=== PATIENT | male | born 1940 | race Caucasian/White ===

== ENCOUNTER → 2017-07-11 | Outpatient (REF) | payer MEDICARE ==
[2017-07-14 11:41] LABS: HEPATITIS B SURFACE ANTIBODY NEGATIVE (POSITIVE)
[2017-07-14 11:50] LABS: HEPATITIS B SURFACE ANTIGEN NEGATIVE (NEGATIVE)
[2017-07-14 12:15] LABS: HEPATITIS C VIRUS ABY INDEX < 0.0 INDEX (<0.8)
[2017-07-14 12:16] LABS: HEPATITIS B CORE ANTIBODY IGM NEGATIVE (NEGATIVE)
== END ==
LOC: M LAB REF 17:23
DX: N18.6 End stage renal disease (principal)
CPT/HCPCS: 86706

== ENCOUNTER → 2020-02-03 | Outpatient (CLI) | payer MEDICARE ==
--- NOTE | 2020-02-03 16:36 | REP ---
INDICATION: CHRONIC COMB SYSTOLIC . CHF. COMPARISON: No comparison chest x-ray. TECHNIQUE: Two views.. FINDINGS: There is a multilead pacemaker in the right heart view of the right side. Median sternotomy wires are noted. Mediastinal clips are noted along the left mediastinal contour. Moderate cardiac enlargement is observed. Cardiothoracic ratio 52.6%. Right hemidiaphragm is somewhat elevated. There is platelike atelectasis in the left base versus linear scarring. Pleural angles are sharp. No definite infiltrate. The aorta is calcific and somewhat tortuous. IMPRESSION: Moderate cardiomegaly. Prior sternotomy with of right-sided transvenous pacemaker. Platelike atelectasis left base and elevated right hemidiaphragm. No definite infiltrate.. <Electronically signed by Earl Card > 02/03/20 [id number]
== END ==
LOC: M LAB 09:09
PROVIDERS: ATTEND Internal Medicine Cardiovascular Disease
DX: I25.5 Ischemic cardiomyopathy (principal); I50.42 Chronic combined systolic (congestive) and diastolic (congestive) heart failure; Z95.0 Presence of cardiac pacemaker

== ENCOUNTER 2020-11-18 13:51 | Emergency (ER) | payer MEDICARE ==
[~2020-11-18] VITALS: Ht 180.3 cm; Wt 118.0 kg
[2020-11-18 15:15] VITALS: BP 111/56
== END 2020-11-18 15:44 | disposition home or self-care (01) ==
LOC: M ED 13:51 → EDBD 13:51 → M ED 15:44
DX: I49.1 Atrial premature depolarization (principal); N18.6 End stage renal disease; Z99.2 Dependence on renal dialysis; Z95.0 Presence of cardiac pacemaker; I50.9 Heart failure, unspecified; I12.0 Hypertensive chronic kidney disease with stage 5 chronic kidney disease or end stage renal disease; E78.5 Hyperlipidemia, unspecified; Z95.5 Presence of coronary angioplasty implant and graft

== ENCOUNTER 2020-12-19 14:27 | Inpatient (IN) | payer MEDICARE ==
[~2020-12-19] VITALS: Ht 180.3 cm; Wt 117.2 kg
[2020-12-19 15:18] LABS: BASO % 0.3 % (0.0-1.0); EOS # 0.1 10^3/uL (0.0-0.5); EOS % 0.7 % (0.0-3.0); HEMATOCRIT 38.3 % (42.0-52.0); HEMOGLOBIN 11.9 g/dl (13.5-17.5); LYMPH # 1.2 10^3/uL (1.5-5.0); LYMPH % 13.1 % (24.0-44.0); MEAN CORPUSCULAR HEMOGLOBIN 33.4 pg (27.0-33.0); MEAN CORPUSCULAR HGB CONC 31.1 g/dl (32.0-36.5); MEAN CORPUSCULAR VOLUME 107.6 fl (80.0-96.0); MONO # 0.8 10^3/uL (0.0-0.8); MONO % 8.6 % (2.0-8.0); NEUTROPHILS # 7.2 10^3/uL (1.5-8.5); NEUTROPHILS % 76.3 % (36.0-66.0); PLATELET COUNT, AUTOMATED 199 10^3/uL (150-450); RED BLOOD COUNT 3.56 10^6/uL (4.30-6.10); WHITE BLOOD COUNT 9.4 10^3/uL (4.0-10.0)
--- NOTE | 2020-12-19 15:26 | REP ---
INDICATION: SOB. COMPARISON: None. TECHNIQUE: Sitting AP portable chest x-ray. FINDINGS: Right hemidiaphragm remains elevated. Cardiomegaly is observed moderate in degree. A multilead pacemaker is seen via the right side. Median sternotomy wires are noted. The patient is rotated somewhat to the right. There is fissural thick fluid in the minor fissure on the right. Pulmonary vascular cephalization and congestion is present. IMPRESSION: CHF pattern with vascular cephalization, small amount of right pleural fluid, and elevated right hemidiaphragm. Pacemaker. <Electronically signed by Earl Card > 12/19/20 [id number]
[2020-12-19] MEDS ORDERED: RENATAB5 PO (15:59)
[2020-12-19] MEDS ORDERED: MAG-400T7 PO (15:59)
[2020-12-19] MEDS ORDERED: CALC1CAP PO (15:59)
[2020-12-19] MEDS ORDERED: PANT40TA29 PO (15:59)
[2020-12-19] MEDS ORDERED: GLIP10TA18 PO (15:59)
[2020-12-19] MEDS ORDERED: CLOP75TA2 PO (15:59)
[2020-12-19] MEDS ORDERED: GABA-1171 PO (15:59)
[2020-12-19] MEDS ORDERED: FEBU40TA2 PO (15:59)
[2020-12-19] MEDS ORDERED: ATOR1TAB21 PO (15:59)
[2020-12-19] MEDS ORDERED: MIDO5TA PO (15:59)
[2020-12-19] MEDS ORDERED: CARV3.12 PO (15:59)
[2020-12-19] MEDS ORDERED: METO1TAB32 PO (15:59)
[2020-12-19] MEDS ORDERED: LIDO1CRE42 TOP (15:59)
[2020-12-19] MEDS ORDERED: SOD POLYSTYRENE SULFONATE SUSP 15 GM/60 ML UD PO ONE (16:00)
[2020-12-19 16:02] LABS: CALCIUM LEVEL 7.7 MG/DL (8.8-10.2); CK-MB VALUE MASS 5.8 NG/ML (<3.6); CREATININE FOR GFR 15.1 MG/DL (0.70-1.30); GLOMERULAR FILTRATION RATE 3.3 (>42); MB/CK RELATIVE INDEX 6.37 (< OR =4); POTASSIUM SERUM 6.5 MEQ/L (3.5-5.1); RSV AMPLIFICATION NEGATIVE (NEGATIVE); TROPONIN I 0.02 NG/ML (< 0.10)
[2020-12-19] MEDS ORDERED: MED REC COMMENT (16:03)
[2020-12-19] MEDS ORDERED: HOME MED LIST COMPLETE! XX SCH (16:05)
[2020-12-19] MEDS ORDERED: LIDOCAINE 1% SDV 5ML VIAL SC PRN (16:20)
[2020-12-19] MEDS ORDERED: DEXTROSE 50% 50 ML SYRINGE IV PRN (16:55)
[2020-12-19] MEDS ORDERED: GLUCOSE 4GM CHEW TABLET PO PRN (16:55)
[2020-12-19] MEDS ORDERED: GLUCAGON INJ 1MG VIAL SC PRN (16:55)
[2020-12-19] MEDS: HumaLOG INSULIN (NovoLOG) PER UNIT SC SCH ×2 (17:30→21:00)
[2020-12-19] MEDS ORDERED: MIDODRINE 5 MG TAB PO SCH (18:30)
[2020-12-19] MEDS: GABAPENTIN 100 MG CAP PO SCH (21:57)
[2020-12-19] MEDS: HEPARIN SOD (PORCINE) 5000UNITS/ML 1ML VIAL/SYRINGE SC SCH (21:57)
[2020-12-19 22:00] VITALS: BP 122/72
--- NOTE | 2020-12-19 22:36 | CR ---
NEPHROLOGY CONSULTATION DATE: 12/19/2020 REQUESTING PHYSICIAN: Dr. Josse Shaw CONSULTING PHYSICIAN: Dr. Angie Cadet REASON FOR CONSULTATION: Management of end-stage renal disease, hyperkalemia and fluid overload. CHIEF COMPLAINT: The patient was brought into the Emergency Room after missing multiple sessions of dialysis. HISTORY OF PRESENT ILLNESS: Dell Richard is a 80-year-old male with a past medical history of end-stage renal disease, on hemodialysis, history of coronary artery disease, severe cardiomyopathy, and chronic bradycardia, multiple other comorbidities as mentioned below. He missed his three sessions of dialysis last week, and he attributed this to having abnormal blood sugar levels and having loose stools at home. After missing three sessions of dialysis the patient was called by the dialysis center. He did not fruit picker the phone so police were sent for a welfare check. The police woke him up at home and brought him to the Emergency Room. The patient was felt to be fluid overloaded. He had electrolyte abnormalities with a potassium of 6.5. His BUN was more than 111. He was admitted under the Hospitalist Service. Nephrology Service was called for help with dialysis. I saw and evaluated the patient in the evening at the bedside. I had already arranged his urgent hemodialysis to be done. He was getting his dialysis and tolerating the hemodialysis procedure well. PAST MEDICAL HISTORY: The patient's past medical history is significant for: 1. End-stage renal disease, on hemodialysis q. Friday, , Friday. 2. Coronary artery disease, chest pain CABG. 3. Chronic cardiomyopathy. 4. Bradycardia. 5. Insulin dependent diabetic. 6. Hypertension. 7. Gastroesophageal reflux disease. 8. Obesity. PAST SURGICAL HISTORY: The patient's past surgical history is significant for: 1. Status post CABG and stents. 2. Status post AICD and pacemaker placement. 3. Status post AV fistula placement in the left arm. FAMILY HISTORY: No significant family history of end-stage renal disease. SOCIAL HISTORY: The patient lives alone. He is able to perform his activities of daily life. He denies any smoking, illicit drug abuse or alcohol abuse. ALLERGIES: No known drug allergies. REVIEW OF SYSTEMS: Constitutional: He denies any fevers or chills. Eyes: She denies any blurry vision, double vision. ENT: He denies any dysphagia or odynophagia. Cardiovascular: He reports lower extremity edema and low blood pressures. Respiratory: He reports moderate shortness of breath. Gastrointestinal: He denies any nausea or vomiting. He does report abdominal pain. Genitourinary: He reports decreased urine output. Musculoskeletal: He reports lower extremity edema. Skin: He denies any rashes or ulcers. Psych: He denies any depression or anxiety. Hematological/Oncological: He denies any easy bleeding or bruising. Endocrine: He reports diabetes. All other review of systems is negative. PHYSICAL EXAMINATION: GENERAL APPEARANCE: The patient is awake, alert, oriented times 3, laying in bed in moderate respiratory distress, wearing nasal cannula. VITAL SIGNS: Temperature is 96.9 degrees Fahrenheit, blood pressure was 113/67, pulse is 80, respiratory rate of 18, saturating 93% on room air. GENERAL APPEARANCE: The patient is awake, alert, oriented x3, laying in bed in no apparent distress. HEAD AND NECK: Extraocular muscles intact. Pupils are equally round and reactive to light. Mucous membranes are moist. Neck is supple. There is moderately elevated jugular venous distention. He has facial edema as well. CARDIOVASCULAR: S1, S2, bradycardia, 2+ edema of the bilateral lower extremities. RESPIRATORY: Decreased breath sounds bilaterally at the bases with inspiratory crackles. ABDOMEN: Soft, positive bowel sounds, abdominal wall edema was noted. MUSCULOSKELETAL: No clubbing or cyanosis. Edema of the lower extremities was noted. PROJECT GEOPHYSICIST: No focal deficits. Power is 5/5 in all extremities. LABORATORY REVIEW: CBC showed a WBC of 9.4, hemoglobin 11.9, platelet count 199. BMP showed sodium of 138, potassium 6.5, chloride 99, bicarbonate 25, BUN 111, creatinine is 15.1, calcium 7.7, troponin 0.02. IMAGING: A chest x-ray was done today in the afternoon which showed a CHF pattern with vascular cephalization, small amount of right pleural fluid and elevated right hemidiaphragm. Pacemaker was also noted. CURRENT INPATIENT MEDICATIONS: The patient is on: 1. Lipitor 20 mg daily. 2. Plavix 75 mg daily. 3. Uloric 40 mg p.o. daily. 4. Gabapentin 100 mg p.o. twice daily. 5. Metoprolol XL 25 mL p.o. daily. 6. Midodrine 5 mg p.o. q. h.d. 7. Protonix 40 mg p.o. daily. ASSESSMENT AND PLAN: 1. End-stage renal disease noncompliance with dialysis. The patient missed his one week of dialysis. Urgent hemodialysis is being done today. If needed, another session of dialysis will be done tomorrow morning. 2. Hyperkalemia it is secondary to noncompliance with hemodialysis. The patient is being dialyzed with 1K bath. That should help improve his hyperkalemia. 3. Anemia in end-stage renal disease - hemoglobin is more than 11. No need of Aranesp administration at this time. 4. Chronic hypotension - The patient gets a dose of Midodrine before dialysis. 5. Cardiomyopathy and coronary artery disease - continue current dose of Lipitor and Plavix. I am stopping the Metoprolol. The patient has chronic bradycardia. 6. Chronic gout secondary to chronic kidney disease - continue current dose of Uloric 40 mg p.o. daily. 7. Diabetes mellitus type 2 insulin sliding scale as per Medical Team. Avoid use of Metformin. Thank you for involving me in the care of this patient. I shall be happy to follow the patient along with you tomorrow morning.
[2020-12-19 23:20] LABS: ALBUMIN 3.7 GM/DL (3.2-5.2); BILIRUBIN,TOTAL 0.6 MG/DL (0.2-1.0); CALCIUM LEVEL 8.1 MG/DL (8.8-10.2); CREATININE FOR GFR 10.6 MG/DL (0.70-1.30); MAGNESIUM LEVEL 2.6 MG/DL (1.8-2.4); POTASSIUM SERUM 4.9 MEQ/L (3.5-5.1); TOTAL PROTEIN 7.2 GM/DL (6.4-8.2)
[2020-12-20] MEDS ORDERED: ACETAMINOPHEN 500 MG TAB PO ONE (02:04)
[2020-12-20] MEDS ORDERED: ACETAMINOPHEN 500 MG TAB As Ordered ONE (02:45)
--- NOTE | 2020-12-20 05:33 | ECGEPIP ---
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
[2020-12-20] MEDS ORDERED: LIDOCAINE 1% SDV 5ML VIAL SC PRN (06:00)
[2020-12-20] MEDS: HEPARIN SOD (PORCINE) 5000UNITS/ML 1ML VIAL/SYRINGE SC SCH ×3 (06:10→20:34)
--- NOTE | 2020-12-20 06:11 | IPNPDOC ---
Text Note Date of Service The patient was seen on 12/20/20. NOTE Notified pt with asymptomatic bradycardia; concern for heart block. Pt with a icd/ pacer. EKG obtained and shows widened qrs. qtc 555. LBBB, PVCs noted on ekg. No previous ekg on file to compare. Pt seen at bedside and reports he "feels fine". He is on 2lNC and endorses cpap nocturnally. Pt reports he sees Dr. Salinas for cardiology. He reports it has been less than a year since last interrogation. He describes a monitoring device and cardiology reviews rhythms on monthly basis. Electrolytes redrawn with K 4.9 mag 2.6. EKG vent rate 90 bpm. Pt CTA, he does have notable extrasystoles with auscultation. He has not been given metoprolol, this has been held today. Plan for continued monitoring. CPAP ordered. Update: during AM, notified again tele with concern for pt pauses 3 to 4 seconds. Pt still without complaints. He had not had CPAP placed, only 2L NC. Stat EKG ordered. qtc 538. pacer spikes noted vent rate 70. PVCs and again wide QRS. Tele strips on file. Consider cardiology feedback/ consult for possible pacer interrogation. Metoprolol is held presently. AM labwork to be obtained now for electrolyte monitoring- pt is to go for HD today. He remains full code. VS,Fishbone, I+O VS, Fishbone, I+O Laboratory Tests 12/19/20 14:47 12/19/20 22:35 Vital Signs Date Time Temp Pulse Resp B/P (MAP) Pulse Ox O2 Delivery O2 Flow Rate FiO2 12/19/20 22:00 98.0 57 17 122/72 (89) 98 Nasal Cannula 4.0 I&O- Last 24 Hours up to 6 AM 12/20/20 06:00 Intake Total 300 ml Output Total 3500 ml Balance -3200 ml YUVAL KEYES NP Dec 20, 2020 05:46
[2020-12-20 06:16] VITALS: BP_SYST 0; BP_SYST 100; BP_DIAS 0; BP_DIAS 62
[2020-12-20 06:24] LABS: HEMATOCRIT 33.2 % (42.0-52.0); HEMOGLOBIN 10.3 g/dl (13.5-17.5); MEAN CORPUSCULAR HEMOGLOBIN 33.2 pg (27.0-33.0); MEAN CORPUSCULAR VOLUME 107.1 fl (80.0-96.0); PLATELET COUNT, AUTOMATED 155 10^3/uL (150-450); WHITE BLOOD COUNT 8.5 10^3/uL (4.0-10.0)
--- NOTE | 2020-12-20 06:29 | ECGEPIP ---
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
--- NOTE | 2020-12-20 06:38 | ECGEPIP ---
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
[2020-12-20 07:28] LABS: BLOOD UREA NITROGEN 67 MG/DL (7-18); CALCIUM LEVEL 7.7 MG/DL (8.8-10.2); CARBON DIOXIDE LEVEL 25 MEQ/L (21-32); CHLORIDE LEVEL 102 MEQ/L (98-107); GLOMERULAR FILTRATION RATE 4.8 (>42); GLUCOSE, FASTING 144 MG/DL (70-100); MAGNESIUM LEVEL 2.7 MG/DL (1.8-2.4); POTASSIUM SERUM 5.1 MEQ/L (3.5-5.1); SODIUM LEVEL 139 MEQ/L (136-145)
[2020-12-20] MEDS ORDERED: MORPHINE 2 MG/ML 1ML VIAL (J2270) IV ONE (08:20)
[2020-12-20] MEDS: HumaLOG INSULIN (NovoLOG) PER UNIT SC SCH ×4 (08:31→20:34)
[2020-12-20] MEDS: ATORVASTATIN 20 MG TAB PO SCH (08:31)
[2020-12-20] MEDS: CLOPIDOGREL 75 MG TAB PO SCH (08:31)
[2020-12-20] MEDS: FEBUXOSTAT 40 MG TABLET (ULORIC) PO SCH (08:31)
[2020-12-20] MEDS: GABAPENTIN 100 MG CAP PO SCH ×2 (08:31→20:33)
[2020-12-20] MEDS: PANTOPRAZOLE 40MG TAB (PROTONIX) PO SCH (08:31)
[2020-12-20 08:43] VITALS: BP 94/60
[2020-12-20] MEDS ORDERED: METOPROLOL SUCC *XL* 25MG TAB (TopROL *XL*) PO SCH (09:00)
--- NOTE | 2020-12-20 09:12 | REP ---
INDICATION: r/o obstruction. COMPARISON: None. FINDINGS: KUB shows the intestinal gas pattern to be nonspecific. The organ silhouettes insofar as delineated are unremarkable. There is no evidence of free intraperitoneal air. The stool pattern is unremarkable IMPRESSION: Nonspecific. <Electronically signed by Maximus Pompa > 12/20/20 0994
[2020-12-20 10:37] LABS: VITAMIN B12 LEVEL 773 PG/ML (247-911)
[2020-12-20 10:38] LABS: FOLATE > 24.0 NG/ML (>5.4)
--- NOTE | 2020-12-20 12:03 | IPNPDOC ---
Subjective Date Seen The patient was seen on 12/20/20. Subjective Chief Complaint/HPI Patient seen and examined at bedside this morning. He complained of having abdominal pain that he attributes " too much fluid". He denied nausea, problems with urination or bowel movements. He also denied shortness of breath, palpitations, and chest pain. Overnight signout patient had 3 to 4-second pauses, PVCs, and wide QRS. Objective Physical Examination Other physical findings PHYSICAL EXAMINATION: VITAL SIGNS: Please see below General: Lying in bed, no acute distress Head/Neck/Throat: Trachea midline, mucous membranes moist Eyes: Sclera anicteric, no erythema or discharge appreciated bilaterally Thorax: Normal respiratory effort on room air, crackles heard bilaterally Cardiovascular: Normal rate, regular rhythm, normal S1, S2; 2+ pitting edema in the lower extremities, JVD difficult to assess due to body habitus Abdomen: Bowel sounds present, soft, tenderness reported with palpation, no rebound, positive fluid wave Genitourinary: No CVA tenderness, no Miller in place Musculoskeletal: Moving all extremities, no edema Skin: Warm, dry Neurologic: Awake, alert, oriented x3. No focal deficits appreciated Assessment /Plan Assessment #Abdominal pain -KUB did not show any acute pathology. Abd u/s did not reveal fluid collection. Pt following today's dialysis reported improvement in his symptoms. #Missed dialysis -Will be going down for dialysis today again with fluid removal. -Does not make any urine therefore will not benefit from any diuretic therapy. #End-stage renal disease -Continue with regular dialysis sessions once acute sessions are completed. #Coronary artery disease -Continue with clopidogrel, metoprolol, and statin therapy -Patient has pacemaker/ICD in place. Overnight there is reported pauses, PVCs and widened QRS. Called [employer] to have pacemaker/icd interrogated; awaiting interrogation. #Hyperlipidemia -Continue with statin therapy #Diabetes mellitus -Hold oral diabetic medications at this time. Sliding scale. Hypoglycemic protocol. Accu-Cheks. -Continue with gabapentin for diabetic neuropathy #DVT prophylaxis Heparin subcu. Plan/VTE VTE Prophylaxis Ordered?: Yes VS, I&O, 24H, Fishbone Vital Signs/I&O Vital Signs Date Time Temp Pulse Resp B/P (MAP) Pulse Ox O2 Delivery O2 Flow Rate FiO2 12/20/20 08:43 94/60 (71) 12/20/20 08:40 18 12/20/20 06:16 98.0 81 98 Nasal Cannula 4.0 I&O- Last 24 Hours up to 6 AM 12/20/20 06:00 Intake Total 300 ml Output Total 3500 ml Balance -3200 ml Laboratory Data 24H LABS Laboratory Tests 2 12/19/20 14:47: Immature Granulocyte % (Auto) 1.0, Neutrophils (%) (Auto) 76.3H, Lymphocytes (%) (Auto) 13.1L, Monocytes (%) (Auto) 8.6H, Eosinophils (%) (Auto) 0.7, Basophils (%) (Auto) 0.3, Neutrophils # (Auto) 7.2, Lymphocytes # (Auto) 1.2L, Monocytes # (Auto) 0.8, Eosinophils # (Auto) 0.1, Basophils # (Auto) 0.0, Nucleated Red Blood Cells % (auto) 0.0, Anion Gap 14, Glomerular Filtration Rate 3.3L, Calcium Level 7.7L, Total Creatine Kinase 91, Creatine Kinase MB 5.8H, Creatine Kinase MB Relative Index 6.37H, Troponin I 0.02, Coronavirus (COVID-19)(PCR) NEGATIVE, Influenza Type A (RT-PCR) NEGATIVE, Influenza Type B (RT-PCR) NEGATIVE, Respiratory Syncytial Virus (PCR) NEGATIVE 12/19/20 21:27: Bedside Glucose (Misc Panel) 124H 12/19/20 22:35: Anion Gap 8, Glomerular Filtration Rate 5.0L, Calcium Level 8.1L, Magnesium Level 2.6H, Total Bilirubin 0.6, Aspartate Amino Transf (AST/SGOT) 6L, Alanine Aminotransferase (ALT/SGPT) 19, Alkaline Phosphatase 68, Total Protein 7.2, Albumin 3.7, Albumin/Globulin Ratio 1.1 12/20/20 01:06: Bedside Glucose (Misc Panel) 184H 12/20/20 06:01: Nucleated Red Blood Cells % (auto) 0.0, Anion Gap 12, Glomerular Filtration Rate 4.8L, Calcium Level 7.7L, Phosphorus Level 6.0H, Magnesium Level 2.7H, Vitamin B12 Level 773, Folate > 24.0 CBC/BMP Laboratory Tests 12/19/20 14:47 12/19/20 22:35 12/20/20 06:01 MADDY CHE M.D. Dec 20, 2020 12:02
[2020-12-20 12:49] LABS: ALBUMIN 3.4 GM/DL (3.2-5.2); TOTAL PROTEIN 6.4 GM/DL (6.4-8.2)
--- NOTE | 2020-12-20 12:57 | IPNPDOC ---
Subjective CC/HPI The patient is a 80-year-old male admitted with a reason for visit of Esrd On Hemodialysis,Hyperkalemia,Noncompliance. Events since last encounter Pt seen during HD again today. Feels much better today. Edema and SOB improving. Urgent HD done yesterday after 1 week. General: Denies: ROS Unobtainable, Chills, Night Sweats, Fatigue, Malaise, Normal Appetite, Other Symptoms Constitutional: Denies: Chills, Fever, Malaise, Night Sweats, Weakness, Fatigue, Weight Loss, Lethargy, Other Eyes: Denies: Pain, Vision change, Conjunctivae inflammation, Eyelid infla mmation, Redness, Other ENT: Denies: Head Aches, Ear Pain, Dysphagia, Sinus Congestion, Post Nasal Drip, Sore Throat, Epistaxis, Other Symptoms Skin: Denies: Rash, Lesions, Jaundice, Bruising, Itching, Dry, Breakdown, Nail Changes, Other Pulmonary: Reports: Dyspnea (Improving) Cardiovascular: Denies: Chest Pain, Palpitations, Orthopnea, Paroxysmal Noc. Dyspnea, Edema, Lt Headedness, Other Symptoms Gastrointestinal: Denies: Nausea, Vomiting, Abdominal Pain, Diarrhea, Constipation, Melena, Hematochezia, Other Symptoms Genitourinary: Denies: Dysuria, Frequency, Incontinence, Hematuria, Retention, Other Symptoms Hematologic: Denies: Bruising, Bleeding Excessively, Petecchia, Purpura, Enlarged Lymph Nodes, Other Hematologic Musculoskeletal: Denies: Neck Pain, Back Pain, Shoulder Pain, Arm Pain, Hand Pain, Leg Pain, Foot Pain, Joint Pain, Muscle Pain, Spasms, Other Symptoms Neurological: Denies: Weakness, Numbness Psych: Reports: Mood Normal Objective Physical Examination General Exam: Alert, No Acute Distress EYE EXAM: PERRLA, Conjunctiva & lids normal, EOMI ENT EXAM: Atraumatic, Mucous membr. moist/pink Neck Exam: Supple, JVD Chest Exam: Clear to auscultation, Normal air movement Heart Exam: Rate Normal, Normal S1, Normal S2 ABDOMEN EXAM: Normal bowel sounds, Soft; No: Tenderness Male Exam: Normal Genital Exam Extremity Exam: Edema (1+ edema); No: Clubbing, Cyanosis Skin Exam: Nl turgor and temperature; No: Rash Neuro Exam: Normal Speech, Strength at 5/5 X4 ext Psych Exam: Mental status NL, Mood NL Vital Signs/I&O Vital Signs Date Time Temp Pulse Resp B/P (MAP) Pulse Ox O2 Delivery O2 Flow Rate FiO2 12/20/20 08:43 94/60 (71) 12/20/20 08:40 18 12/20/20 06:16 98.0 81 98 Nasal Cannula 4.0 I&O- Last 24 Hours up to 6 AM 12/20/20 06:00 Intake Total 300 ml Output Total 3500 ml Balance -3200 ml Laboratory Data Labs 24H Laboratory Tests 2 12/19/20 14:47: Immature Granulocyte % (Auto) 1.0, Neutrophils (%) (Auto) 76.3H, Lymphocytes (%) (Auto) 13.1L, Monocytes (%) (Auto) 8.6H, Eosinophils (%) (Auto) 0.7, Basophils (%) (Auto) 0.3, Neutrophils # (Auto) 7.2, Lymphocytes # (Auto) 1.2L, Monocytes # (Auto) 0.8, Eosinophils # (Auto) 0.1, Basophils # (Auto) 0.0, Nucleated Red Blood Cells % (auto) 0.0, Anion Gap 14, Glomerular Filtration Rate 3.3L, Calcium Level 7.7L, Total Creatine Kinase 91, Creatine Kinase MB 5.8H, Creatine Kinase MB Relative Index 6.37H, Troponin I 0.02, Coronavirus (COVID-19)(PCR) NEGATIVE, Influenza Type A (RT-PCR) NEGATIVE, Influenza Type B (RT-PCR) NEGATIVE, Respiratory Syncytial Virus (PCR) NEGATIVE 12/19/20 21:27: Bedside Glucose (Misc Panel) 124H 12/19/20 22:35: Anion Gap 8, Glomerular Filtration Rate 5.0L, Calcium Level 8.1L, Magnesium Level 2.6H, Total Bilirubin 0.6, Aspartate Amino Transf (AST/SGOT) 6L, Alanine Aminotransferase (ALT/SGPT) 19, Alkaline Phosphatase 68, Total Protein 7.2, Albumin 3.7, Albumin/Globulin Ratio 1.1 12/20/20 01:06: Bedside Glucose (Misc Panel) 184H 12/20/20 06:01: Nucleated Red Blood Cells % (auto) 0.0, Anion Gap 12, Glomerular Filtration Rate 4.8L, Calcium Level 7.7L, Phosphorus Level 6.0H, Magnesium Level 2.7H, Total Protein 6.4, Albumin 3.4, Vitamin B12 Level 773, Folate > 24.0 CBC/BMP Laboratory Tests 12/19/20 14:47 12/19/20 22:35 12/20/20 06:01 FSBS Laboratory Tests Test 12/19/20 21:27 12/20/20 01:06 Range/Units Bedside Glucose (Misc Panel) 124 184 83-110 MG/DL Current Medications Current Medications Medications (Trade) Dose Ordered Sig/Lisa Route PRN Reason Start Time Stop Time Status Last Admin Dose Admin Atorvastatin Calcium (Lipitor) 20 mg DAILY PO 12/20/20 09:00 12/20/20 08:31 Clopidogrel Bisulfate (PLAVix) 75 mg DAILY PO 12/20/20 09:00 12/20/20 08:31 Dextrose (Dextrose 50%) 25 ml ASDIRECTED PRN IV SEE LABEL COMMENTS 12/19/20 16:55 Febuxostat (Uloric) 40 mg DAILY PO 12/20/20 09:00 12/20/20 08:31 Gabapentin (Neurontin) 100 mg BID PO 12/19/20 21:00 12/20/20 08:31 Glucagon (Glucagon) 1 mg ASDIRECTED PRN SC SEE LABEL COMMENTS 12/19/20 16:55 Glucose (Glucose) 16 GM ASDIRECTED PRN PO SEE LABEL COMMENTS 12/19/20 16:55 Heparin Sodium (Heparin) Please refer to ... ASDIRECTED XX 12/19/20 16:20 12/20/20 16:19 Heparin Sodium (Heparin) Please refer to ... ASDIRECTED XX 12/20/20 06:00 12/21/20 05:59 Heparin Sodium (Porcine) (Heparin) 5,000 units Q8H SC 12/19/20 22:00 12/20/20 06:10 Home Med (Home Med List Complete!) ASDIRECTED XX 12/19/20 16:05 12/19/20 16:05 DC Insulin Human Lispro (HumaLOG INSULIN) SEE PROTOCOL TABLE AC SC 12/19/20 17:30 12/20/20 08:31 Insulin Human Lispro (HumaLOG INSULIN) SEE PROTOCOL TABLE QHS SC 12/19/20 21:00 Lidocaine HCl (Lidocaine 1% Sdv) 0.5 ml ASDIRECTED PRN SC SEE LABEL COMMENTS 12/19/20 16:20 12/20/20 16:19 Lidocaine HCl (Lidocaine 1% Sdv) 0.5 ml ASDIRECTED PRN SC SEE LABEL COMMENTS 12/20/20 06:00 12/20/20 21:59 Metoprolol Succinate (TopROL XL) 25 mg DAILY PO 12/20/20 09:00 12/19/20 23:23 DC Midodrine (Proamatine) 5 mg HD PO 12/19/20 18:30 Pantoprazole Sodium (Protonix) 40 mg DAILY PO 12/20/20 09:00 12/20/20 08:31 Allergies Coded Allergies: No Known Allergies (Verified Allergy, Unknown, 12/19/20) Assessment/Plan Date Seen The patient was seen on 12/20/20 at 12:53. Plan / VTE VTE Prophylaxis Ordered?: Yes Plan Orders past 48 Hours Orders Ed Insert Saline Lock Iv (12/19/20 ) Ed Continuous Intake Counselor (12/19/20 ) Ed Continuous Pulse Oximetry (12/19/20 ) Ecg With Reading Er Phys (12/19/20 14:42) Cbc With Differential (12/19/20 14:42) Basic Metabolic Profile (12/19/20 14:42) Cardiac Marker Panel (12/19/20 14:42) Chest, 1 View (12/19/20 14:42) Influenza A/B Rsv Covid Amp (12/19/20 14:42) Bed Request (12/19/20 14:42) Home Med List Complete! (Home Med List C (12/19/20 16:05) Bed Request (12/19/20 16:06) Hemodialysis Acute Orders (12/19/20 16:17) Heparin (Heparin) (12/19/20 16:20) Lidocaine 1% Sdv (Lidocaine 1% Sdv) (12/19/20 16:20) Admission / Observation Status (12/19/20 16:40) Remote Telemetry 48 Hr Order (12/19/20 16:40) Code Status (12/19/20 16:40) Vital Signs Standard Of Care (12/19/20 16:40) Activity As Tolerated (12/19/20 16:40) Intake & Output: Qmp Order (12/19/20 16:40) Fsbs Ac&Hs (Fingerstick) ACHS (12/19/20 16:40) Saline Lock Iv (12/19/20 16:40) Notify Provider If: (12/19/20 16:40) Oxygen Therapy Orders (12/19/20 16:40) Consistent Carbohydrates (12/19/20 Dinner) Heparin (Heparin) (12/19/20 22:00) Complete Blood Count (12/20/20 06:00) Basic Metabolic Profile (12/20/20 06:00) Magnesium Level (12/20/20 06:00) Phosphorous Level (12/20/20 06:00) Hypoglycemic Protocol (12/19/20 16:54) Insulin Lispro (Humalog Insulin) (12/19/20 17:30) Insulin Lispro (Humalog Insulin) (12/19/20 21:00) D50w (Dextrose 50%) (12/19/20 16:55) Glucose (Glucose) (12/19/20 16:55) Glucagon (Glucagon) (12/19/20 16:55) Physician Consult (Other) (12/19/20 16:55) Atorvastatin (Lipitor) (12/20/20 09:00) Clopidogrel Bisulfate (Plavix) (12/20/20 09:00) Febuxostat (Uloric) (12/20/20 09:00) Gabapentin (Neurontin) (12/19/20 21:00) Metoprolol Succinate (Toprol Xl) (12/20/20 09:00) Midodrine Hcl (Proamatine) (12/19/20 18:30) Pantoprazole Dr (Protonix) (12/20/20 09:00) Folate (12/20/20 06:00) Vitamin B12 Level (12/20/20 06:00) Fingerstick Blood Sugar (12/19/20 21:27) Hemodialysis Acute Orders (12/20/20 06:00) Heparin (Heparin) (12/20/20 06:00) Lidocaine 1% Sdv (Lidocaine 1% Sdv) (12/20/20 06:00) Complete Comphrensive Metaboli (12/19/20 22:17) Magnesium Level (12/19/20 22:17) * Nursing Order * (12/19/20 22:19) Electrocardiogram Adult (12/19/20 23:14) May Use Own Cpap/Bipap (12/20/20 00:13) Fingerstick Blood Sugar (12/20/20 01:06) Acetaminophen Tab (Tylenol Tab) (12/20/20 02:04) Electrocardiogram Adult (12/20/20 05:31) Abdomen,Flat Plate Kub (12/20/20 08:14) Paracentesis Needle Place Us (12/20/20 08:14) Morphine Sulfate Inj (Morphine Sulfate I (12/20/20 08:20) Cell Count Peritoneal Fluid (12/20/20 10:22) Total Protein, Body Fluid (12/20/20 10:22) Albumin, Body Fluid (12/20/20 10:22) Body Fluid Culture And Gs (12/20/20 10:22) Complete Blood Count (12/21/20 06:00) Basic Metabolic Profile (12/21/20 06:00) Magnesium Level (12/21/20 06:00) Phosphorous Level (12/21/20 06:00) Albumin (12/20/20 06:01) Total Protein (12/20/20 06:01) Plan Text 1. End-stage renal disease noncompliance with dialysis. The patient missed his one week of dialysis. 2nd sessions of HD today. UF goal 3.5Kg 2. Hyperkalemia: resolved with HD yesterday. Use 2K bath today. 3. Anemia in end-stage renal disease - SAIDA if Hb<10 4. Chronic hypotension - The patient gets a dose of Midodrine before dialysis. 5. Cardiomyopathy and coronary artery disease - continue current dose of Lipitor and Plavix. Volume status to be optimized with HD. 6. Chronic gout secondary to chronic kidney disease - continue current dose of Uloric 40 mg p.o. daily. 7. Diabetes mellitus type 2 insulin sliding scale as per Medical Team. Avoid use of Metformin. MARSHAL TADEO MD Dec 20, 2020 12:56
[2020-12-20 14:00] VITALS: BP 114/52
[2020-12-20] MEDS ORDERED: SODIUM BICARBONATE 8.4% INJ 50MEQ 50 ML VIAL As Ordered ONE (15:52)
--- NOTE | 2020-12-20 16:05 | ECGEPIP ---
[facility] Test Date: 2020-12-20 Pat Name: KIYA FALK Department: Room: [place] [address] Gender: Male Head [employer] Grinder: AMI : 1940 Requested By: MADDY Clifford Order Number: [id number] Reading MD: Bertha Shaw Measurements Intervals [place] Rate: 70 P: 8 ME: 112 QRS: 156 QRSD: 162 T: 20 QT: 502 QTc: 542 Interpretive Statements AV dual-paced complexes and premature ventricular complexes in a pattern of bigeminy ATRIAL PACING NOW SEEN C/W 12/20/20 Electronically Signed on 12-20-2020 16:05:24 EDT by Bertha Shaw
[2020-12-20 16:21] LABS: ALBUMIN 3.5 GM/DL (3.2-5.2); BILIRUBIN,TOTAL 0.7 MG/DL (0.2-1.0); CALCIUM LEVEL 8.1 MG/DL (8.8-10.2); CREATININE FOR GFR 6.57 MG/DL (0.70-1.30); GLOMERULAR FILTRATION RATE 8.7 (>42); POTASSIUM SERUM 4.2 MEQ/L (3.5-5.1); TOTAL PROTEIN 6.5 GM/DL (6.4-8.2)
--- NOTE | 2020-12-20 16:33 | REP ---
INDICATION: please assess for fluid. Diagnostic and theraputic. COMPARISON: None. TECHNIQUE: Four quadrant ascites survey. Limited abdominal sonography. FINDINGS: Four quadrant survey for abdominal ascites shows no visible ascitic fluid in any of the 4 quadrants of the abdomen. IMPRESSION: Negative for ascites. <Electronically signed by Earl Card > 12/20/20 1377
[2020-12-20 22:00] VITALS: BP 105/66
--- NOTE | 2020-12-21 01:22 | HPEPDOC ---
[facility] Medical History & Physical Date of Admission Dec 19, 2020 Date of Service: Dec 19, 2020 History and Physical CHIEF COMPLAINT: " I missed dialysis" HISTORY OF PRESENT ILLNESS: 80-year-old male with a past medical history of end-stage renal disease, coronary artery disease (status post stents and CABG), insulin-dependent diabetes mellitus, hypertension, ?chronic respiratory failure (reports he is on home 02) and GERD presented to the emergency department following missing 3 dialysis sessions. Patient reports he did not attend to his first missed dialysis session because his blood glucose was low and when he was able to bring it back up he was feeling better and thought he did not need dialysis. He subsequently missed his second dialysis session because he was reportedly having loose stools, which have now resolved. His third dialysis session was reportedly was scheduled for today. This morning he got up to eat breakfast, and went back to sleep, and was not for attending to his cell phone therefore his dialysis center called police to check up on him. Please woke him up and brought him to the emergency department for further evaluation. In the emergency room department he was noted to have metabolic derangements. At this junction, he was lethargic but answering questions appropriately and following commands. He endorsed having abdominal pain that started today which he attributed to possibly having fluid accumulated as this is happened to him before. He denied nausea, vomiting. Otherwise, he denies headaches, blurry vision, focal weakness, palpitations, chest pain, and shortness of breath. Of note, patient is a very poor historian. He reports he lives alone and he has 1 sister in [place]. CODE STATUS was discussed with the patient he wishes to remain full code. PAST MEDICAL HISTORY: As mentioned above PAST SURGICAL HISTORY: 1. Status post stents and CABG 2. AICD/pacemaker in place SOCIAL HISTORY: He lives alone and reports he is normally independent with his ADLs/IADLs. He denies smoking, drinking, and use of recreational drugs. FAMILY HISTORY: Unable to recollect family history ALLERGIES: Please see below. REVIEW OF SYSTEMS: 10 point review of system was negative except for what is noted in the HPI HOME MEDICATIONS: Please see below. PHYSICAL EXAMINATION: VITAL SIGNS: Please see below General: Lying in bed, no acute distress Head/Neck/Throat: Trachea midline, mucous membranes moist Eyes: Sclera anicteric, no erythema or discharge appreciated bilaterally Thorax: Normal respiratory effort on room air, crackles heard bilaterally Cardiovascular: Normal rate, regular rhythm, normal S1, S2; 2+ pitting edema in the lower extremities, JVD difficult to assess due to body habitus Abdomen: Bowel sounds present, soft/nontender/nondistended Genitourinary: No CVA tenderness, no Miller in place Musculoskeletal: Moving all extremities, no edema Skin: Warm, dry Neurologic: Awake, alert, oriented x3. He is lethargic but arousable and follows all commands. No focal deficit was appreciated. LABORATORY DATA: See below. IMAGING: Chest x-ray shows findings consistent with pleural edema MICROBIOLOGY: Please see below. ASSESSMENT/PLAN: #Missed dialysis -Will be going down for dialysis today. He would benefit from ultrafiltration. This will be deferred to the nephrology team -Does not make any urine therefore will not benefit from any diuretic therapy. #End-stage renal disease -Continue with regular dialysis sessions #Coronary artery disease -Continue with clopidogrel, metoprolol, and statin therapy #Hyperlipidemia -Continue with statin therapy #Diabetes mellitus -Hold oral diabetic medications at this time. Sliding scale. Hypoglycemic protocol. Accu-Cheks. -Continue with gabapentin for diabetic neuropathy #Chronic respiratory failure -Reports he is on 3-4l at home. This will need to be confirmed. #DVT prophylaxis Heparin subcu. Vital Signs Vital Signs Date Time Temp Pulse Resp B/P (MAP) Pulse Ox O2 Delivery O2 Flow Rate FiO2 12/19/20 14:40 98.2 79 24 126/72 (90) 98 Room Air 2.0 Laboratory Data Labs 24H Laboratory Tests 2 12/19/20 14:47: Immature Granulocyte % (Auto) 1.0, Neutrophils (%) (Auto) 76.3H, Lymphocytes (%) (Auto) 13.1L, Monocytes (%) (Auto) 8.6H, Eosinophils (%) (Auto) 0.7, Basophils (%) (Auto) 0.3, Neutrophils # (Auto) 7.2, Lymphocytes # (Auto) 1.2L, Monocytes # (Auto) 0.8, Eosinophils # (Auto) 0.1, Basophils # (Auto) 0.0, Nucleated Red Blood Cells % (auto) 0.0, Anion Gap 14, Glomerular Filtration Rate 3.3L, Calcium Level 7.7L, Total Creatine Kinase 91, Creatine Kinase MB 5.8H, Creatine Kinase MB Relative Index 6.37H, Troponin I 0.02, Coronavirus (COVID-19)(PCR) NEGATIVE, Influenza Type A (RT-PCR) NEGATIVE, Influenza Type B (RT-PCR) NEGATIVE, Respiratory Syncytial Virus (PCR) NEGATIVE CBC/BMP Laboratory Tests 12/19/20 14:47 Home Medications Scheduled Atorvastatin Calcium (Atorvastatin Calcium) 20 Mg Tablet, 20 MG PO DAILY Calcium Acetate (Calcium Acetate) 667 Mg Capsule, 667 MG PO WM Clopidogrel Bisulfate (Clopidogrel) 75 Mg Tablet, 75 MG PO DAILY Febuxostat (Febuxostat) 40 Mg Tablet, 40 MG PO DAILY Folic Acid/Vit B Complex and C (Gloria-Lety Tablet) 0.8 Mg Tablet, 1 TAB PO Q2D Gabapentin (Gabapentin) 100 Mg Capsule, 100 MG PO BID Glipizide (Glipizide ER) 10 Mg Tab.er.24, 10 MG PO DAILY Lidocaine/Prilocaine (Lidocaine-Prilocaine Cream) 2.5%/2.5% Cream..g., 1 APLCT TOP HD Magnesium Oxide (Magnesium Oxide) 400 Mg Tablet, 400 MG PO BID Metoprolol Succinate (Metoprolol Succinate) 25 Mg Tab.er.24h, 25 MG PO DAILY Midodrine HCl (Midodrine HCl) 5 Mg Tablet, 5 MG PO HD Pantoprazole Sodium (Pantoprazole Sodium) 40 Mg Tablet.dr, 40 MG PO DAILY Miscellaneous Medications [Med Rec Comment] LIST OBTAINED FROM PHARMACY, PT UNABLE TO VERIFY Allergies Coded Allergies: No Known Allergies (Verified Allergy, Unknown, 12/19/20) A-FIB/CHADSVASC A-FIB History Current/History of A-Fib/PAF?: No MADDY CHE M.D. Dec 19, 2020 16:53
[2020-12-21] MEDS ORDERED: ACETAMINOPHEN 500 MG TAB PO ONE (03:30)
[2020-12-21] MEDS ORDERED: carisoprodoL 350 MG TAB PO PRN (03:30)
[2020-12-21] MEDS: HEPARIN SOD (PORCINE) 5000UNITS/ML 1ML VIAL/SYRINGE SC SCH ×3 (05:04→21:25)
[2020-12-21 06:00] VITALS: BP 96/55
[2020-12-21] MEDS: FEBUXOSTAT 40 MG TABLET (ULORIC) PO SCH (06:00)
[2020-12-21] MEDS ORDERED: LIDOCAINE 1% SDV 5ML VIAL SC PRN (06:00)
[2020-12-21] MEDS: PANTOPRAZOLE 40MG TAB (PROTONIX) PO SCH (06:01)
[2020-12-21] MEDS: ATORVASTATIN 20 MG TAB PO SCH (06:01)
[2020-12-21] MEDS: GABAPENTIN 100 MG CAP PO SCH ×2 (06:01→21:25)
[2020-12-21] MEDS: CLOPIDOGREL 75 MG TAB PO SCH (06:01)
[2020-12-21 06:41] LABS: HEMATOCRIT 32.3 % (42.0-52.0); MEAN CORPUSCULAR HEMOGLOBIN 32.9 pg (27.0-33.0); MEAN CORPUSCULAR VOLUME 106.3 fl (80.0-96.0); PLATELET COUNT, AUTOMATED 129 10^3/uL (150-450); RED BLOOD COUNT 3.04 10^6/uL (4.30-6.10); WHITE BLOOD COUNT 7.4 10^3/uL (4.0-10.0)
[2020-12-21 07:08] LABS: CALCIUM LEVEL 7.7 MG/DL (8.8-10.2); CREATININE FOR GFR 8.15 MG/DL (0.70-1.30); GLOMERULAR FILTRATION RATE 6.8 (>42); MAGNESIUM LEVEL 2.2 MG/DL (1.8-2.4); PHOSPHORUS LEVEL 4.8 MG/DL (2.5-4.9); POTASSIUM SERUM 4.7 MEQ/L (3.5-5.1)
[2020-12-21 08:01] VITALS: BP 120/59
[2020-12-21] MEDS: HumaLOG INSULIN (NovoLOG) PER UNIT SC SCH ×4 (09:34→20:42)
[2020-12-21] MEDS: DARBEPOETIN 200MCG/0.4ML *DIALYSIS* SYRINGE (J0882 PER 1MCG) IV SCH (12:31)
[2020-12-21 17:05] VITALS: BP 110/58
[2020-12-21] MEDS: MIRALAX *UNIT DOSE* 17GM PACKET PO SCH (17:30)
--- NOTE | 2020-12-21 21:01 | IPNPDOC ---
Text Note Date of Service The patient was seen on 12/21/20. NOTE Hospitalist Progress Note Subjective: Seen and evaluated at the bedside. He had just received his CPAP machine from home, therefore he was putting this together with the help of the nurse. It is hopeful that this will assist with his breathing throughout the night. He does not have any complaints at this time, he is fatigued, likely due to having dialysis every day for the past 3 days. Otherwise, the remainder of his review of systems is negative. Objective: General: Awake, alert, oriented 3. Not in any acute distress. HEENT: Head normocephalic, atraumatic, sclera are nonicteric. Hearing is grossly intact to conversation. Respiratory: Clear to auscultation bilaterally with no wheezes, rales, or rhonchi. Cardiovascular: Regular rate and rhythm, with no rubs, gallops, or murmur. Abdomen: Soft, nontender, nondistended, no hepatosplenomegaly appreciated. Bowel sounds present. Extremities: 2+ pulses in the radial and dorsalis pedis bilaterally. No evidence of clubbing or cyanosis. Assessment/Plan: End-stage renal disease requiring dialysis Noncompliance with dialysis -Nephrology has been consulted and is managing his dialysis, their input is greatly appreciated Abdominal pain -Appears to be resolved at this time Coronary artery disease Bradycardia with pauses despite having pacemaker/ICD in place -Continue clopidogrel, metoprolol, statin -There is a question as to whether or not his pacemaker/ICD is malfunctioning. Apparently consult for interrogation was made by previous doctor, I have not seen any records regarding this. Hyperlipidemia -Continue statin therapy Diabetes mellitus Diabetic neuropathy -Continue insulin per sliding scale -Continue gabapentin DVT prophylaxis -Heparin VS,Fishbone, I+O VS, Fishbone, I+O Laboratory Tests 12/21/20 06:24 Vital Signs Date Time Temp Pulse Resp B/P (MAP) Pulse Ox O2 Delivery O2 Flow Rate FiO2 12/21/20 17:05 97.3 35 18 110/58 (75) 94 Nasal Cannula 3.0 I&O- Last 24 Hours up to 6 AM 12/21/20 06:00 Intake Total 1680 ml Output Total 3500 ml Balance -1820 ml SHANDRA METZGER DO Dec 21, 2020 21:01
--- NOTE | 2020-12-21 21:09 | IPNPDOC ---
Subjective CC/HPI The patient is a 80-year-old male admitted with a reason for visit of Esrd On Hemodialysis,Hyperkalemia,Noncompliance. Events since last encounter Pt was seen at bedside in AM. He c/o constipation. Still SOB despite HD 2 days in a row. Today is his regular day of HD. General: Denies: Chills, Night Sweats, Fatigue, Malaise Constitutional: Denies: Chills, Fever, Malaise Eyes: Denies: Pain, Vision change ENT: Denies: Head Aches, Ear Pain, Dysphagia Skin: Denies: Rash, Lesions Pulmonary: Reports: Dyspnea; Denies: Cough Cardiovascular: Reports: Orthopnea; Denies: Chest Pain, Palpitations Gastrointestinal: Reports: Constipation; Denies: Nausea, Vomiting Genitourinary: Denies: Dysuria, Frequency Hematologic: Denies: Bruising, Bleeding Excessively Musculoskeletal: Denies: Back Pain Neurological: Denies: Weakness, Numbness Psych: Reports: Mood Normal Objective Physical Examination General Exam: Alert, No Acute Distress EYE EXAM: PERRLA, Conjunctiva & lids normal, EOMI ENT EXAM: Atraumatic, Mucous membr. moist/pink Neck Exam: Supple, JVD Chest Exam: Clear to auscultation, Normal air movement Heart Exam: Rate Normal, Normal S1, Normal S2 ABDOMEN EXAM: Normal bowel sounds, Soft; No: Tenderness Male Exam: Normal Genital Exam Extremity Exam: Edema (1+ edema both legs); No: Clubbing, Cyanosis Skin Exam: Nl turgor and temperature; No: Rash Neuro Exam: Normal Speech, Strength at 5/5 X4 ext Psych Exam: Mental status NL, Mood NL Vital Signs/I&O Vital Signs Date Time Temp Pulse Resp B/P (MAP) Pulse Ox O2 Delivery O2 Flow Rate FiO2 12/21/20 17:05 97.3 35 18 110/58 (75) 94 Nasal Cannula 3.0 I&O- Last 24 Hours up to 6 AM 12/21/20 06:00 Intake Total 1680 ml Output Total 3500 ml Balance -1820 ml Laboratory Data Labs 24H Laboratory Tests 2 12/21/20 06:24: Nucleated Red Blood Cells % (auto) 0.0, Anion Gap 12, Glomerular Filtration Rate 6.8L, Calcium Level 7.7L, Phosphorus Level 4.8, Magnesium Level 2.2 12/21/20 11:18: Bedside Glucose (Misc Panel) 149H 12/21/20 17:10: Bedside Glucose (Misc Panel) 180H 12/21/20 20:39: Bedside Glucose (Misc Panel) 187H CBC/BMP Laboratory Tests 12/21/20 06:24 FSBS Laboratory Tests Test 12/21/20 11:18 12/21/20 17:10 12/21/20 20:39 Range/Units Bedside Glucose (Misc Panel) 149 180 187 83-110 MG/DL Current Medications Current Medications Medications (Trade) Dose Ordered Sig/Lisa Route PRN Reason Start Time Stop Time Status Last Admin Dose Admin Acetaminophen (Tylenol Tab) 650 mg Q6HP PRN PO MILD PAIN or TEMP > 101 12/21/20 03:25 Atorvastatin Calcium (Lipitor) 20 mg DAILY PO 12/20/20 09:00 12/21/20 06:01 Carisoprodol (Soma) 350 mg Q12HP PRN PO generalized pain, moderate 12/21/20 03:30 Clopidogrel Bisulfate (PLAVix) 75 mg DAILY PO 12/20/20 09:00 12/21/20 06:01 Darbepoetin Shant (Aranesp (Dialysis Use)) 200 mcg HD IV 12/21/20 09:05 12/21/20 12:31 Dextrose (Dextrose 50%) 25 ml ASDIRECTED PRN IV SEE LABEL COMMENTS 12/19/20 16:55 Febuxostat (Uloric) 40 mg DAILY PO 12/20/20 09:00 12/21/20 06:00 Gabapentin (Neurontin) 100 mg BID PO 12/19/20 21:00 12/21/20 06:01 Glucagon (Glucagon) 1 mg ASDIRECTED PRN SC SEE LABEL COMMENTS 12/19/20 16:55 Glucose (Glucose) 16 GM ASDIRECTED PRN PO SEE LABEL COMMENTS 12/19/20 16:55 Heparin Sodium (Heparin) Please refer to ... ASDIRECTED XX 12/19/20 16:20 12/20/20 16:19 DC Heparin Sodium (Heparin) Please refer to ... ASDIRECTED XX 12/20/20 06:00 12/21/20 05:59 DC Heparin Sodium (Heparin) Please refer to ... ASDIRECTED XX 12/21/20 06:00 12/22/20 05:59 Heparin Sodium (Porcine) (Heparin) 5,000 units Q8H SC 12/19/20 22:00 12/21/20 17:30 Home Med (Home Med List Complete!) ASDIRECTED XX 12/19/20 16:05 12/19/20 16:05 DC Insulin Human Lispro (HumaLOG INSULIN) SEE PROTOCOL TABLE AC SC 12/19/20 17:30 12/21/20 17:30 Insulin Human Lispro (HumaLOG INSULIN) SEE PROTOCOL TABLE QHS SC 12/19/20 21:00 12/20/20 20:34 Lidocaine HCl (Lidocaine 1% Sdv) 0.5 ml ASDIRECTED PRN SC SEE LABEL COMMENTS 12/19/20 16:20 12/20/20 16:19 DC Lidocaine HCl (Lidocaine 1% Sdv) 0.5 ml ASDIRECTED PRN SC SEE LABEL COMMENTS 12/20/20 06:00 12/20/20 21:59 DC Lidocaine HCl (Lidocaine 1% Sdv) 0.5 ml ASDIRECTED PRN SC SEE LABEL COMMENTS 12/21/20 06:00 12/21/20 23:14 Metoprolol Succinate (TopROL XL) 25 mg DAILY PO 12/20/20 09:00 12/19/20 23:23 DC Midodrine (Proamatine) 5 mg HD PO 12/19/20 18:30 Pantoprazole Sodium (Protonix) 40 mg DAILY PO 12/20/20 09:00 12/21/20 06:01 Polyethylene Glycol (Miralax) 1 pkt DAILY PO 12/21/20 12:30 12/21/20 17:30 Allergies Coded Allergies: No Known Allergies (Verified Allergy, Unknown, 12/19/20) Assessment/Plan Date Seen The patient was seen on 12/21/20 in AM. Plan / VTE VTE Prophylaxis Ordered?: Yes Plan Orders past 48 Hours Orders Fingerstick Blood Sugar (12/19/20 21:27) Hemodialysis Acute Orders (12/20/20 06:00) Heparin (Heparin) (12/20/20 06:00) Lidocaine 1% Sdv (Lidocaine 1% Sdv) (12/20/20 06:00) Complete Comphrensive Metaboli (12/19/20 22:17) Magnesium Level (12/19/20 22:17) * Nursing Order * (12/19/20 22:19) Electrocardiogram Adult (12/19/20 23:14) May Use Own Cpap/Bipap (12/20/20 00:13) Fingerstick Blood Sugar (12/20/20 01:06) Acetaminophen Tab (Tylenol Tab) (12/20/20 02:04) Electrocardiogram Adult (12/20/20 05:31) Abdomen,Flat Plate Kub (12/20/20 08:14) Morphine Sulfate Inj (Morphine Sulfate I (12/20/20 08:20) Cell Count Peritoneal Fluid (12/20/20 10:22) Total Protein, Body Fluid (12/20/20 10:22) Albumin, Body Fluid (12/20/20 10:22) Body Fluid Culture And Gs (12/20/20 10:22) Complete Blood Count (12/21/20 06:00) Basic Metabolic Profile (12/21/20 06:00) Magnesium Level (12/21/20 06:00) Phosphorous Level (12/21/20 06:00) Complete Comphrensive Metaboli (12/20/20 15:06) Electrocardiogram Adult (12/20/20 15:06) Abdomen, Limited Us (12/20/20 08:14) Fingerstick Blood Sugar (12/20/20 17:04) Fingerstick Blood Sugar (12/20/20 20:09) Cpap Inpatient (12/20/20 21:38) Hemodialysis Acute Orders (12/21/20 06:00) Lidocaine 1% Sdv (Lidocaine 1% Sdv) (12/21/20 06:00) Heparin (Heparin) (12/21/20 06:00) Acetaminophen Tab (Tylenol Tab) (12/21/20 03:25) Carisoprodol (Soma) (12/21/20 03:30) Acetaminophen Tab (Tylenol Tab) (12/21/20 03:30) Early Tray (12/21/20 08:45) Consistent Carbohydrates (12/21/20 Breakfast) Darbepoetin (Aranesp (Dialysis Use)) (12/21/20 09:05) Fingerstick Blood Sugar (12/21/20 11:18) Polyethylene Glycol (Miralax) (12/21/20 12:30) Fingerstick Blood Sugar (12/21/20 17:10) Fingerstick Blood Sugar (12/21/20 20:39) Plan Text 1. End-stage renal disease/missed 1 week HD as outpatient. HD today as per his regular schedule. UF goal at least 3.5Kg. 3. Anemia in end-stage renal disease - SAIDA as per protocol 4. Chronic hypotension - The patient gets a dose of Midodrine before dialysis. 5. Cardiomyopathy and coronary artery disease - continue current dose of Lipitor and Plavix. Volume status to be optimized with HD. 6. Chronic gout secondary to chronic kidney disease - continue current dose of Uloric 40 mg p.o. daily. 7. Diabetes mellitus type 2 insulin sliding scale as per Medical Team. 8. Constipation: Start Miralax daily. MARSHAL TADEO MD Dec 21, 2020 21:09
[2020-12-21 22:00] VITALS: BP 118/56
[2020-12-22] MEDS: HEPARIN SOD (PORCINE) 5000UNITS/ML 1ML VIAL/SYRINGE SC SCH ×3 (05:40→20:22)
[2020-12-22 06:00] VITALS: BP 114/58
[2020-12-22] MEDS ORDERED: SODIUM CHLORIDE 0.9% 1000ML IV ONE (09:20)
[2020-12-22 09:41] LABS: HEMATOCRIT 32.7 % (42.0-52.0); HEMOGLOBIN 10.3 g/dl (13.5-17.5); MEAN CORPUSCULAR HEMOGLOBIN 33.6 pg (27.0-33.0); MEAN CORPUSCULAR HGB CONC 31.5 g/dl (32.0-36.5); MEAN CORPUSCULAR VOLUME 106.5 fl (80.0-96.0); PLATELET COUNT, AUTOMATED 120 10^3/uL (150-450); RED BLOOD COUNT 3.07 10^6/uL (4.30-6.10); WHITE BLOOD COUNT 6.4 10^3/uL (4.0-10.0)
[2020-12-22 09:45] VITALS: BP 112/64
[2020-12-22 10:04] LABS: ALBUMIN 3.3 GM/DL (3.2-5.2); CALCIUM LEVEL 8.1 MG/DL (8.8-10.2); CREATININE FOR GFR 6.6 MG/DL (0.70-1.30); GLOMERULAR FILTRATION RATE 8.7 (>42); PHOSPHORUS LEVEL 3.1 MG/DL (2.5-4.9); POTASSIUM SERUM 4.2 MEQ/L (3.5-5.1)
[2020-12-22 10:11] VITALS: BP 98/54
[2020-12-22] MEDS: HumaLOG INSULIN (NovoLOG) PER UNIT SC SCH ×4 (10:11→20:02)
[2020-12-22] MEDS: ONDANSETRON 4MG/2ML VIAL IV PRN (10:58)
[2020-12-22 11:28] VITALS: BP 108/54
[2020-12-22] MEDS: FEBUXOSTAT 40 MG TABLET (ULORIC) PO SCH (13:34)
[2020-12-22] MEDS: ATORVASTATIN 20 MG TAB PO SCH (13:34)
[2020-12-22] MEDS: GABAPENTIN 100 MG CAP PO SCH ×2 (13:34→20:19)
[2020-12-22] MEDS: CLOPIDOGREL 75 MG TAB PO SCH (13:34)
[2020-12-22] MEDS: PANTOPRAZOLE 40MG TAB (PROTONIX) PO SCH (13:34)
[2020-12-22] MEDS: MIRALAX *UNIT DOSE* 17GM PACKET PO SCH (13:36)
--- NOTE | 2020-12-22 13:40 | ECGEPIP ---
[facility] Test Date: 2020-12-22 Pat Name: KIYA FALK Department: Room: [place] [address] Gender: Male Tour Manager: ana paula : [id number] Requested By: SHANDRA METZGER Order Number: [id number] Reading MD: Bertha Shaw Measurements Intervals [place] Rate: 74 P: 76 MA: 148 QRS: 116 QRSD: 172 T: 261 QT: 528 QTc: 586 Interpretive Statements AV dual-paced rhythm with occasional premature ventricular complexes LESS PVCS THAN 12/20/20 Electronically Signed on 12-22-2020 13:39:41 EDT by Bertha Shaw
[2020-12-22 15:43] VITALS: BP 108/51
--- NOTE | 2020-12-22 19:23 | IPNPDOC ---
Text Note Date of Service The patient was seen on 12/22/20. NOTE Hospitalist Progress Note Subjective: Patient once again had an episode of hypotension today and what appears to be bradycardia. I did call and speak with cardiology, in reviewing the strips it appears as though his pacemaker is functioning properly, and there are not any instances where there pacemaker spikes are not being captured. If therefore he is having a functional pacemaker but is heart tissues not responding, then the most appropriate treatment to be in place is a biventricular ICD, which is exactly what he has right now, therefore no additional intervention is necessary at this time. The patient cannot remember the name of his own weed inspector, when this is discovered we will try to reach out to them to appraise them of the situation. Otherwise, besides this episode this morning, the patient reports that he is actually feeling quite well today. He is not complaining of any pain at this time. He seems to be tolerating dialysis well. Objective: General: Awake, alert, oriented 3. Not in any acute distress. HEENT: Head normocephalic, atraumatic, sclera are nonicteric. Hearing is grossly intact to conversation. Respiratory: Clear to auscultation bilaterally with no wheezes, rales, or rhonchi. Cardiovascular: Regular rate and rhythm at this time, with no rubs, gallops, or murmur. Abdomen: Soft, nontender, nondistended, no hepatosplenomegaly appreciated. Bowel sounds present. Extremities: 2+ pulses in the radial and dorsalis pedis bilaterally. No evidence of clubbing or cyanosis. Assessment/Plan: End-stage renal disease requiring dialysis Noncompliance with dialysis -Nephrology has been consulted and is managing his dialysis, their input is greatly appreciated Coronary artery disease Bradycardia with pauses despite having pacemaker/ICD in place -Continue clopidogrel, metoprolol, statin -I reached out to our local weed inspector, who reviewed his case, apparently his pacemaker is functional. -Will attempt to reach the patient's own weed inspector to appraise them of the situation. Hyperlipidemia -Continue statin therapy Diabetes mellitus Diabetic neuropathy -Continue insulin per sliding scale -Continue gabapentin DVT prophylaxis -Heparin Abdominal pain -Resolved VS,Fishbone, I+O VS, Fishbone, I+O Laboratory Tests 12/22/20 09:29 Vital Signs Date Time Temp Pulse Resp B/P (MAP) Pulse Ox O2 Delivery O2 Flow Rate FiO2 12/22/20 16:00 3.0 12/22/20 15:43 97.3 75 18 108/51 (70) 96 Nasal Cannula I&O- Last 24 Hours up to 6 AM 12/22/20 06:00 Intake Total 540 ml Output Total 3500 ml Balance -2960 ml SHANDRA METZGER DO Dec 22, 2020 19:23
[2020-12-22 20:00] VITALS: BP 122/74
--- NOTE | 2020-12-22 20:50 | IPNPDOC ---
Subjective CC/HPI The patient is a 80-year-old male admitted with a reason for visit of Esrd On Hemodialysis,Hyperkalemia,Noncompliance. Events since last encounter Pt was seen in PCU. He was just transferred here due to bradycardia, nausea and hypotension. He received NS Bolus 500 ml. Hospitalist team already contacted cardiology, notes were reviewed. Pt was also reported to have Vtach on Tele. General: Reports: Fatigue; Denies: Chills, Night Sweats Constitutional: Denies: Chills, Fever, Malaise, Night Sweats, Weakness, Fatigue, Weight Loss, Lethargy, Other Eyes: Denies: Pain, Vision change, Conjunctivae inflammation, Eyelid inflammation, Redness, Other ENT: Denies: Head Aches, Ear Pain, Dysphagia, Sinus Congestion, Post Nasal Drip, Sore Throat, Epistaxis, Other Symptoms Skin: Denies: Rash, Lesions, Jaundice, Bruising, Itching, Dry, Breakdown, Nail Changes, Other Pulmonary: Denies: Dyspnea, Cough, Pleuritic Chest Pain, Other Symptoms Cardiovascular: Denies: Chest Pain, Palpitations Gastrointestinal: Reports: Nausea; Denies: Vomiting, Abdominal Pain, Constipation Genitourinary: Denies: Dysuria, Frequency Hematologic: Denies: Bruising, Bleeding Excessively, Petecchia, Purpura, Enlarged Lymph Nodes, Other Hematologic Musculoskeletal: Denies: Neck Pain, Back Pain, Shoulder Pain, Arm Pain, Hand Pain, Leg Pain, Foot Pain, Joint Pain, Muscle Pain, Spasms, Other Symptoms Neurological: Denies: Weakness, Numbness Psych: Reports: Mood Normal Objective Physical Examination General Exam: Alert, No Acute Distress EYE EXAM: PERRLA, Conjunctiva & lids normal, EOMI ENT EXAM: Atraumatic, Mucous membr. moist/pink Neck Exam: Supple, JVD Chest Exam: Clear to auscultation, Normal air movement Heart Exam: Bradycardic, Normal S1, Normal S2; No: Rate Normal ABDOMEN EXAM: Normal bowel sounds, Soft; No: Tenderness Male Exam: Normal Genital Exam Extremity Exam: No: Clubbing, Cyanosis Skin Exam: Nl turgor and temperature; No: Rash Neuro Exam: Normal Speech, Strength at 5/5 X4 ext Psych Exam: Mental status NL, Mood NL, Oriented x 3 Vital Signs/I&O Vital Signs Date Time Temp Pulse Resp B/P (MAP) Pulse Ox O2 Delivery O2 Flow Rate FiO2 12/22/20 16:00 3.0 12/22/20 15:43 97.3 75 18 108/51 (70) 96 Nasal Cannula I&O- Last 24 Hours up to 6 AM 12/22/20 06:00 Intake Total 540 ml Output Total 3500 ml Balance -2960 ml Laboratory Data Labs 24H Laboratory Tests 2 12/22/20 06:04: Bedside Glucose (Misc Panel) 123H 12/22/20 09:29: Nucleated Red Blood Cells % (auto) 0.0, Anion Gap 10, Glomerular Filtration Rate 8.7L, Calcium Level 8.1L, Phosphorus Level 3.1#, Albumin 3.3 12/22/20 10:07: Bedside Glucose (Misc Panel) 202H 12/22/20 12:55: Bedside Glucose (Misc Panel) 153H 12/22/20 17:07: Bedside Glucose (Misc Panel) 151H 12/22/20 20:01: Bedside Glucose (Misc Panel) 147H CBC/BMP Laboratory Tests 12/22/20 09:29 FSBS Laboratory Tests Test 12/22/20 06:04 12/22/20 10:07 12/22/20 12:55 12/22/20 17:07 Range/Units Bedside Glucose (Misc Panel) 123 202 153 151 83-110 MG/DL Test 12/22/20 20:01 Range/Units Bedside Glucose (Misc Panel) 147 83-110 MG/DL Current Medications Current Medications Medications (Trade) Dose Ordered Sig/Lisa Route PRN Reason Start Time Stop Time Status Last Admin Dose Admin Acetaminophen (Tylenol Tab) 650 mg Q6HP PRN PO MILD PAIN or TEMP > 101 12/21/20 03:25 Atorvastatin Calcium (Lipitor) 20 mg DAILY PO 12/20/20 09:00 12/22/20 13:34 Carisoprodol (Soma) 350 mg Q12HP PRN PO generalized pain, moderate 12/21/20 03:30 Clopidogrel Bisulfate (PLAVix) 75 mg DAILY PO 12/20/20 09:00 12/22/20 13:34 Darbepoetin Shant (Aranesp (Dialysis Use)) 200 mcg HD IV 12/21/20 09:05 12/21/20 12:31 Dextrose (Dextrose 50%) 25 ml ASDIRECTED PRN IV SEE LABEL COMMENTS 12/19/20 16:55 Febuxostat (Uloric) 40 mg DAILY PO 12/20/20 09:00 12/22/20 13:34 Gabapentin (Neurontin) 100 mg BID PO 12/19/20 21:00 12/22/20 20:19 Glucagon (Glucagon) 1 mg ASDIRECTED PRN SC SEE LABEL COMMENTS 12/19/20 16:55 Glucose (Glucose) 16 GM ASDIRECTED PRN PO SEE LABEL COMMENTS 12/19/20 16:55 Heparin Sodium (Heparin) Please refer to ... ASDIRECTED XX 12/19/20 16:20 12/20/20 16:19 DC Heparin Sodium (Heparin) Please refer to ... ASDIRECTED XX 12/20/20 06:00 12/21/20 05:59 DC Heparin Sodium (Heparin) Please refer to ... ASDIRECTED XX 12/21/20 06:00 12/22/20 05:59 DC Heparin Sodium (Porcine) (Heparin) 5,000 units Q8H SC 12/19/20 22:00 12/22/20 20:22 Home Med (Home Med List Complete!) ASDIRECTED XX 12/19/20 16:05 12/19/20 16:05 DC Insulin Human Lispro (HumaLOG INSULIN) SEE PROTOCOL TABLE AC SC 12/19/20 17:30 12/22/20 17:13 Insulin Human Lispro (HumaLOG INSULIN) SEE PROTOCOL TABLE QHS SC 12/19/20 21:00 12/20/20 20:34 Lidocaine HCl (Lidocaine 1% Sdv) 0.5 ml ASDIRECTED PRN SC SEE LABEL COMMENTS 12/19/20 16:20 12/20/20 16:19 DC Lidocaine HCl (Lidocaine 1% Sdv) 0.5 ml ASDIRECTED PRN SC SEE LABEL COMMENTS 12/20/20 06:00 12/20/20 21:59 DC Lidocaine HCl (Lidocaine 1% Sdv) 0.5 ml ASDIRECTED PRN SC SEE LABEL COMMENTS 12/21/20 06:00 12/21/20 23:14 DC Metoprolol Succinate (TopROL XL) 25 mg DAILY PO 12/20/20 09:00 12/19/20 23:23 DC Midodrine (Proamatine) 5 mg HD PO 12/19/20 18:30 Ondansetron HCl (ZOFRAN INJection) 2 mg Q4HP PRN IV NAUSEA OR VOMITING 12/22/20 10:20 12/22/20 10:58 Pantoprazole Sodium (Protonix) 40 mg DAILY PO 12/20/20 09:00 12/22/20 13:34 Polyethylene Glycol (Miralax) 1 pkt DAILY PO 12/21/20 12:30 12/22/20 13:36 Allergies Coded Allergies: No Known Allergies (Verified Allergy, Unknown, 12/19/20) Assessment/Plan Date Seen The patient was seen on 12/22/20 in AM. Plan / VTE VTE Prophylaxis Ordered?: Yes Plan Orders past 48 Hours Orders Cpap Inpatient (12/20/20 21:38) Hemodialysis Acute Orders (12/21/20 06:00) Lidocaine 1% Sdv (Lidocaine 1% Sdv) (12/21/20 06:00) Heparin (Heparin) (12/21/20 06:00) Acetaminophen Tab (Tylenol Tab) (12/21/20 03:25) Carisoprodol (Soma) (12/21/20 03:30) Acetaminophen Tab (Tylenol Tab) (12/21/20 03:30) Early Tray (12/21/20 08:45) Consistent Carbohydrates (12/21/20 Breakfast) Darbepoetin (Aranesp (Dialysis Use)) (12/21/20 09:05) Fingerstick Blood Sugar (12/21/20 11:18) Polyethylene Glycol (Miralax) (12/21/20 12:30) Fingerstick Blood Sugar (12/21/20 17:10) Fingerstick Blood Sugar (12/21/20 20:39) Fingerstick Blood Sugar (12/22/20 06:04) Ns (Nacl 0.9%) (12/22/20 09:20) Renal Profile (12/22/20 09:20) Complete Blood Count (12/22/20 09:20) Electrocardiogram Adult (12/22/20 09:20) Renal Profile (12/23/20 06:00) Renal Profile (12/24/20 06:00) Renal Profile (12/25/20 06:00) Renal Profile (12/26/20 06:00) Renal Profile (12/27/20 06:00) Renal Profile (12/28/20 06:00) Renal Profile (12/29/20 06:00) Complete Blood Count (12/23/20 06:00) Complete Blood Count (12/24/20 06:00) Complete Blood Count (12/25/20 06:00) Complete Blood Count (12/26/20 06:00) Complete Blood Count (12/27/20 06:00) Complete Blood Count (12/28/20 06:00) Complete Blood Count (12/29/20 06:00) Transfer (In House) (12/22/20 09:24) Fingerstick Blood Sugar (12/22/20 10:07) Obtain Old Records Outpatient (12/22/20 10:03) Ondansetron Injection (Zofran Injection) (12/22/20 10:20) Cardiology Consult (12/22/20 10:21) Fingerstick Blood Sugar (12/22/20 12:55) Fingerstick Blood Sugar (12/22/20 17:07) Fingerstick Blood Sugar (12/22/20 20:01) Plan Text 1. End-stage renal disease/missed 1 week HD as outpatient. HD done 3 days in a row. Next HD will be tomorrow. 3. Anemia in end-stage renal disease - SAIDA as per protocol 4. Chronic hypotension - Continue Midodrine before dialysis. Metoprolol was stopped. Severe cardiomyopathy. 5. Cardiomyopathy and coronary artery disease - continue current dose of Lipitor and Plavix. Pt has Biventricular AICD/Pacemaker. 6. Chronic gout secondary to chronic kidney disease - continue current dose of Uloric 40 mg p.o. daily. 7. Diabetes mellitus type 2 insulin sliding scale as per Medical Team. MARSHAL TADEO MD Dec 22, 2020 20:49
[2020-12-23] VITALS (7 sets, daily range): BP systolic 100–114; BP diastolic 50–70
[2020-12-23 06:00] LABS: HEMOGLOBIN 10.6 g/dl (13.5-17.5); MEAN CORPUSCULAR HEMOGLOBIN 33.4 pg (27.0-33.0); MEAN CORPUSCULAR HGB CONC 31.2 g/dl (32.0-36.5); MEAN CORPUSCULAR VOLUME 107.3 fl (80.0-96.0); PLATELET COUNT, AUTOMATED 129 10^3/uL (150-450); RED BLOOD COUNT 3.17 10^6/uL (4.30-6.10); WHITE BLOOD COUNT 7.1 10^3/uL (4.0-10.0)
[2020-12-23] MEDS ORDERED: LIDOCAINE 1% SDV 5ML VIAL SC PRN (06:00)
[2020-12-23 06:37] LABS: ALBUMIN 3.6 GM/DL (3.2-5.2); CALCIUM LEVEL 7.9 MG/DL (8.8-10.2); CREATININE FOR GFR 8.24 MG/DL (0.70-1.30); GLOMERULAR FILTRATION RATE 6.7 (>42); PHOSPHORUS LEVEL 4.8 MG/DL (2.5-4.9); POTASSIUM SERUM 4.8 MEQ/L (3.5-5.1)
[2020-12-23] MEDS: HEPARIN SOD (PORCINE) 5000UNITS/ML 1ML VIAL/SYRINGE SC SCH (06:55)
[2020-12-23] MEDS: HumaLOG INSULIN (NovoLOG) PER UNIT SC SCH ×4 (08:23→20:33)
--- NOTE | 2020-12-23 11:12 | IPNPDOC ---
Subjective CC/HPI The patient is a 80-year-old male admitted with a reason for visit of Esrd On Hemodialysis,Hyperkalemia,Noncompliance. Events since last encounter Pt seen during HD today. Tolerating HD well. He c/o weakness. BP is better to day. General: Reports: Fatigue; Denies: Chills, Night Sweats Constitutional: Denies: Chills, Fever Eyes: Denies: Pain, Vision change ENT: Denies: Head Aches, Ear Pain Skin: Denies: Rash, Lesions Pulmonary: Denies: Dyspnea, Cough Cardiovascular: Denies: Chest Pain, Palpitations Gastrointestinal: Denies: Nausea, Vomiting Genitourinary: Denies: Dysuria, Frequency Hematologic: Denies: Bruising, Bleeding Excessively Musculoskeletal: Denies: Neck Pain, Back Pain Neurological: Reports: Weakness; Denies: Confusion Psych: Reports: Mood Normal Objective Physical Examination General Exam: Alert, No Acute Distress EYE EXAM: PERRLA, Conjunctiva & lids normal, EOMI ENT EXAM: Atraumatic, Mucous membr. moist/pink Neck Exam: Supple, JVD Chest Exam: Clear to auscultation, Normal air movement Heart Exam: Bradycardic, Normal S1, Normal S2; No: Rate Normal ABDOMEN EXAM: Normal bowel sounds, Soft; No: Tenderness Male Exam: Normal Genital Exam Extremity Exam: No: Clubbing, Cyanosis Skin Exam: Nl turgor and temperature; No: Rash Neuro Exam: Normal Speech, Strength at 5/5 X4 ext Psych Exam: Mental status NL, Mood NL, Oriented x 3 Vital Signs/I&O Vital Signs Date Time Temp Pulse Resp B/P (MAP) Pulse Ox O2 Delivery O2 Flow Rate FiO2 12/23/20 09:32 3.0 12/23/20 08:33 98.2 77 22 102/60 (74) 95 Nasal Cannula I&O- Last 24 Hours up to 6 AM 12/23/20 06:00 Intake Total 660 ml Output Total 0 ml Balance 660 ml Laboratory Data Labs 24H Laboratory Tests 2 12/22/20 12:55: Bedside Glucose (Misc Panel) 153H 12/22/20 17:07: Bedside Glucose (Misc Panel) 151H 12/22/20 20:01: Bedside Glucose (Misc Panel) 147H 12/23/20 05:29: Nucleated Red Blood Cells % (auto) 0.3H, Anion Gap 9, Glomerular Filtration Rate 6.7L, Calcium Level 7.9L, Phosphorus Level 4.8#, Albumin 3.6 12/23/20 07:54: Bedside Glucose (Misc Panel) 141H CBC/BMP Laboratory Tests 12/23/20 05:29 FSBS Laboratory Tests Test 12/22/20 12:55 12/22/20 17:07 12/22/20 20:01 12/23/20 07:54 Range/Units Bedside Glucose (Misc Panel) 153 151 147 141 83-110 MG/DL Current Medications Current Medications Medications (Trade) Dose Ordered Sig/Lisa Route PRN Reason Start Time Stop Time Status Last Admin Dose Admin Acetaminophen (Tylenol Tab) 650 mg Q6HP PRN PO MILD PAIN or TEMP > 101 12/21/20 03:25 Atorvastatin Calcium (Lipitor) 20 mg DAILY PO 12/20/20 09:00 12/22/20 13:34 Carisoprodol (Soma) 350 mg Q12HP PRN PO generalized pain, moderate 12/21/20 03:30 Clopidogrel Bisulfate (PLAVix) 75 mg DAILY PO 12/20/20 09:00 12/22/20 13:34 Darbepoetin Shant (Aranesp (Dialysis Use)) 200 mcg HD IV 12/21/20 09:05 12/21/20 12:31 Dextrose (Dextrose 50%) 25 ml ASDIRECTED PRN IV SEE LABEL COMMENTS 12/19/20 16:55 Febuxostat (Uloric) 40 mg DAILY PO 12/20/20 09:00 12/22/20 13:34 Gabapentin (Neurontin) 100 mg BID PO 12/19/20 21:00 12/22/20 20:19 Glucagon (Glucagon) 1 mg ASDIRECTED PRN SC SEE LABEL COMMENTS 12/19/20 16:55 Glucose (Glucose) 16 GM ASDIRECTED PRN PO SEE LABEL COMMENTS 12/19/20 16:55 Heparin Sodium (Heparin) Please refer to ... ASDIRECTED XX 12/19/20 16:20 12/20/20 16:19 DC Heparin Sodium (Heparin) Please refer to ... ASDIRECTED XX 12/20/20 06:00 12/21/20 05:59 DC Heparin Sodium (Heparin) Please refer to ... ASDIRECTED XX 12/21/20 06:00 12/22/20 05:59 DC Heparin Sodium (Heparin) Please refer to ... ASDIRECTED XX 12/23/20 06:00 12/24/20 05:59 Heparin Sodium (Porcine) (Heparin) 5,000 units Q8H SC 12/19/20 22:00 12/23/20 06:55 Home Med (Home Med List Complete!) ASDIRECTED XX 12/19/20 16:05 12/19/20 16:05 DC Insulin Human Lispro (HumaLOG INSULIN) SEE PROTOCOL TABLE AC SC 12/19/20 17:30 12/23/20 08:23 Insulin Human Lispro (HumaLOG INSULIN) SEE PROTOCOL TABLE QHS SC 12/19/20 21:00 12/20/20 20:34 Lidocaine HCl (Lidocaine 1% Sdv) 0.5 ml ASDIRECTED PRN SC SEE LABEL COMMENTS 12/19/20 16:20 12/20/20 16:19 DC Lidocaine HCl (Lidocaine 1% Sdv) 0.5 ml ASDIRECTED PRN SC SEE LABEL COMMENTS 12/20/20 06:00 12/20/20 21:59 DC Lidocaine HCl (Lidocaine 1% Sdv) 0.5 ml ASDIRECTED PRN SC SEE LABEL COMMENTS 12/21/20 06:00 12/21/20 23:14 DC Lidocaine HCl (Lidocaine 1% Sdv) 0.5 ml ASDIRECTED PRN SC SEE LABEL COMMENTS 12/23/20 06:00 12/23/20 20:44 Metoprolol Succinate (TopROL XL) 25 mg DAILY PO 12/20/20 09:00 12/19/20 23:23 DC Midodrine (Proamatine) 5 mg HD PO 12/19/20 18:30 Ondansetron HCl (ZOFRAN INJection) 2 mg Q4HP PRN IV NAUSEA OR VOMITING 12/22/20 10:20 12/22/20 10:58 Pantoprazole Sodium (Protonix) 40 mg DAILY PO 12/20/20 09:00 12/22/20 13:34 Polyethylene Glycol (Miralax) 1 pkt DAILY PO 12/21/20 12:30 12/22/20 13:36 Allergies Coded Allergies: No Known Allergies (Verified Allergy, Unknown, 12/19/20) Assessment/Plan Date Seen The patient was seen on 12/23/20 at 11:07. Plan / VTE VTE Prophylaxis Ordered?: Yes Plan Orders past 48 Hours Orders Fingerstick Blood Sugar (12/21/20 11:18) Polyethylene Glycol (Miralax) (12/21/20 12:30) Fingerstick Blood Sugar (12/21/20 17:10) Fingerstick Blood Sugar (12/21/20 20:39) Fingerstick Blood Sugar (12/22/20 06:04) Ns (Nacl 0.9%) (12/22/20 09:20) Renal Profile (12/22/20 09:20) Complete Blood Count (12/22/20 09:20) Electrocardiogram Adult (12/22/20 09:20) Renal Profile (12/23/20 06:00) Renal Profile (12/24/20 06:00) Renal Profile (12/25/20 06:00) Renal Profile (12/26/20 06:00) Renal Profile (12/27/20 06:00) Renal Profile (12/28/20 06:00) Renal Profile (12/29/20 06:00) Complete Blood Count (12/23/20 06:00) Complete Blood Count (12/24/20 06:00) Complete Blood Count (12/25/20 06:00) Complete Blood Count (12/26/20 06:00) Complete Blood Count (12/27/20 06:00) Complete Blood Count (12/28/20 06:00) Complete Blood Count (12/29/20 06:00) Transfer (In House) (12/22/20 09:24) Fingerstick Blood Sugar (12/22/20 10:07) Obtain Old Records Outpatient (12/22/20 10:03) Ondansetron Injection (Zofran Injection) (12/22/20 10:20) Cardiology Consult (12/22/20 10:21) Fingerstick Blood Sugar (12/22/20 12:55) Fingerstick Blood Sugar (12/22/20 17:07) Fingerstick Blood Sugar (12/22/20 20:01) Hemodialysis Acute Orders (12/23/20 06:00) Heparin (Heparin) (12/23/20 06:00) Lidocaine 1% Sdv (Lidocaine 1% Sdv) (12/23/20 06:00) Fingerstick Blood Sugar (12/23/20 07:54) Pt Eval & Tx As Needed (12/23/20 11:04) Plan Text 1. End-stage renal disease/missed 1 week HD as outpatient. HD done 3 days in a row. Volume status is better. He is being dialyzed 3. Anemia in end-stage renal disease - SAIDA as per protocol 4. Chronic hypotension - Continue Midodrine before dialysis. Severe cardiomyopathy. 5. Cardiomyopathy and coronary artery disease/Vtach- continue current dose of Lipitor and Plavix. Pt has Biventricular AICD/Pacemaker. Cardio was called by hospitalist team. 6. Chronic gout secondary to chronic kidney disease - continue current dose of Uloric 40 mg p.o. daily. 7. Diabetes mellitus type 2 insulin sliding scale as per Medical Team. MARSHAL TADEO MD Dec 23, 2020 11:12
[2020-12-23] MEDS: ACETAMINOPHEN TAB 650MG DOSE (2X325MG) PO PRN (11:53)
--- NOTE | 2020-12-23 12:42 | IPNPDOC ---
Text Note Date of Service The patient was seen on 12/23/20. NOTE Hospitalist Progress Note Subjective: Patient has not had any additional episodes of what appears to be bradycardia, or lightheadedness. He does continue to feel quite weak though. He was seen and evaluated in dialysis today, I believe this is his third day in a row for dialysis. After further investigation it turns out that his asphalt spreader operator is Dr. Reyes, however Dr. Cummings is acting section chief this weekend, I have called and left a message with their answering service for them requesting that he come evaluate the patient for what appears to be symptomatic bradycardia, and pacemaker malfunction. After my discussion with another local asphalt spreader operator yesterday, it appears that the pacemaker is functioning properly, but occasionally the pacer spikes landed on PVCs, and therefore the cardiac tissue does not respond which gives him an effective bradycardia when palpating his pulse. Nevertheless, I still feel that having him seen by asphalt spreader operator would be warranted. Objective: General: Awake, alert, oriented 3. Not in any acute distress. HEENT: Head normocephalic, atraumatic, sclera are nonicteric. Hearing is grossly intact to conversation. Respiratory: Clear to auscultation bilaterally with no wheezes, rales, or rhonchi. Cardiovascular: Regular rate and rhythm at this time, with no rubs, gallops, or murmur. Abdomen: Soft, nontender, nondistended, no hepatosplenomegaly appreciated. Bowel sounds present. Extremities: 2+ pulses in the radial and dorsalis pedis bilaterally. No evidence of clubbing or cyanosis. Assessment/Plan: End-stage renal disease requiring dialysis Noncompliance with dialysis -Nephrology has been consulted and is managing his dialysis, their input is greatly appreciated Fatigue and debilitation -Physical therapy evaluation requested. Coronary artery disease Bradycardia with pauses despite having pacemaker/ICD in place -Continue clopidogrel, metoprolol, statin -Consult to Dr. Cummings of Cardiology requested Hyperlipidemia -Continue statin therapy Diabetes mellitus Diabetic neuropathy -Continue insulin per sliding scale -Continue gabapentin DVT prophylaxis -Heparin Abdominal pain -Resolved VS,Fishbone, I+O VS, Fishbone, I+O Laboratory Tests 12/23/20 05:29 Vital Signs Date Time Temp Pulse Resp B/P (MAP) Pulse Ox O2 Delivery O2 Flow Rate FiO2 12/23/20 09:32 3.0 12/23/20 08:33 98.2 77 22 102/60 (42) 95 Nasal Cannula I&O- Last 24 Hours up to 6 AM 12/23/20 06:00 Intake Total 660 ml Output Total 0 ml Balance 660 ml SHANDRA METZGER DO Dec 23, 2020 12:42
[2020-12-23] MEDS: GABAPENTIN 100 MG CAP PO SCH ×2 (13:49→20:29)
[2020-12-23] MEDS: ATORVASTATIN 20 MG TAB PO SCH (13:49)
[2020-12-23] MEDS: CLOPIDOGREL 75 MG TAB PO SCH (13:50)
[2020-12-23] MEDS: PANTOPRAZOLE 40MG TAB (PROTONIX) PO SCH (13:50)
[2020-12-23] MEDS: FEBUXOSTAT 40 MG TABLET (ULORIC) PO SCH (13:50)
[2020-12-23] MEDS: MIRALAX *UNIT DOSE* 17GM PACKET PO SCH (14:23)
[2020-12-23] MEDS: ONDANSETRON 4MG/2ML VIAL IV PRN (15:29)
[2020-12-23] MEDS: [UNRECOGNIZED DRUG - REMARK] XX SCH (16:27)
[2020-12-24] VITALS (9 sets, daily range): BP systolic 84–106; BP diastolic 46–60
[2020-12-24 05:15] LABS: HEMATOCRIT 33.2 % (42.0-52.0); HEMOGLOBIN 10.3 g/dl (13.5-17.5); MEAN CORPUSCULAR HEMOGLOBIN 33.2 pg (27.0-33.0); MEAN CORPUSCULAR VOLUME 107.1 fl (80.0-96.0); PLATELET COUNT, AUTOMATED 132 10^3/uL (150-450); WHITE BLOOD COUNT 8.7 10^3/uL (4.0-10.0)
[2020-12-24 05:43] LABS: ALBUMIN 3.5 GM/DL (3.2-5.2); CALCIUM LEVEL 7.6 MG/DL (8.8-10.2); CREATININE FOR GFR 6.24 MG/DL (0.70-1.30); GLOMERULAR FILTRATION RATE 9.3 (>42); PHOSPHORUS LEVEL 4.1 MG/DL (2.5-4.9); POTASSIUM SERUM 4.2 MEQ/L (3.5-5.1)
[2020-12-24] MEDS: IPRATROPIUM 0.5MG/ALBUTEROL 2.5MG INH SOL UD 3ML (DUONEB) NEB SCH ×3 (08:00→19:09)
[2020-12-24] MEDS: HumaLOG INSULIN (NovoLOG) PER UNIT SC SCH ×4 (08:26→20:17)
[2020-12-24] MEDS: GABAPENTIN 100 MG CAP PO SCH ×2 (08:26→20:16)
[2020-12-24] MEDS: FEBUXOSTAT 40 MG TABLET (ULORIC) PO SCH (08:26)
[2020-12-24] MEDS: ATORVASTATIN 20 MG TAB PO SCH (08:27)
[2020-12-24] MEDS: PANTOPRAZOLE 40MG TAB (PROTONIX) PO SCH (08:27)
[2020-12-24] MEDS: CLOPIDOGREL 75 MG TAB PO SCH (08:27)
[2020-12-24] MEDS: MIRALAX *UNIT DOSE* 17GM PACKET PO SCH (08:44)
--- NOTE | 2020-12-24 10:45 | REP ---
INDICATION: Shortness of breath and cough, ESRD on HD. COMPARISON: 12/19/2020 also portable TECHNIQUE: Portable FINDINGS: The cardiomediastinal silhouette is unchanged. The pacemaker device and leads unchanged. Once again, there is a diffuse increase in the interstitial markings throughout the lung ahumada. This appears to have slightly increased. No patchy opacities have developed. There is no change in the osseous structures. IMPRESSION: CHF as described above. The right CP angle has been obscured by the pacemaker generator. <Electronically signed by Maximus Pompa > 12/24/20 1041
--- NOTE | 2020-12-24 14:19 | IPNPDOC ---
Text Note Date of Service The patient was seen on 12/24/20. NOTE Hospitalist Progress Note Subjective: Once again, no events overnight. I did speak with his educational psychology teacher, and told that he did come and see the patient last night, however his note is not yet dictated/available in the system. Patient continues to complain of significant weakness and fatigue. Physical therapy evaluation was requested today, and they do feel that he may require rehabilitation after discharge. I will reach out to [facility] on Friday to appraise him of his situation. Otherwise, he does not have any belly pain at this time, and he is actually feeling better having had quite a bit of fluid removed via dialysis. Besides fatigue, he does not have any other complaints, the remainder of his review of systems is negative. Objective: General: Awake, alert, oriented 3. Not in any acute distress. HEENT: Head normocephalic, atraumatic, sclera are nonicteric. Hearing is grossly intact to conversation. Respiratory: Clear to auscultation bilaterally with no wheezes, rales, or rhonchi. Cardiovascular: Regular rate and rhythm at this time, with no rubs, gallops, or murmur. Abdomen: Soft, nontender, nondistended. Bowel sounds present. Assessment/Plan: End-stage renal disease requiring dialysis Noncompliance with dialysis -Nephrology has been consulted and is managing his dialysis, their input is greatly appreciated Fatigue and debilitation -Physical therapy evaluation indicates that he may require rehab after discharge. Coronary artery disease Bradycardia with pauses despite having pacemaker/ICD in place -Thankfully no additional recent events for the past few days -Continue telemetry -Continue clopidogrel, metoprolol, statin -Consult Cardiology requested Hyperlipidemia -Continue statin therapy Diabetes mellitus Diabetic neuropathy -Continue insulin per sliding scale -Continue gabapentin DVT prophylaxis -Heparin Abdominal pain -Resolved VS,Fishbone, I+O VS, Fishbone, I+O Laboratory Tests 12/24/20 04:59 Vital Signs Date Time Temp Pulse Resp B/P (MAP) Pulse Ox O2 Delivery O2 Flow Rate FiO2 12/24/20 13:57 12 12/24/20 12:00 3.0 12/24/20 12:00 98.1 70 105/46 (65) 97 Nasal Cannula I&O- Last 24 Hours up to 6 AM 12/24/20 06:00 Intake Total 1100 ml Output Total 2501 ml Balance -1401 ml SHANDRA METZGER DO Dec 24, 2020 14:19
[2020-12-24] MEDS: [UNRECOGNIZED DRUG - REMARK] XX SCH (15:30)
[2020-12-24] MEDS: MIDODRINE 2.5 MG TAB PO SCH (16:00)
[2020-12-24] MEDS ORDERED: ONDANSETRON 4 MG ORAL DISINTEGRATING TAB PO PRN (18:55)
--- NOTE | 2020-12-24 19:26 | CR ---
CONSULTATION DATE: 12/23/2020 REFERRING PROVIDER: Robert Ryan DO LOCATION: Room 3223 REASON FOR CONSULTATION: Abnormal EKG/on telemetry, hypotension. HISTORY OF PRESENT ILLNESS: A 80-year-old male well known by the office with a long history of CAD for which he had CABG and multiple PCIs in the past, ischemic cardiomyopathy that required BiV ACID for primary prevention in view of his low EF, ESRD for which he has been on hemodialysis, hypertension, hyperlipidemia and diabetes mellitus, as well as COPD, was brought to the hospital about a week ago on 12/19/2020 with generalized weakness. The patient has missed three days of dialysis and on admission, his BMP revealed a serum potassium of 6.5 with a BUN and creatinine of 111 and 15.1 respectively. While being monitored on tele, it was reported that he was bradycardic and cardiology consult was called. When I saw Mr. Dell Richard yesterday, he was supine in bed in no acute distress. He denies any chest pain, palpitations. He complains of fatigue and tiredness and said that he needed to be stronger in order to go back home. He has started physical therapy. He denies any report of bleeding. He is not coughing. He is not having any fever. It seems that he has missed those three day so dialysis because of a combination of hypoglycemia and diarrhea/loose stool. The dialysis center called the police in order to check on him and he was brought to the ER. PAST SURGICAL HISTORY: Positive for CABG in 2009, BiV pacemaker/AICD implant on 09/13/2019. MEDICATIONS AT HOME: Albuterol nebulizer and MDI, aspirin 81 mg p.o. daily, Atorvastatin 20 mg p.o. daily, calcium carbonate as needed, vitamin D 1000 units daily, Plavix 75 mg p.o. daily, vitamin B12 1000 mcg p.o. daily, gabapentin 100 mg p.o. two times a day, glipizide 10 mg p.o. daily, Venofer, magnesium oxide 400 mg p.o. twice a day, , metoprolol succinate 25 mg p.o. daily, pantoprazole 40 mg p.o. daily. CURRENT MEDICATIONS: DuoNeb, ondansetron 2 mg IV q.4 hours p.r.n. for nausea or vomiting. Miralax, Alunebs, carisoprodol, Tylenol, pantoprazole 40 mg p.o. daily, Uloric acid, Plavix 75 mg p.o. daily, Atorvastatin 20 mg p.o. daily, gabapentin 100 mg p.o. b.i.d., regular insulin coverage and midodrine 5 mg on hemodialysis day. FAMILY HISTORY: Positive for heart disease and stroke, respectively his father and his mother. SOCIAL HISTORY: The patient lives alone and has a strange odor. He does not smoke or abuse alcohol. ALLERGIES: He has no known drug allergies. CODE STATUS: He is a FULL CODE. PHYSICAL EXAMINATION: Patient is alert and awake, in no acute distress at reset and when I saw him, his vital signs revealed a blood pressure of 102/50 with a pulse of 73, respirations 24 and his maximum temperature was 98.1 degrees Fahrenheit with an oxygen saturation of 92% on three liters nasal cannula. Examination of the head: Atraumatic. Neck: Supple and no JVD appreciated. Lungs did not reveal any wheezing or crackles. Heart examination: Revealed regular heart sounds, no rubs or gallops. The PMI is displaced inferiorly and laterally. There is no rub. Abdomen: Soft and nontender. Extremities: Reveal trace pedal edema. Neurologic examination: Grossly was negative for focal deficit. LABORATORY DATA: [facility] n 12/23/2020 revealed a sodium of 138, potassium 4.8, chloride 102, CO2 27, BUN 41, creatinine 8.24, GFR 6.7, fasting glucose 155, calcium 7.9, phosphorus 4.8. CBC on admission revealed a WBC of 9.4, hemoglobin 11.9, hematocrit 38.3 and platelets 199,000. SARS COVID-19 as well as influenza A /B and RSV PCR were negative. EKG on admission, 12/19/2020 revealed ventricular pacemaker activities. There is underlying IVCD/left bundle branch block pattern and ST-T abnormalities. Electrocardiogram on 12/22/2020 revealed AV sequential permanent pacemaker activities, no interval changes but one isolated PVC. Telemetry strips were reviewed. Chest x-ray on admission, 12/19/2020 revealed manifestation of heart failure. There was a small right pleural effusion and elevated right hemidiaphragm. Abdominal ultrasound on 12/20/2020 was negative for ascites. Abdominal x-ray on 12/20/2020 revealed nonspecific gas pattern, otherwise unremarkable. IMPRESSION: 1. History of CAD with prior CABG and prior multiple PCIs: Stable. 2. History of ischemic cardiomyopathy with low LVEF that required BiV ACID pacemaker implantation for primary prevention in 2019. The patient has not been able to be treated because of history of hypotension. He only has been able to tolerate a small dose of metoprolol succinate. Now on hold because of low blood pressure. 3. History of diabetes mellitus. 4. Hyperlipidemia. 5. ESRD and on hemodialysis, being addressed. 6. There is a concern that pacemaker might not be working well and the telemetry strips were reviewed as well as his EKGs, it seemed that the pacemaker is working appropriately. There is the bradycardia reported, was related to artifact, on the counting by the monitor worker. We will keep him on telemetry. It is not needed at this present to do a pacemaker check but can be revisited prior to his discharge. Regarding his low blood pressure, I have changed his midodrine from 5 mg daily on hemodialysis days to 2.5 mg p.o. twice a day daily and I will monitor him along with you. Dr. Reyes will be seeing him on 12/25/2020.
--- NOTE | 2020-12-24 20:31 | IPNPDOC ---
Subjective CC/HPI The patient is a 80-year-old male admitted with a reason for visit of Esrd On Hemodialysis,Hyperkalemia,Noncompliance. Events since last encounter Pt was seen in AM. He was getting ready for PT. Still c/o shortness of breath and Cough and unable to bring up the phlegm. He was dialyzed yesterday and 2.5L of fluid was removed. General: Reports: Fatigue, Malaise; Denies: Chills, Night Sweats Constitutional: Reports: Malaise; Denies: Chills, Fever Eyes: Denies: Pain, Vision change ENT: Denies: Head Aches, Ear Pain Skin: Denies: Rash, Lesions Pulmonary: Reports: Dyspnea, Cough Cardiovascular: Reports: Orthopnea; Denies: Chest Pain, Palpitations Gastrointestinal: Denies: Nausea Genitourinary: Denies: Dysuria, Frequency Hematologic: Denies: Bruising, Bleeding Excessively Musculoskeletal: Denies: Neck Pain, Back Pain Neurological: Reports: Weakness Psych: Reports: Mood Normal Objective Physical Examination General Exam: Alert, Mild Distress (Respiratory) EYE EXAM: PERRLA, Conjunctiva & lids normal, EOMI ENT EXAM: Atraumatic, Mucous membr. moist/pink Neck Exam: Supple, JVD (Mild) Chest Exam: Rhonchi (Exp); No: Normal air movement (Decreased BS at bases), Rales (at bases and mid lung zones) Heart Exam: Bradycardic, Normal S1, Normal S2; No: Rate Normal ABDOMEN EXAM: Normal bowel sounds, Soft; No: Tenderness Male Exam: Normal Genital Exam Extremity Exam: No: Clubbing, Cyanosis Skin Exam: Nl turgor and temperature; No: Rash Neuro Exam: Normal Speech, Strength at 5/5 X4 ext Psych Exam: Mental status NL, Mood NL, Oriented x 3 Vital Signs/I&O Vital Signs Date Time Temp Pulse Resp B/P (MAP) Pulse Ox O2 Delivery O2 Flow Rate FiO2 12/24/20 19:49 98.5 70 18 106/48 (67) 94 NIPPV (BIPAP/CPAP) 3.0 I&O- Last 24 Hours up to 6 AM 12/24/20 06:00 Intake Total 1100 ml Output Total 2501 ml Balance -1401 ml Laboratory Data Labs 24H Laboratory Tests 2 12/23/20 20:31: Bedside Glucose (Misc Panel) 189H 12/24/20 04:59: Nucleated Red Blood Cells % (auto) 0.5H, Anion Gap 7L, Glomerular Filtration Rate 9.3L, Calcium Level 7.6L, Phosphorus Level 4.1, Albumin 3.5 12/24/20 07:56: Bedside Glucose (Misc Panel) 136H 12/24/20 12:28: Bedside Glucose (Misc Panel) 150H 12/24/20 17:03: Bedside Glucose (Misc Panel) 175H 12/24/20 20:14: Bedside Glucose (Misc Panel) 175H CBC/BMP Laboratory Tests 12/24/20 04:59 FSBS Laboratory Tests Test 12/23/20 20:31 12/24/20 07:56 12/24/20 12:28 12/24/20 17:03 Range/Units Bedside Glucose (Misc Panel) 189 136 150 175 83-110 MG/DL Test 12/24/20 20:14 Range/Units Bedside Glucose (Misc Panel) 175 83-110 MG/DL Current Medications Current Medications Medications (Trade) Dose Ordered Sig/Lisa Route PRN Reason Start Time Stop Time Status Last Admin Dose Admin Acetaminophen (Tylenol Tab) 650 mg Q6HP PRN PO MILD PAIN or TEMP > 101 12/21/20 03:25 12/23/20 11:53 Albuterol/ Ipratropium (Duoneb (Ipr 0.5mg/Alb 2.5mg)) 3 ml RQ6H NEB 12/24/20 08:00 12/26/20 07:59 12/24/20 19:09 Atorvastatin Calcium (Lipitor) 20 mg DAILY PO 12/20/20 09:00 12/24/20 08:27 Carisoprodol (Soma) 350 mg Q12HP PRN PO generalized pain, moderate 12/21/20 03:30 Clopidogrel Bisulfate (PLAVix) 75 mg DAILY PO 12/20/20 09:00 12/24/20 08:27 Darbepoetin Shant (Aranesp (Dialysis Use)) 200 mcg HD IV 12/21/20 09:05 12/21/20 12:31 Dextrose (Dextrose 50%) 25 ml ASDIRECTED PRN IV SEE LABEL COMMENTS 12/19/20 16:55 Febuxostat (Uloric) 40 mg DAILY PO 12/20/20 09:00 12/24/20 08:26 Gabapentin (Neurontin) 100 mg BID PO 12/19/20 21:00 12/24/20 08:26 Glucagon (Glucagon) 1 mg ASDIRECTED PRN SC SEE LABEL COMMENTS 12/19/20 16:55 Glucose (Glucose) 16 GM ASDIRECTED PRN PO SEE LABEL COMMENTS 12/19/20 16:55 Heparin Sodium (Heparin) Please refer to ... ASDIRECTED XX 12/19/20 16:20 12/20/20 16:19 DC Heparin Sodium (Heparin) Please refer to ... ASDIRECTED XX 12/20/20 06:00 12/21/20 05:59 DC Heparin Sodium (Heparin) Please refer to ... ASDIRECTED XX 12/21/20 06:00 12/22/20 05:59 DC Heparin Sodium (Heparin) Please refer to ... ASDIRECTED XX 12/23/20 06:00 12/24/20 05:59 DC Heparin Sodium (Porcine) (Heparin) 5,000 units Q8H SC 12/19/20 22:00 12/23/20 14:30 DC 12/23/20 06:55 Home Med (Home Med List Complete!) ASDIRECTED XX 12/19/20 16:05 12/19/20 16:05 DC Insulin Human Lispro (HumaLOG INSULIN) SEE PROTOCOL TABLE AC SC 12/19/20 17:30 12/24/20 17:45 Insulin Human Lispro (HumaLOG INSULIN) SEE PROTOCOL TABLE QHS SC 12/19/20 21:00 12/20/20 20:34 Lidocaine HCl (Lidocaine 1% Sdv) 0.5 ml ASDIRECTED PRN SC SEE LABEL COMMENTS 12/19/20 16:20 12/20/20 16:19 DC Lidocaine HCl (Lidocaine 1% Sdv) 0.5 ml ASDIRECTED PRN SC SEE LABEL COMMENTS 12/20/20 06:00 12/20/20 21:59 DC Lidocaine HCl (Lidocaine 1% Sdv) 0.5 ml ASDIRECTED PRN SC SEE LABEL COMMENTS 12/21/20 06:00 12/21/20 23:14 DC Lidocaine HCl (Lidocaine 1% Sdv) 0.5 ml ASDIRECTED PRN SC SEE LABEL COMMENTS 12/23/20 06:00 12/23/20 20:44 DC Metoprolol Succinate (TopROL XL) 25 mg DAILY PO 12/20/20 09:00 12/19/20 23:23 DC Midodrine (Proamatine) 2.5 mg 08,16 PO 12/24/20 16:00 Midodrine (Proamatine) 5 mg HD PO 12/19/20 18:30 12/24/20 17:41 DC 12/23/20 11:53 Non-Formulary Medication ( See Comment Field Below ) CHECK TO SEE IF THE PATIENT... DAILY@1600 XX 12/23/20 16:00 12/24/20 18:00 DC 12/23/20 16:27 Ondansetron HCl (ZOFRAN INJection) 2 mg Q4HP PRN IV NAUSEA OR VOMITING 12/22/20 10:20 12/24/20 18:54 DC 12/23/20 15:29 Ondansetron HCl (Zofran Odt) 2 mg Q6HP PRN PO NAUSEA 12/24/20 18:55 Pantoprazole Sodium (Protonix) 40 mg DAILY PO 12/20/20 09:00 12/24/20 08:27 Polyethylene Glycol (Miralax) 1 pkt DAILY PO 12/21/20 12:30 12/22/20 13:36 Allergies Coded Allergies: No Known Allergies (Verified Allergy, Unknown, 12/19/20) Assessment/Plan Date Seen The patient was seen on 12/24/20 in AM. Plan / VTE VTE Prophylaxis Ordered?: Yes Plan Orders past 48 Hours Orders Hemodialysis Acute Orders (12/23/20 06:00) Heparin (Heparin) (12/23/20 06:00) Lidocaine 1% Sdv (Lidocaine 1% Sdv) (12/23/20 06:00) Fingerstick Blood Sugar (12/23/20 07:54) Pt Eval & Tx As Needed (12/23/20 11:04) Note Patient Comment ( See Comment (12/23/20 16:00) Cardiology Consult (12/23/20 12:42) Fingerstick Blood Sugar (12/23/20 13:18) Antiembolitic Stockings / Teds (12/23/20 14:29) Fingerstick Blood Sugar (12/23/20 16:44) Fingerstick Blood Sugar (12/23/20 20:31) Fingerstick Blood Sugar (12/24/20 07:56) Portable Chest X-Ray (12/24/20 10:14) Albuterol/Ipratropium (Duoneb (Ipr 0.5mg (12/24/20 08:00) Resp Order Cpoe (12/24/20 ) Fingerstick Blood Sugar (12/24/20 12:28) Social Service Consult (12/24/20 14:14) Fingerstick Blood Sugar (12/24/20 17:03) Midodrine Hcl (Proamatine) (12/24/20 16:00) Dc Iv/Sl (12/24/20 18:51) Ondansetron Odt (Zofran Odt) (12/24/20 18:55) Knee-High Sequential Compressi (12/24/20 18:51) Fingerstick Blood Sugar (12/24/20 20:14) Hemodialysis Acute Orders (12/25/20 06:00) Heparin (Heparin) (12/25/20 06:00) Lidocaine 1% Sdv (Lidocaine 1% Sdv) (12/25/20 06:00) Plan Text 1. End-stage renal disease: HD done yesterday but to be done again due to persistent volume overload despite aggressive fluid removal. 3. Anemia in end-stage renal disease - SAIDA as per protocol 4. Chronic hypotension - Continue Midodrine before dialysis. Severe cardiomyopathy. 5. Cardiomyopathy and coronary artery disease, Decompensated CHFrEF: continue current dose of Lipitor and Plavix. Pt has Biventricular AICD/Pacemaker. Repeat CXR showed persistent CHF. Another HD to be done in AM. 6. Chronic gout secondary to chronic kidney disease - continue current dose of Uloric 40 mg p.o. daily. 7. Diabetes mellitus type 2 insulin sliding scale as per Medical Team. 7. Cough and wheezing: Combination of CHF and COPD. He is on home O2. I ordered Nebs for 2 days. More fluid removal in AM MARSHAL TADEO MD Dec 24, 2020 20:31
[2020-12-25] VITALS (7 sets, daily range): BP systolic 83–114; BP diastolic 40–58
[2020-12-25] MEDS: IPRATROPIUM 0.5MG/ALBUTEROL 2.5MG INH SOL UD 3ML (DUONEB) NEB SCH ×4 (00:50→20:19)
[2020-12-25] MEDS ORDERED: MIDODRINE 2.5 MG TAB PO ONE (00:55)
[2020-12-25 05:45] LABS: HEMATOCRIT 32.3 % (42.0-52.0); HEMOGLOBIN 10.3 g/dl (13.5-17.5); MEAN CORPUSCULAR HEMOGLOBIN 34.1 pg (27.0-33.0); MEAN CORPUSCULAR HGB CONC 31.9 g/dl (32.0-36.5); PLATELET COUNT, AUTOMATED 145 10^3/uL (150-450); RED BLOOD COUNT 3.02 10^6/uL (4.30-6.10); WHITE BLOOD COUNT 9.5 10^3/uL (4.0-10.0)
[2020-12-25] MEDS ORDERED: LIDOCAINE 1% SDV 5ML VIAL SC PRN (06:00)
[2020-12-25 06:12] LABS: ALBUMIN 3.4 GM/DL (3.2-5.2); CALCIUM LEVEL 7.8 MG/DL (8.8-10.2); CREATININE FOR GFR 8.48 MG/DL (0.70-1.30); GLOMERULAR FILTRATION RATE 6.5 (>42); PHOSPHORUS LEVEL 5.2 MG/DL (2.5-4.9); POTASSIUM SERUM 4.6 MEQ/L (3.5-5.1)
[2020-12-25] MEDS: FEBUXOSTAT 40 MG TABLET (ULORIC) PO SCH (08:09)
[2020-12-25] MEDS: MIRALAX *UNIT DOSE* 17GM PACKET PO SCH (08:09)
[2020-12-25] MEDS: CLOPIDOGREL 75 MG TAB PO SCH (08:10)
[2020-12-25] MEDS: PANTOPRAZOLE 40MG TAB (PROTONIX) PO SCH (08:10)
[2020-12-25] MEDS: GABAPENTIN 100 MG CAP PO SCH ×2 (08:10→20:58)
[2020-12-25] MEDS: ATORVASTATIN 20 MG TAB PO SCH (08:10)
[2020-12-25] MEDS: HumaLOG INSULIN (NovoLOG) PER UNIT SC SCH ×4 (08:10→20:29)
[2020-12-25] MEDS: ACETAMINOPHEN TAB 650MG DOSE (2X325MG) PO PRN ×2 (08:10→23:43)
[2020-12-25] MEDS: MIDODRINE 2.5 MG TAB PO SCH ×2 (10:12→16:45)
--- NOTE | 2020-12-25 19:20 | IPNPDOC ---
Text Note Date of Service The patient was seen on 12/25/20. NOTE Hospitalist Progress Note Subjective: Patient was seen and evaluated while at dialysis today. He continues to complain of weakness and fatigue. Physical therapy indicates that he would likely require rehabilitation after discharge him. Cardiology has seen the patient, it appears that his bradycardia is an artifact noted on telemetry. They have increased his dose of midodrine. Their input and recommendations are greatly appreciated. Besides fatigue, the patient does not voice any other acute complaints today. Remainder of review of systems is negative. Objective: General: Awake, alert, oriented 3. Not in any acute distress. HEENT: Head normocephalic, atraumatic, sclera are nonicteric. Hearing is grossly intact to conversation. Respiratory: Clear to auscultation bilaterally with no wheezes, rales, or rhonchi. Cardiovascular: Regular rate and rhythm at this time, with no rubs, gallops, or murmur. Abdomen: Soft, nontender, nondistended. Bowel sounds present. Assessment/Plan: End-stage renal disease requiring dialysis Noncompliance with dialysis -Nephrology has been consulted and is managing his dialysis, their input is greatly appreciated Fatigue and debilitation -Physical therapy evaluation indicates that he may require rehab after discharge. Coronary artery disease Bradycardia with pauses despite having pacemaker/ICD in place -No additional events since 12/22/2020 -Continue telemetry -Continue clopidogrel, metoprolol, statin -Input from cardiology is greatly appreciated. Hyperlipidemia -Continue statin therapy Diabetes mellitus Diabetic neuropathy -Continue insulin per sliding scale -Continue gabapentin DVT prophylaxis -Heparin Abdominal pain -Resolved Disposition: May need rehabilitation after discharge, versus potential placement. VS,Tonybone, I+O VS, Fishbone, I+O Laboratory Tests 12/25/20 05:10 Vital Signs Date Time Temp Pulse Resp B/P (MAP) Pulse Ox O2 Delivery O2 Flow Rate FiO2 12/25/20 16:29 98.0 81 18 110/53 (72) 92 Nasal Cannula 3.0 I&O- Last 24 Hours up to 6 AM 12/25/20 06:00 Intake Total 2460 ml Output Total 0 ml Balance 2460 ml SHANDRA METZGER DO Dec 25, 2020 19:20
--- NOTE | 2020-12-25 20:52 | IPN ---
NEPHROLOGY PROGRESS NOTE DATE: 12/25/2020 SUBJECTIVE: Mr. Richard is seen and examined this morning in the Hemodialysis Unit receiving his treatment. His dialysis treatment is uneventful. The patient does not want to converse with me during his dialysis treatment. Dialysis nurse tells me that the patient was in a very belligerent and hostile mood this morning and was generally upset. He remains hemodynamically stable and tolerated fluid removal of 3.5 liters with his dialysis treatment today (this treatment was an extra treatment given that the patient has a CHF pattern on recent chest x-ray done yesterday). OBJECTIVE: PHYSICAL EXAMINATION: VITAL SIGNS: Temperature 98.0, pulse 81, respiratory rate 18, blood pressure 110/53, saturating 92-94% on 3 liters nasal cannula. INTAKE AND OUTPUT: Intake yesterday was 2.1 liters. Dialysis removal today was 3.5 liters. Weight in the bed scale today is 117.2 kg. GENERAL APPEARANCE: The patient is seen lying in bed receiving his hemodialysis treatment, drowsy, but easily arousable but refuses to interact today or to converse, in no respiratory distress. HEENT: The extraocular muscles are intact. He refuses to make eye contact. NECK: Supple. Jugular veins are mildly elevated. LUNGS: Sounds are distant and diminished and there are some scattered crackles. HEART: Sounds are irregular. Peripheral pulses are palpable. There are compression devices on his legs and there was no edema noted of the calves or shins. ABDOMEN: Soft and nontender. EXTREMITIES: There is a fistula in the left arm which is patent and in use. PSYCHIATRIC: The patient is withdrawn and upset today. LABORATORY STUDIES: Sodium 132, potassium 4.6, bicarbonate 27, BUN 39, creatinine 8.4, phosphorous 5.2, hemoglobin 10.3, platelet count 145. Glucose 184. IMAGING: Chest x-ray done yesterday shows CHF pattern. INPATIENT MEDICATIONS: The patient's medications were reviewed by myself, and no changes noted over the past 24 hours with the exception that he was started on Midodrine 2.5 mg p.o. twice daily. ASSESSMENT: 1. End-stage renal disease on hemodialysis - The patient missed three sessions of hemodialysis as an outpatient. Subsequently he was hospitalized and he was dialyzed aggressively last week. He had four inpatient hemodialysis treatments last week (December 19, December 20, L[place] December 23). He is still in fluid overload. Chest x-ray yesterday shows CHF pattern. He is receiving an extra dialysis treatment today. We removed 3.5 liters. He is still requiring supplemental oxygen. We will reevaluate him for dialysis needs on a daily basis. 2. Decompensated systolic congestive heart failure in this patient with cardiomyopathy and coronary artery disease and status post biventricular AICD. Chest x-ray yesterday showed congestive heart failure pattern. He is requiring supplemental oxygen; 3.5 liters were removed with dialysis today. He was dialyzed 4 times last week including three back to back sessions with 3.5 liters removed on each of those three sessions. I will reevaluate him for extra dialysis this week as well, given that he is still requiring supplemental oxygen. And I have added a 1.5 liter fluid restriction to his diet. 3. Anemia of chronic renal failure - hemoglobin is 10.3 which is optimal, and he continues on Aranesp with dialysis. 4. Chronic hypotension - The patient continues on Midodrine. He is tolerating ultrafiltration and fluid removal.
[2020-12-26] VITALS: BP 89/43
[2020-12-26] MEDS: IPRATROPIUM 0.5MG/ALBUTEROL 2.5MG INH SOL UD 3ML (DUONEB) NEB SCH ×2 (02:00→07:32)
[2020-12-26 04:00] VITALS: BP 96/58
[2020-12-26 05:42] LABS: HEMATOCRIT 32.8 % (42.0-52.0); HEMOGLOBIN 10.1 g/dl (13.5-17.5); MEAN CORPUSCULAR HEMOGLOBIN 32.9 pg (27.0-33.0); MEAN CORPUSCULAR HGB CONC 30.8 g/dl (32.0-36.5); MEAN CORPUSCULAR VOLUME 106.8 fl (80.0-96.0); PLATELET COUNT, AUTOMATED 127 10^3/uL (150-450); RED BLOOD COUNT 3.07 10^6/uL (4.30-6.10); WHITE BLOOD COUNT 9.2 10^3/uL (4.0-10.0)
[2020-12-26 06:20] LABS: ALBUMIN 3.3 GM/DL (3.2-5.2); CALCIUM LEVEL 7.9 MG/DL (8.8-10.2); CREATININE FOR GFR 5.81 MG/DL (0.70-1.30); GLOMERULAR FILTRATION RATE 10.1 (>42); POTASSIUM SERUM 4.5 MEQ/L (3.5-5.1)
[2020-12-26 07:15] VITALS: BP 100/54
[2020-12-26] MEDS: HumaLOG INSULIN (NovoLOG) PER UNIT SC SCH ×4 (08:13→21:00)
[2020-12-26] MEDS: CLOPIDOGREL 75 MG TAB PO SCH (08:14)
[2020-12-26] MEDS: MIRALAX *UNIT DOSE* 17GM PACKET PO SCH (08:14)
[2020-12-26] MEDS: GABAPENTIN 100 MG CAP PO SCH ×2 (08:14→21:40)
[2020-12-26] MEDS: PANTOPRAZOLE 40MG TAB (PROTONIX) PO SCH (08:14)
[2020-12-26] MEDS: FEBUXOSTAT 40 MG TABLET (ULORIC) PO SCH (08:14)
[2020-12-26] MEDS: ATORVASTATIN 20 MG TAB PO SCH (08:14)
[2020-12-26] MEDS: MIDODRINE 2.5 MG TAB PO SCH ×2 (08:18→15:40)
[2020-12-26 12:00] VITALS: BP 92/53
[2020-12-26 16:00] VITALS: BP 117/56
[2020-12-26] MEDS: GASTROGRAFIN SOLUTION 30ML PO SCH ×2 (17:15→17:46)
--- NOTE | 2020-12-26 18:27 | IPN ---
PROGRESS NOTE DATE: 12/26/2020 SUBJECTIVE: Mr. Richard is seen and examined this morning at the bedside. He was dialyzed yesterday. There was 3.5 liters of fluid removed. He reports ongoing generalized fatigue and weakness. He complains of abdominal pain but denies any nausea, vomiting, diarrhea, or constipation. He is very concerned about his long-term options, as he does not feel that he can go home without assistance. Temperature 98.3, pulse 67, respiratory rate 17, blood pressure 92/53, saturating 93%-95% on 3 liters nasal cannula. Intake yesterday was 1.3 liters. Dialysis yesterday removed 3.5 liters. Weight in the bed scale today is not recorded. GENERAL: Patient is seen lying in bed, awake, alert, oriented times three in no distress but does appear fatigued, elderly male. Extraocular muscles are intact. Tongue is moist. Neck is supple. Jugular veins were mildly elevated. HEART: Sounds are regular, S1, S2. There is no peripheral edema. LUNGS: Show diminished breath sounds bilaterally but no crackle or rale. He is comfortable on supplemental oxygen (3 liters via nasal cannula). ABDOMEN: Soft, obese, and nontender. EXTREMITIES: There is no significant peripheral edema. There is a fistula in the left arm, which is patent. NEUROLOGIC: He is oriented times three, interactive and at baseline mentation. LABORATORY DATA: White count 9.2, hemoglobin 10.1, platelets 127. Sodium 136, potassium 4.5, bicarbonate 30, BUN 26, creatinine 5.8, phosphorus 3.0. INPATIENT MEDICATIONS: Reviewed by myself, and I note no changes over the past 24 hours. PROBLEMS: 1. End-stage renal disease, on hemodialysis on a Friday, , Friday schedule. The patient missed three outpatient hemodialysis treatments in a row. Subsequently he was hospitalized and aggressively dialyzed last week. He had four inpatient hemodialysis treatments last week, December 19, , , and then December 23. This week he was dialyzed on Friday, December 25 as an additional treatment, and he was due for dialysis today; however, given his soft blood pressure, I decided to hold off on today's treatment, and patient will next be dialyzed on Friday, December 27. We will get a repeat chest x-ray to see if congestive heart failure (CHF) pattern has improved. Patient tells me he is on chronic oxygen at home as well. He is currently requiring 3 liters in the hospital. 2. Decompensated systolic congestive heart failure in this patient with cardiomyopathy and coronary artery disease and status post biventricular automatic implantable cardioverter defibrillator (AICD). Chest x-ray December 24 with CHF pattern. Patient is chronically oxygen dependent, currently on 3 liters via nasal cannula. There was 3.5 liters of fluid removed with dialysis yesterday, and we will dialyze him again on Friday. 3. Hypervolemic hyponatremia. Serum sodium has come up from 132 yesterday to 136 today. Continue 1.5 liter fluid restriction and fluid removal with hemodialysis. 4. Anemia of chronic renal failure. Hemoglobin is 10.1, which is optimal, and he is receiving Aranesp with hemodialysis. 5. Deconditioning and debility. Patient will work with physical therapy, and long-term plans are as of yet uncertain. May very likely require rehabilitation. 6. Hypotension. Patient continues on midodrine 2.5 mg twice daily.
--- NOTE | 2020-12-26 19:45 | REPVR ---
PROCEDURE INFORMATION: Exam: CT Abdomen Without Contrast Exam date and time: 12/26/2020 7:00 PM Age: 80 years old Clinical indication: Abdominal pain; Additional info: Abdominal pain (ruq greatest) TECHNIQUE: Imaging protocol: Computed tomography images of the abdomen without contrast. Radiation optimization: All CT scans at this facility use at least one of these dose optimization techniques: automated exposure control; mA and/or kV adjustment per patient size (includes targeted exams where dose is matched to clinical indication); or iterative reconstruction. COMPARISON: Abdomen, limited US 12/20/2020 3:49 PM FINDINGS: Lungs: Bibasilar atelectasis. Small right pleural effusion. Liver: Normal. No mass. Gallbladder and bile ducts: There are gallstones present. No evidence of cholecystitis demonstrated. Pancreas: Normal. No ductal dilation. Spleen: The spleen demonstrates punctate calcifications, consistent with remote granulomatous organism exposure. There is mild splenomegaly with a maximum span of 14.5 centimeters. Adrenals: 2 cm left adrenal lipoma. Kidneys and ureters: Simple cysts right kidney measure up to 4.5 cm. No follow-up suggested. Stomach and bowel: Moderate diverticular disease demonstrated in the partially visualized distal colon as well as transverse colon. Intraperitoneal space: Unremarkable. No free air. No significant fluid collection. Lymph nodes: Unremarkable. No enlarged lymph nodes. Vasculature: The aortoiliac vessels demonstrate mild atherosclerotic calcification. Bones/joints: Status post sternotomy. Status post CABG. Severe central spinal stenosis L1-L2, L2-L3, L3-L4 and L4-L5. Moderate central spinal stenosis L5-S1. Soft tissues: Unremarkable. IMPRESSION: 1. There are gallstones present. No evidence of cholecystitis demonstrated. 2. Simple cysts right kidney measure up to 4.5 cm. No follow-up suggested. 3. Moderate diverticular disease demonstrated in the partially visualized distal colon as well as transverse colon. 4. There is mild splenomegaly with a maximum span of 14.5 centimeters. COMMENTS: Consistent with the [employer]'s Incidental Findings Committee white paper (J Am Ochoa Radiol 2018): Any incidental renal lesion less than 1 cm or classified as too small to characterize, or any incidental cystic renal lesion characterized as simple-appearing, is likely benign. No follow-up imaging is recommended for these lesions per consensus recommendations based on imaging criteria. Electronically signed by: Jim Renteria On 12/26/2020 19:45:18 PM
[2020-12-26 20:00] VITALS: BP 111/57
--- NOTE | 2020-12-26 21:41 | IPNPDOC ---
Subjective Date Seen The patient was seen on 12/26/20. Subjective Chief Complaint/HPI Patient was seen and examined this morning. He reports fatigue and weak. Unfortunately, he was unable to work with physical therapy because he was in dialysis the last 1 to 2 days. He reported having abdominal pain that is intermittent and resolves once fluid is removed. He denied associated nausea, vomiting and changes in bowel movements. He denies chest pain, shortness of breath, and palpitations. Objective Physical Examination Other physical findings General: Lying in bed, no acute distress Head/Neck/Throat: Trachea midline, mucous membranes moist Eyes: Sclera anicteric, no erythema or discharge appreciated bilaterally Thorax: Normal respiratory effort on room air, lungs clear to auscultation bilaterally, no wheezes/rales/rhonchi Cardiovascular: Normal rate, regular rhythm, normal S1, S2 Abdomen: Bowel sounds present, soft, no rebound tenderness, mild tenderness reported with palpation in the right upper quadrant Genitourinary: No CVA tenderness, no Miller in place Musculoskeletal: Moving all extremities, no edema Skin: Warm, dry Neurologic: AAOx3, speech fluent and goal-directed, no focal deficits, grossly intact Assessment /Plan Assessment #End-stage renal disease requiring dialysis -Noncompliance with dialysis. He has required dialysis sessions outside his normal schedule to remove excess fluid. Nephrology following and appreciate input. #Abdominal pain -We will obtain CT scan of the abdomen to rule out acute pathology. Not allowing IV access, therefore will be done without contrast. #Deconditioned -Anticipate he may need continued rehab after discharge. #Coronary artery disease -Bradycardia with pauses despite having pacemaker/ICD in place. This was evaluated by the cardiology team noted to be artifact. -Continue clopidogrel, metoprolol, statin #Hyperlipidemia -Continue statin therapy #Diabetes mellitus -Continue insulin per sliding scale -Continue gabapentin #DVT prophylaxis -Heparin Plan/VTE VTE Prophylaxis Ordered?: Yes VS, I&O, 24H, Fishbone Vital Signs/I&O Vital Signs Date Time Temp Pulse Resp B/P (MAP) Pulse Ox O2 Delivery O2 Flow Rate FiO2 12/26/20 12:00 98.3 67 17 92/53 (66) 93 Nasal Cannula 3.0 I&O- Last 24 Hours up to 6 AM 12/26/20 06:00 Intake Total 600 ml Output Total 3500 ml Balance -2900 ml Laboratory Data 24H LABS Laboratory Tests 2 12/25/20 14:07: Bedside Glucose (Misc Panel) 129H 12/25/20 17:03: Bedside Glucose (Misc Panel) 184H 12/25/20 20:24: Bedside Glucose (Misc Panel) 176H 12/26/20 05:07: Nucleated Red Blood Cells % (auto) 0.0, Anion Gap 7L, Glomerular Filtration Rate 10.1L, Calcium Level 7.9L, Phosphorus Level 3.0#, Albumin 3.3 12/26/20 06:52: Bedside Glucose (Misc Panel) 152H 12/26/20 11:40: Bedside Glucose (Misc Panel) 206H CBC/BMP Laboratory Tests 12/26/20 05:07 MADDY CHE M.D. Dec 26, 2020 14:13
[2020-12-26] MEDS: HEPARIN SOD (PORCINE) 5000UNITS/ML 1ML VIAL/SYRINGE SQ SCH (22:26)
[2020-12-27 04:00] VITALS: BP 94/50
[2020-12-27 06:21] LABS: HEMATOCRIT 32.3 % (42.0-52.0); HEMOGLOBIN 10.2 g/dl (13.5-17.5); MEAN CORPUSCULAR HEMOGLOBIN 33.4 pg (27.0-33.0); MEAN CORPUSCULAR HGB CONC 31.6 g/dl (32.0-36.5); MEAN CORPUSCULAR VOLUME 105.9 fl (80.0-96.0); PLATELET COUNT, AUTOMATED 140 10^3/uL (150-450); RED BLOOD COUNT 3.05 10^6/uL (4.30-6.10); WHITE BLOOD COUNT 8.8 10^3/uL (4.0-10.0)
[2020-12-27 06:24] LABS: ALBUMIN 3.2 GM/DL (3.2-5.2); CREATININE FOR GFR 7.65 MG/DL (0.70-1.30); GLOMERULAR FILTRATION RATE 7.3 (>42); PHOSPHORUS LEVEL 4.2 MG/DL (2.5-4.9); POTASSIUM SERUM 4.8 MEQ/L (3.5-5.1)
[2020-12-27] MEDS: HEPARIN SOD (PORCINE) 5000UNITS/ML 1ML VIAL/SYRINGE SQ SCH (06:33)
[2020-12-27] MEDS: GABAPENTIN 100 MG CAP PO SCH (07:53)
[2020-12-27] MEDS: FEBUXOSTAT 40 MG TABLET (ULORIC) PO SCH (07:53)
[2020-12-27] MEDS: CLOPIDOGREL 75 MG TAB PO SCH (07:53)
[2020-12-27] MEDS: PANTOPRAZOLE 40MG TAB (PROTONIX) PO SCH (07:53)
[2020-12-27] MEDS: MIRALAX *UNIT DOSE* 17GM PACKET PO SCH (07:53)
[2020-12-27] MEDS: MIDODRINE 2.5 MG TAB PO SCH (07:53)
[2020-12-27] MEDS: HumaLOG INSULIN (NovoLOG) PER UNIT SC SCH ×2 (07:54→11:29)
[2020-12-27] MEDS: ATORVASTATIN 20 MG TAB PO SCH (07:56)
[2020-12-27] MEDS ORDERED: SODIUM CHLORIDE 0.9% 1000ML IV PRN (10:40)
[2020-12-27] MEDS ORDERED: LIDOCAINE 1% SDV 5ML VIAL SC PRN (10:40)
--- NOTE | 2020-12-27 11:43 | DS.PDOC ---
Discharge Summary General Date of Admission Dec 19, 2020 at 16:40 Date of Discharge 11/26/20 Discharge Summary DISCHARGE DIAGNOSES: 1. Noncompliance with hemodialysis 2. CHF exacerbation 3. Electrolyte abnormalities COMPLICATIONS/CHIEF COMPLAINT: Esrd On Hemodialysis,Hyperkalemia,Noncompliance. HOSPITAL COURSE: Mr. Richard, is a 80 year old male with a past medical history of end-stage renal disease, coronary artery disease (status post stents and CABG), insulin- dependent diabetes mellitus, hypertension, ?chronic respiratory failure (reports he is on home 02) and GERD who presented to the emergency room department after he missed three sessions of his dialysis. In the emergency room department he was noted to be in fluid overloaded state as well as congestive heart failure. He normally undergoes hemodialysis on Tuesdays, , and Friday schedule. However, he required aggressive dialysis bedside outside his schedule. This was managed by the nephrology team who follows him as an outpatient as well. During hospitalization, a he was noted that he was deconditioned therefore he worked with physical therapy. He was evaluated by the ARU team and accepted. He will be transferred to the ARU unit where ongoing care with nephrology will also take place. It should be noted patient had abdominal pain that was intermittent during hospitalization. Following a bowel movement as well as his dialysis sessions he reported improvement on 12/27 and said he was back to baseline. He did have episodes of bradycardia with pauses despite having a pacemaker/ICD in place that was noted on telemetry. This was evaluated by the cardiology team and it was determined that this was likely artifact. He is to continue with his ambulatory antiplatelet therapy, beta-jolie and statin therapy. Please note due to his blood pressure his metoprolol was held. At the time of discharge his blood pressure was improved while on midodrine. However, he would not be able to tolerate beta-jolie at this time. Upon approval of his blood pressure please resume metoprolol as this will benefit him with underlying coronary artery disease. It should be also noted, his gabapentin dosage was decreased in hopes of weaning him off if it, due to him having end-stage renal disease. This can be done with his primary care physician and carbon paste mixer operator as well. Once discharged, he should have a follow-up with his primary care physician, carbon paste mixer operator, and delivery stock clerk. Please note patient made aware of all imaging findings and appropriate follow- ups that are required. He was also encouraged to obtain all copies of imaging for his records and [facility] follow-ups. DISCHARGE MEDICATIONS: Please see below. ALLERGIES: Please see below. PHYSICAL EXAMINATION ON DISCHARGE: VITAL SIGNS: Please see below. General: Lying in bed, no acute distress Head/Neck/Throat: Trachea midline, mucous membranes moist Eyes: Sclera anicteric, no erythema or discharge appreciated bilaterally Thorax: Normal respiratory effort on room air, lungs clear to auscultation bilaterally, no wheezes/rales/rhonchi Cardiovascular: Normal rate, regular rhythm, normal S1, S2 Abdomen: Bowel sounds present, soft, no rebound tenderness, no tenderness reported with palpation Genitourinary: No CVA tenderness, no Miller in place Musculoskeletal: Moving all extremities, no edema Skin: Warm, dry Neurologic: AAOx3, speech fluent and goal-directed, no focal deficits, grossly intact LABORATORY DATA: Please see below. IMAGING: PORTABLE CHEST X-RAY 12/24 FINDINGS: The cardiomediastinal silhouette is unchanged. The pacemaker device and leads unchanged. Once again, there is a diffuse increase in the interstitial markings throughout the lung ahumada. This appears to have slightly increased. No patchy opacities have developed. There is no change in the osseous structures. CT ABD W/PO CONTRAST ONLY Liver: Normal. No mass. Gallbladder and bile ducts: There are gallstones present. No evidence of cholecystitis demonstrated. Pancreas: Normal. No ductal dilation. Spleen: The spleen demonstrates punctate calcifications, consistent with remote granulomatous organism exposure. There is mild splenomegaly with a maximum span of 14.5 centimeters. Adrenals: 2 cm left adrenal lipoma. Kidneys and ureters: Simple cysts right kidney measure up to 4.5 cm. No follow-up suggested. Stomach and bowel: Moderate diverticular disease demonstrated in the partially visualized distal colon as well as transverse colon. Intraperitoneal space: Unremarkable. No free air. No significant fluid collection. Lymph nodes: Unremarkable. No enlarged lymph nodes. Vasculature: The aortoiliac vessels demonstrate mild atherosclerotic calcification. Bones/joints: Status post sternotomy. Status post CABG. Severe central spinal stenosis L1-L2, L2-L3, L3-L4 and L4-L5. Moderate central spinal stenosis L5-S1. Soft tissues: Unremarkable. IMPRESSION: 1. There are gallstones present. No evidence of cholecystitis demonstrated. 2. Simple cysts right kidney measure up to 4.5 cm. No follow-up suggested. 3. Moderate diverticular disease demonstrated in the partially visualized distal colon as well as transverse colon. 4. There is mild splenomegaly with a maximum span of 14.5 centimeters. PROGNOSIS: Good ACTIVITY: Continue to work with PT. DIET: Renal diet DISPOSITION: ARU ITEMS TO FOLLOWUP ON ON OUTPATIENT: As mentioned above DISCHARGE CONDITION: Stable TIME SPENT ON DISCHARGE: 25 minutes. Vital Signs/I&Os Vital Signs Date Time Temp Pulse Resp B/P (MAP) Pulse Ox O2 Delivery O2 Flow Rate FiO2 12/27/20 04:00 97.8 70 19 94/50 (65) 93 Nasal Cannula 3.0 I&O- Last 24 Hours up to 6 AM 12/27/20 06:00 Intake Total 1080 ml Output Total 0 ml Balance 1080 ml Laboratory Data Labs 24H Laboratory Tests 2 12/26/20 11:40: Bedside Glucose (Misc Panel) 206H 12/26/20 17:17: Bedside Glucose (Misc Panel) 193H 12/26/20 21:37: Bedside Glucose (Misc Panel) 167H 12/27/20 05:31: Nucleated Red Blood Cells % (auto) 0.0, Anion Gap 11, Glomerular Filtration Rate 7.3L, Calcium Level 8.0L, Phosphorus Level 4.2#, Albumin 3.2 12/27/20 06:35: Bedside Glucose (Misc Panel) 156H 12/27/20 11:12: Bedside Glucose (Misc Panel) 186H CBC/BMP Laboratory Tests 12/27/20 05:31 FSBS Laboratory Tests Test 12/26/20 11:40 12/26/20 17:17 12/26/20 21:37 12/27/20 06:35 Range/Units Bedside Glucose (Misc Panel) 206 193 167 156 83-110 MG/DL Test 12/27/20 11:12 Range/Units Bedside Glucose (Misc Panel) 186 83-110 MG/DL Discharge Medications Scheduled Atorvastatin Calcium (Atorvastatin Calcium) 20 Mg Tablet, 20 MG PO DAILY, (Reported) Calcium Acetate (Calcium Acetate) 667 Mg Capsule, 667 MG PO WM, (Reported) Clopidogrel Bisulfate (Clopidogrel) 75 Mg Tablet, 75 MG PO DAILY, (Reported) Febuxostat (Febuxostat) 40 Mg Tablet, 40 MG PO DAILY, (Reported) Folic Acid/Vit B Complex and C (Gloria-Lety Tablet) 0.8 Mg Tablet, 1 TAB PO Q2D, (Reported) Gabapentin (Gabapentin) 100 Mg Capsule, 100 MG PO DAILY, (Reported) Glipizide (Glipizide ER) 10 Mg Tab.er.24, 10 MG PO DAILY, (Reported) Midodrine HCl (Midodrine HCl) 5 Mg Tablet, 5 MG PO HD, (Reported) Pantoprazole Sodium (Pantoprazole Sodium) 40 Mg Tablet.dr, 40 MG PO DAILY, (Reported) Allergies Coded Allergies: No Known Allergies (Verified Allergy, Unknown, 12/19/20) MADDY CHE M.D. Dec 27, 2020 11:42
[2020-12-27] MEDS: DARBEPOETIN 200MCG/0.4ML *DIALYSIS* SYRINGE (J0882 PER 1MCG) IV SCH (13:55)
== END 2020-12-27 14:34 | DRG 291 ==
LOC: M ED 14:27 → M ED INP 16:40 → ENRESERV 16:48 → M MSPAV 17:59 → M PCU 12-22 09:33
PROVIDERS: ADMIT Internal Medicine; ATTEND Neuromusculoskeletal Medicine & OMM
PROC: 5A1D70Z Performance of Urinary Filtration, Intermittent, Less than 6 Hours Per Day (ICD-10-PCS; principal; 2020-12-19)
DX: I13.2 Hypertensive heart and chronic kidney disease with heart failure and with stage 5 chronic kidney disease, or end stage renal disease (principal); N18.6 End stage renal disease; I50.23 Acute on chronic systolic (congestive) heart failure; J96.10 Chronic respiratory failure, unspecified whether with hypoxia or hypercapnia; E87.1 Hypo-osmolality and hyponatremia; Z99.2 Dependence on renal dialysis; I25.10 Atherosclerotic heart disease of native coronary artery without angina pectoris; Z95.5 Presence of coronary angioplasty implant and graft; Z95.810 Presence of automatic (implantable) cardiac defibrillator; E11.22 Type 2 diabetes mellitus with diabetic chronic kidney disease; Z99.81 Dependence on supplemental oxygen; K21.9 Gastro-esophageal reflux disease without esophagitis; Z91.15 Patient's noncompliance with renal dialysis; E78.5 Hyperlipidemia, unspecified; Z20.822 Contact with and (suspected) exposure to COVID-19; Z79.84 Long term (current) use of oral hypoglycemic drugs; Z79.899 Other long term (current) drug therapy; E87.5 Hyperkalemia; E11.42 Type 2 diabetes mellitus with diabetic polyneuropathy; D63.1 Anemia in chronic kidney disease; M10.9 Gout, unspecified; K59.09 Other constipation; R10.9 Unspecified abdominal pain; Z72.3 Lack of physical exercise; R00.1 Bradycardia, unspecified; I95.89 Other hypotension

== ENCOUNTER 2020-12-27 11:48 | Inpatient (IN) | payer MEDICARE ==
[~2020-12-27] VITALS: Ht 185.4 cm; Wt 117.2 kg
[~2020-12-27 11:48] MED LIST: ATOR1TAB21 PO; CALC1CAP PO; CARV3.12 PO; CLOP75TA2 PO; FEBU40TA2 PO; GABA-1171 PO; GLIP10TA18 PO; LIDO1CRE42 TOP; MAG-400T7 PO; MED REC COMMENT; METO1TAB32 PO; MIDO5TA PO; PANT40TA29 PO; RENATAB5 PO
[2020-12-27] MEDS: MIDODRINE 2.5 MG TAB PO SCH (16:00)
[2020-12-27] MEDS: REMEDY PHYTOPLEX Z-GUARD PASTE 113GM TUBE (FROM STOREROOM PRODUCT) TOP SCH ×2 (16:00→21:00)
[2020-12-27] MEDS ORDERED: REMEDY PHYTOPLEX Z-GUARD PASTE 113GM TUBE (FROM STOREROOM PRODUCT) TOP SCH (16:00)
[2020-12-27 16:30] VITALS: BP 128/65
[2020-12-27] MEDS: CALCIUM ACETATE 667MG GELCAP PO SCH (18:39)
[2020-12-27 20:00] VITALS: BP 105/51
[2020-12-27] MEDS: COMBIVENT RESPIMAT 100-20MCG INHALER 4GM INH SCH (20:24)
[2020-12-27] MEDS ORDERED: GLUCAGON INJ 1MG VIAL SC PRN (20:55)
[2020-12-27] MEDS ORDERED: GLUCOSE 4GM CHEW TABLET PO PRN (20:55)
[2020-12-27] MEDS ORDERED: DEXTROSE 50% 50 ML SYRINGE IV PRN (20:55)
[2020-12-27] MEDS ORDERED: SENNA 8.6 MG TAB (SENOKOT) PO SCH (21:00)
[2020-12-27] MEDS: HumaLOG INSULIN (NovoLOG) PER UNIT SC SCH (21:00)
[2020-12-27] MEDS: DOCUSATE SODIUM 100MG CAPSULE PO SCH (21:00)
[2020-12-27] MEDS: HEPARIN SOD (PORCINE) 5000UNITS/ML 1ML VIAL/SYRINGE SC SCH (21:39)
[2020-12-28 06:00] VITALS: BP 94/54
[2020-12-28 07:01] LABS: BASO % 0.4 % (0.0-1.0); EOS # 0.1 10^3/uL (0.0-0.5); EOS % 1.3 % (0.0-3.0); HEMOGLOBIN 10.7 g/dl (13.5-17.5); LYMPH % 13.5 % (24.0-44.0); MEAN CORPUSCULAR HEMOGLOBIN 33.5 pg (27.0-33.0); MEAN CORPUSCULAR HGB CONC 31.5 g/dl (32.0-36.5); MEAN CORPUSCULAR VOLUME 106.6 fl (80.0-96.0); MONO # 0.9 10^3/uL (0.0-0.8); MONO % 11.7 % (2.0-8.0); NEUTROPHILS # 5.5 10^3/uL (1.5-8.5); NEUTROPHILS % 72.4 % (36.0-66.0); PLATELET COUNT, AUTOMATED 131 10^3/uL (150-450); RED BLOOD COUNT 3.19 10^6/uL (4.30-6.10); WHITE BLOOD COUNT 7.6 10^3/uL (4.0-10.0)
[2020-12-28 07:28] LABS: ALBUMIN 3.4 GM/DL (3.2-5.2); BILIRUBIN,TOTAL 0.6 MG/DL (0.2-1.0); CALCIUM LEVEL 8.2 MG/DL (8.8-10.2); CREATININE FOR GFR 6.3 MG/DL (0.70-1.30); GLOMERULAR FILTRATION RATE 9.2 (>42); POTASSIUM SERUM 4.9 MEQ/L (3.5-5.1); TOTAL PROTEIN 6.5 GM/DL (6.4-8.2)
[2020-12-28] MEDS ORDERED: glipiZIDE (GLUCOTROL) 5 MG TAB PO SCH (07:30)
[2020-12-28] MEDS: REMEDY PHYTOPLEX Z-GUARD PASTE 113GM TUBE (FROM STOREROOM PRODUCT) TOP SCH ×3 (09:00→20:46)
[2020-12-28] MEDS: HumaLOG INSULIN (NovoLOG) PER UNIT SC SCH ×4 (09:06→20:46)
[2020-12-28] MEDS: HEPARIN SOD (PORCINE) 5000UNITS/ML 1ML VIAL/SYRINGE SC SCH ×2 (09:07→20:46)
[2020-12-28] MEDS: FEBUXOSTAT 40 MG TABLET (ULORIC) PO SCH (09:07)
[2020-12-28] MEDS: PANTOPRAZOLE 40MG TAB (PROTONIX) PO SCH (09:07)
[2020-12-28] MEDS: CALCIUM ACETATE 667MG GELCAP PO SCH ×3 (09:07→17:17)
[2020-12-28] MEDS: CLOPIDOGREL 75 MG TAB PO SCH (09:07)
[2020-12-28] MEDS: ATORVASTATIN 20 MG TAB PO SCH (09:07)
[2020-12-28] MEDS: GABAPENTIN 100 MG CAP PO SCH (09:07)
[2020-12-28] MEDS: NEPHRO-VIT TAB (NEPHROCAPS) PO SCH (09:07)
[2020-12-28] MEDS: DOCUSATE SODIUM 100MG CAPSULE PO SCH (09:07)
[2020-12-28] MEDS: MIDODRINE 2.5 MG TAB PO SCH ×2 (09:08→17:18)
[2020-12-28] MEDS: ACETAMINOPHEN TAB 650MG DOSE (2X325MG) PO PRN ×2 (09:09→20:46)
--- NOTE | 2020-12-28 09:28 | IPN ---
PROGRESS NOTE DATE: 12/27/2020 SUBJECTIVE: Mr. Richard is seen and examined this morning at the bedside and later in the afternoon receiving his hemodialysis treatment. He is going to go to rehabilitation after dialysis is complete. His dialysis treatment today was uneventful with 3 liters of fluid removed. Patient complains of ongoing generalized fatigue and weakness but denies shortness of breath at rest. OBJECTIVE: VITAL SIGNS: Temperature is 97.8, pulse is 70, respiratory rate 19, blood pressure 94/50, saturating 93% on three liters nasal cannula. INPUT AND OUTPUT: Dialysis today removed 3 liters. Intake yesterday was 1 liter. GENERAL: Patient was seen awake, alert, oriented and comfortable, in good spirits in no distress, receiving his dialysis treatment. HEENT: Extraocular muscles are intact. Tongue is moist. NECK: Supple. Jugular veins are not elevated. HEART: Heart sounds are regular S1 and S2, there is no peripheral edema. LUNGS: Diminished breath sounds bilaterally but there is no accessory muscle use. He is comfortable on nasal cannula. There is no crackle or wheeze. ABDOMEN: Soft, obese, and nontender. EXTREMITIES: No edema. There is no fistula present in his left arm which is patent and in use. NEUROLOGIC: He is at baseline mentation, oriented x3. LABORATORY DATA: White count 8.8, hemoglobin is 10.2, platelets 140,000, sodium 134, potassium 4.8, BUN 40, creatinine is 7.6. Phosphorus 4.2. INPATIENT MEDICATIONS: Reviewed by myself and I note no changes over the past day. PROBLEMS: 1. Endstage renal disease on hemodialysis. Patient's usual schedule is a Friday, , Friday schedule. He is off of his chronic schedule. He was dialyzed aggressively last week for control of fluid status after he missed three outpatient hemodialysis treatments in a row. Today, the patient was dialyzed with 3 liters of fluid removed and he tolerated his treatment without any issues. He continues to be weak and debilitated and is going to go to acute rehabilitation after dialysis today. 2. Decompensated systolic congestive heart failure. Most recent chest x-ray was on December 24 with CHF pattern. Patient is chronically oxygen dependent, he continues to saturate well on 3 liters via nasal cannula. He is on moderate oral fluid restriction. Hypotension of hemodialysis has been controlled with the use of Midodrine and he has tolerating at least 3 liters of fluid removal with each dialysis treatment. 3. Deconditioning. Patient is pending admission to acute rehabilitation unit after completion of dialysis treatment today. 4. Hypervolemic hyponatremia, it will improve with dialysis and fluid removal. Patient continues on moderate fluid restriction. 5. Hypotension. Patient receives Midodrine twice daily. Blood pressures on dialysis have been stable and he is tolerating fluid removal. 6. Anemia of chronic renal failure, hemoglobin is at goal with Aranesp.
[2020-12-28] MEDS: COMBIVENT RESPIMAT 100-20MCG INHALER 4GM INH SCH ×3 (11:30→19:54)
--- NOTE | 2020-12-28 12:29 | HPEPDOC ---
Sign Builder Note DATE OF ADMISSION: 12-27-20 DATE OF SERVICE: 12-28-20 TIME OF ADMISSION: Please refer to physician's admission order. SOURCE OF ADMISSION INFORMATION: [facility] record and patient CHIEF COMPLAINT: weakness in setting of peripheral polyneuropathy HISTORY OF PRESENT ILLNESS: 80M pmh ESRD on HD, CAD s/p CABG with AICD/pacemaker, systolic CHF, DM with peripheral polyneuropathy, HTN, chronic respiratory failure on home 02 presented to [facility] ED on 12-19-20 having missed dialysis and presented with metabolic derangement and weakness. He was seen by renal, diuresed via dialysis and developed bradycardia with pauses despite having a pacemaker for which cardiology was consulted. He continued to have significant weakness and hypotension requiring midodrine with difficulty walking and performing ADLs. He was deemed medically appropriate for discharge to ARU on 12-27-20. REVIEW OF SYSTEMS: The following is a completed review of systems and has been reviewed. Review of systems otherwise unremarkable. PAIN: Patient self reports no pain EYES: No recent vision changes EARS, NOSE, & THROAT: No throat pain, or dysphagia, or rhinorrhea CARDIOVASCULAR: Denies chest pain or palpitations PULMONARY: Denies shortness of breath GASTROINTESTINAL: +loose stools GENITOURINARY:anuric MUSCULOSKELETAL: generalized weakness NEUROLOGICAL:+peripheral polyneuropathy HEMATOLOGICAL: +anemia SKIN: denies rash PSYCHIATRIC: Unremarkable All other review of systems found to be negative. PAST MEDICAL HISTORY: as per HPI PAST SURGICAL HISTORY: as per HPI ALLERGIES: Please see below. MEDICATIONS: Please see below. SOCIAL HISTORY: No smoking/etoh/illicit drugs DIET: low sodium, consistent carb PHYSICAL EXAMINATION: VITAL SIGNS: Please see below. GENERAL: Pleasant and cooperative. No acute distress. HEENT: PERRL. Extraocular movements intact. Clear conjunctiva CARDIOVASCULAR: Regular rate and rhythm. No murmurs, rubs, or gallops LUNGS: Clear to auscultation bilaterally. No wheezes. No rhonchi ABDOMEN: Soft, nontender, nondistended. Positive bowel sounds. Normal active bowel sounds NEUROLOGICAL: Alert and oriented times three. Cranial nerves II through XII grossly intact. Sensation decreased to light touch in stocking pattern EXTREMITIES: 5\5 strength bilateral upper extremities. 4+\5 strength right lower extremity. 4+/5 strength in left lower extremity. LABORATORY DATA: Please see below. IMAGING: Imaging documentation personally reviewed by record FUNCTIONAL STATUS: Premorbid: Mod-Independent with all activities of daily life as well as mobility On Admission: Min assist for bed mobility, functional transfers, ambulation, dressing, toileting GOALS: Mod-I for bed mobility, functional transfers, ambulation, dressing, toileting, bathing ASSESSMENT:80-year-old M with past medical history of ESRD on HD and peripheral polyneuropathy who presents status post weakness in setting of metabolic derangement due to missed dialysis sessions PLAN: 1.Rehab- PT/OT advance mobility and ADLs, strengthen/stretch/maintain ROM all 4 limbs 2. Neuro- peripheral polyneuropathy due to longstanding DM with weakness, balance impairments, and mobility decline contributing to current functional deficits 3. Cardiac- -hypotension cont midodrine -CAD s/p CABG with AICD/PM cont plavix -chronic systolic CHF-daily weights, fluid restrict 4. Resp- monitor for infection -patient on home 02 and CPAP for KEESHA -will start Combivent 5. GI ppx- protonix 6. REnal- ESRD on HD-renal consulted -cont Calcium Acetate and uloric 7. Endo- DM on glipzide and ISS 8. DVT ppx- heparin 9. Pain- gabapentin 10 Dispo- TBD POST ADMISSION PHYSICIAN EVALUATION: Medical and functional status: Description of medical status, medical assessment: As above. Rehabilitation diagnosis and current and prior cold morbid medical conditions as above. Risk of complications and plans to mitigate them as above. Description of functional status current status is as above. Prior status as above. Status compared to preadmission: There are no clinically significant differences between the patient's current status and the information described on the preadmission screening document. Treatment plan anticipated: Treatment plan is as described above. Required disciplines including physical therapy, occupational therapy, others as noted above. Intensity of services: 3 hours a day, 6 days a week. Special considerations: There are no specific special or safety considerations that would likely preclude immediate implementation of an intensive rehabilitation program or subsequently influence the plan of care ATTESTATION: Considering all the information above, it is my best judgment that this patient requires intensive rehabilitation therapy as described above and an inpatient hospital environment due to the complexity of nursing, medical, and rehabilitation needs required by the patient. Furthermore, this patient can reasonably be expected to participate in an benefit from an inpatient rehabilitation stay with an interdisciplinary team approach to the delivery of rehabilitation care under the direction and supervision of rehabilitation physician. PROGNOSIS: good ESTIMATED LENGTH OF STAY:12-16 days. PROJECTED DISCHARGE DESTINATION: Home with family support and any durable medical equipment required to increase functional safety and mobility. TIME SPENT COUNSELING AND COORDINATING INITIAL CARE: Greater than 70 minutes. Vital Signs Vital Sign - Last 24 Hours 12/27/20 12/27/20 12/27/20 12/28/20 16:30 20:00 23:08 06:00 Temp 97.5 98.1 97.5 Pulse 62 67 58 Resp 18 20 19 B/P (MAP) 128/65 (86) 105/51 (69) 94/54 (67) Pulse Ox 95 90 94 O2 Delivery Nasal Cannula Nasal Cannula NIPPV (BIPAP/CPAP) O2 Flow Rate 3.0 3.0 3.0 3.0 Laboratory Data CBC/BMP Laboratory Tests 12/28/20 06:45 Labs 24H Laboratory Tests 2 12/27/20 21:29: Bedside Glucose (Misc Panel) 225H 12/28/20 06:45: Immature Granulocyte % (Auto) 0.7, Neutrophils (%) (Auto) 72.4H, Lymphocytes (%) (Auto) 13.5L, Monocytes (%) (Auto) 11.7H, Eosinophils (%) (Auto) 1.3, Basophils (%) (Auto) 0.4, Neutrophils # (Auto) 5.5, Lymphocytes # (Auto) 1.0L, Monocytes # (Auto) 0.9H, Eosinophils # (Auto) 0.1, Basophils # (Auto) 0.0, Nucleated Red Blood Cells % (auto) 0.3H, Anion Gap 8, Glomerular Filtration Rate 9.2L, Calcium Level 8.2L, Total Bilirubin 0.6, Aspartate Amino Transf (AST/SGOT) 9, Alanine Aminotransferase (ALT/SGPT) 19, Alkaline Phosphatase 61, Total Protein 6.5, Albumin 3.4, Albumin/Globulin Ratio 1.1 12/28/20 11:42: Bedside Glucose (Misc Panel) 96 FSBS Laboratory Tests Test 12/27/20 21:29 12/28/20 11:42 Range/Units Bedside Glucose (Misc Panel) 225 96 83-110 MG/DL Home Medications Scheduled Atorvastatin Calcium (Atorvastatin Calcium) 20 Mg Tablet, 20 MG PO DAILY, (Reported) Calcium Acetate (Calcium Acetate) 667 Mg Capsule, 667 MG PO WM, (Reported) Clopidogrel Bisulfate (Clopidogrel) 75 Mg Tablet, 75 MG PO DAILY, (Reported) Febuxostat (Febuxostat) 40 Mg Tablet, 40 MG PO DAILY, (Reported) Folic Acid/Vit B Complex and C (Gloria-Lety Tablet) 0.8 Mg Tablet, 1 TAB PO Q2D, (Reported) Gabapentin (Gabapentin) 100 Mg Capsule, 100 MG PO DAILY, (Reported) Glipizide (Glipizide ER) 10 Mg Tab.er.24, 10 MG PO DAILY, (Reported) Midodrine HCl (Midodrine HCl) 5 Mg Tablet, 5 MG PO HD, (Reported) Pantoprazole Sodium (Pantoprazole Sodium) 40 Mg Tablet.dr, 40 MG PO DAILY, (Reported) Allergies Coded Allergies: No Known Allergies (Verified Allergy, Unknown, 12/19/20) A-FIB/CHADSVASC A-FIB History Current/History of A-Fib/PAF?: No Current PO Anticoag Therapy: No JERI GARCIA MD Dec 28, 2020 12:29
[2020-12-28 14:00] VITALS: BP 107/54
--- NOTE | 2020-12-28 17:34 | IPNPDOC ---
Subjective Date Seen The patient was seen on 12/28/20. Subjective Chief Complaint/HPI Pt was seen and examined at bedside this morning. He felt tired after working with physical therapy. Otherwise he had no new complaints. He denied chest pain, sob, abd pain, n/v, and problems with urination and bowel movements. Objective Physical Examination Other physical findings General: Lying in bed, no acute distress Head/Neck/Throat: Trachea midline, mucous membranes moist Eyes: Sclera anicteric, no erythema or discharge appreciated bilaterally Thorax: On 2 L nasal cannula, lungs clear to auscultation bilaterally, no wheezes/rales/rhonchi Cardiovascular: Normal rate, regular rhythm, normal S1, S2; no S3, S4, rubs/gallops/murmurs Abdomen: Bowel sounds present, soft/nontender/nondistended Genitourinary: No CVA tenderness, no Miller in place Skin: Warm, dry Assessment /Plan Assessment #End-stage renal disease requiring dialysis -Noncompliance with dialysis. He has required dialysis sessions outside his normal schedule to remove excess fluid. Nephrology following and appreciate input. #Deconditioned -Anticipate he may need continued rehab after discharge. #Coronary artery disease -Bradycardia with pauses despite having pacemaker/ICD in place. This was evaluated by the cardiology team noted to be artifact. -Continue clopidogrel, metoprolol, statin #Hyperlipidemia -Continue statin therapy #Diabetes mellitus -Going to discontinue glipizide due to episode of hypoglycemia. For now c/w sliding scale only, accu-Cheks and hypoglycemic protocol. -Check hba1c. We may need to change his diabetic medications as sulfonylureas especially in the setting of end-stage renal disease may cause persistent episodes of hypoglycemia. -Continue gabapentin #DVT prophylaxis -Heparin Plan/VTE VTE Prophylaxis Ordered?: Yes VS, I&O, 24H, Fishbone Vital Signs/I&O Vital Signs Date Time Temp Pulse Resp B/P (MAP) Pulse Ox O2 Delivery O2 Flow Rate FiO2 12/28/20 14:00 97.5 55 16 107/54 (71) 93 NIPPV (BIPAP/CPAP) 3.0 I&O- Last 24 Hours up to 6 AM 12/28/20 06:00 Intake Total 0 ml Balance 0 ml Laboratory Data 24H LABS Laboratory Tests 2 12/27/20 21:29: Bedside Glucose (Misc Panel) 225H 12/28/20 06:45: Immature Granulocyte % (Auto) 0.7, Neutrophils (%) (Auto) 72.4H, Lymphocytes (%) (Auto) 13.5L, Monocytes (%) (Auto) 11.7H, Eosinophils (%) (Auto) 1.3, Basophils (%) (Auto) 0.4, Neutrophils # (Auto) 5.5, Lymphocytes # (Auto) 1.0L, Monocytes # (Auto) 0.9H, Eosinophils # (Auto) 0.1, Basophils # (Auto) 0.0, Nucleated Red Blood Cells % (auto) 0.3H, Anion Gap 8, Glomerular Filtration Rate 9.2L, Calcium Level 8.2L, Total Bilirubin 0.6, Aspartate Amino Transf (AST/SGOT) 9, Alanine Aminotransferase (ALT/SGPT) 19, Alkaline Phosphatase 61, Total Protein 6.5, Albumin 3.4, Albumin/Globulin Ratio 1.1 12/28/20 11:42: Bedside Glucose (Misc Panel) 96 12/28/20 16:31: Bedside Glucose (Misc Panel) 49L 12/28/20 16:56: Bedside Glucose (Misc Panel) 53L CBC/BMP Laboratory Tests 12/28/20 06:45 MADDY CHE M.D. Dec 28, 2020 17:30
[2020-12-28] MEDS ORDERED: DARBEPOETIN 100 MCG/0.5 ML *DIALYSIS* SYRINGE (J0882) IV SCH (18:40)
[2020-12-28 20:00] VITALS: BP 112/56
--- NOTE | 2020-12-28 20:12 | IPN ---
NEPHROLOGY PROGRESS NOTE DATE: 12/28/2020 SUBJECTIVE: Mr. Richard is seen and examined this morning in the acute rehabilitation unit. He feels tired after working with physical therapy. He has no complaints. He denies any trouble with his breathing. Reports it feels like his usual baseline. He was dialyzed yesterday with 3 liters of fluid removed and he tolerated his treatment without any issues. PHYSICAL EXAMINATION: VITAL SIGNS: Temperature 97.5, pulse 55, respiratory rate 16, blood pressure 107/55, saturating 93% on 3 liters nasal cannula. INTAKE AND OUTPUT: Intake yesterday was not recorded. Dialysis removed 3 liters. GENERAL: Patient was seen sitting in the wheelchair, elderly male, awake, alert, oriented, talkative, conversational, in no distress. HEENT: Extraocular muscles are intact. Tongue is moist. Jugular veins were not elevated while he was sitting upright in the wheelchair. HEART SOUNDS: Regular. S1, S2. There was no peripheral edema in the legs. LUNGS: Showed diminished breath sounds bilaterally. No crackle or rale. He was comfortable on nasal cannula. He is chronically oxygen dependent. ABDOMEN: Soft, obese and nontender. EXTREMITIES: There was no edema in his legs. There is a fistula on the left arm, which is patent. NEUROLOGIC: He is oriented times three, at his baseline mentation and cooperative with physical exam. LABORATORY STUDIES: White count 7.6, hemoglobin 10.7, platelets 131. Sodium 133, potassium 4.9, bicarbonate 26, BUN 27. INPATIENT MEDICATIONS: Reviewed by myself and I note no change management facilitator the past day. Patient continues on: - Combivent - atorvastatin - PhosLo - Plavix - Uloric - gabapentin - heparin subcutaneous - insulin - midodrine - Protonix - Nephro-Lety - Senokot PROBLEMS: 1. End-stage renal disease. Patient is chronically on outpatient schedule of Friday, and Friday. In the hospital, he is currently being dialyzed on Friday, Friday and Friday. He is off of his schedule. His next dialysis will be tomorrow with goal fluid removal of 3 to 3.5 liters as tolerated by his hemodynamics. 2. Congestive heart failure. His most recent chest x-ray on December 24, 2020 showed congestive heart failure pattern. I will plan to repeat a chest x-ray after his dialysis treatment tomorrow. He is on an oral fluid restriction and we are removing around 3-3.5 liters with each dialysis treatment. 3. Deconditioning. Patient is working with rehabilitation team now. 4. Hypotension. Patient continues to midodrine twice a day and blood pressures on dialysis have been fairly stable and we have been able to remove at least 3 liters with each treatment thus far. 5. Anemia of chronic renal failure. Hemoglobin is 10.7 on the latest labs and is optimal and he continues on Aranesp with dialysis. 6. Secondary hyperparathyroidism of renal origin. The patient continues on PhosLo binder.
[2020-12-28] MEDS ORDERED: SENNA 8.6 MG TAB (SENOKOT) PO PRN (21:00)
[2020-12-28] MEDS ORDERED: DOCUSATE SODIUM 100MG CAPSULE PO PRN (21:00)
[2020-12-29 06:00] VITALS: BP 114/59
[2020-12-29] MEDS ORDERED: glipiZIDE (GLUCOTROL) 5 MG TAB PO SCH (07:30)
[2020-12-29] MEDS: COMBIVENT RESPIMAT 100-20MCG INHALER 4GM INH SCH ×3 (07:32→19:53)
[2020-12-29] MEDS: MIDODRINE 2.5 MG TAB PO SCH ×2 (07:59→16:05)
[2020-12-29] MEDS: NEPHRO-VIT TAB (NEPHROCAPS) PO SCH (07:59)
[2020-12-29] MEDS: HumaLOG INSULIN (NovoLOG) PER UNIT SC SCH ×4 (07:59→21:00)
[2020-12-29] MEDS: GABAPENTIN 100 MG CAP PO SCH (07:59)
[2020-12-29] MEDS: ATORVASTATIN 20 MG TAB PO SCH (08:00)
[2020-12-29] MEDS: PANTOPRAZOLE 40MG TAB (PROTONIX) PO SCH (08:00)
[2020-12-29] MEDS: CLOPIDOGREL 75 MG TAB PO SCH (08:00)
[2020-12-29] MEDS: CALCIUM ACETATE 667MG GELCAP PO SCH ×3 (08:00→17:44)
[2020-12-29] MEDS: HEPARIN SOD (PORCINE) 5000UNITS/ML 1ML VIAL/SYRINGE SC SCH ×2 (08:01→21:00)
[2020-12-29] MEDS: FEBUXOSTAT 40 MG TABLET (ULORIC) PO SCH (08:01)
[2020-12-29] MEDS: REMEDY PHYTOPLEX Z-GUARD PASTE 113GM TUBE (FROM STOREROOM PRODUCT) TOP SCH ×3 (08:07→21:00)
[2020-12-29] MEDS ORDERED: SODIUM CHLORIDE 0.9% 1000ML IV PRN (10:05)
[2020-12-29] MEDS ORDERED: LIDOCAINE 1% SDV 5ML VIAL SC PRN (10:05)
[2020-12-29] MEDS ORDERED: glipiZIDE *2.5MG* 1/2 TABLET PO SCH (11:00)
[2020-12-29] MEDS: EMLA CREAM 5GM TUBE (LIDOCAINE/PRILOCAINE) TOP SCH (12:12)
--- NOTE | 2020-12-29 13:10 | IPN ---
PROGRESS NOTE DATE: 12/29/2020 SUBJECTIVE: Mr. Richard is seen and examined this morning in the rehabilitation unit working with the therapist, getting washed out and later on in the dialysis unit in the afternoon. He has no complaints. No overnight events. He remains afebrile, hemodynamically stable and reports breathing is at his usual baseline and is tolerating dialysis without any issue. OBJECTIVE: VITAL SIGNS: Temperature is 97.9, pulse is 69, respiratory rate is 17, blood pressure is 114/59, saturating 93% on 2 liters nasal cannula. GENERAL: Patient is awake, alert and oriented x3 in no distress. HEENT: Extraocular muscles are intact. Tongue is moist. NECK: Supple. Jugular veins are not elevated. HEART: Heart sounds are regular. S1 and S2, mildly bradycardic. LUNGS: Symmetric and diminished air movement bilaterally. He is comfortable on nasal cannula. ABDOMEN: Soft, obese and nontender. EXTREMITIES: There is no peripheral edema. There is a fistula in the left arm which is patent and in use. NEUROLOGIC: He is oriented x3, interactive, conversational at baseline mentation. PSYCHIATRIC: Appropriate mood and affect. LABORATORY DATA: Sodium is 133, potassium is 4.9, bicarbonate 26, hemoglobin 10.7, platelets are 131,000. INPATIENT MEDICATIONS: Reviewed by myself and no changes are noted as compared to yesterday. PROBLEMS: 1. Endstage renal disease on hemodialysis. Patient is off of his usual maintenance schedule of TTS, in the hospital he is currently being dialyzed MWF. He is dialyzed with goal fluid removal of 3.5 liters as tolerated by hemodynamics. We will get a repeat chest x-ray tomorrow to reevaluate for pulmonary edema as he did have CHF pattern on his prior chest x-ray this week. His electrolytes are otherwise acceptable and fistula is in good use. 2. Congestive heart failure, chest x-ray December 24 showed CHF pattern, volume status is regulated via hemodialysis. He does not tolerate more than 3.5 liters of fluid removal and goal fluid removal today is 3.5 liters. We will get a repeat chest x-ray on Friday and if there is a sign of pulmonary congestion, an extra dialysis can be arranged if needed. 3. Deconditioning, he is working with the rehabilitation team now. 4. Hypotension, he continues on Midodrine twice daily and is tolerating 3 to 3.5 liters of fluid removal with each hemodialysis treatment. 5. Anemia of chronic renal failure, hemoglobin is 10.7 on the latest labs and is optimal and continues on Aranesp with dialysis.
[2020-12-29 13:22] LABS: BASO % 0.3 % (0.0-1.0); EOS # 0.1 10^3/uL (0.0-0.5); EOS % 1.4 % (0.0-3.0); HEMATOCRIT 33.8 % (42.0-52.0); HEMOGLOBIN 10.9 g/dl (13.5-17.5); LYMPH # 1.3 10^3/uL (1.5-5.0); LYMPH % 13.7 % (24.0-44.0); MEAN CORPUSCULAR HEMOGLOBIN 33.4 pg (27.0-33.0); MEAN CORPUSCULAR HGB CONC 32.2 g/dl (32.0-36.5); MEAN CORPUSCULAR VOLUME 103.7 fl (80.0-96.0); MONO % 10.9 % (2.0-8.0); NEUTROPHILS # 6.6 10^3/uL (1.5-8.5); PLATELET COUNT, AUTOMATED 155 10^3/uL (150-450); RED BLOOD COUNT 3.26 10^6/uL (4.30-6.10); WHITE BLOOD COUNT 9.1 10^3/uL (4.0-10.0)
[2020-12-29 13:47] LABS: CALCIUM LEVEL 8.9 MG/DL (8.8-10.2); CREATININE FOR GFR 8.39 MG/DL (0.70-1.30); GLOMERULAR FILTRATION RATE 6.6 (>42); POTASSIUM SERUM 5.3 MEQ/L (3.5-5.1)
[2020-12-29 13:50] LABS: HEMOGLOBIN A1c 6.3 %
--- NOTE | 2020-12-29 15:15 | IPNPDOC ---
PM&R Progress Note DATE OF SERVICE: Dec 29, 2020 Editor Greeting Card Progress Note Subjective: Patient stating he is feeling ok, but that he is still having some loose stools. He denies fever or chills. REVIEW OF SYSTEMS: The following is a completed review of systems and has been reviewed. Review of systems otherwise unremarkable. PAIN: Patient self reports no pain EYES: No recent vision changes EARS, NOSE, & THROAT: No throat pain, or dysphagia, or rhinorrhea CARDIOVASCULAR: Denies chest pain or palpitations PULMONARY: Denies shortness of breath GASTROINTESTINAL: +loose stools GENITOURINARY:anuric MUSCULOSKELETAL: generalized weakness NEUROLOGICAL:+peripheral polyneuropathy HEMATOLOGICAL: +anemia SKIN: denies rash PSYCHIATRIC: Unremarkable All other review of systems found to be negative. PHYSICAL EXAMINATION: VITAL SIGNS: Please see below. GENERAL: Pleasant and cooperative. No acute distress. HEENT: PERRL. Extraocular movements intact. Clear conjunctiva CARDIOVASCULAR: Regular rate and rhythm. No murmurs, rubs, or gallops LUNGS: Clear to auscultation bilaterally. No wheezes. No rhonchi ABDOMEN: Soft, nontender, nondistended. Positive bowel sounds. Normal active bowel sounds NEUROLOGICAL: Alert and oriented times three. Cranial nerves II through XII grossly intact. Sensation decreased to light touch in stocking pattern EXTREMITIES: 5\5 strength bilateral upper extremities. 4+\5 strength right lower extremity. 4+/5 strength in left lower extremity. ASSESSMENT:80-year-old M with past medical history of ESRD on HD and peripheral polyneuropathy who presents status post weakness in setting of metabolic derangement due to missed dialysis sessions PLAN: 1.Rehab- PT/OT advance mobility and ADLs, strengthen/stretch/maintain ROM all 4 limbs, ambulating with RW 2. Neuro- peripheral polyneuropathy due to longstanding DM with weakness, balance impairments, and mobility decline contributing to current functional de ficits 3. Cardiac- -hypotension cont midodrine -CAD s/p CABG with AICD/PM cont plavix -chronic systolic CHF-daily weights, fluid restrict 4. Resp- monitor for infection -patient on home 02 and CPAP for KEESHA -cont Combivent 5. GI ppx- protonix 6. REnal- ESRD on HD-renal consulted -cont Calcium Acetate and uloric 7. Endo- DM on glipzide and ISS 8. DVT ppx- heparin 9. Pain- gabapentin 10 Dispo- TBD Allergies Coded Allergies: No Known Allergies (Verified Allergy, Unknown, 12/19/20) Vital Signs Vital Signs Date Time Temp Pulse Resp B/P (MAP) Pulse Ox O2 Delivery O2 Flow Rate FiO2 12/29/20 08:00 2.5 12/29/20 06:00 97.9 69 17 114/59 (77) 93 NIPPV (BIPAP/CPAP) Laboratory Data CBC/BMP Laboratory Tests 12/29/20 12:57 Labs 24H Laboratory Tests 2 12/28/20 16:31: Bedside Glucose (Misc Panel) 49L 12/28/20 16:56: Bedside Glucose (Misc Panel) 53L 12/28/20 17:44: Bedside Glucose (Misc Panel) 104 12/28/20 19:54: Bedside Glucose (Misc Panel) 117H 12/29/20 05:54: Bedside Glucose (Misc Panel) 202H 12/29/20 11:34: Bedside Glucose (Misc Panel) 80L 12/29/20 12:57: Immature Granulocyte % (Auto) 0.7, Neutrophils (%) (Auto) 73.0H, Lymphocytes (%) (Auto) 13.7L, Monocytes (%) (Auto) 10.9H, Eosinophils (%) (Auto) 1.4, Basophils (%) (Auto) 0.3, Neutrophils # (Auto) 6.6, Lymphocytes # (Auto) 1.3L, Monocytes # (Auto) 1.0H, Eosinophils # (Auto) 0.1, Basophils # (Auto) 0.0, Nucleated Red Blood Cells % (auto) 0.0, Anion Gap 9, Glomerular Filtration Rate 6.6L, Estimated Mean Plasma Glucose 134H, Hemoglobin A1c 6.3, Calcium Level 8.9 Current Medications Current Medications Current Medications Medications (Trade) Dose Ordered Sig/Lisa Route PRN Reason Start Time Stop Time Status Last Admin Dose Admin Acetaminophen (Tylenol Tab) 650 mg Q4HP PRN PO fever/MILD PAIN (PS 1-4) 12/27/20 12:25 12/28/20 20:46 Albuterol/ Ipratropium (Combivent Respimat 100-20mcg) 1 puff RTID INH 12/27/20 20:00 12/29/20 12:23 Atorvastatin Calcium (Lipitor) 20 mg DAILY PO 12/28/20 09:00 12/29/20 08:00 Calcium Acetate (Phoslo) 667 mg WM PO 12/27/20 18:00 12/29/20 12:10 Clopidogrel Bisulfate (PLAVix) 75 mg DAILY PO 12/28/20 09:00 12/29/20 08:00 Darbepoetin Shant (Aranesp (Dialysis Use)) 100 mcg HD IV 12/28/20 18:40 Dextrose (Dextrose 50%) 25 ml ASDIRECTED PRN IV SEE LABEL COMMENTS 12/27/20 20:55 Docusate Sodium (Colace) 100 mg BID PO 12/27/20 21:00 12/28/20 16:27 DC 12/28/20 09:07 Docusate Sodium (Colace) 100 mg BID PRN PO constipation 12/28/20 21:00 Febuxostat (Uloric) 40 mg DAILY PO 12/28/20 09:00 12/29/20 08:01 Gabapentin (Neurontin) 100 mg DAILY PO 12/28/20 09:00 12/29/20 07:59 Glipizide (Glucotrol) 2.5 mg DAILY@0730 PO 12/29/20 11:00 12/29/20 11:21 Glipizide (Glucotrol) 5 mg DAILY@0730 PO 12/29/20 07:30 12/28/20 17:31 DC Glipizide (Glucotrol) 10 mg DAILY@0730 PO 12/28/20 07:30 12/28/20 17:10 DC 12/28/20 09:11 Glucagon (Glucagon) 1 mg ASDIRECTED PRN SC SEE LABEL COMMENTS 12/27/20 20:55 Glucose (Glucose) 16 GM ASDIRECTED PRN PO SEE LABEL COMMENTS 12/27/20 20:55 Heparin Sodium (Heparin) Please refer to ... ASDIRECTED XX 12/29/20 10:05 12/30/20 10:04 Heparin Sodium (Porcine) (Heparin) 5,000 units Q12H SC 12/27/20 21:00 12/29/20 08:01 Insulin Human Lispro (HumaLOG INSULIN) SEE PROTOCOL TABLE AC SC 12/28/20 07:30 12/29/20 07:59 Insulin Human Lispro (HumaLOG INSULIN) SEE PROTOCOL TABLE QHS SC 12/27/20 21:00 Lidocaine HCl (Lidocaine 1% Sdv) 0.5 ml ASDIRECTED PRN SC SEE LABEL COMMENTS 12/29/20 10:05 12/30/20 10:04 Lidocaine/ Prilocaine (Emla) FOR IV STICKS ASDIRECTED TOP 12/29/20 10:20 12/29/20 12:12 Midodrine (Proamatine) 2.5 mg 08,16 PO 12/27/20 16:00 12/29/20 07:59 Pantoprazole Sodium (Protonix) 40 mg DAILY PO 12/28/20 09:00 12/29/20 08:00 Senna (Senokot) 1 tab QHS PO 12/27/20 21:00 12/28/20 16:27 DC Senna (Senokot) 1 tab QHS PRN PO constipation 12/28/20 21:00 Sodium Chloride (Nacl 0.9%) 200 ml ASDIRECTED PRN IV SEE LABEL COMMENTS 12/29/20 10:05 12/30/20 10:04 Vitamin B Complex/ Vit C/Folic Acid (Nephro-Lety Rx) 1 tab DAILY PO 12/28/20 09:00 12/29/20 07:59 JERI GARCIA MD Dec 29, 2020 15:15
[2020-12-29 18:00] VITALS: BP 109/59
[2020-12-29 20:00] VITALS: BP 97/44
[2020-12-29] MEDS: ACETAMINOPHEN TAB 650MG DOSE (2X325MG) PO PRN (22:38)
[2020-12-30 06:00] VITALS: BP 133/71
[2020-12-30] MEDS: COMBIVENT RESPIMAT 100-20MCG INHALER 4GM INH SCH ×3 (07:14→19:27)
[2020-12-30] MEDS: FEBUXOSTAT 40 MG TABLET (ULORIC) PO SCH (08:01)
[2020-12-30] MEDS: PANTOPRAZOLE 40MG TAB (PROTONIX) PO SCH (08:01)
[2020-12-30] MEDS: GABAPENTIN 100 MG CAP PO SCH (08:01)
[2020-12-30] MEDS: HumaLOG INSULIN (NovoLOG) PER UNIT SC SCH ×4 (08:01→20:26)
[2020-12-30] MEDS: CLOPIDOGREL 75 MG TAB PO SCH (08:01)
[2020-12-30] MEDS: HEPARIN SOD (PORCINE) 5000UNITS/ML 1ML VIAL/SYRINGE SC SCH ×2 (08:01→20:25)
[2020-12-30] MEDS: MIDODRINE 2.5 MG TAB PO SCH ×2 (08:02→16:26)
[2020-12-30] MEDS: ATORVASTATIN 20 MG TAB PO SCH (08:02)
[2020-12-30] MEDS: CALCIUM ACETATE 667MG GELCAP PO SCH ×3 (08:02→17:10)
[2020-12-30] MEDS: NEPHRO-VIT TAB (NEPHROCAPS) PO SCH (08:02)
[2020-12-30] MEDS: REMEDY PHYTOPLEX Z-GUARD PASTE 113GM TUBE (FROM STOREROOM PRODUCT) TOP SCH ×3 (08:03→20:26)
--- NOTE | 2020-12-30 09:32 | REP ---
INDICATION: re-eval chf. COMPARISON: Comparison chest x-ray December 24, 2020. TECHNIQUE: Portable upright AP chest radiograph. FINDINGS: Right hemidiaphragm remains elevated. A multi lead transvenous pacemaker is seen in place via the right side. Median sternotomy wires are noted and mediastinal clips are observed. Minimal linear platelike atelectasis persists in the left base. Aeration in the left base is improved compared with the prior study. Vascular congestion is improved. No new infiltrate is seen. IMPRESSION: Pacemaker in place. Improved CHF pattern. Improved aeration left base. <Electronically signed by Earl Card > 12/30/20 0905
[2020-12-30] MEDS: ACETAMINOPHEN TAB 650MG DOSE (2X325MG) PO PRN ×3 (10:10→20:27)
[2020-12-30 14:00] VITALS: BP 114/55
--- NOTE | 2020-12-30 15:38 | IPNPDOC ---
Subjective Date Seen The patient was seen on 12/30/20. Subjective Chief Complaint/HPI Patient seen and examined at bedside this morning. He had no new complaints. He denies chest pain, abdominal pain, nausea, vomiting, problems with urination or bowel movements. Objective Physical Examination Other physical findings General: Lying in bed, no acute distress Head/Neck/Throat: Trachea midline, mucous membranes moist Eyes: Sclera anicteric, no erythema or discharge appreciated bilaterally Thorax: On 2 L nasal cannula, lungs clear to auscultation bilaterally, no wheezes/rales/rhonchi Cardiovascular: Normal rate, regular rhythm, normal S1, S2; no S3, S4, rubs/gallops/murmurs Abdomen: Bowel sounds present, soft/nontender/nondistended Genitourinary: No CVA tenderness, no Miller in place Skin: Warm, dry Assessment /Plan Assessment #End-stage renal disease requiring dialysis -Noncompliance with dialysis. He has required dialysis sessions outside his normal schedule to remove excess fluid. Nephrology following and appreciate input. #Deconditioned -Continue with ARU therapy. #Coronary artery disease -Bradycardia with pauses despite having pacemaker/ICD in place. This was evaluated by the cardiology team noted to be artifact. -Continue clopidogrel, metoprolol, statin #Hyperlipidemia -Continue statin therapy #Diabetes mellitus -Going to discontinue glipizide due to episode of hypoglycemia. For now c/w sliding scale only, accu-Cheks and hypoglycemic protocol. -Check hba1c. We may need to change his diabetic medications as sulfonylureas especially in the setting of end-stage renal disease may cause persistent episodes of hypoglycemia. -Continue gabapentin #DVT prophylaxis -Heparin Plan/VTE VTE Prophylaxis Ordered?: Yes VS, I&O, 24H, Fishbone Vital Signs/I&O Vital Signs Date Time Temp Pulse Resp B/P (MAP) Pulse Ox O2 Delivery O2 Flow Rate FiO2 12/30/20 08:00 2.5 12/30/20 06:00 98.2 67 18 133/71 (91) 96 Nasal Cannula I&O- Last 24 Hours up to 6 AM 12/30/20 06:00 Intake Total 750 ml Output Total 3500 ml Balance -2750 ml Laboratory Data 24H LABS Laboratory Tests 2 12/29/20 17:37: Bedside Glucose (Misc Panel) 141H 12/29/20 21:02: Bedside Glucose (Misc Panel) 215H 12/30/20 05:54: Bedside Glucose (Misc Panel) 141H 12/30/20 11:25: Bedside Glucose (Misc Panel) 171H MADDY CHE M.D. Dec 30, 2020 14:18
--- NOTE | 2020-12-30 16:04 | IPN ---
PROGRESS NOTE DATE: 12/30/2020 Mr. Richard is seen this morning on his bedside. He is currently lying in the bed. He reports that he did have one session of physical therapy this morning and waiting for his next session. He is still feeling very weak, particularly in his lower extremities, and has difficulty ambulating. He denies any dyspnea, chest pain, nausea, or vomiting. He underwent hemodialysis yesterday, which he tolerated well. PHYSICAL EXAMINATION: Temperature 98.2 degrees Fahrenheit, heart rate 68 per minute, respiratory rate 28 per minute, blood pressure 133/70 mmHg, and oxygen saturation 96%. Head is atraumatic. Neck supple, and jugular venous distention (JVD) difficult to be assessed. Heart sounds are regular, and lungs sound clear to auscultation. Abdomen obese, soft, and nontender, and bowel sounds are normal. Extremities without any cyanosis or clubbing. He does not have any peripheral edema at present. Neurologically he is at his baseline mentation. Patient had a chest x-ray done this morning, which showed pacemaker and improved congestive heart failure. PROBLEMS: 1. End-stage renal disease. Patient was dialyzed yesterday, and we will plan his next dialysis on Friday. He wishes to switch to a regular dialysis of Friday, , Friday. I have advised him that he should be dialyzed on Friday, and then we will try to switch him to and Friday. Going from Friday to Friday will be probably too risky because of decompensated congestive heart failure. 2. Congestive heart failure. His volume status clinically looks quite compensated. His chest x-ray also showed improved congestive heart failure (CHF). We will try to stay on top of his volume status with dialysis. 3. Anemia. His anemia has been stable and does not need any intervention. 4. Lower extremity weakness. Patient has severe polyneuropathy and has difficulty ambulating. He is currently undergoing acute rehabilitation.
[2020-12-30 20:00] VITALS: BP 106/58
[2020-12-31 06:00] VITALS: BP 114/62
[2020-12-31] MEDS: COMBIVENT RESPIMAT 100-20MCG INHALER 4GM INH SCH ×3 (07:09→20:43)
[2020-12-31] MEDS: CALCIUM ACETATE 667MG GELCAP PO SCH ×3 (08:42→16:58)
[2020-12-31] MEDS: NEPHRO-VIT TAB (NEPHROCAPS) PO SCH (08:42)
[2020-12-31] MEDS: FEBUXOSTAT 40 MG TABLET (ULORIC) PO SCH (08:42)
[2020-12-31] MEDS: MIDODRINE 2.5 MG TAB PO SCH ×2 (08:42→16:58)
[2020-12-31] MEDS: PANTOPRAZOLE 40MG TAB (PROTONIX) PO SCH (08:42)
[2020-12-31] MEDS: GABAPENTIN 100 MG CAP PO SCH (08:42)
[2020-12-31] MEDS: CLOPIDOGREL 75 MG TAB PO SCH (08:42)
[2020-12-31] MEDS: ATORVASTATIN 20 MG TAB PO SCH (08:42)
[2020-12-31] MEDS: HumaLOG INSULIN (NovoLOG) PER UNIT SC SCH ×4 (08:43→21:00)
[2020-12-31] MEDS: HEPARIN SOD (PORCINE) 5000UNITS/ML 1ML VIAL/SYRINGE SC SCH ×2 (08:43→20:53)
[2020-12-31] MEDS: REMEDY PHYTOPLEX Z-GUARD PASTE 113GM TUBE (FROM STOREROOM PRODUCT) TOP SCH ×3 (08:44→21:00)
[2020-12-31 14:00] VITALS: BP 135/63
[2020-12-31] MEDS: ACETAMINOPHEN TAB 650MG DOSE (2X325MG) PO PRN (17:38)
[2020-12-31 20:00] VITALS: BP 105/58
[2021-01-01 05:58] LABS: HEMATOCRIT 34.1 % (42.0-52.0); HEMOGLOBIN 10.9 g/dl (13.5-17.5); MEAN CORPUSCULAR HEMOGLOBIN 33.2 pg (27.0-33.0); PLATELET COUNT, AUTOMATED 153 10^3/uL (150-450); RED BLOOD COUNT 3.28 10^6/uL (4.30-6.10); WHITE BLOOD COUNT 7.5 10^3/uL (4.0-10.0)
[2021-01-01 06:23] VITALS: BP 108/68
[2021-01-01 06:29] LABS: ALBUMIN 3.5 GM/DL (3.2-5.2); CALCIUM LEVEL 8.6 MG/DL (8.8-10.2); CREATININE FOR GFR 9.18 MG/DL (0.70-1.30); GLOMERULAR FILTRATION RATE 5.9 (>42); PHOSPHORUS LEVEL 4.4 MG/DL (2.5-4.9); POTASSIUM SERUM 5.3 MEQ/L (3.5-5.1)
[2021-01-01] MEDS: COMBIVENT RESPIMAT 100-20MCG INHALER 4GM INH SCH ×3 (07:52→20:00)
[2021-01-01] MEDS: NEPHRO-VIT TAB (NEPHROCAPS) PO SCH (08:45)
[2021-01-01] MEDS: HEPARIN SOD (PORCINE) 5000UNITS/ML 1ML VIAL/SYRINGE SC SCH ×2 (08:45→20:23)
[2021-01-01] MEDS: FEBUXOSTAT 40 MG TABLET (ULORIC) PO SCH (08:46)
[2021-01-01] MEDS: GABAPENTIN 100 MG CAP PO SCH (08:46)
[2021-01-01] MEDS: ATORVASTATIN 20 MG TAB PO SCH (08:46)
[2021-01-01] MEDS: PANTOPRAZOLE 40MG TAB (PROTONIX) PO SCH (08:46)
[2021-01-01] MEDS: CALCIUM ACETATE 667MG GELCAP PO SCH ×3 (08:46→17:59)
[2021-01-01] MEDS: HumaLOG INSULIN (NovoLOG) PER UNIT SC SCH ×4 (08:46→20:24)
[2021-01-01] MEDS: CLOPIDOGREL 75 MG TAB PO SCH (08:46)
[2021-01-01] MEDS: MIDODRINE 2.5 MG TAB PO SCH ×2 (08:46→16:00)
[2021-01-01] MEDS: REMEDY PHYTOPLEX Z-GUARD PASTE 113GM TUBE (FROM STOREROOM PRODUCT) TOP SCH ×3 (08:47→20:24)
[2021-01-01] MEDS: ACETAMINOPHEN TAB 650MG DOSE (2X325MG) PO PRN ×2 (08:47→20:23)
--- NOTE | 2021-01-01 10:47 | IPNPDOC ---
PM&R Progress Note DATE OF SERVICE: Jan 01, 2021 Blister Packing Machine Tender Progress Note Subjective: Patient stating his bowels have improved, he denies fever, chills, or pain. REVIEW OF SYSTEMS: The following is a completed review of systems and has been reviewed. Review of systems otherwise unremarkable. PAIN: Patient self reports no pain EYES: No recent vision changes EARS, NOSE, & THROAT: No throat pain, or dysphagia, or rhinorrhea CARDIOVASCULAR: Denies chest pain or palpitations PULMONARY: Denies shortness of breath GASTROINTESTINAL: +loose stools (resolved) GENITOURINARY:anuric MUSCULOSKELETAL: generalized weakness NEUROLOGICAL:+peripheral polyneuropathy HEMATOLOGICAL: +anemia SKIN: denies rash PSYCHIATRIC: Unremarkable All other review of systems found to be negative. PHYSICAL EXAMINATION: VITAL SIGNS: Please see below. GENERAL: Pleasant and cooperative. No acute distress. HEENT: PERRL. Extraocular movements intact. Clear conjunctiva CARDIOVASCULAR: Regular rate and rhythm. No murmurs, rubs, or gallops LUNGS: Clear to auscultation bilaterally. No wheezes. No rhonchi ABDOMEN: Soft, nontender, nondistended. Positive bowel sounds. Normal active bowel sounds NEUROLOGICAL: Alert and oriented times three. Cranial nerves II through XII grossly intact. Sensation decreased to light touch in stocking pattern EXTREMITIES: 5\5 strength bilateral upper extremities. 4+\5 strength right lower extremity. 4+/5 strength in left lower extremity. ASSESSMENT:80-year-old M with past medical history of ESRD on HD and peripheral polyneuropathy who presents status post weakness in setting of metabolic derangement due to missed dialysis sessions PLAN: 1.Rehab- PT/OT advance mobility and ADLs, strengthen/stretch/maintain ROM all 4 limbs 2. Neuro- peripheral polyneuropathy due to longstanding DM with weakness, balance impairments, and mobility decline contributing to current functional deficits 3. Cardiac- -hypotension cont midodrine -CAD s/p CABG with AICD/PM cont plavix -chronic systolic CHF-daily weights, fluid restrict 4. Resp- monitor for infection -patient on home 02 and CPAP for KEESHA -cont Combivent 5. GI ppx- protonix 6. REnal- ESRD on HD-renal consulted -cont Calcium Acetate and uloric 7. Endo- DM on glipzide and ISS 8. DVT ppx- heparin 9. Pain- gabapentin 10 Dispo- TBD Allergies Coded Allergies: No Known Allergies (Verified Allergy, Unknown, 12/19/20) Vital Signs Vital Signs Date Time Temp Pulse Resp B/P (MAP) Pulse Ox O2 Delivery O2 Flow Rate FiO2 01/01/21 06:23 97.0 83 18 108/68 (81) 95 NIPPV (BIPAP/CPAP) 12/31/20 20:00 3.0 Laboratory Data CBC/BMP Laboratory Tests 01/01/21 05:41 Labs 24H Laboratory Tests 2 12/31/20 11:21: Bedside Glucose (Misc Panel) 177H 12/31/20 16:43: Bedside Glucose (Misc Panel) 223H 12/31/20 20:11: Bedside Glucose (Misc Panel) 184H 01/01/21 05:41: Nucleated Red Blood Cells % (auto) 0.0, Anion Gap 10, Glomerular Filtration Rate 5.9L, Calcium Level 8.6L, Phosphorus Level 4.4, Albumin 3.5 01/01/21 05:49: Bedside Glucose (Misc Panel) 134H Current Medications Current Medications Current Medications Medications (Trade) Dose Ordered Sig/Lisa Route PRN Reason Start Time Stop Time Status Last Admin Dose Admin Acetaminophen (Tylenol Tab) 650 mg Q4HP PRN PO fever/MILD PAIN (PS 1-4) 12/27/20 12:25 01/01/21 08:47 Albuterol/ Ipratropium (Combivent Respimat 100-20mcg) 1 puff RTID INH 12/27/20 20:00 01/01/21 07:52 Atorvastatin Calcium (Lipitor) 20 mg DAILY PO 12/28/20 09:00 01/01/21 08:46 Calcium Acetate (Phoslo) 667 mg WM PO 12/27/20 18:00 01/01/21 08:46 Clopidogrel Bisulfate (PLAVix) 75 mg DAILY PO 12/28/20 09:00 01/01/21 08:46 Darbepoetin Shant (Aranesp (Dialysis Use)) 100 mcg HD IV 12/28/20 18:40 Dextrose (Dextrose 50%) 25 ml ASDIRECTED PRN IV SEE LABEL COMMENTS 12/27/20 20:55 Docusate Sodium (Colace) 100 mg BID PO 12/27/20 21:00 12/28/20 16:27 DC 12/28/20 09:07 Docusate Sodium (Colace) 100 mg BID PRN PO constipation 12/28/20 21:00 Febuxostat (Uloric) 40 mg DAILY PO 12/28/20 09:00 01/01/21 08:46 Gabapentin (Neurontin) 100 mg DAILY PO 12/28/20 09:00 01/01/21 08:46 Glipizide (Glucotrol) 2.5 mg DAILY@0730 PO 12/29/20 11:00 12/29/20 15:15 DC 12/29/20 11:21 Glipizide (Glucotrol) 5 mg DAILY@0730 PO 12/29/20 07:30 12/28/20 17:31 DC Glipizide (Glucotrol) 10 mg DAILY@0730 PO 12/28/20 07:30 12/28/20 17:10 DC 12/28/20 09:11 Glucagon (Glucagon) 1 mg ASDIRECTED PRN SC SEE LABEL COMMENTS 12/27/20 20:55 Glucose (Glucose) 16 GM ASDIRECTED PRN PO SEE LABEL COMMENTS 12/27/20 20:55 Heparin Sodium (Heparin) Please refer to ... ASDIRECTED XX 12/29/20 10:05 12/30/20 10:04 DC Heparin Sodium (Porcine) (Heparin) 5,000 units Q12H SC 12/27/20 21:00 01/01/21 08:45 Insulin Human Lispro (HumaLOG INSULIN) SEE PROTOCOL TABLE AC SC 12/28/20 07:30 01/01/21 08:46 Insulin Human Lispro (HumaLOG INSULIN) SEE PROTOCOL TABLE QHS SC 12/27/20 21:00 Lidocaine HCl (Lidocaine 1% Sdv) 0.5 ml ASDIRECTED PRN SC SEE LABEL COMMENTS 12/29/20 10:05 12/30/20 10:04 DC Lidocaine/ Prilocaine (Emla) FOR IV STICKS ASDIRECTED TOP 12/29/20 10:20 12/29/20 12:12 Midodrine (Proamatine) 2.5 mg 08,16 PO 12/27/20 16:00 01/01/21 08:46 Pantoprazole Sodium (Protonix) 40 mg DAILY PO 12/28/20 09:00 01/01/21 08:46 Senna (Senokot) 1 tab QHS PO 12/27/20 21:00 12/28/20 16:27 DC Senna (Senokot) 1 tab QHS PRN PO constipation 12/28/20 21:00 Sodium Chloride (Nacl 0.9%) 200 ml ASDIRECTED PRN IV SEE LABEL COMMENTS 12/29/20 10:05 12/30/20 10:04 DC Vitamin B Complex/ Vit C/Folic Acid (Nephro-Lety Rx) 1 tab DAILY PO 12/28/20 09:00 01/01/21 08:45 JERI GARCIA MD Jan 01, 2021 10:47
[2021-01-01] MEDS: EMLA CREAM 5GM TUBE (LIDOCAINE/PRILOCAINE) TOP SCH (11:48)
[2021-01-01 20:03] VITALS: BP 103/55
--- NOTE | 2021-01-01 21:34 | IPN ---
NEPHROLOGY PROGRESS NOTE DATE: 01/01/2021 SUBJECTIVE: Mr. Richard is seen this morning at his bedside. He is feeling about the same. He wants to go home. He is making some progress with the Rehab Service. He denies any nausea or vomiting. He remains on 2 liters oxygen due to chronic hypoxemia. OBJECTIVE: PHYSICAL EXAMINATION: VITAL SIGNS: Temperature is 97.0 degrees Fahrenheit, heart rate 82 per minute and respiratory rate 18 per minute, blood pressure 108/68 mm of mercury and oxygen saturation is 95%. HEENT: His head is atraumatic. NECK: Supple and JVD difficult to be assessed. HEART: Sounds are regular. LUNGS: Clear to with slightly diminished breath sounds at the bases. ABDOMEN: Obese and nontender and bowel sounds are normal. EXTREMITIES: Without any cyanosis or clubbing. NEUROLOGICAL: He is awake, alert and oriented x3. LABORATORY STUDIES: Today's labs show WBC count 7.5, hemoglobin 10.9 and h hematocrit 34. Sodium 130, potassium 5.3, BUN 45 and creatinine 9.18. Glucose 145 and calcium 8.6. PROBLEMS: 1. End-stage renal disease - The patient is going to be dialyzed this afternoon. We will switch him to his regular days on Friday, and Friday after today. His next dialysis will be on . 2. Congestive heart failure - The patient has a known history of severe cardiomyopathy with decreased systolic function. His volume status is reasonable and we will remove 3 liters of fluid with dialysis today. 3. Hyperkalemia mild hyperkalemia is related to end-stage renal disease and will be corrected with dialysis today. 4. Hyponatremia this is also related to congestive heart failure and end-stage renal disease, and this will also improve with dialysis. 5. Anemia his anemia is stable and does not need any urgent intervention. 6. Deconditioning and polyneuropathy - This patient is making some progress, however the situation is quite chronic. He is now able to help himself much better compared to prior to this admission.
[2021-01-02 06:45] VITALS: BP 118/65
[2021-01-02] MEDS: HumaLOG INSULIN (NovoLOG) PER UNIT SC SCH ×4 (07:30→20:18)
[2021-01-02] MEDS: COMBIVENT RESPIMAT 100-20MCG INHALER 4GM INH SCH ×3 (08:04→20:00)
[2021-01-02] MEDS: HEPARIN SOD (PORCINE) 5000UNITS/ML 1ML VIAL/SYRINGE SC SCH ×2 (08:17→20:18)
[2021-01-02] MEDS: CALCIUM ACETATE 667MG GELCAP PO SCH ×3 (08:17→17:31)
[2021-01-02] MEDS: GABAPENTIN 100 MG CAP PO SCH (08:17)
[2021-01-02] MEDS: REMEDY PHYTOPLEX Z-GUARD PASTE 113GM TUBE (FROM STOREROOM PRODUCT) TOP SCH ×3 (08:17→20:18)
[2021-01-02] MEDS: FEBUXOSTAT 40 MG TABLET (ULORIC) PO SCH (08:17)
[2021-01-02] MEDS: PANTOPRAZOLE 40MG TAB (PROTONIX) PO SCH (08:17)
[2021-01-02] MEDS: NEPHRO-VIT TAB (NEPHROCAPS) PO SCH (08:17)
[2021-01-02] MEDS: ACETAMINOPHEN TAB 650MG DOSE (2X325MG) PO PRN (08:18)
[2021-01-02] MEDS: MIDODRINE 2.5 MG TAB PO SCH ×2 (08:18→17:31)
[2021-01-02] MEDS: ATORVASTATIN 20 MG TAB PO SCH (08:18)
[2021-01-02] MEDS: CLOPIDOGREL 75 MG TAB PO SCH (08:18)
--- NOTE | 2021-01-02 10:05 | IPNPDOC ---
PM&R Progress Note DATE OF SERVICE: Jan 02, 2021 [employer] Progress Note Subjective: Patient stating he is developing a cough. He denies fevers or chills and explains he cannot bring up any phlegm. REVIEW OF SYSTEMS: The following is a completed review of systems and has been reviewed. Review of systems otherwise unremarkable. PAIN: Patient self reports no pain EYES: No recent vision changes EARS, NOSE, & THROAT: No throat pain, or dysphagia, or rhinorrhea CARDIOVASCULAR: Denies chest pain or palpitations PULMONARY: Denies shortness of breath, cough GASTROINTESTINAL: +loose stools (resolved) GENITOURINARY:anuric MUSCULOSKELETAL: generalized weakness NEUROLOGICAL:+peripheral polyneuropathy HEMATOLOGICAL: +anemia SKIN: denies rash PSYCHIATRIC: Unremarkable All other review of systems found to be negative. PHYSICAL EXAMINATION: VITAL SIGNS: Please see below. GENERAL: Pleasant and cooperative. No acute distress. HEENT: PERRL. Extraocular movements intact. Clear conjunctiva CARDIOVASCULAR: Regular rate and rhythm. No murmurs, rubs, or gallops LUNGS: Clear to auscultation bilaterally. No wheezes. +[place] RUL ABDOMEN: Soft, nontender, nondistended. Positive bowel sounds. Normal active bowel sounds NEUROLOGICAL: Alert and oriented times three. Cranial nerves II through XII grossly intact. Sensation decreased to light touch in stocking pattern EXTREMITIES: 5\5 strength bilateral upper extremities. 4+\5 strength right lower extremity. 4+/5 strength in left lower extremity. ASSESSMENT:80-year-old M with past medical history of ESRD on HD and peripheral polyneuropathy who presents status post weakness in setting of metabolic derangement due to missed dialysis sessions PLAN: 1.Rehab- PT/OT advance mobility and ADLs, strengthen/stretch/maintain ROM all 4 limbs 2. Neuro- peripheral polyneuropathy due to longstanding DM with weakness, balance impairments, and mobility decline contributing to current functional deficits 3. Cardiac- -hypotension cont midodrine -CAD s/p CABG with AICD/PM cont plavix -chronic systolic CHF-daily weights, fluid restrict 4. Resp- monitor for infection -patient on home 02 and CPAP for KEESHA -cont Combivent, aill add guadenesin for cough -sputum cx ordered and CXR to r/o pneumonia 5. GI ppx- protonix 6. REnal- ESRD on HD-renal consulted -cont Calcium Acetate and uloric 7. Endo- DM on glipzide and ISS 8. DVT ppx- heparin 9. Pain- gabapentin, lidoderm patch to low back 10 Dispo- TBD Allergies Coded Allergies: No Known Allergies (Verified Allergy, Unknown, 12/19/20) Vital Signs Vital Signs Date Time Temp Pulse Resp B/P (MAP) Pulse Ox O2 Delivery O2 Flow Rate FiO2 01/02/21 06:45 98.4 70 18 118/65 (82) 94 NIPPV (BIPAP/CPAP) 01/01/21 22:36 2.5 Laboratory Data Labs 24H Laboratory Tests 2 01/01/21 11:47: Bedside Glucose (Misc Panel) 138H 01/01/21 17:37: Bedside Glucose (Misc Panel) 165H 01/01/21 20:01: Bedside Glucose (Misc Panel) 172H 01/02/21 06:42: Bedside Glucose (Misc Panel) 139H Current Medications Current Medications Current Medications Medications (Trade) Dose Ordered Sig/Lisa Route PRN Reason Start Time Stop Time Status Last Admin Dose Admin Acetaminophen (Tylenol Tab) 650 mg Q4HP PRN PO fever/MILD PAIN (PS 1-4) 12/27/20 12:25 01/02/21 08:18 Albuterol/ Ipratropium (Combivent Respimat 100-20mcg) 1 puff RTID INH 12/27/20 20:00 01/02/21 08:04 Atorvastatin Calcium (Lipitor) 20 mg DAILY PO 12/28/20 09:00 01/02/21 08:18 Calcium Acetate (Phoslo) 667 mg WM PO 12/27/20 18:00 01/02/21 08:17 Clopidogrel Bisulfate (PLAVix) 75 mg DAILY PO 12/28/20 09:00 01/02/21 08:18 Darbepoetin Shant (Aranesp (Dialysis Use)) 100 mcg HD IV 12/28/20 18:40 Dextrose (Dextrose 50%) 25 ml ASDIRECTED PRN IV SEE LABEL COMMENTS 12/27/20 20:55 Docusate Sodium (Colace) 100 mg BID PO 12/27/20 21:00 12/28/20 16:27 DC 12/28/20 09:07 Docusate Sodium (Colace) 100 mg BID PRN PO constipation 12/28/20 21:00 Febuxostat (Uloric) 40 mg DAILY PO 12/28/20 09:00 01/02/21 08:17 Gabapentin (Neurontin) 100 mg DAILY PO 12/28/20 09:00 01/02/21 08:17 Glipizide (Glucotrol) 2.5 mg DAILY@0730 PO 12/29/20 11:00 12/29/20 15:15 DC 12/29/20 11:21 Glipizide (Glucotrol) 5 mg DAILY@0730 PO 12/29/20 07:30 12/28/20 17:31 DC Glipizide (Glucotrol) 10 mg DAILY@0730 PO 12/28/20 07:30 12/28/20 17:10 DC 12/28/20 09:11 Glucagon (Glucagon) 1 mg ASDIRECTED PRN SC SEE LABEL COMMENTS 12/27/20 20:55 Glucose (Glucose) 16 GM ASDIRECTED PRN PO SEE LABEL COMMENTS 12/27/20 20:55 Heparin Sodium (Heparin) Please refer to ... ASDIRECTED XX 12/29/20 10:05 12/30/20 10:04 DC Heparin Sodium (Porcine) (Heparin) 5,000 units Q12H SC 12/27/20 21:00 01/02/21 08:17 Insulin Human Lispro (HumaLOG INSULIN) SEE PROTOCOL TABLE AC SC 12/28/20 07:30 01/01/21 11:51 Insulin Human Lispro (HumaLOG INSULIN) SEE PROTOCOL TABLE QHS SC 12/27/20 21:00 Lidocaine HCl (Lidocaine 1% Sdv) 0.5 ml ASDIRECTED PRN SC SEE LABEL COMMENTS 12/29/20 10:05 12/30/20 10:04 DC Lidocaine/ Prilocaine (Emla) FOR IV STICKS ASDIRECTED TOP 12/29/20 10:20 01/01/21 11:48 Midodrine (Proamatine) 2.5 mg 08,16 PO 12/27/20 16:00 01/02/21 08:18 Pantoprazole Sodium (Protonix) 40 mg DAILY PO 12/28/20 09:00 01/02/21 08:17 Senna (Senokot) 1 tab QHS PO 12/27/20 21:00 12/28/20 16:27 DC Senna (Senokot) 1 tab QHS PRN PO constipation 12/28/20 21:00 Sodium Chloride (Nacl 0.9%) 200 ml ASDIRECTED PRN IV SEE LABEL COMMENTS 12/29/20 10:05 12/30/20 10:04 DC Vitamin B Complex/ Vit C/Folic Acid (Nephro-Lety Rx) 1 tab DAILY PO 12/28/20 09:00 01/02/21 08:17 JERI GARCIA MD Jan 02, 2021 10:05
[2021-01-02 14:00] VITALS: BP 126/60
[2021-01-02] MEDS: LIDOCAINE 5% (LIDODERM) PATCH TD SCH (14:40)
--- NOTE | 2021-01-02 15:24 | REP ---
INDICATION: cough, r/o infiltrate COMPARISON: None. TECHNIQUE: PA and lateral. FINDINGS: Chronic changes are appreciated including elevation to the right hemidiaphragm, pacemaker, sternotomy and CABG. Perihilar and lower lobe opacities are suspected without definite effusion. No pneumothorax. IMPRESSION: Perihilar and lower lobe airspace disease. Differential diagnosis includes multifocal pneumonia and CHF. <Electronically signed by Maikol Bustillos > 01/02/21 0115
[2021-01-02] MEDS ORDERED: HOME MED LIST COMPLETE! XX SCH (15:25)
[2021-01-02] MEDS: guaiFENesin 200 MG TAB PO SCH ×2 (17:31→20:17)
--- NOTE | 2021-01-02 17:31 | IPNPDOC ---
Date Seen The patient was seen on 01/02/21. Progress Note Subjective: No acute complaints on exam this AM except pain in his back, chronic. He denies chest pain, abdominal pain, n/v/d. Objective: Physical Examination VS: Please see below General: Lying in bed, no acute distress Head/Neck/Throat: NC in place Trachea midline, mucous membranes moist Eyes: Sclera anicteric, no erythema or discharge appreciated bilaterally Thorax: On 2 L nasal cannula, lungs clear to auscultation bilaterally, no wheezes/rales/rhonchi Cardiovascular: Normal rate, regular rhythm, normal S1, S2; no S3, S4, rubs/gallops/murmurs Abdomen: Bowel sounds present, soft/nontender/nondistended Genitourinary: No CVA tenderness, no Miller in place Skin: Warm, dry A/P: #End-stage renal disease requiring dialysis -Noncompliance with dialysis in past -Nephrology following #Deconditioned -Not cooperative with PT/OT at times -Continue with ARU therapy -Home health, RW suggested after d/c #Coronary artery disease -Bradycardia with pauses despite having pacemaker/ICD in place. This was evaluated by the cardiology team noted to be artifact. -Continue clopidogrel, metoprolol, statin #Hyperlipidemia -Continue statin therapy #Diabetes mellitus -Glipizide d/kelsey due to episode of hypoglycemia. -HbA1c 6.3, well beneath goal -C/w FS AC/HS, sliding scale and hypoglycemic protocol. #Peripheral neuropathy -Continue gabapentin #DVT prophylaxis -Heparin VS, I&O, 24H, Fishbone Vital Signs/I&O Vital Signs Date Time Temp Pulse Resp B/P (MAP) Pulse Ox O2 Delivery O2 Flow Rate FiO2 01/02/21 14:00 98.3 74 18 126/60 (82) 95 Nasal Cannula 3.0 I&O- Last 24 Hours up to 6 AM 01/02/21 06:00 Intake Total 1440 ml Output Total 3000 ml Balance -1560 ml Laboratory Data 24H LABS Laboratory Tests 2 01/01/21 17:37: Bedside Glucose (Misc Panel) 165H 01/01/21 20:01: Bedside Glucose (Misc Panel) 172H 01/02/21 06:42: Bedside Glucose (Misc Panel) 139H 01/02/21 11:21: Bedside Glucose (Misc Panel) 152H 01/02/21 16:37: Bedside Glucose (Misc Panel) 162H Current Medications Current Medications Medications (Trade) Dose Ordered Sig/Lisa Route PRN Reason Start Time Stop Time Status Last Admin Dose Admin Acetaminophen (Tylenol Tab) 650 mg Q4HP PRN PO fever/MILD PAIN (PS 1-4) 12/27/20 12:25 01/02/21 13:57 DC 01/02/21 08:18 Acetaminophen (Tylenol Tab) 1,000 mg TID PO 01/02/21 16:00 Albuterol/ Ipratropium (Combivent Respimat 100-20mcg) 1 puff RTID INH 12/27/20 20:00 01/02/21 13:17 Atorvastatin Calcium (Lipitor) 20 mg DAILY PO 12/28/20 09:00 01/02/21 08:18 Calcium Acetate (Phoslo) 667 mg WM PO 12/27/20 18:00 01/02/21 12:13 Clopidogrel Bisulfate (PLAVix) 75 mg DAILY PO 12/28/20 09:00 01/02/21 08:18 Darbepoetin Shant (Aranesp (Dialysis Use)) 100 mcg HD IV 12/28/20 18:40 Dextrose (Dextrose 50%) 25 ml ASDIRECTED PRN IV SEE LABEL COMMENTS 12/27/20 20:55 Docusate Sodium (Colace) 100 mg BID PO 12/27/20 21:00 12/28/20 16:27 DC 12/28/20 09:07 Docusate Sodium (Colace) 100 mg BID PRN PO constipation 12/28/20 21:00 Febuxostat (Uloric) 40 mg DAILY PO 12/28/20 09:00 01/02/21 08:17 Gabapentin (Neurontin) 100 mg DAILY PO 12/28/20 09:00 01/02/21 08:17 Glipizide (Glucotrol) 2.5 mg DAILY@0730 PO 12/29/20 11:00 12/29/20 15:15 DC 12/29/20 11:21 Glipizide (Glucotrol) 5 mg DAILY@0730 PO 12/29/20 07:30 12/28/20 17:31 DC Glipizide (Glucotrol) 10 mg DAILY@0730 PO 12/28/20 07:30 12/28/20 17:10 DC 12/28/20 09:11 Glucagon (Glucagon) 1 mg ASDIRECTED PRN SC SEE LABEL COMMENTS 12/27/20 20:55 Glucose (Glucose) 16 GM ASDIRECTED PRN PO SEE LABEL COMMENTS 12/27/20 20:55 Guaifenesin (Robitussin Tab) 400 mg TID PO 01/02/21 16:00 Heparin Sodium (Heparin) Please refer to ... ASDIRECTED XX 12/29/20 10:05 12/30/20 10:04 DC Heparin Sodium (Porcine) (Heparin) 5,000 units Q12H SC 12/27/20 21:00 01/02/21 08:17 Home Med (Home Med List Complete!) ASDIRECTED XX 01/02/21 15:25 01/02/21 15:28 DC Insulin Human Lispro (HumaLOG INSULIN) SEE PROTOCOL TABLE AC SC 12/28/20 07:30 01/01/21 11:51 Insulin Human Lispro (HumaLOG INSULIN) SEE PROTOCOL TABLE QHS SC 12/27/20 21:00 Lidocaine (Lidoderm Patch) 1 patch DAILY TD 01/02/21 09:00 01/02/21 14:40 Lidocaine HCl (Lidocaine 1% Sdv) 0.5 ml ASDIRECTED PRN SC SEE LABEL COMMENTS 12/29/20 10:05 12/30/20 10:04 DC Lidocaine/ Prilocaine (Emla) FOR IV STICKS ASDIRECTED TOP 12/29/20 10:20 01/01/21 11:48 Midodrine (Proamatine) 2.5 mg 08,16 PO 12/27/20 16:00 01/02/21 08:18 Non-Formulary Medication ( See Comment Field Below ) REMOVE LIDODERM PATCH DAILY@21 XX 01/02/21 21:00 Pantoprazole Sodium (Protonix) 40 mg DAILY PO 12/28/20 09:00 01/02/21 08:17 Senna (Senokot) 1 tab QHS PO 12/27/20 21:00 12/28/20 16:27 DC Senna (Senokot) 1 tab QHS PRN PO constipation 12/28/20 21:00 Sodium Chloride (Nacl 0.9%) 200 ml ASDIRECTED PRN IV SEE LABEL COMMENTS 12/29/20 10:05 12/30/20 10:04 DC Vitamin B Complex/ Vit C/Folic Acid (Nephro-Lety Rx) 1 tab DAILY PO 12/28/20 09:00 01/02/21 08:17 Allergies Coded Allergies: No Known Allergies (Verified Allergy, Unknown, 12/19/20) Andreina Sierra MD Jan 02, 2021 17:31
[2021-01-02] MEDS: ACETAMINOPHEN 500 MG TAB PO SCH ×2 (17:32→20:17)
--- NOTE | 2021-01-02 18:26 | REPVR ---
PROCEDURE INFORMATION: Exam: CT Chest Without Contrast; Diagnostic Exam date and time: 01/02/2021 4:43 PM Age: 80 years old Clinical indication: Shortness of breath; Additional info: R/O infiltrate TECHNIQUE: Imaging protocol: Diagnostic computed tomography of the chest without contrast. 3D rendering (Not supervised by radiologist): MIP and/or 3D reconstructed images were created by the technologist. Radiation optimization: All CT scans at this facility use at least one of these dose optimization techniques: automated exposure control; mA and/or kV adjustment per patient size (includes targeted exams where dose is matched to clinical indication); or iterative reconstruction. COMPARISON: CR Chest, 2 view PA, Lat 01/02/2021 3:13 PM FINDINGS: Tubes, catheters and devices: Tri lead cardiac pacer demonstrated. Lungs: There are patchy bilateral infiltrates demonstrated most pronounced in both lower lobes. Findings may be secondary to atelectasis although infectious etiologies not excluded. Pleural spaces: Unremarkable. No pneumothorax. No pleural effusion. Heart: Cardiomegaly. Aorta: Unremarkable. No aortic aneurysm. Lymph nodes: Mediastinal lymphadenopathy likely postinflammatory. Gallbladder and bile ducts: Cholelithiasis. Spleen: The spleen demonstrates punctate calcifications, consistent with remote granulomatous organism exposure. Borderline splenomegaly. Bones/joints: Status post sternotomy. The para status post CABG. Soft tissues: Unremarkable. Other findings: Suboptimal inspiratory effort. IMPRESSION: 1. There are patchy bilateral infiltrates demonstrated most pronounced in both lower lobes. Findings may be secondary to atelectasis although infectious etiologies not excluded. 2. Cardiomegaly. Status post CABG. Electronically signed by: Jim Renteria On 01/02/2021 18:26:24 PM
[2021-01-02 20:00] VITALS: BP 113/61
[2021-01-02] MEDS ORDERED: CEFEPIME HCL 1 GM in D5W MINI-BAG PLUS 50 ML IV ONE (20:00)
[2021-01-02] MEDS: **NOTE PATIENT COMMENT** MISC XX SCH (20:18)
[2021-01-03 06:00] VITALS: BP 108/70
[2021-01-03] MEDS: COMBIVENT RESPIMAT 100-20MCG INHALER 4GM INH SCH ×3 (07:17→19:51)
[2021-01-03] MEDS: HumaLOG INSULIN (NovoLOG) PER UNIT SC SCH ×4 (07:30→20:31)
[2021-01-03 07:31] LABS: BASO % 0.5 % (0.0-1.0); EOS # 0.1 10^3/uL (0.0-0.5); EOS % 1.8 % (0.0-3.0); HEMATOCRIT 33.8 % (42.0-52.0); HEMOGLOBIN 10.8 g/dl (13.5-17.5); LYMPH # 1.2 10^3/uL (1.5-5.0); LYMPH % 19.6 % (24.0-44.0); MEAN CORPUSCULAR HEMOGLOBIN 33.1 pg (27.0-33.0); MEAN CORPUSCULAR VOLUME 103.7 fl (80.0-96.0); MONO # 0.8 10^3/uL (0.0-0.8); MONO % 12.1 % (2.0-8.0); NEUTROPHILS # 4.1 10^3/uL (1.5-8.5); PLATELET COUNT, AUTOMATED 141 10^3/uL (150-450); RED BLOOD COUNT 3.26 10^6/uL (4.30-6.10); WHITE BLOOD COUNT 6.3 10^3/uL (4.0-10.0)
[2021-01-03 08:01] LABS: CALCIUM LEVEL 8.5 MG/DL (8.8-10.2); CREATININE FOR GFR 8.86 MG/DL (0.70-1.30); GLOMERULAR FILTRATION RATE 6.2 (>42); POTASSIUM SERUM 5.1 MEQ/L (3.5-5.1)
[2021-01-03] MEDS: CALCIUM ACETATE 667MG GELCAP PO SCH ×3 (08:12→17:30)
[2021-01-03] MEDS: FEBUXOSTAT 40 MG TABLET (ULORIC) PO SCH (08:12)
[2021-01-03] MEDS: guaiFENesin 200 MG TAB PO SCH ×3 (08:12→20:30)
[2021-01-03] MEDS: ATORVASTATIN 20 MG TAB PO SCH (08:12)
[2021-01-03] MEDS: PANTOPRAZOLE 40MG TAB (PROTONIX) PO SCH (08:12)
[2021-01-03] MEDS: GABAPENTIN 100 MG CAP PO SCH (08:12)
[2021-01-03] MEDS: CLOPIDOGREL 75 MG TAB PO SCH (08:12)
[2021-01-03] MEDS: HEPARIN SOD (PORCINE) 5000UNITS/ML 1ML VIAL/SYRINGE SC SCH ×2 (08:12→20:31)
[2021-01-03] MEDS: NEPHRO-VIT TAB (NEPHROCAPS) PO SCH (08:12)
[2021-01-03] MEDS: ACETAMINOPHEN 500 MG TAB PO SCH ×3 (08:13→20:30)
[2021-01-03] MEDS: LIDOCAINE 5% (LIDODERM) PATCH TD SCH (08:13)
[2021-01-03] MEDS: MIDODRINE 2.5 MG TAB PO SCH ×2 (08:13→17:33)
[2021-01-03] MEDS: REMEDY PHYTOPLEX Z-GUARD PASTE 113GM TUBE (FROM STOREROOM PRODUCT) TOP SCH ×3 (08:14→20:31)
--- NOTE | 2021-01-03 09:00 | IPNPDOC ---
PM&R Progress Note DATE OF SERVICE: Jan 03, 2021 [employer] Progress Note Subjective: Patient stating he is feels stronger today and reports his cough is starting to feel better. REVIEW OF SYSTEMS: The following is a completed review of systems and has been reviewed. Review of systems otherwise unremarkable. PAIN: Patient self reports no pain EYES: No recent vision changes EARS, NOSE, & THROAT: No throat pain, or dysphagia, or rhinorrhea CARDIOVASCULAR: Denies chest pain or palpitations PULMONARY: Denies shortness of breath, cough GASTROINTESTINAL: +loose stools (resolved) GENITOURINARY:anuric MUSCULOSKELETAL: generalized weakness NEUROLOGICAL:+peripheral polyneuropathy HEMATOLOGICAL: +anemia SKIN: denies rash PSYCHIATRIC: Unremarkable All other review of systems found to be negative. PHYSICAL EXAMINATION: VITAL SIGNS: Please see below. GENERAL: Pleasant and cooperative. No acute distress. HEENT: PERRL. Extraocular movements intact. Clear conjunctiva CARDIOVASCULAR: Regular rate and rhythm. No murmurs, rubs, or gallops LUNGS: Clear to auscultation bilaterally. No wheezes. +R[place]chi RUL ABDOMEN: Soft, nontender, nondistended. Positive bowel sounds. Normal active bowel sounds NEUROLOGICAL: Alert and oriented times three. Cranial nerves II through XII grossly intact. Sensation decreased to light touch in stocking pattern EXTREMITIES: 5\5 strength bilateral upper extremities. 4+\5 strength right lower extremity. 4+/5 strength in left lower extremity. ASSESSMENT:80-year-old M with past medical history of ESRD on HD and peripheral polyneuropathy who presents status post weakness in setting of metabolic deran gement due to missed dialysis sessions PLAN: 1.Rehab- PT/OT advance mobility and ADLs, strengthen/stretch/maintain ROM all 4 limbs 2. Neuro- peripheral polyneuropathy due to longstanding DM with weakness, balance impairments, and mobility decline contributing to current functional deficits 3. Cardiac- -hypotension cont midodrine -CAD s/p CABG with AICD/PM cont plavix -chronic systolic CHF-daily weights, fluid restrict 4. Resp- monitor for infection -patient on home 02 and CPAP for KEESHA -cont Combivent, cont guaifenesin for cough- patient with CXR and CT chest showing probable bilat infiltrates, started Cefepime, patient reporting he feels more energetic today -sputum cx ordered, Resp panel and MRSA screen ordered 5. GI ppx- protonix 6. REnal- ESRD on HD-renal consulted -cont Calcium Acetate and uloric 7. Endo- DM on glipzide and ISS 8. DVT ppx- heparin 9. Pain- gabapentin, lidoderm patch to low back 10 Dispo- TBD Allergies Coded Allergies: No Known Allergies (Verified Allergy, Unknown, 12/19/20) Vital Signs Vital Signs Date Time Temp Pulse Resp B/P (MAP) Pulse Ox O2 Delivery O2 Flow Rate FiO2 01/03/21 06:00 98.7 66 18 108/70 (83) 95 NIPPV (BIPAP/CPAP) 2.5 Laboratory Data CBC/BMP Laboratory Tests 01/03/21 07:09 Labs 24H Laboratory Tests 2 01/02/21 11:21: Bedside Glucose (Misc Panel) 152H 01/02/21 16:37: Bedside Glucose (Misc Panel) 162H 01/02/21 19:31: Bedside Glucose (Misc Panel) 157H 01/03/21 05:47: Bedside Glucose (Misc Panel) 154H 01/03/21 07:09: Immature Granulocyte % (Auto) 1.0, Neutrophils (%) (Auto) 65.0, Lymphocytes (%) (Auto) 19.6L, Monocytes (%) (Auto) 12.1H, Eosinophils (%) (Auto) 1.8, Basophils (%) (Auto) 0.5, Neutrophils # (Auto) 4.1, Lymphocytes # (Auto) 1.2L, Monocytes # (Auto) 0.8, Eosinophils # (Auto) 0.1, Basophils # (Auto) 0.0, Nucleated Red Blood Cells % (auto) 0.0, Anion Gap 11, Glomerular Filtration Rate 6.2L, Calcium Level 8.5L Microbiology Microbiology 01/03/21 Gram Stain - Final, Resulted 01/03/21 Sputum Culture, Resulted Pending Current Medications Current Medications Current Medications Medications (Trade) Dose Ordered Sig/Lisa Route PRN Reason Start Time Stop Time Status Last Admin Dose Admin Acetaminophen (Tylenol Tab) 650 mg Q4HP PRN PO fever/MILD PAIN (PS 1-4) 12/27/20 12:25 01/02/21 13:57 DC 01/02/21 08:18 Acetaminophen (Tylenol Tab) 1,000 mg TID PO 01/02/21 16:00 01/03/21 08:13 Albuterol/ Ipratropium (Combivent Respimat 100-20mcg) 1 puff RTID INH 12/27/20 20:00 01/03/21 07:17 Atorvastatin Calcium (Lipitor) 20 mg DAILY PO 12/28/20 09:00 01/03/21 08:12 Calcium Acetate (Phoslo) 667 mg WM PO 12/27/20 18:00 01/03/21 08:12 Cefepime HCl 500 mg/Dextrose 55 ml @ 110 mls/hr Q24H IV 01/03/21 20:00 Clopidogrel Bisulfate (PLAVix) 75 mg DAILY PO 12/28/20 09:00 01/03/21 08:12 Darbepoetin Shant (Aranesp (Dialysis Use)) 100 mcg HD IV 12/28/20 18:40 Dextrose (Dextrose 50%) 25 ml ASDIRECTED PRN IV SEE LABEL COMMENTS 12/27/20 20:55 Docusate Sodium (Colace) 100 mg BID PO 12/27/20 21:00 12/28/20 16:27 DC 12/28/20 09:07 Docusate Sodium (Colace) 100 mg BID PRN PO constipation 12/28/20 21:00 Febuxostat (Uloric) 40 mg DAILY PO 12/28/20 09:00 01/03/21 08:12 Gabapentin (Neurontin) 100 mg DAILY PO 12/28/20 09:00 01/03/21 08:12 Glipizide (Glucotrol) 2.5 mg DAILY@0730 PO 12/29/20 11:00 12/29/20 15:15 DC 12/29/20 11:21 Glipizide (Glucotrol) 5 mg DAILY@0730 PO 12/29/20 07:30 12/28/20 17:31 DC Glipizide (Glucotrol) 10 mg DAILY@0730 PO 12/28/20 07:30 12/28/20 17:10 DC 12/28/20 09:11 Glucagon (Glucagon) 1 mg ASDIRECTED PRN SC SEE LABEL COMMENTS 12/27/20 20:55 Glucose (Glucose) 16 GM ASDIRECTED PRN PO SEE LABEL COMMENTS 12/27/20 20:55 Guaifenesin (Robitussin Tab) 400 mg TID PO 01/02/21 16:00 01/03/21 08:12 Heparin Sodium (Heparin) Please refer to ... ASDIRECTED XX 12/29/20 10:05 12/30/20 10:04 DC Heparin Sodium (Porcine) (Heparin) 5,000 units Q12H SC 12/27/20 21:00 01/03/21 08:12 Home Med (Home Med List Complete!) ASDIRECTED XX 01/02/21 15:25 01/02/21 15:28 DC Insulin Human Lispro (HumaLOG INSULIN) SEE PROTOCOL TABLE AC SC 12/28/20 07:30 01/01/21 11:51 Insulin Human Lispro (HumaLOG INSULIN) SEE PROTOCOL TABLE QHS SC 12/27/20 21:00 Lidocaine (Lidoderm Patch) 1 patch DAILY TD 01/02/21 09:00 01/03/21 08:13 Lidocaine HCl (Lidocaine 1% Sdv) 0.5 ml ASDIRECTED PRN SC SEE LABEL COMMENTS 12/29/20 10:12/30/20 10:04 DC Lidocaine/ Prilocaine (Emla) FOR IV STICKS ASDIRECTED TOP 12/29/20 10:20 01/01/21 11:48 Midodrine (Proamatine) 2.5 mg 0816 PO 12/27/20 16:00 01/03/21 08:13 Non-Formulary Medication ( See Comment Field Below ) REMOVE LIDODERM PATCH DAILY@21 XX 01/02/21 21:00 01/02/21 20:18 Pantoprazole Sodium (Protonix) 40 mg DAILY PO 12/28/20 09:00 01/03/21 08:12 Senna (Senokot) 1 tab QHS PO 12/27/20 21:00 12/28/20 16:27 DC Senna (Senokot) 1 tab QHS PRN PO constipation 12/28/20 21:00 Sodium Chloride (Nacl 0.9%) 200 ml ASDIRECTED PRN IV SEE LABEL COMMENTS 12/29/20 10:05 12/30/20 10:04 DC Vitamin B Complex/ Vit C/Folic Acid (Nephro-Lety Rx) 1 tab DAILY PO 12/28/20 09:00 01/03/21 08:12 JERI GARCIA MD Jan 03, 2021 09:00
[2021-01-03 14:00] VITALS: BP 123/60
--- NOTE | 2021-01-03 18:18 | IPN ---
NEPHROLOGY PROGRESS NOTE DATE: 01/03/2021 SUBJECTIVE: Mr. Richard is seen this morning at his bedside. He is feeling about the same and denies any new complaints. He wants to go home. He reports that he was told that he has pneumonia and has been on intravenous antibiotics now. He did have a CT scan of the chest done yesterday which did show some infiltrates. The patient has been afebrile. OBJECTIVE: PHYSICAL EXAMINATION: VITAL SIGNS: Temperature 98.7 degrees Fahrenheit, heart rate 66 per minute, respiratory rate 18 per minute, blood pressure 108/70 mm of mercury and oxygen saturation 95%. HEENT: His head is atraumatic. NECK: Supple and without JVD or thyroid enlargement. HEART: Sounds are regular. LUNGS: Diminished breath sounds at the bases. ABDOMEN: Obese and nontender and bowel sounds are normal. EXTREMITIES: Without any cyanosis or clubbing. Left arm AV fistula is patent. LABORATORY STUDIES: Today's labs show a WBC count of 6.3, hemoglobin 10.8 and hematocrit 33.8. Sodium 132, potassium 5.1, BUN 40 and creatinine 8.86. Lactic acid level 2.1 and calcium 8.5. PROBLEMS: 1. End-stage renal disease - The patient was dialyzed on Friday and we plan to dialyze him again tomorrow. His regular dialysis days are Friday, and Friday. 2. Congestive heart failure volume status is simply well compensated. We removed 3 liters of fluid on Friday, and we plan to remove another 3 liters tomorrow. 3. Hyponatremia - sodium level has been stable with only mild hyponatremia. This will improve further with dialysis. 4. Anemia his anemia has been stable, and we will continue to monitor closely. No urgent intervention is needed. 5. Pulmonary infiltrates - The patient was noticed to have infiltrates on his CT scan of the chest. He is now on Cefepime 500 mg every 24 hours.
[2021-01-03 20:00] VITALS: BP 128/71
[2021-01-03] MEDS: CEFEPIME HCL 500 MG in D5W 50 ML IV SCH (20:30)
[2021-01-03] MEDS: **NOTE PATIENT COMMENT** MISC XX SCH (20:38)
[2021-01-04 06:00] VITALS: BP 112/70
[2021-01-04] MEDS: HumaLOG INSULIN (NovoLOG) PER UNIT SC SCH ×5 (07:30→21:00)
[2021-01-04] MEDS: LIDOCAINE 5% (LIDODERM) PATCH TD SCH (07:56)
[2021-01-04] MEDS: NEPHRO-VIT TAB (NEPHROCAPS) PO SCH (07:57)
[2021-01-04] MEDS: guaiFENesin 200 MG TAB PO SCH ×3 (07:57→21:49)
[2021-01-04] MEDS: FEBUXOSTAT 40 MG TABLET (ULORIC) PO SCH (07:57)
[2021-01-04] MEDS: MIDODRINE 2.5 MG TAB PO SCH ×3 (07:57→12:31)
[2021-01-04] MEDS: ATORVASTATIN 20 MG TAB PO SCH (07:57)
[2021-01-04] MEDS: GABAPENTIN 100 MG CAP PO SCH (07:57)
[2021-01-04] MEDS: HEPARIN SOD (PORCINE) 5000UNITS/ML 1ML VIAL/SYRINGE SC SCH ×2 (07:58→21:49)
[2021-01-04] MEDS: PANTOPRAZOLE 40MG TAB (PROTONIX) PO SCH (07:58)
[2021-01-04] MEDS: CLOPIDOGREL 75 MG TAB PO SCH (07:58)
[2021-01-04] MEDS: ACETAMINOPHEN 500 MG TAB PO SCH ×3 (07:58→21:49)
[2021-01-04] MEDS: COMBIVENT RESPIMAT 100-20MCG INHALER 4GM INH SCH ×3 (08:00→19:23)
[2021-01-04] MEDS: CALCIUM ACETATE 667MG GELCAP PO SCH ×3 (08:01→17:03)
[2021-01-04] MEDS: REMEDY PHYTOPLEX Z-GUARD PASTE 113GM TUBE (FROM STOREROOM PRODUCT) TOP SCH ×3 (09:00→21:00)
--- NOTE | 2021-01-04 12:03 | IPN ---
PROGRESS NOTE DATE: 01/04/2021 SUBJECTIVE: Mr. Richard is seen this morning on his bedside. He is feeling about the same. He denies any nausea or vomiting. He remains on oxygen due to chronic hypoxemia. OBJECTIVE: On physical examination, temperature 97.5 degrees Fahrenheit, heart rate 70 per minute and respiratory rate 18 per minute. Blood pressure 112/70 mmHg and oxygen saturation 95%. His head is atraumatic. Neck supple and jugular venous distention (JVD) mildly elevated. Heart sounds are regular. Lungs with diminished breath sounds Abdomen: Soft, obese and nontender. Bowel sounds are present. Extremities without any cyanosis or clubbing. There is no edema on his legs. Left forearm AV fistula is patent. Neurologically, he is at his baseline mentation without any focal deficit. PROBLEMS: 1. End-stage renal disease. The patient has been dialysis dependent. He was dialyzed on Friday and we plan to dialyze him again today. Today's visit regular scheduled dialysis day. 2. Congestive heart failure (CHF) and hypoxemia. Volume status has been reasonably well compensated with hemodialysis. Will plan to remove about 3 liters of fluid with dialysis this afternoon. 3. Anemia. His anemia has been stable and does not need any urgent intervention at present. 4. Pneumonia. The patient had pulmonary infiltrates on CT scan of chest and has been on cefepime. He is afebrile.
[2021-01-04] MEDS: EMLA CREAM 5GM TUBE (LIDOCAINE/PRILOCAINE) TOP SCH (12:27)
[2021-01-04 14:00] VITALS: BP 148/79
[2021-01-04] MEDS ORDERED: LIDOCAINE 1% SDV 5ML VIAL SQ ONE (14:20)
[2021-01-04 20:00] VITALS: BP 101/59
[2021-01-04] MEDS: **NOTE PATIENT COMMENT** MISC XX SCH (21:00)
[2021-01-04] MEDS: CEFEPIME HCL 500 MG in D5W 50 ML IV SCH (21:50)
[2021-01-05 06:00] VITALS: BP 124/60
[2021-01-05 06:52] LABS: BASO % 0.4 % (0.0-1.0); EOS # 0.1 10^3/uL (0.0-0.5); EOS % 1.9 % (0.0-3.0); HEMATOCRIT 32.4 % (42.0-52.0); HEMOGLOBIN 10.3 g/dl (13.5-17.5); LYMPH # 0.9 10^3/uL (1.5-5.0); LYMPH % 15.4 % (24.0-44.0); MEAN CORPUSCULAR HEMOGLOBIN 32.8 pg (27.0-33.0); MEAN CORPUSCULAR HGB CONC 31.8 g/dl (32.0-36.5); MEAN CORPUSCULAR VOLUME 103.2 fl (80.0-96.0); MONO # 0.7 10^3/uL (0.0-0.8); MONO % 11.7 % (2.0-8.0); NEUTROPHILS # 3.9 10^3/uL (1.5-8.5); NEUTROPHILS % 69.7 % (36.0-66.0); PLATELET COUNT, AUTOMATED 145 10^3/uL (150-450); RED BLOOD COUNT 3.14 10^6/uL (4.30-6.10); WHITE BLOOD COUNT 5.7 10^3/uL (4.0-10.0)
[2021-01-05 07:16] LABS: CALCIUM LEVEL 8.3 MG/DL (8.8-10.2); CREATININE FOR GFR 7.56 MG/DL (0.70-1.30); GLOMERULAR FILTRATION RATE 7.4 (>42); POTASSIUM SERUM 4.6 MEQ/L (3.5-5.1)
[2021-01-05] MEDS: COMBIVENT RESPIMAT 100-20MCG INHALER 4GM INH SCH ×3 (07:16→18:42)
[2021-01-05] MEDS: HumaLOG INSULIN (NovoLOG) PER UNIT SC SCH ×4 (07:30→21:00)
[2021-01-05] MEDS: MIDODRINE 2.5 MG TAB PO SCH ×2 (08:00→14:23)
[2021-01-05] MEDS: REMEDY PHYTOPLEX Z-GUARD PASTE 113GM TUBE (FROM STOREROOM PRODUCT) TOP SCH ×3 (09:00→20:20)
[2021-01-05] MEDS: LIDOCAINE 5% (LIDODERM) PATCH TD SCH (09:19)
[2021-01-05] MEDS: guaiFENesin 200 MG TAB PO SCH ×3 (09:20→20:20)
[2021-01-05] MEDS: HEPARIN SOD (PORCINE) 5000UNITS/ML 1ML VIAL/SYRINGE SC SCH ×2 (09:20→20:19)
[2021-01-05] MEDS: FEBUXOSTAT 40 MG TABLET (ULORIC) PO SCH (09:20)
[2021-01-05] MEDS: ATORVASTATIN 20 MG TAB PO SCH (09:20)
[2021-01-05] MEDS: PANTOPRAZOLE 40MG TAB (PROTONIX) PO SCH (09:20)
[2021-01-05] MEDS: CLOPIDOGREL 75 MG TAB PO SCH (09:21)
[2021-01-05] MEDS: CALCIUM ACETATE 667MG GELCAP PO SCH ×3 (09:21→17:45)
[2021-01-05] MEDS: NEPHRO-VIT TAB (NEPHROCAPS) PO SCH (09:21)
[2021-01-05] MEDS: ACETAMINOPHEN 500 MG TAB PO SCH ×3 (09:21→20:20)
[2021-01-05] MEDS: GABAPENTIN 100 MG CAP PO SCH (09:21)
[2021-01-05 13:33] VITALS: BP 130/56
[2021-01-05] MEDS: CEFEPIME HCL 500 MG in D5W 50 ML IV SCH (19:51)
[2021-01-05 20:00] VITALS: BP 117/64
[2021-01-05] MEDS: **NOTE PATIENT COMMENT** MISC XX SCH (20:20)
[2021-01-06 06:00] VITALS: BP 128/82
[2021-01-06] MEDS ORDERED: LIDOCAINE 1% SDV 5ML VIAL SC PRN (06:00)
[2021-01-06] MEDS: EMLA CREAM 5GM TUBE (LIDOCAINE/PRILOCAINE) TOP SCH (06:57)
[2021-01-06] MEDS: PANTOPRAZOLE 40MG TAB (PROTONIX) PO SCH (07:25)
[2021-01-06] MEDS: CALCIUM ACETATE 667MG GELCAP PO SCH ×3 (07:25→17:38)
[2021-01-06] MEDS: ATORVASTATIN 20 MG TAB PO SCH (07:26)
[2021-01-06] MEDS: NEPHRO-VIT TAB (NEPHROCAPS) PO SCH (07:26)
[2021-01-06] MEDS: MIDODRINE 2.5 MG TAB PO SCH ×2 (07:26→15:38)
[2021-01-06] MEDS: guaiFENesin 200 MG TAB PO SCH ×3 (07:26→20:17)
[2021-01-06] MEDS: GABAPENTIN 100 MG CAP PO SCH (07:26)
[2021-01-06] MEDS: CLOPIDOGREL 75 MG TAB PO SCH (07:26)
[2021-01-06] MEDS: FEBUXOSTAT 40 MG TABLET (ULORIC) PO SCH (07:26)
[2021-01-06] MEDS: HEPARIN SOD (PORCINE) 5000UNITS/ML 1ML VIAL/SYRINGE SC SCH ×2 (07:28→20:18)
[2021-01-06] MEDS: HumaLOG INSULIN (NovoLOG) PER UNIT SC SCH ×4 (07:28→21:00)
[2021-01-06] MEDS: ACETAMINOPHEN 500 MG TAB PO SCH ×3 (07:28→20:17)
[2021-01-06] MEDS: REMEDY PHYTOPLEX Z-GUARD PASTE 113GM TUBE (FROM STOREROOM PRODUCT) TOP SCH ×3 (07:29→21:00)
[2021-01-06] MEDS: LIDOCAINE 5% (LIDODERM) PATCH TD SCH (07:31)
[2021-01-06] MEDS: COMBIVENT RESPIMAT 100-20MCG INHALER 4GM INH SCH ×3 (07:42→20:50)
[2021-01-06 14:00] VITALS: BP 105/64
[2021-01-06 20:00] VITALS: BP 126/63
[2021-01-06] MEDS: CEFEPIME HCL 500 MG in D5W 50 ML IV SCH (20:16)
--- NOTE | 2021-01-06 21:10 | IPNPDOC ---
Subjective CC/HPI The patient is a 80-year-old male admitted with a reason for visit of Peripheral Polyneuropathy. Events since last encounter Pt was seen in AM during HD. He was tolerating it well. General: Reports: Fatigue; Denies: Chills, Night Sweats Constitutional: Denies: Chills, Fever Eyes: Denies: Pain, Vision change ENT: Denies: Head Aches, Ear Pain Skin: Denies: Rash, Lesions Pulmonary: Reports: Cough; Denies: Dyspnea Cardiovascular: Denies: Chest Pain, Palpitations Gastrointestinal: Denies: Nausea, Vomiting Genitourinary: Denies: Dysuria, Frequency Hematologic: Denies: Bruising, Bleeding Excessively Musculoskeletal: Denies: Neck Pain, Back Pain Neurological: Reports: Weakness Psych: Reports: Mood Normal Objective Physical Examination General Exam: Alert, No Acute Distress EYE EXAM: PERRLA, Conjunctiva & lids normal, EOMI ENT EXAM: Atraumatic, Mucous membr. moist/pink, Pharynx Normal Neck Exam: Supple; No: JVD, thyromegaly Chest Exam: Clear to auscultation, Normal air movement Heart Exam: Rate Normal, Normal S1, Normal S2, Other (Lt FA AVF which is used for HD.); No: Murmurs, Rubs ABDOMEN EXAM: Normal bowel sounds, Soft; No: Tenderness Extremity Exam: No: Clubbing, Cyanosis, Edema Skin Exam: Nl turgor and temperature; No: Rash Neuro Exam: Normal Speech, Strength at 5/5 X4 ext Psych Exam: Mental status NL, Mood NL Vital Signs/I&O Vital Signs Date Time Temp Pulse Resp B/P (MAP) Pulse Ox O2 Delivery O2 Flow Rate FiO2 01/06/21 14:00 98.3 55 20 105/64 (78) 91 Nasal Cannula 3.0 I&O- Last 24 Hours up to 6 AM 01/06/21 06:00 Intake Total 300 ml Balance 300 ml Laboratory Data Labs 24H Laboratory Tests 2 01/06/21 05:46: Bedside Glucose (Misc Panel) 162H 01/06/21 12:14: Bedside Glucose (Misc Panel) 116H 01/06/21 16:24: Bedside Glucose (Misc Panel) 178H 01/06/21 20:23: Bedside Glucose (Misc Panel) 196H FSBS Laboratory Tests Test 01/06/21 05:46 10/9/21 12:14 01/06/21 16:24 01/06/21 20:23 Range/Units Bedside Glucose (Misc Panel) 162 116 178 196 83-110 MG/DL Current Medications Current Medications Medications (Trade) Dose Ordered Sig/Lias Route PRN Reason Start Time Stop Time Status Last Admin Dose Admin Acetaminophen (Tylenol Tab) 650 mg Q4HP PRN PO fever/MILD PAIN (PS 1-4) 12/27/20 12:25 01/02/21 13:57 DC 01/02/21 08:18 Acetaminophen (Tylenol Tab) 1,000 mg TID PO 01/02/21 16:00 01/06/21 20:17 Albuterol/ Ipratropium (Combivent Respimat 100-20mcg) 1 puff RTID INH 12/27/20 20:00 01/06/21 20:50 Atorvastatin Calcium (Lipitor) 20 mg DAILY PO 12/28/20 09:00 01/06/21 07:26 Calcium Acetate (Phoslo) 667 mg WM PO 12/27/20 18:00 01/06/21 17:38 Cefepime HCl 500 mg/Dextrose 55 ml @ 110 mls/hr Q24H IV 01/03/21 20:00 01/06/21 20:16 Clopidogrel Bisulfate (PLAVix) 75 mg DAILY PO 12/28/20 09:00 01/06/21 07:26 Darbepoetin Shant (Aranesp (Dialysis Use)) 100 mcg HD IV 12/28/20 18:40 01/04/21 17:55 Dextrose (Dextrose 50%) 25 ml ASDIRECTED PRN IV SEE LABEL COMMENTS 12/27/20 20:55 Docusate Sodium (Colace) 100 mg BID PO 12/27/20 21:00 12/28/20 16:27 DC 12/28/20 09:07 Docusate Sodium (Colace) 100 mg BID PRN PO constipation 12/28/20 21:00 Febuxostat (Uloric) 40 mg DAILY PO 12/28/20 09:00 01/06/21 07:26 Gabapentin (Neurontin) 100 mg DAILY PO 12/28/20 09:00 01/06/21 07:26 Glipizide (Glucotrol) 2.5 mg DAILY@0730 PO 12/29/20 11:00 12/29/20 15:15 DC 12/29/20 11:21 Glipizide (Glucotrol) 5 mg DAILY@0730 PO 12/29/20 07:30 12/28/20 17:31 DC Glipizide (Glucotrol) 10 mg DAILY@0730 PO 12/28/20 07:30 12/28/20 17:10 DC 12/28/20 09:11 Glucagon (Glucagon) 1 mg ASDIRECTED PRN SC SEE LABEL COMMENTS 12/27/20 20:55 Glucose (Glucose) 16 GM ASDIRECTED PRN PO SEE LABEL COMMENTS 12/27/20 20:55 Guaifenesin (Robitussin Tab) 400 mg TID PO 01/02/21 16:00 01/06/21 20:17 Heparin Sodium (Heparin) Please refer to ... ASDIRECTED XX 12/29/20 10:05 12/30/20 10:04 DC Heparin Sodium (Heparin) Please refer to ... ASDIRECTED XX 01/06/21 06:00 01/07/21 05:59 Heparin Sodium (Porcine) (Heparin) 5,000 units Q12H SC 12/27/20 21:00 01/05/21 20:19 Home Med (Home Med List Complete!) ASDIRECTED XX 01/02/21 15:25 01/02/21 15:28 DC Insulin Human Lispro (HumaLOG INSULIN) SEE PROTOCOL TABLE AC SC 12/28/20 07:30 01/01/21 11:51 Insulin Human Lispro (HumaLOG INSULIN) SEE PROTOCOL TABLE QHS OH 12/27/20 21:00 Lidocaine (Lidoderm Patch) 1 patch DAILY TD 01/02/21 09:00 01/06/21 07:31 Lidocaine HCl (Lidocaine 1% Sdv) 0.5 ml ASDIRECTED PRN SC SEE LABEL COMMENTS 12/29/20 10:05 12/30/20 10:04 DC Lidocaine HCl (Lidocaine 1% Sdv) 0.5 ml ASDIRECTED PRN SC SEE LABEL COMMENTS 01/06/21 06:00 01/06/21 21:04 DC Lidocaine/ Prilocaine (Emla) FOR IV STICKS ASDIRECTED TOP 12/29/20 10:20 01/06/21 06:57 Midodrine (Proamatine) 2.5 mg 08,16 PO 12/27/20 16:00 01/06/21 07:26 Non-Formulary Medication ( See Comment Field Below ) REMOVE LIDODERM PATCH DAILY@21 XX 01/02/21 21:00 01/05/21 20:20 Pantoprazole Sodium (Protonix) 40 mg DAILY PO 12/28/20 09:00 01/06/21 07:25 Senna (Senokot) 1 tab QHS PO 12/27/20 21:00 12/28/20 16:27 DC Senna (Senokot) 1 tab QHS PRN PO constipation 12/28/20 21:00 Sodium Chloride (Nacl 0.9%) 200 ml ASDIRECTED PRN IV SEE LABEL COMMENTS 12/29/20 10:05 12/30/20 10:04 DC Vitamin B Complex/ Vit C/Folic Acid (Nephro-Lety Rx) 1 tab DAILY PO 12/28/20 09:00 01/06/21 07:26 Allergies Coded Allergies: No Known Allergies (Verified Allergy, Unknown, 12/19/20) Assessment/Plan Date Seen The patient was seen on 01/06/21 at 21:09. Plan / VTE VTE Prophylaxis Ordered?: Yes Plan Orders past 48 Hours Orders Fingerstick Blood Sugar (01/05/21 05:22) Fingerstick Blood Sugar (01/05/21 11:49) Fingerstick Blood Sugar (01/05/21 16:29) Fingerstick Blood Sugar (01/05/21 20:31) Hemodialysis Acute Orders (01/06/21 06:00) Heparin (Heparin) (01/06/21 06:00) Lidocaine 1% Sdv (Lidocaine 1% Sdv) (01/06/21 06:00) Fingerstick Blood Sugar (01/06/21 05:46) Fingerstick Blood Sugar (01/06/21 12:14) Fingerstick Blood Sugar (01/06/21 16:24) Fingerstick Blood Sugar (01/06/21 20:23) Plan Text 1. End-stage renal disease. HD being done today. UF goal~3Kg. continue TTS schedule while in rehab. 2. Congestive heart failure (CHF) and hypoxemia. Volume status has been reasonably well compensated with hemodialysis. 3. Bilateral lung infiltrates: HCAP vs CHF. Currently on Cefepime. Feeling better. 4. Anemia. Aranesp with HD. 4. Hypotension, Severe Cardiomyopathy and bradycardia: Continue Midodrine. MARSHAL TADEO MD Jan 06, 2021 21:10
[2021-01-06] MEDS: **NOTE PATIENT COMMENT** MISC XX SCH (21:37)
[2021-01-07] MEDS: HumaLOG INSULIN (NovoLOG) PER UNIT SC SCH ×4 (07:10→19:58)
[2021-01-07 07:12] VITALS: BP 125/75
[2021-01-07] MEDS: COMBIVENT RESPIMAT 100-20MCG INHALER 4GM INH SCH ×3 (07:25→20:17)
[2021-01-07] MEDS: CALCIUM ACETATE 667MG GELCAP PO SCH ×3 (07:54→17:57)
[2021-01-07] MEDS: LIDOCAINE 5% (LIDODERM) PATCH TD SCH (07:54)
[2021-01-07] MEDS: PANTOPRAZOLE 40MG TAB (PROTONIX) PO SCH (07:55)
[2021-01-07] MEDS: GABAPENTIN 100 MG CAP PO SCH (07:55)
[2021-01-07] MEDS: FEBUXOSTAT 40 MG TABLET (ULORIC) PO SCH (07:55)
[2021-01-07] MEDS: guaiFENesin 200 MG TAB PO SCH ×3 (07:56→19:41)
[2021-01-07] MEDS: ATORVASTATIN 20 MG TAB PO SCH (07:56)
[2021-01-07] MEDS: CLOPIDOGREL 75 MG TAB PO SCH (07:56)
[2021-01-07] MEDS: NEPHRO-VIT TAB (NEPHROCAPS) PO SCH (07:56)
[2021-01-07] MEDS: ACETAMINOPHEN 500 MG TAB PO SCH ×3 (07:56→19:41)
[2021-01-07] MEDS: REMEDY PHYTOPLEX Z-GUARD PASTE 113GM TUBE (FROM STOREROOM PRODUCT) TOP SCH ×3 (07:57→19:58)
[2021-01-07] MEDS: HEPARIN SOD (PORCINE) 5000UNITS/ML 1ML VIAL/SYRINGE SC SCH ×2 (07:58→19:57)
[2021-01-07] MEDS: MIDODRINE 2.5 MG TAB PO SCH ×2 (07:58→16:00)
[2021-01-07 14:00] VITALS: BP 148/83
[2021-01-07] MEDS: CEFEPIME HCL 500 MG in D5W 50 ML IV SCH (19:42)
[2021-01-07] MEDS: **NOTE PATIENT COMMENT** MISC XX SCH (19:58)
[2021-01-07 23:30] VITALS: BP 118/81
[2021-01-08 06:42] VITALS: BP 123/64
[2021-01-08] MEDS: HumaLOG INSULIN (NovoLOG) PER UNIT SC SCH ×4 (07:15→20:34)
[2021-01-08] MEDS: COMBIVENT RESPIMAT 100-20MCG INHALER 4GM INH SCH ×3 (07:58→19:18)
[2021-01-08] MEDS: NEPHRO-VIT TAB (NEPHROCAPS) PO SCH (08:18)
[2021-01-08] MEDS: GABAPENTIN 100 MG CAP PO SCH (08:18)
[2021-01-08] MEDS: FEBUXOSTAT 40 MG TABLET (ULORIC) PO SCH (08:18)
[2021-01-08] MEDS: MIDODRINE 2.5 MG TAB PO SCH ×2 (08:18→16:00)
[2021-01-08] MEDS: CLOPIDOGREL 75 MG TAB PO SCH (08:18)
[2021-01-08] MEDS: guaiFENesin 200 MG TAB PO SCH ×3 (08:18→19:48)
[2021-01-08] MEDS: HEPARIN SOD (PORCINE) 5000UNITS/ML 1ML VIAL/SYRINGE SC SCH ×2 (08:19→20:34)
[2021-01-08] MEDS: CALCIUM ACETATE 667MG GELCAP PO SCH ×3 (08:19→18:00)
[2021-01-08] MEDS: ACETAMINOPHEN 500 MG TAB PO SCH ×3 (08:19→19:48)
[2021-01-08] MEDS: PANTOPRAZOLE 40MG TAB (PROTONIX) PO SCH (08:19)
[2021-01-08] MEDS: ATORVASTATIN 20 MG TAB PO SCH (08:19)
[2021-01-08] MEDS: LIDOCAINE 5% (LIDODERM) PATCH TD SCH (08:20)
[2021-01-08] MEDS: REMEDY PHYTOPLEX Z-GUARD PASTE 113GM TUBE (FROM STOREROOM PRODUCT) TOP SCH ×3 (08:20→20:34)
[2021-01-08 10:48] LABS: BASO % 0.5 % (0.0-1.0); EOS # 0.2 10^3/uL (0.0-0.5); EOS % 2.2 % (0.0-3.0); HEMOGLOBIN 11.8 g/dl (13.5-17.5); LYMPH # 1.3 10^3/uL (1.5-5.0); LYMPH % 16.9 % (24.0-44.0); MEAN CORPUSCULAR HEMOGLOBIN 32.5 pg (27.0-33.0); MEAN CORPUSCULAR HGB CONC 31.1 g/dl (32.0-36.5); MEAN CORPUSCULAR VOLUME 104.7 fl (80.0-96.0); MONO # 0.6 10^3/uL (0.0-0.8); MONO % 8.6 % (2.0-8.0); NEUTROPHILS # 5.3 10^3/uL (1.5-8.5); NEUTROPHILS % 71.3 % (36.0-66.0); PLATELET COUNT, AUTOMATED 203 10^3/uL (150-450); RED BLOOD COUNT 3.63 10^6/uL (4.30-6.10); WHITE BLOOD COUNT 7.4 10^3/uL (4.0-10.0)
[2021-01-08 11:26] LABS: CALCIUM LEVEL 9.3 MG/DL (8.8-10.2); CREATININE FOR GFR 9.88 MG/DL (0.70-1.30); GLOMERULAR FILTRATION RATE 5.5 (>42); POTASSIUM SERUM 5.2 MEQ/L (3.5-5.1)
[2021-01-08 14:00] VITALS: BP 122/60
[2021-01-08] MEDS: **NOTE PATIENT COMMENT** MISC XX SCH (19:49)
[2021-01-08] MEDS: CEFEPIME HCL 500 MG in D5W 50 ML IV SCH (20:00)
--- NOTE | 2021-01-08 22:19 | IPNPDOC ---
Text Note Date of Service Significant event NOTE Notified patient with IV access loss. Opt for p.o. antibiotics tonight -did go ahead and switch to p.o. regimen as patient possibly leaving Friday. However, if required and IV access gained for transition back to IV antibiotics will defer to attending. VS,Fishbone, I+O VS, Fishbone, I+O Laboratory Tests 01/08/21 10:15 Vital Signs Date Time Temp Pulse Resp B/P (MAP) Pulse Ox O2 Delivery O2 Flow Rate FiO2 01/08/21 14:00 97.4 69 18 122/60 (80) 91 Room Air 01/08/21 09:00 2.5 I&O- Last 24 Hours up to 6 AM 01/08/21 06:00 Intake Total 1660 ml Balance 1660 ml YUVAL KEYES NP Jan 08, 2021 22:19
[2021-01-08 22:40] VITALS: BP 105/56
[2021-01-08] MEDS ORDERED: CEFDINIR 300 MG CAP (OMNICEF) PO ONE (23:00)
[2021-01-09] MEDS ORDERED: LIDOCAINE 1% SDV 5ML VIAL SC PRN (06:00)
[2021-01-09 06:36] VITALS: BP 118/66
[2021-01-09] MEDS: HumaLOG INSULIN (NovoLOG) PER UNIT SC SCH ×5 (07:30→20:03)
[2021-01-09] MEDS: COMBIVENT RESPIMAT 100-20MCG INHALER 4GM INH SCH ×3 (07:32→19:33)
[2021-01-09] MEDS: MIDODRINE 2.5 MG TAB PO SCH ×3 (08:00→12:13)
[2021-01-09] MEDS: NEPHRO-VIT TAB (NEPHROCAPS) PO SCH (08:16)
[2021-01-09] MEDS: GABAPENTIN 100 MG CAP PO SCH (08:16)
[2021-01-09] MEDS: CALCIUM ACETATE 667MG GELCAP PO SCH ×3 (08:16→17:21)
[2021-01-09] MEDS: LIDOCAINE 5% (LIDODERM) PATCH TD SCH (08:17)
[2021-01-09] MEDS: CLOPIDOGREL 75 MG TAB PO SCH (08:17)
[2021-01-09] MEDS: guaiFENesin 200 MG TAB PO SCH ×3 (08:17→20:03)
[2021-01-09] MEDS: ATORVASTATIN 20 MG TAB PO SCH (08:17)
[2021-01-09] MEDS: PANTOPRAZOLE 40MG TAB (PROTONIX) PO SCH (08:17)
[2021-01-09] MEDS: ACETAMINOPHEN 500 MG TAB PO SCH ×3 (08:17→20:03)
[2021-01-09] MEDS: FEBUXOSTAT 40 MG TABLET (ULORIC) PO SCH (08:17)
[2021-01-09] MEDS: HEPARIN SOD (PORCINE) 5000UNITS/ML 1ML VIAL/SYRINGE SC SCH ×2 (08:18→20:03)
[2021-01-09] MEDS: REMEDY PHYTOPLEX Z-GUARD PASTE 113GM TUBE (FROM STOREROOM PRODUCT) TOP SCH ×3 (08:18→20:04)
[2021-01-09] MEDS: EMLA CREAM 5GM TUBE (LIDOCAINE/PRILOCAINE) TOP SCH (09:28)
--- NOTE | 2021-01-09 11:30 | IPNPDOC ---
PM&R Progress Note DATE OF SERVICE: Jan 08, 2021 Pool Table Operator Progress Note Subjective: Patient reporting he still has a cough, but thinks it is getting better. he denies fevers or chills. REVIEW OF SYSTEMS: The following is a completed review of systems and has been reviewed. Review of systems otherwise unremarkable. PAIN: Patient self reports no pain EYES: No recent vision changes EARS, NOSE, & THROAT: No throat pain, or dysphagia, or rhinorrhea CARDIOVASCULAR: Denies chest pain or palpitations PULMONARY: Denies shortness of breath, cough (improving) GASTROINTESTINAL: +loose stools (resolved) GENITOURINARY:anuric MUSCULOSKELETAL: generalized weakness NEUROLOGICAL:+peripheral polyneuropathy HEMATOLOGICAL: +anemia SKIN: denies rash PSYCHIATRIC: Unremarkable All other review of systems found to be negative. PHYSICAL EXAMINATION: VITAL SIGNS: Please see below. GENERAL: Pleasant and cooperative. No acute distress. HEENT: PERRL. Extraocular movements intact. Clear conjunctiva CARDIOVASCULAR: Regular rate and rhythm. No murmurs, rubs, or gallops LUNGS: Clear to auscultation bilaterally. No wheezes. +[place] RUL ABDOMEN: Soft, nontender, nondistended. Positive bowel sounds. Normal active bowel sounds NEUROLOGICAL: Alert and oriented times three. Cranial nerves II through XII grossly intact. Sensation decreased to light touch in stocking pattern EXTREMITIES: 5\5 strength bilateral upper extremities. 4+\5 strength right lower extremity. 4+/5 strength in left lower extremity. ASSESSMENT:80-year-old M with past medical history of ESRD on HD and peripheral polyneuropathy who presents status post weakness in setting of metabolic derangement due to missed dialysis sessions PLAN: 1.Rehab- PT/OT advance mobility and ADLs, strengthen/stretch/maintain ROM all 4 limbs 2. Neuro- peripheral polyneuropathy due to longstanding DM with weakness, balance impairments, and mobility decline contributing to current functional deficits 3. Cardiac- -hypotension cont midodrine -CAD s/p CABG with AICD/PM cont plavix -chronic systolic CHF-daily weights, fluid restrict 4. Resp- monitor for infection -patient on home 02 and CPAP for KEESHA -cont Combivent, cont guaifenesin for cough- patient with CXR and CT chest showing probable bilat infiltrates, cont Cefepime, patient reporting his cough is improving -sputum cx + for Serratia marcescens, E coli, Stenotrophomonas Maltophilia - Resp panel and MRSA negative 5. GI ppx- protonix 6. REnal- ESRD on HD-renal consulted -cont Calcium Acetate and uloric 7. Endo- DM on glipzide and ISS 8. DVT ppx- heparin 9. Pain- gabapentin, lidoderm patch to low back 10 Dispo- 01-10-21 to home Allergies Coded Allergies: No Known Allergies (Verified Allergy, Unknown, 12/19/20) Vital Signs Vital Signs Date Time Temp Pulse Resp B/P (MAP) Pulse Ox O2 Delivery O2 Flow Rate FiO2 01/09/21 06:36 97.2 79 18 118/66 (83) 93 NIPPV (BIPAP/CPAP) 01/08/21 22:45 2.5 Laboratory Data Labs 24H Laboratory Tests 2 01/08/21 11:48: Bedside Glucose (Misc Panel) 131H 01/08/21 17:08: Bedside Glucose (Misc Panel) 180H 01/09/21 05:59: Bedside Glucose (Misc Panel) 115H Microbiology Microbiology 01/03/21 Respiratory Virus Panel (PCR) (HELEN) - Final, Complete 01/03/21 Gram Stain - Final, Complete 01/03/21 Sputum Culture - Final, Complete Serratia Marcescens Stenotrophomonas Maltophilia Escherichia Coli Current Medications Current Medications Current Medications Medications (Trade) Dose Ordered Sig/Lisa Route PRN Reason Start Time Stop Time Status Last Admin Dose Admin Acetaminophen (Tylenol Tab) 650 mg Q4HP PRN PO fever/MILD PAIN (PS 1-4) 12/27/20 12:25 01/02/21 13:57 DC 01/02/21 08:18 Acetaminophen (Tylenol Tab) 1,000 mg TID PO 01/02/21 16:00 01/09/21 08:17 Albuterol/ Ipratropium (Combivent Respimat 100-20mcg) 1 puff RTID INH 12/27/20 20:00 01/09/21 07:32 Atorvastatin Calcium (Lipitor) 20 mg DAILY PO 12/28/20 09:00 01/09/21 08:17 Calcium Acetate (Phoslo) 667 mg WM PO 12/27/20 18:00 01/09/21 08:16 Cefdinir (Omnicef) 300 mg MoWeFr@0900 PO 01/10/21 09:00 Cefepime HCl 500 mg/Dextrose 55 ml @ 110 mls/hr Q24H IV 01/03/21 20:00 01/08/21 22:14 DC 01/07/21 19:42 Clopidogrel Bisulfate (PLAVix) 75 mg DAILY PO 12/28/20 09:00 01/09/21 08:17 Darbepoetin Shant (Aranesp (Dialysis Use)) 100 mcg HD IV 12/28/20 18:40 01/04/21 17:55 Dextrose (Dextrose 50%) 25 ml ASDIRECTED PRN IV SEE LABEL COMMENTS 12/27/20 20:55 Docusate Sodium (Colace) 100 mg BID PO 12/27/20 21:00 12/28/20 16:27 DC 12/28/20 09:07 Docusate Sodium (Colace) 100 mg BID PRN PO constipation 12/28/20 21:00 Febuxostat (Uloric) 40 mg DAILY PO 12/28/20 09:00 01/09/21 08:17 Gabapentin (Neurontin) 100 mg DAILY PO 12/28/20 09:00 01/09/21 08:16 Glipizide (Glucotrol) 2.5 mg DAILY@0730 PO 12/29/20 11:00 12/29/20 15:15 DC 12/29/20 11:21 Glipizide (Glucotrol) 5 mg DAILY@0730 PO 12/29/20 07:30 12/28/20 17:31 DC Glipizide (Glucotrol) 10 mg DAILY@0730 PO 12/28/20 07:30 12/28/20 17:10 DC 12/28/20 09:11 Glucagon (Glucagon) 1 mg ASDIRECTED PRN SC SEE LABEL COMMENTS 12/27/20 20:55 Glucose (Glucose) 16 GM ASDIRECTED PRN PO SEE LABEL COMMENTS 12/27/20 20:55 Guaifenesin (Robitussin Tab) 400 mg TID PO 01/02/21 16:00 01/09/21 08:17 Heparin Sodium (Heparin) Please refer to ... ASDIRECTED XX 12/29/20 10:05 12/30/20 10:04 DC Heparin Sodium (Heparin) Please refer to ... ASDIRECTED XX 01/09/21 06:00 01/10/21 05:59 Heparin Sodium (Heparin) Please refer to ... ASDIRECTED XX 01/06/21 06:00 01/07/21 05:59 DC Heparin Sodium (Porcine) (Heparin) 5,000 units Q12H SC 12/27/20 21:00 01/09/21 08:18 Home Med (Home Med List Complete!) ASDIRECTED XX 01/02/21 15:25 01/02/21 15:28 DC Insulin Human Lispro (HumaLOG INSULIN) SEE PROTOCOL TABLE AC SC 12/28/20 07:30 01/01/21 11:51 Insulin Human Lispro (HumaLOG INSULIN) SEE PROTOCOL TABLE QHS SC 12/27/20 21:00 Lidocaine (Lidoderm Patch) 1 patch DAILY TD 01/02/21 09:00 01/09/21 08:17 Lidocaine HCl (Lidocaine 1% Sdv) 0.5 ml ASDIRECTED PRN SC SEE LABEL COMMENTS 12/29/20 10:05 12/30/20 10:04 DC Lidocaine HCl (Lidocaine 1% Sdv) 0.5 ml ASDIRECTED PRN SC SEE LABEL COMMENTS 01/09/21 06:00 01/09/21 22:59 Lidocaine HCl (Lidocaine 1% Sdv) 0.5 ml ASDIRECTED PRN SC SEE LABEL COMMENTS 01/06/21 06:00 01/06/21 21:04 DC Lidocaine/ Prilocaine (Emla) FOR IV STICKS ASDIRECTED TOP 12/29/20 10:20 01/09/21 09:28 Midodrine (Proamatine) 2.5 mg 08,16 PO 12/27/20 16:00 01/08/21 08:18 Non-Formulary Medication ( See Comment Field Below ) REMOVE LIDODERM PATCH DAILY@21 XX 01/02/21 21:00 01/08/21 19:49 Pantoprazole Sodium (Protonix) 40 mg DAILY PO 12/28/20 09:00 01/09/21 08:17 Senna (Senokot) 1 tab QHS PO 12/27/20 21:00 12/28/20 16:27 DC Senna (Senokot) 1 tab QHS PRN PO constipation 12/28/20 21:00 Sodium Chloride (Nacl 0.9%) 200 ml ASDIRECTED PRN IV SEE LABEL COMMENTS 12/29/20 10:05 12/30/20 10:04 DC Vitamin B Complex/ Vit C/Folic Acid (Nephro-Lety Rx) 1 tab DAILY PO 12/28/20 09:00 01/09/21 08:16 JERI GARCIA MD Jan 09, 2021 11:30
--- NOTE | 2021-01-09 17:29 | IPNPDOC ---
Subjective CC/HPI The patient is a 80-year-old male admitted with a reason for visit of Peripheral Polyneuropathy. Events since last encounter Pt was seen at rehab unit before HD today. He was doing his PT and feels better now. General: Denies: Chills, Night Sweats Constitutional: Denies: Chills, Fever Eyes: Denies: Pain, Vision change ENT: Denies: Head Aches, Ear Pain Skin: Denies: Rash, Lesions Pulmonary: Denies: Dyspnea, Cough Cardiovascular: Denies: Chest Pain, Palpitations Gastrointestinal: Denies: Nausea, Vomiting Genitourinary: Denies: Dysuria, Frequency Hematologic: Denies: Bruising, Bleeding Excessively Musculoskeletal: Denies: Neck Pain, Back Pain Neurological: Reports: Weakness; Denies: Numbness Psych: Reports: Mood Normal Objective Physical Examination General Exam: Alert, No Acute Distress EYE EXAM: PERRLA, Conjunctiva & lids normal, EOMI ENT EXAM: Atraumatic, Mucous membr. moist/pink, Pharynx Normal Neck Exam: Supple; No: JVD, thyromegaly Chest Exam: Clear to auscultation, Normal air movement Heart Exam: Rate Normal, Normal S1, Normal S2, Other (Lt FA AVF which is used for HD.); No: Murmurs, Rubs ABDOMEN EXAM: Normal bowel sounds, Soft; No: Tenderness Extremity Exam: No: Clubbing, Cyanosis, Edema Skin Exam: Nl turgor and temperature; No: Rash Neuro Exam: Normal Speech, Strength at 5/5 X4 ext Psych Exam: Mental status NL, Mood NL, Oriented x 3 Vital Signs/I&O Vital Signs Date Time Temp Pulse Resp B/P (MAP) Pulse Ox O2 Delivery O2 Flow Rate FiO2 01/09/21 09:00 2.5 01/09/21 06:36 97.2 79 18 118/66 (83) 93 NIPPV (BIPAP/CPAP) I&O- Last 24 Hours up to 6 AM 01/09/21 06:00 Intake Total 1560 ml Balance 1560 ml Laboratory Data Labs 24H Laboratory Tests 2 01/09/21 05:59: Bedside Glucose (Misc Panel) 115H 01/09/21 11:52: Bedside Glucose (Misc Panel) 147H 01/09/21 16:35: Bedside Glucose (Misc Panel) 146H FSBS Laboratory Tests Test 01/09/21 05:59 01/09/21 11:52 01/09/21 16:35 Range/Units Bedside Glucose (Misc Panel) 115 147 146 83-110 MG/DL Current Medications Current Medications Medications (Trade) Dose Ordered Sig/Lisa Route PRN Reason Start Time Stop Time Status Last Admin Dose Admin Acetaminophen (Tylenol Tab) 650 mg Q4HP PRN PO fever/MILD PAIN (PS 1-4) 12/27/20 12:25 01/02/21 13:57 DC 01/02/21 08:18 Acetaminophen (Tylenol Tab) 1,000 mg TID PO 01/02/21 16:00 01/09/21 17:21 Albuterol/ Ipratropium (Combivent Respimat 100-20mcg) 1 puff RTID INH 12/27/20 20:00 01/09/21 07:32 Atorvastatin Calcium (Lipitor) 20 mg DAILY PO 12/28/20 09:00 01/09/21 08:17 Calcium Acetate (Phoslo) 667 mg WM PO 12/27/20 18:00 01/09/21 17:21 Cefdinir (Omnicef) 300 mg MoWeFr@0900 PO 01/10/21 09:00 Cefepime HCl 500 mg/Dextrose 55 ml @ 110 mls/hr Q24H IV 01/03/21 20:00 01/08/21 22:14 DC 01/07/21 19:42 Clopidogrel Bisulfate (PLAVix) 75 mg DAILY PO 12/28/20 09:00 01/09/21 08:17 Darbepoetin Shant (Aranesp (Dialysis Use)) 100 mcg HD IV 12/28/20 18:40 01/04/21 17:55 Dextrose (Dextrose 50%) 25 ml ASDIRECTED PRN IV SEE LABEL COMMENTS 12/27/20 20:55 Docusate Sodium (Colace) 100 mg BID PO 12/27/20 21:00 12/28/20 16:27 DC 12/28/20 09:07 Docusate Sodium (Colace) 100 mg BID PRN PO constipation 12/28/20 21:00 Febuxostat (Uloric) 40 mg DAILY PO 12/28/20 09:00 01/09/21 08:17 Gabapentin (Neurontin) 100 mg DAILY PO 12/28/20 09:00 01/09/21 08:16 Glipizide (Glucotrol) 2.5 mg DAILY@0730 PO 12/29/20 11:00 12/29/20 15:15 DC 12/29/20 11:21 Glipizide (Glucotrol) 5 mg DAILY@0730 PO 12/29/20 07:30 12/28/20 17:31 DC Glipizide (Glucotrol) 10 mg DAILY@0730 PO 12/28/20 07:30 12/28/20 17:10 DC 12/28/20 09:11 Glucagon (Glucagon) 1 mg ASDIRECTED PRN SC SEE LABEL COMMENTS 12/27/20 20:55 Glucose (Glucose) 16 GM ASDIRECTED PRN PO SEE LABEL COMMENTS 12/27/20 20:55 Guaifenesin (Robitussin Tab) 400 mg TID PO 01/02/21 16:00 01/09/21 17:21 Heparin Sodium (Heparin) Please refer to ... ASDIRECTED XX 12/29/20 10:05 12/30/20 10:04 DC Heparin Sodium (Heparin) Please refer to ... ASDIRECTED XX 01/09/21 06:00 01/10/21 05:59 Heparin Sodium (Heparin) Please refer to ... ASDIRECTED XX 01/06/21 06:00 01/07/21 05:59 DC Heparin Sodium (Porcine) (Heparin) 5,000 units Q12H SC 12/27/20 21:00 01/09/21 08:18 Home Med (Home Med List Complete!) ASDIRECTED XX 01/02/21 15:25 01/02/21 15:28 DC Insulin Human Lispro (HumaLOG INSULIN) SEE PROTOCOL TABLE AC SC 12/28/20 07:30 01/01/21 11:51 Insulin Human Lispro (HumaLOG INSULIN) SEE PROTOCOL TABLE QHS SC 12/27/20 21:00 Lidocaine (Lidoderm Patch) 1 patch DAILY TD 01/02/21 09:00 01/09/21 08:17 Lidocaine HCl (Lidocaine 1% Sdv) 0.5 ml ASDIRECTED PRN SC SEE LABEL COMMENTS 12/29/20 10:05 12/30/20 10:04 DC Lidocaine HCl (Lidocaine 1% Sdv) 0.5 ml ASDIRECTED PRN SC SEE LABEL COMMENTS 01/09/21 06:00 01/09/21 22:59 Lidocaine HCl (Lidocaine 1% Sdv) 0.5 ml ASDIRECTED PRN SC SEE LABEL COMMENTS 01/06/21 06:00 01/06/21 21:04 DC Lidocaine/ Prilocaine (Emla) FOR IV STICKS ASDIRECTED TOP 12/29/20 10:20 01/09/21 09:28 Midodrine (Proamatine) 2.5 mg 08,16 PO 12/27/20 16:00 01/09/21 12:13 Non-Formulary Medication ( See Comment Field Below ) REMOVE LIDODERM PATCH DAILY@21 XX 01/02/21 21:00 01/08/21 19:49 Pantoprazole Sodium (Protonix) 40 mg DAILY PO 12/28/20 09:00 01/09/21 08:17 Senna (Senokot) 1 tab QHS PO 12/27/20 21:00 12/28/20 16:27 DC Senna (Senokot) 1 tab QHS PRN PO constipation 12/28/20 21:00 Sodium Chloride (Nacl 0.9%) 200 ml ASDIRECTED PRN IV SEE LABEL COMMENTS 12/29/20 10:05 12/30/20 10:04 DC Vitamin B Complex/ Vit C/Folic Acid (Nephro-Lety Rx) 1 tab DAILY PO 12/28/20 09:00 01/09/21 08:16 Allergies Coded Allergies: No Known Allergies (Verified Allergy, Unknown, 12/19/20) Assessment/Plan Date Seen The patient was seen on 01/09/21 in AM during rehab. Plan / VTE VTE Prophylaxis Ordered?: Yes Plan Orders past 48 Hours Orders Fingerstick Blood Sugar (01/08/21 05:15) Fingerstick Blood Sugar (01/08/21 11:48) Fingerstick Blood Sugar (01/08/21 17:08) Cefdinir (Omnicef) (01/08/21 23:00) Cefdinir (Omnicef) (01/10/21 09:00) Hemodialysis Acute Orders (01/09/21 06:00) Heparin (Heparin) (01/09/21 06:00) Lidocaine 1% Sdv (Lidocaine 1% Sdv) (01/09/21 06:00) Fingerstick Blood Sugar (01/09/21 05:59) Fingerstick Blood Sugar (01/09/21 11:52) Fingerstick Blood Sugar (01/09/21 16:35) Plan Text 1. End-stage renal disease. HD being done today. UF goal~3.5Kg. continue TTS schedule while in rehab. 2. Congestive heart failure (CHF) and hypoxemia. Volume status has been reasonably well compensated with hemodialysis. 3. Bilateral lung infiltrates: HCAP vs CHF. S/P Cefepime. Currently on Omnicef. 4. Anemia. Aranesp with HD. 4. Hypotension, Severe Cardiomyopathy and bradycardia: Continue Midodrine. MARSHAL TADEO MD Jan 09, 2021 17:29
[2021-01-09 20:00] VITALS: BP 121/61
[2021-01-09] MEDS: **NOTE PATIENT COMMENT** MISC XX SCH (20:04)
[2021-01-10 05:55] VITALS: BP 91/48
[2021-01-10] MEDS: HumaLOG INSULIN (NovoLOG) PER UNIT SC SCH (07:05)
[2021-01-10] MEDS: FEBUXOSTAT 40 MG TABLET (ULORIC) PO SCH (07:59)
[2021-01-10] MEDS: MIDODRINE 2.5 MG TAB PO SCH (07:59)
[2021-01-10] MEDS: PANTOPRAZOLE 40MG TAB (PROTONIX) PO SCH (07:59)
[2021-01-10] MEDS: CLOPIDOGREL 75 MG TAB PO SCH (08:00)
[2021-01-10] MEDS: ACETAMINOPHEN 500 MG TAB PO SCH (08:00)
[2021-01-10] MEDS: CALCIUM ACETATE 667MG GELCAP PO SCH (08:00)
[2021-01-10] MEDS: GABAPENTIN 100 MG CAP PO SCH (08:00)
[2021-01-10] MEDS: HEPARIN SOD (PORCINE) 5000UNITS/ML 1ML VIAL/SYRINGE SC SCH (08:01)
[2021-01-10] MEDS: NEPHRO-VIT TAB (NEPHROCAPS) PO SCH (08:01)
[2021-01-10] MEDS: guaiFENesin 200 MG TAB PO SCH (08:01)
[2021-01-10] MEDS: ATORVASTATIN 20 MG TAB PO SCH (08:01)
[2021-01-10] MEDS: REMEDY PHYTOPLEX Z-GUARD PASTE 113GM TUBE (FROM STOREROOM PRODUCT) TOP SCH (08:02)
[2021-01-10] MEDS: LIDOCAINE 5% (LIDODERM) PATCH TD SCH (08:02)
[2021-01-10] MEDS: COMBIVENT RESPIMAT 100-20MCG INHALER 4GM INH SCH (08:56)
[2021-01-10] MEDS ORDERED: CEFDINIR 300 MG CAP (OMNICEF) PO SCH (09:00)
[2021-01-10] MEDS ORDERED: MIDO2.5T PO (09:52)
[2021-01-10] MEDS ORDERED: CALC1CAP PO (09:52)
[2021-01-10] MEDS ORDERED: GABA-1171 PO (09:52)
[2021-01-10] MEDS ORDERED: PANT40TA29 PO (09:52)
[2021-01-10] MEDS ORDERED: CEFD300CAP PO (09:52)
[2021-01-10] MEDS ORDERED: FEBU40TA2 PO (09:52)
[2021-01-10] MEDS ORDERED: ATOR1TAB21 PO (09:52)
[2021-01-10] MEDS ORDERED: GLIP10TA18 PO (09:52)
[2021-01-10] MEDS ORDERED: CLOP75TA2 PO (09:52)
--- NOTE | 2021-01-10 14:31 | IPNPDOC ---
PM&R Progress Note DATE OF SERVICE: Jan 09, 2021 Self Propelled Dredge Operator Progress Note Subjective: Patient reporting he feels ready to go home tomorrow. REVIEW OF SYSTEMS: The following is a completed review of systems and has been reviewed. Review of systems otherwise unremarkable. PAIN: Patient self reports no pain EYES: No recent vision changes EARS, NOSE, & THROAT: No throat pain, or dysphagia, or rhinorrhea CARDIOVASCULAR: Denies chest pain or palpitations PULMONARY: Denies shortness of breath, cough (improving) GASTROINTESTINAL: +loose stools (resolved) GENITOURINARY:anuric MUSCULOSKELETAL: generalized weakness NEUROLOGICAL:+peripheral polyneuropathy HEMATOLOGICAL: +anemia SKIN: denies rash PSYCHIATRIC: Unremarkable All other review of systems found to be negative. PHYSICAL EXAMINATION: VITAL SIGNS: Please see below. GENERAL: Pleasant and cooperative. No acute distress. HEENT: PERRL. Extraocular movements intact. Clear conjunctiva CARDIOVASCULAR: Regular rate and rhythm. No murmurs, rubs, or gallops LUNGS: Clear to auscultation bilaterally. No wheezes/rhonchi ABDOMEN: Soft, nontender, nondistended. Positive bowel sounds. Normal active bowel sounds NEUROLOGICAL: Alert and oriented times three. Cranial nerves II through XII grossly intact. Sensation decreased to light touch in stocking pattern EXTREMITIES: 5\5 strength bilateral upper extremities. 4+\5 strength right lower extremity. 4+/5 strength in left lower extremity. ASSESSMENT:80-year-old M with past medical history of ESRD on HD and peripheral polyneuropathy who presents status post weakness in setting of metabolic d erangement due to missed dialysis sessions PLAN: 1.Rehab- PT/OT advance mobility and ADLs, strengthen/stretch/maintain ROM all 4 limbs- room privileges 2. Neuro- peripheral polyneuropathy due to longstanding DM with weakness, balance impairments, and mobility decline contributing to current functional deficits 3. Cardiac- -hypotension cont midodrine -CAD s/p CABG with AICD/PM cont plavix -chronic systolic CHF-daily weights, fluid restrict 4. Resp- monitor for infection -patient on home 02 and CPAP for KEESHA -cont Combivent, cont guaifenesin for cough- patient with CXR and CT chest showing probable bilat infiltrates, s/p Cefepime cont Cefdinir, patient reporting his cough is improving -sputum cx + for Serratia marcescens, E coli, Stenotrophomonas Maltophilia - Resp panel and MRSA negative 5. GI ppx- protonix 6. REnal- ESRD on HD-renal consulted -cont Calcium Acetate and uloric 7. Endo- DM on glipzide and ISS 8. DVT ppx- heparin 9. Pain- gabapentin, lidoderm patch to low back 10 Dispo- 01-10-21 to home Allergies Coded Allergies: No Known Allergies (Verified Allergy, Unknown, 12/19/20) Vital Signs Vital Signs Date Time Temp Pulse Resp B/P (MAP) Pulse Ox O2 Delivery O2 Flow Rate FiO2 01/10/21 09:00 2.5 01/10/21 05:55 97.7 72 16 91/48 (62) 94 NIPPV (BIPAP/CPAP) Laboratory Data Labs 24H Laboratory Tests 2 01/09/21 16:35: Bedside Glucose (Misc Panel) 146H 01/09/21 20:25: Bedside Glucose (Misc Panel) 187H 01/10/21 05:06: Bedside Glucose (Misc Panel) 115H Microbiology Microbiology 01/03/21 Respiratory Virus Panel (PCR) (HELEN) - Final, Complete 01/03/21 Gram Stain - Final, Complete 01/03/21 Sputum Culture - Final, Complete Serratia Marcescens Stenotrophomonas Maltophilia Escherichia Coli Current Medications Current Medications Current Medications Medications (Trade) Dose Ordered Sig/Lisa Route PRN Reason Start Time Stop Time Status Last Admin Dose Admin Acetaminophen (Tylenol Tab) 650 mg Q4HP PRN PO fever/MILD PAIN (PS 1-4) 12/27/20 12:25 01/02/21 13:57 DC 01/02/21 08:18 Acetaminophen (Tylenol Tab) 1,000 mg TID PO 01/02/21 16:00 01/10/21 11:49 DC 01/10/21 08:00 Albuterol/ Ipratropium (Combivent Respimat 100-20mcg) 1 puff RTID INH 12/27/20 20:00 01/10/21 11:49 DC 01/10/21 08:56 Atorvastatin Calcium (Lipitor) 20 mg DAILY PO 12/28/20 09:00 01/10/21 11:49 DC 01/10/21 08:01 Calcium Acetate (Phoslo) 667 mg WM PO 12/27/20 18:00 01/10/21 11:49 DC 01/10/21 08:00 Cefdinir (Omnicef) 300 mg MoWeFr@0900 PO 01/10/21 09:00 01/10/21 11:49 DC 01/10/21 08:00 Cefepime HCl 500 mg/Dextrose 55 ml @ 110 mls/hr Q24H IV 01/03/21 20:00 01/08/21 22:14 DC 01/07/21 19:42 Clopidogrel Bisulfate (PLAVix) 75 mg DAILY PO 12/28/20 09:00 01/10/21 11:49 DC 01/10/21 08:00 Darbepoetin Shant (Aranesp (Dialysis Use)) 100 mcg HD IV 12/28/20 18:40 01/10/21 11:49 DC 01/04/21 17:55 Dextrose (Dextrose 50%) 25 ml ASDIRECTED PRN IV SEE LABEL COMMENTS 12/27/20 20:55 01/10/21 11:49 DC Docusate Sodium (Colace) 100 mg BID PO 12/27/20 21:00 12/28/20 16:27 DC 12/28/20 09:07 Docusate Sodium (Colace) 100 mg BID PRN PO constipation 12/28/20 21:00 01/10/21 11:49 DC Febuxostat (Uloric) 40 mg DAILY PO 12/28/20 09:00 01/10/21 11:49 DC 01/10/21 07:59 Gabapentin (Neurontin) 100 mg DAILY PO 12/28/20 09:00 01/10/21 11:49 DC 01/10/21 08:00 Glipizide (Glucotrol) 2.5 mg DAILY@0730 PO 12/29/20 11:00 12/29/20 15:15 DC 12/29/20 11:21 Glipizide (Glucotrol) 5 mg DAILY@0730 PO 12/29/20 07:30 12/28/20 17:31 DC Glipizide (Glucotrol) 10 mg DAILY@0730 PO 12/28/20 07:30 12/28/20 17:10 DC 12/28/20 09:11 Glucagon (Glucagon) 1 mg ASDIRECTED PRN SC SEE LABEL COMMENTS 12/27/20 20:55 01/10/21 11:49 DC Glucose (Glucose) 16 GM ASDIRECTED PRN PO SEE LABEL COMMENTS 12/27/20 20:55 01/10/21 11:49 DC Guaifenesin (Robitussin Tab) 400 mg TID PO 01/02/21 16:00 01/10/21 11:49 DC 01/10/21 08:01 Heparin Sodium (Heparin) Please refer to ... ASDIRECTED XX 12/29/20 10:05 12/30/20 10:04 DC Heparin Sodium (Heparin) Please refer to ... ASDIRECTED XX 01/09/21 06:00 01/10/21 05:59 DC Heparin Sodium (Heparin) Please refer to ... ASDIRECTED XX 01/06/21 06:00 01/07/21 05:59 DC Heparin Sodium (Porcine) (Heparin) 5,000 units Q12H SC 12/27/20 21:00 01/10/21 11:49 DC 01/10/21 08:01 Home Med (Home Med List Complete!) ASDIRECTED XX 01/02/21 15:25 01/02/21 15:28 DC Insulin Human Lispro (HumaLOG INSULIN) SEE PROTOCOL TABLE AC SC 12/28/20 07:30 01/10/21 11:49 DC 01/01/21 11:51 Insulin Human Lispro (HumaLOG INSULIN) SEE PROTOCOL TABLE QHS SC 12/27/20 21:00 01/10/21 11:49 DC Lidocaine (Lidoderm Patch) 1 patch DAILY TD 01/02/21 09:00 01/10/21 11:49 DC 01/10/21 08:02 Lidocaine HCl (Lidocaine 1% Sdv) 0.5 ml ASDIRECTED PRN SC SEE LABEL COMMENTS 12/29/20 10:05 12/30/20 10:04 DC Lidocaine HCl (Lidocaine 1% Sdv) 0.5 ml ASDIRECTED PRN SC SEE LABEL COMMENTS 01/09/21 06:00 01/09/21 22:59 DC Lidocaine HCl (Lidocaine 1% Sdv) 0.5 ml ASDIRECTED PRN SC SEE LABEL COMMENTS 01/06/21 06:00 01/06/21 21:04 DC Lidocaine/ Prilocaine (Emla) FOR IV STICKS ASDIRECTED TOP 12/29/20 10:20 01/10/21 11:49 DC 01/09/21 09:28 Midodrine (Proamatine) 2.5 mg 08,16 PO 12/27/20 16:00 01/10/21 11:49 DC 01/10/21 07:59 Non-Formulary Medication ( See Comment Field Below ) REMOVE LIDODERM PATCH DAILY@21 XX 01/02/21 21:00 01/10/21 11:49 DC 01/09/21 20:04 Pantoprazole Sodium (Protonix) 40 mg DAILY PO 12/28/20 09:00 01/10/21 11:49 DC 01/10/21 07:59 Senna (Senokot) 1 tab QHS PO 12/27/20 21:00 12/28/20 16:27 DC Senna (Senokot) 1 tab QHS PRN PO constipation 12/28/20 21:00 01/10/21 11:49 DC Sodium Chloride (Nacl 0.9%) 200 ml ASDIRECTED PRN IV SEE LABEL COMMENTS 12/29/20 10:05 12/30/20 10:04 DC Vitamin B Complex/ Vit C/Folic Acid (Nephro-Lety Rx) 1 tab DAILY PO 12/28/20 09:00 01/10/21 11:49 DC 01/10/21 08:01 JERI GARCIA MD Jan 10, 2021 14:31
--- NOTE | 2021-01-10 15:53 | PMRDS ---
NAME: KIYA FALK [facility] WT ID#: [id number] : [id number] JOB: [id number] THA: 01/10/2021 ACCT: [id number] DOCTOR: JERI GARCIA MD PMR DISCHARGE SUMMARY DATE OF ADMISSION: 12/27/2020 DATE OF DISCHARGE: 01/10/2021 CHIEF COMPLAINT/DISCHARGE DIAGNOSIS: Weakness in the setting of peripheral polyneuropathy. HISTORY OF PRESENT ILLNESS: This is a 80-year-old male with a past medical history of end-stage renal disease on dialysis, CAD; status post CABG with AICD/pacemaker, systolic CHF, diabetes with peripheral polyneuropathy, hypertension, chronic respiratory failure on home oxygen, who presented to [facility] ED on 12/19/2020, having missed dialysis and presented with metabolic derangement and weakness. He was seen by renal, diuresed via dialysis and developed bradycardia with pauses despite having a pacemaker for which cardiology was consulted. He continued to have significant weakness and hypotension requiring Midodrine with difficulty walking and performing ADLs. He was deemed medically appropriate for discharge to ARU on 12/27/2020. PAST MEDICAL HISTORY: As per HPI. HOSPITAL COURSE: Patient was admitted and enrolled in a comprehensive PT, OT program. He received 24 hour nursing supervision, and weekly team meetings were held to discuss his progress. Patient reported a cough during his hospital course with sputum culture positive for E. coli, Serratia marcescens and was treated with Cefepime, then transitioned to Cefdinir. His cough gradually improved and his energy and ability to participate in therapy also improved. Patient's blood pressure was well controlled with Midodrine and his gait imbalance improved with ongoing therapy in the setting of peripheral polyneuropathy. Patient made steady gains and was deemed medically and functionally stable to return home. DISCHARGE MEDICATIONS: As per instructions. FUNCTIONAL HISTORY: On discharge, patient was modified independent for ambulation, mobility and ADL standpoint. Thank you for this referral.
== END 2021-01-10 11:45 | disposition home health service (06) | DRG 73 ==
LOC: M PM&R 16:15
PROVIDERS: ADMIT Physical Medicine & Rehabilitation; ATTEND Physical Medicine & Rehabilitation
DX: E11.42 Type 2 diabetes mellitus with diabetic polyneuropathy (principal); N18.6 End stage renal disease; I50.22 Chronic systolic (congestive) heart failure; I13.2 Hypertensive heart and chronic kidney disease with heart failure and with stage 5 chronic kidney disease, or end stage renal disease; J96.10 Chronic respiratory failure, unspecified whether with hypoxia or hypercapnia; E11.22 Type 2 diabetes mellitus with diabetic chronic kidney disease; I25.10 Atherosclerotic heart disease of native coronary artery without angina pectoris; Z74.09 Other reduced mobility; Z74.1 Need for assistance with personal care; Z95.0 Presence of cardiac pacemaker; Z95.1 Presence of aortocoronary bypass graft; Z99.81 Dependence on supplemental oxygen; Z99.2 Dependence on renal dialysis; Z91.15 Patient's noncompliance with renal dialysis; I95.9 Hypotension, unspecified; G47.33 Obstructive sleep apnea (adult) (pediatric); Z79.02 Long term (current) use of antithrombotics/antiplatelets; Z79.84 Long term (current) use of oral hypoglycemic drugs; Z79.899 Other long term (current) drug therapy

== ENCOUNTER 2021-04-14 07:57 | Inpatient (IN) | payer MEDICARE ==
[~2021-04-14] VITALS: Ht 180.3 cm; Wt 113.2 kg
[~2021-04-14 07:57] MED LIST changes: +CEFD300CAP PO; +MIDO2.5T PO
[2021-04-14 08:33] LABS: BASO % 0.3 % (0.0-1.0); EOS # 0.1 10^3/uL (0.0-0.5); EOS % 0.5 % (0.0-3.0); HEMATOCRIT 32.2 % (42.0-52.0); LYMPH # 1.5 10^3/uL (1.5-5.0); LYMPH % 14.4 % (24.0-44.0); MEAN CORPUSCULAR HEMOGLOBIN 32.6 pg (27.0-33.0); MEAN CORPUSCULAR HGB CONC 31.1 g/dl (32.0-36.5); MEAN CORPUSCULAR VOLUME 104.9 fl (80.0-96.0); MONO # 0.8 10^3/uL (0.0-0.8); MONO % 8.1 % (2.0-8.0); NEUTROPHILS # 7.8 10^3/uL (1.5-8.5); NEUTROPHILS % 75.8 % (36.0-66.0); PLATELET COUNT, AUTOMATED 260 10^3/uL (150-450); RED BLOOD COUNT 3.07 10^6/uL (4.30-6.10); WHITE BLOOD COUNT 10.2 10^3/uL (4.0-10.0)
[2021-04-14 09:20] LABS: CALCIUM LEVEL 7.9 MG/DL (8.8-10.2); CREATININE FOR GFR 13.3 MG/DL (0.70-1.30); FREE T4 0.85 NG/DL (0.76-1.46); GLOMERULAR FILTRATION RATE 3.9 (>35); MAGNESIUM LEVEL 1.9 MG/DL (1.8-2.4); POTASSIUM SERUM 5.1 MEQ/L (3.5-5.1); THYROID STIMULATING HORMONE 1.7 uIU/ML (0.358-3.740)
[2021-04-14] MEDS ORDERED: METO1TAB32 PO (09:34)
[2021-04-14] MEDS ORDERED: FEBU40TA4 PO (09:34)
[2021-04-14] MEDS ORDERED: GABA-1171 PO (09:34)
[2021-04-14] MEDS ORDERED: GLIP5TAB20 PO (09:34)
[2021-04-14] MEDS ORDERED: MIDO5TA PO (09:34)
[2021-04-14] MEDS ORDERED: CALC667T2 PO (09:34)
[2021-04-14] MEDS ORDERED: ATOR1TAB21 PO (09:34)
[2021-04-14 10:20] LABS: RSV AMPLIFICATION POSITIVE (NEGATIVE)
[2021-04-14] MEDS ORDERED: HOME MED LIST COMPLETE! XX SCH (10:45)
[2021-04-14] MEDS ORDERED: COMMENTS (10:45)
[2021-04-14] MEDS ORDERED: SODIUM CHLORIDE 0.9% 1000ML IV PRN (12:15)
[2021-04-14] MEDS ORDERED: LIDOCAINE 1% SDV 5ML VIAL SC PRN (12:15)
[2021-04-14 17:00] VITALS: BP 128/74
[2021-04-14] MEDS: GABAPENTIN 100 MG CAP PO SCH ×2 (17:14→21:45)
[2021-04-14] MEDS: METOPROLOL SUCC *XL* 25MG TAB (TopROL *XL*) PO SCH ×2 (17:14→21:00)
[2021-04-14] MEDS: HEPARIN SOD (PORCINE) 5000UNITS/ML 1ML VIAL/SYRINGE SC SCH ×2 (17:15→21:46)
[2021-04-14] MEDS: CALCIUM ACETATE 667MG GELCAP PO SCH ×2 (17:16→18:45)
[2021-04-14] MEDS ORDERED: GLUCOSE 4GM CHEW TABLET PO PRN (17:45)
[2021-04-14] MEDS ORDERED: DEXTROSE 50% 50 ML SYRINGE IV PRN (17:45)
[2021-04-14] MEDS ORDERED: GLUCAGON INJ 1MG VIAL SC PRN (17:45)
[2021-04-14] MEDS: MIDODRINE 5 MG TAB PO SCH (18:42)
[2021-04-14] MEDS: ATORVASTATIN 20 MG TAB PO SCH (18:45)
[2021-04-14] MEDS: FEBUXOSTAT 40 MG TABLET (ULORIC) PO SCH (18:45)
[2021-04-14] MEDS: HumaLOG INSULIN (NovoLOG) PER UNIT SC SCH (21:00)
[2021-04-14 21:08] VITALS: BP 115/56
[2021-04-14] MEDS: ACETAMINOPHEN TAB 650MG DOSE (2X325MG) PO PRN (21:46)
[2021-04-14] MEDS ORDERED: FLUTICASONE PROP 0.05% NASAL SPRAY 16 GM (FLONASE) NARES PRN (23:50)
[2021-04-15 05:37] VITALS: BP 108/54
[2021-04-15] MEDS: guaiFENesin ER 600 MG TAB PO PRN ×2 (05:39→13:53)
[2021-04-15] MEDS: HEPARIN SOD (PORCINE) 5000UNITS/ML 1ML VIAL/SYRINGE SC SCH ×3 (05:39→21:16)
[2021-04-15] MEDS: ACETAMINOPHEN TAB 650MG DOSE (2X325MG) PO PRN ×2 (05:41→21:16)
[2021-04-15 05:58] LABS: HEMATOCRIT 28.8 % (42.0-52.0); MEAN CORPUSCULAR HEMOGLOBIN 32.3 pg (27.0-33.0); MEAN CORPUSCULAR HGB CONC 31.3 g/dl (32.0-36.5); MEAN CORPUSCULAR VOLUME 103.2 fl (80.0-96.0); PLATELET COUNT, AUTOMATED 212 10^3/uL (150-450); RED BLOOD COUNT 2.79 10^6/uL (4.30-6.10); WHITE BLOOD COUNT 7.7 10^3/uL (4.0-10.0)
[2021-04-15 06:26] LABS: CALCIUM LEVEL 7.5 MG/DL (8.8-10.2); CREATININE FOR GFR 8.97 MG/DL (0.70-1.30); GLOMERULAR FILTRATION RATE 6.1 (>35); MAGNESIUM LEVEL 1.8 MG/DL (1.8-2.4); POTASSIUM SERUM 4.3 MEQ/L (3.5-5.1)
[2021-04-15] MEDS: ATORVASTATIN 20 MG TAB PO SCH (08:40)
[2021-04-15] MEDS: METOPROLOL SUCC *XL* 25MG TAB (TopROL *XL*) PO SCH ×2 (08:40→21:00)
[2021-04-15] MEDS: CALCIUM ACETATE 667MG GELCAP PO SCH ×3 (08:40→17:19)
[2021-04-15] MEDS: MIDODRINE 5 MG TAB PO SCH ×3 (08:40→17:22)
[2021-04-15] MEDS: FEBUXOSTAT 40 MG TABLET (ULORIC) PO SCH (08:40)
[2021-04-15] MEDS: GABAPENTIN 100 MG CAP PO SCH ×2 (08:40→21:16)
[2021-04-15] MEDS ORDERED: CLOPIDOGREL 75 MG TAB PO SCH (09:00)
[2021-04-15 14:00] VITALS: BP 112/58
[2021-04-15] MEDS: HumaLOG INSULIN (NovoLOG) PER UNIT SC SCH ×2 (17:21→21:00)
[2021-04-15] MEDS: BENZONATATE 100MG CAPSULE PO PRN (18:43)
[2021-04-15 21:04] VITALS: BP 107/81
[2021-04-15] MEDS: IPRATROPIUM 0.5MG/ALBUTEROL 2.5MG INH SOL UD 3ML (DUONEB) NEB PRN (21:19)
[2021-04-16] MEDS: IPRATROPIUM 0.5MG/ALBUTEROL 2.5MG INH SOL UD 3ML (DUONEB) NEB PRN ×2 (00:46→14:36)
[2021-04-16] MEDS: CEPACOL LOZENGE PO PRN ×4 (00:56→22:34)
[2021-04-16] MEDS: BENZONATATE 100MG CAPSULE PO PRN ×2 (02:40→22:08)
[2021-04-16] MEDS: guaiFENesin ER 600 MG TAB PO PRN (02:40)
[2021-04-16] MEDS: ACETAMINOPHEN TAB 650MG DOSE (2X325MG) PO PRN ×3 (02:40→20:52)
[2021-04-16 06:00] VITALS: BP 100/46
[2021-04-16 06:00] LABS: HEMATOCRIT 29.6 % (42.0-52.0); HEMOGLOBIN 9.2 g/dl (13.5-17.5); MEAN CORPUSCULAR HEMOGLOBIN 32.4 pg (27.0-33.0); MEAN CORPUSCULAR HGB CONC 31.1 g/dl (32.0-36.5); MEAN CORPUSCULAR VOLUME 104.2 fl (80.0-96.0); PLATELET COUNT, AUTOMATED 229 10^3/uL (150-450); RED BLOOD COUNT 2.84 10^6/uL (4.30-6.10); WHITE BLOOD COUNT 8.2 10^3/uL (4.0-10.0)
[2021-04-16] MEDS: HEPARIN SOD (PORCINE) 5000UNITS/ML 1ML VIAL/SYRINGE SC SCH ×3 (06:17→20:32)
[2021-04-16] MEDS: ATORVASTATIN 20 MG TAB PO SCH (06:17)
[2021-04-16] MEDS: FEBUXOSTAT 40 MG TABLET (ULORIC) PO SCH (06:17)
[2021-04-16] MEDS: GABAPENTIN 100 MG CAP PO SCH ×2 (06:17→20:32)
[2021-04-16 06:35] LABS: ALBUMIN 3.4 GM/DL (3.2-5.2); CALCIUM LEVEL 7.8 MG/DL (8.8-10.2); CREATININE FOR GFR 10.9 MG/DL (0.70-1.30); GLOMERULAR FILTRATION RATE 4.9 (>35); PHOSPHORUS LEVEL 5.4 MG/DL (2.5-4.9); POTASSIUM SERUM 4.7 MEQ/L (3.5-5.1)
[2021-04-16] MEDS ORDERED: SODIUM CHLORIDE 0.9% 1000ML IV PRN (07:15)
[2021-04-16] MEDS ORDERED: LIDOCAINE 1% SDV 5ML VIAL SC PRN (07:15)
[2021-04-16] MEDS: MIDODRINE 5 MG TAB PO SCH ×3 (07:20→15:29)
[2021-04-16] MEDS: METOPROLOL SUCC *XL* 25MG TAB (TopROL *XL*) PO SCH ×2 (07:20→20:33)
[2021-04-16] MEDS: HumaLOG INSULIN (NovoLOG) PER UNIT SC SCH ×4 (07:30→19:45)
[2021-04-16] MEDS: CALCIUM ACETATE 667MG GELCAP PO SCH ×3 (08:22→17:53)
[2021-04-16] MEDS ORDERED: DARBEPOETIN 100 MCG/0.5 ML *DIALYSIS* SYRINGE (J0882) IV SCH (11:15)
[2021-04-16 13:31] VITALS: BP 112/56
[2021-04-16 14:00] VITALS: BP 112/58
[2021-04-16 22:00] VITALS: BP 127/55
[2021-04-17] MEDS: CEPACOL LOZENGE PO PRN ×5 (00:35→23:19)
[2021-04-17 06:00] VITALS: BP 126/57
[2021-04-17] MEDS: HEPARIN SOD (PORCINE) 5000UNITS/ML 1ML VIAL/SYRINGE SC SCH ×3 (06:03→20:25)
[2021-04-17] MEDS: FEBUXOSTAT 40 MG TABLET (ULORIC) PO SCH (06:03)
[2021-04-17] MEDS: METOPROLOL SUCC *XL* 25MG TAB (TopROL *XL*) PO SCH ×2 (06:04→20:25)
[2021-04-17] MEDS: GABAPENTIN 100 MG CAP PO SCH ×2 (06:04→20:24)
[2021-04-17] MEDS: ATORVASTATIN 20 MG TAB PO SCH (06:04)
[2021-04-17 06:06] LABS: HEMATOCRIT 30.5 % (42.0-52.0); HEMOGLOBIN 9.4 g/dl (13.5-17.5); MEAN CORPUSCULAR HEMOGLOBIN 32.6 pg (27.0-33.0); MEAN CORPUSCULAR HGB CONC 30.8 g/dl (32.0-36.5); MEAN CORPUSCULAR VOLUME 105.9 fl (80.0-96.0); PLATELET COUNT, AUTOMATED 200 10^3/uL (150-450); RED BLOOD COUNT 2.88 10^6/uL (4.30-6.10); WHITE BLOOD COUNT 8.3 10^3/uL (4.0-10.0)
[2021-04-17 06:45] LABS: CALCIUM LEVEL 8.4 MG/DL (8.8-10.2); CREATININE FOR GFR 7.75 MG/DL (0.70-1.30); GLOMERULAR FILTRATION RATE 7.2 (>35); POTASSIUM SERUM 4.7 MEQ/L (3.5-5.1)
[2021-04-17] MEDS ORDERED: LIDOCAINE 1% SDV 5ML VIAL SC PRN (07:00)
[2021-04-17] MEDS ORDERED: SODIUM CHLORIDE 0.9% 1000ML IV PRN (07:00)
[2021-04-17] MEDS: HumaLOG INSULIN (NovoLOG) PER UNIT SC SCH ×4 (07:47→19:40)
[2021-04-17] MEDS: CALCIUM ACETATE 667MG GELCAP PO SCH ×3 (07:51→18:05)
[2021-04-17] MEDS: MIDODRINE 5 MG TAB PO SCH ×4 (07:51→16:00)
[2021-04-17] MEDS ORDERED: ALBUTEROL SULFATE 2.5 MG/0.5 ML INH NEB SOLN NEB PRN (11:35)
[2021-04-17] MEDS ORDERED: SODIUM CHLORIDE NASAL 0.65% SPRAY BTL (OCEAN) PRN (14:05)
[2021-04-17] MEDS: IPRATROPIUM 0.5MG/ALBUTEROL 2.5MG INH SOL UD 3ML (DUONEB) NEB SCH ×2 (14:23→20:03)
[2021-04-17 22:00] VITALS: BP 131/59
[2021-04-18] MEDS: IPRATROPIUM 0.5MG/ALBUTEROL 2.5MG INH SOL UD 3ML (DUONEB) NEB SCH ×4 (02:00→19:25)
[2021-04-18] MEDS: HEPARIN SOD (PORCINE) 5000UNITS/ML 1ML VIAL/SYRINGE SC SCH ×3 (05:15→21:22)
[2021-04-18 06:00] VITALS: BP 132/63
[2021-04-18 06:32] LABS: HEMATOCRIT 30.7 % (42.0-52.0); HEMOGLOBIN 9.5 g/dl (13.5-17.5); MEAN CORPUSCULAR HEMOGLOBIN 32.4 pg (27.0-33.0); MEAN CORPUSCULAR HGB CONC 30.9 g/dl (32.0-36.5); MEAN CORPUSCULAR VOLUME 104.8 fl (80.0-96.0); PLATELET COUNT, AUTOMATED 172 10^3/uL (150-450); RED BLOOD COUNT 2.93 10^6/uL (4.30-6.10); WHITE BLOOD COUNT 9.2 10^3/uL (4.0-10.0)
[2021-04-18 07:13] LABS: CALCIUM LEVEL 8.9 MG/DL (8.8-10.2); CREATININE FOR GFR 6.16 MG/DL (0.70-1.30); GLOMERULAR FILTRATION RATE 9.4 (>35); MAGNESIUM LEVEL 1.9 MG/DL (1.8-2.4); POTASSIUM SERUM 4.6 MEQ/L (3.5-5.1)
[2021-04-18] MEDS: METOPROLOL SUCC *XL* 25MG TAB (TopROL *XL*) PO SCH ×2 (09:00→21:24)
[2021-04-18] MEDS: HumaLOG INSULIN (NovoLOG) PER UNIT SC SCH ×4 (09:11→21:00)
[2021-04-18] MEDS: MIDODRINE 5 MG TAB PO SCH ×3 (09:12→16:00)
[2021-04-18] MEDS: FEBUXOSTAT 40 MG TABLET (ULORIC) PO SCH (09:18)
[2021-04-18] MEDS: CALCIUM ACETATE 667MG GELCAP PO SCH ×3 (09:18→18:52)
[2021-04-18] MEDS: GABAPENTIN 100 MG CAP PO SCH ×2 (09:18→21:22)
[2021-04-18] MEDS: ATORVASTATIN 20 MG TAB PO SCH (09:18)
[2021-04-18 13:19] VITALS: BP 102/58
[2021-04-18 14:00] VITALS: BP 125/64
[2021-04-18] MEDS: BENZONATATE 100MG CAPSULE PO PRN (15:25)
[2021-04-18] MEDS: CEPACOL LOZENGE PO PRN ×2 (15:25→21:22)
[2021-04-18 17:11] VITALS: BP 122/62
[2021-04-18] MEDS: guaiFENesin ER 600 MG TAB PO PRN (21:22)
[2021-04-18 22:00] VITALS: BP 133/56
[2021-04-18] MEDS: ACETAMINOPHEN TAB 650MG DOSE (2X325MG) PO PRN (22:28)
[2021-04-19] MEDS: IPRATROPIUM 0.5MG/ALBUTEROL 2.5MG INH SOL UD 3ML (DUONEB) NEB SCH ×3 (02:03→14:00)
[2021-04-19] MEDS: ACETAMINOPHEN TAB 650MG DOSE (2X325MG) PO PRN (03:24)
[2021-04-19] MEDS: CEPACOL LOZENGE PO PRN (03:24)
[2021-04-19 05:50] VITALS: BP 102/53
[2021-04-19 06:07] VITALS: BP 102/53
[2021-04-19] MEDS: METOPROLOL SUCC *XL* 25MG TAB (TopROL *XL*) PO SCH (06:07)
[2021-04-19 06:08] LABS: HEMATOCRIT 30.1 % (42.0-52.0); HEMOGLOBIN 9.2 g/dl (13.5-17.5); MEAN CORPUSCULAR HEMOGLOBIN 32.9 pg (27.0-33.0); MEAN CORPUSCULAR HGB CONC 30.6 g/dl (32.0-36.5); MEAN CORPUSCULAR VOLUME 107.5 fl (80.0-96.0); PLATELET COUNT, AUTOMATED 160 10^3/uL (150-450); WHITE BLOOD COUNT 8.3 10^3/uL (4.0-10.0)
[2021-04-19] MEDS: guaiFENesin ER 600 MG TAB PO PRN (06:15)
[2021-04-19] MEDS: FEBUXOSTAT 40 MG TABLET (ULORIC) PO SCH (06:15)
[2021-04-19] MEDS: ATORVASTATIN 20 MG TAB PO SCH (06:15)
[2021-04-19] MEDS: GABAPENTIN 100 MG CAP PO SCH (06:15)
[2021-04-19] MEDS: BENZONATATE 100MG CAPSULE PO PRN ×2 (06:15→15:29)
[2021-04-19] MEDS: MIDODRINE 5 MG TAB PO SCH ×2 (06:15→14:06)
[2021-04-19] MEDS: HEPARIN SOD (PORCINE) 5000UNITS/ML 1ML VIAL/SYRINGE SC SCH ×3 (06:16→14:00)
[2021-04-19 06:25] LABS: CALCIUM LEVEL 8.4 MG/DL (8.8-10.2); CREATININE FOR GFR 7.75 MG/DL (0.70-1.30); GLOMERULAR FILTRATION RATE 7.2 (>35); MAGNESIUM LEVEL 1.9 MG/DL (1.8-2.4); POTASSIUM SERUM 4.6 MEQ/L (3.5-5.1)
[2021-04-19] MEDS: HumaLOG INSULIN (NovoLOG) PER UNIT SC SCH ×3 (06:53→14:00)
[2021-04-19] MEDS: CALCIUM ACETATE 667MG GELCAP PO SCH ×2 (06:53→13:59)
[2021-04-19] MEDS ORDERED: SODIUM CHLORIDE 0.9% 1000ML IV PRN (07:40)
[2021-04-19] MEDS ORDERED: LIDOCAINE 1% SDV 5ML VIAL SC PRN (07:40)
[2021-04-19] MEDS ORDERED: ONDANSETRON 4 MG ORAL DISINTEGRATING TAB PO PRN (08:00)
[2021-04-19] MEDS ORDERED: BENZ-18 PO (10:36)
== END 2021-04-19 16:40 | disposition home health service (06) | DRG 640 ==
LOC: M ED 07:57 → M ED INP 11:26 → ENRESERV 12:29 → M MSPAV 17:17
PROVIDERS: ADMIT Family Medicine; ATTEND Family Medicine
PROC: 5A1D70Z Performance of Urinary Filtration, Intermittent, Less than 6 Hours Per Day (ICD-10-PCS; principal; 2021-04-14)
DX: E87.70 Fluid overload, unspecified (principal); N18.6 End stage renal disease; I50.23 Acute on chronic systolic (congestive) heart failure; I13.2 Hypertensive heart and chronic kidney disease with heart failure and with stage 5 chronic kidney disease, or end stage renal disease; J96.10 Chronic respiratory failure, unspecified whether with hypoxia or hypercapnia; N25.81 Secondary hyperparathyroidism of renal origin; I42.9 Cardiomyopathy, unspecified; I25.10 Atherosclerotic heart disease of native coronary artery without angina pectoris; E11.22 Type 2 diabetes mellitus with diabetic chronic kidney disease; K21.9 Gastro-esophageal reflux disease without esophagitis; Z95.5 Presence of coronary angioplasty implant and graft; Z95.810 Presence of automatic (implantable) cardiac defibrillator; E11.42 Type 2 diabetes mellitus with diabetic polyneuropathy; R55 Syncope and collapse; R19.7 Diarrhea, unspecified; J06.9 Acute upper respiratory infection, unspecified; B97.4 Respiratory syncytial virus as the cause of diseases classified elsewhere; R31.9 Hematuria, unspecified; I95.3 Hypotension of hemodialysis; R30.0 Dysuria; D63.1 Anemia in chronic kidney disease; Z91.15 Patient's noncompliance with renal dialysis; Z99.81 Dependence on supplemental oxygen; R00.1 Bradycardia, unspecified; Z20.822 Contact with and (suspected) exposure to COVID-19; Z79.4 Long term (current) use of insulin; Z79.899 Other long term (current) drug therapy; Z87.891 Personal history of nicotine dependence; Z99.2 Dependence on renal dialysis

== ENCOUNTER → 2021-08-06 | Outpatient (CLI) | payer MEDICARE ==
[~2021-08-06] MED LIST changes: +BENZ-18 PO; +CALC667T2 PO; +COMMENTS; +FEBU40TA4 PO; +GLIP5TAB20 PO
== END ==
LOC: M SLEEP 20:00
PROVIDERS: ATTEND Nurse Practitioner Adult Health
DX: G47.33 Obstructive sleep apnea (adult) (pediatric) (principal)

== ENCOUNTER 2022-03-05 09:41 | Inpatient (IN) | payer MEDICARE ==
[~2022-03-05] VITALS: Ht 180.3 cm; Wt 115.9 kg
[2022-03-05] MEDS: ASPIRIN 81MG CHEW TABLET PO SCH (09:00)
[2022-03-05] MEDS: ATORVASTATIN 20 MG TAB PO SCH (09:00)
[2022-03-05] MEDS: MULTIVITAMINS/MINERALS THERAP 1 TAB PO SCH (09:00)
[2022-03-05] MEDS: CYANOCOBALAMIN 500 MCG TAB PO SCH (09:00)
[2022-03-05] MEDS: FEBUXOSTAT 40 MG TABLET (ULORIC) PO SCH (09:00)
[2022-03-05] MEDS: VITAMIN D 1,000 INTERNATIONAL UNITS TABLET PO SCH (09:00)
[2022-03-05] MEDS: PANTOPRAZOLE 40MG TAB (PROTONIX) PO SCH (09:00)
[2022-03-05 10:24] LABS: BASO % 0.4 % (0.0-1.0); EOS # 0.1 10^3/uL (0.0-0.5); HEMATOCRIT 36.8 % (42.0-52.0); HEMOGLOBIN 11.2 g/dl (13.5-17.5); LYMPH # 1.2 10^3/uL (1.5-5.0); LYMPH % 13.4 % (24.0-44.0); MEAN CORPUSCULAR HEMOGLOBIN 33.1 pg (27.0-33.0); MEAN CORPUSCULAR HGB CONC 30.4 g/dl (32.0-36.5); MEAN CORPUSCULAR VOLUME 108.9 fl (80.0-96.0); MONO # 0.7 10^3/uL (0.0-0.8); MONO % 7.9 % (2.0-8.0); PLATELET COUNT, AUTOMATED 226 10^3/uL (150-450); RED BLOOD COUNT 3.38 10^6/uL (4.30-6.10); WHITE BLOOD COUNT 9.1 10^3/uL (4.0-10.0)
[2022-03-05 10:44] LABS: BILIRUBIN,DIRECT 0.2 MG/DL (<0.4)
[2022-03-05 10:47] LABS: ALBUMIN 3.7 G/DL (3.2-5.2); BILIRUBIN,TOTAL 0.3 MG/DL (0.3-1.2); CREATININE FOR GFR 15.86 MG/DL (0.70-1.30); GLOMERULAR FILTRATION RATE 3.2 (>35); POTASSIUM SERUM 4.9 MMOL/L (3.5-5.1)
[2022-03-05 10:53] LABS: RSV AMPLIFICATION NEGATIVE (NEGATIVE)
[2022-03-05] MEDS ORDERED: ISOVUE-370 76% 100ML VIAL As Ordered ONE (11:00)
[2022-03-05] MEDS ORDERED: HEPARIN 1,000UNITS/ML 10ML VIAL (FOR RADIOLOGY & DIALYSIS ONLY) IV PRN (11:05)
[2022-03-05] MEDS ORDERED: HEPARIN 1,000UNITS/ML 10ML VIAL (FOR RADIOLOGY & DIALYSIS ONLY) XX SCH (11:05)
[2022-03-05] MEDS ORDERED: SODIUM CHLORIDE 0.9% 1000ML IV PRN (11:05)
[2022-03-05] MEDS ORDERED: LIDOCAINE 1% SDV 5ML VIAL SC PRN (11:05)
[2022-03-05] MEDS ORDERED: PANT40TA29 PO (12:27)
[2022-03-05] MEDS ORDERED: ASPI81CH33 PO (12:46)
[2022-03-05] MEDS ORDERED: VITA100093 PO (12:46)
[2022-03-05] MEDS ORDERED: VITMTA PO (12:46)
[2022-03-05] MEDS ORDERED: B-122500 PO (12:46)
[2022-03-05] MEDS ORDERED: HOME MED LIST COMPLETE! XX SCH (12:50)
[2022-03-05] MEDS: HEPARIN SOD (PORCINE) 5000UNITS/ML 1ML VIAL/SYRINGE SC SCH ×2 (14:00→21:02)
[2022-03-05] MEDS: MIDODRINE 5 MG TAB PO SCH (16:00)
[2022-03-05 18:40] VITALS: BP 122/68
[2022-03-05] MEDS: GABAPENTIN 100 MG CAP PO SCH (21:02)
[2022-03-05] MEDS: CALCIUM ACETATE 667MG GELCAP PO SCH (21:02)
[2022-03-05 21:46] VITALS: BP 158/76
[2022-03-06] MEDS: HEPARIN SOD (PORCINE) 5000UNITS/ML 1ML VIAL/SYRINGE SC SCH ×3 (05:00→21:36)
[2022-03-06 05:36] VITALS: BP 109/63
[2022-03-06] MEDS: ASPIRIN 81MG CHEW TABLET PO SCH (05:51)
[2022-03-06] MEDS: GABAPENTIN 100 MG CAP PO SCH ×2 (05:52→20:14)
[2022-03-06] MEDS: MIDODRINE 5 MG TAB PO SCH ×3 (05:52→17:42)
[2022-03-06] MEDS: VITAMIN D 1,000 INTERNATIONAL UNITS TABLET PO SCH (05:52)
[2022-03-06] MEDS: PANTOPRAZOLE 40MG TAB (PROTONIX) PO SCH (05:52)
[2022-03-06] MEDS: CYANOCOBALAMIN 500 MCG TAB PO SCH (05:52)
[2022-03-06] MEDS: FEBUXOSTAT 40 MG TABLET (ULORIC) PO SCH (05:52)
[2022-03-06] MEDS: CEPACOL LOZENGE PO PRN (05:53)
[2022-03-06] MEDS: MULTIVITAMINS/MINERALS THERAP 1 TAB PO SCH (05:53)
[2022-03-06] MEDS: ATORVASTATIN 20 MG TAB PO SCH (05:53)
[2022-03-06 06:18] LABS: HEMATOCRIT 32.9 % (42.0-52.0); HEMOGLOBIN 10.1 g/dl (13.5-17.5); MEAN CORPUSCULAR HEMOGLOBIN 32.9 pg (27.0-33.0); MEAN CORPUSCULAR HGB CONC 30.7 g/dl (32.0-36.5); MEAN CORPUSCULAR VOLUME 107.2 fl (80.0-96.0); PLATELET COUNT, AUTOMATED 169 10^3/uL (150-450); RED BLOOD COUNT 3.07 10^6/uL (4.30-6.10); WHITE BLOOD COUNT 7.3 10^3/uL (4.0-10.0)
[2022-03-06] MEDS ORDERED: SODIUM CHLORIDE 0.9% 1000ML IV PRN (06:35)
[2022-03-06] MEDS ORDERED: HEPARIN 1,000UNITS/ML 10ML VIAL (FOR RADIOLOGY & DIALYSIS ONLY) XX SCH (06:35)
[2022-03-06] MEDS ORDERED: LIDOCAINE 1% SDV 5ML VIAL SC PRN (06:35)
[2022-03-06] MEDS ORDERED: HEPARIN 1,000UNITS/ML 10ML VIAL (FOR RADIOLOGY & DIALYSIS ONLY) IV PRN (06:35)
[2022-03-06] MEDS: CALCIUM ACETATE 667MG GELCAP PO SCH ×3 (07:54→17:42)
[2022-03-06] MEDS ORDERED: PREVNAR-20 VACCINE 0.5ML SYRINGE IM.IMMUN ONE (09:00)
[2022-03-06 09:57] LABS: ALBUMIN 3.3 G/DL (3.2-5.2); BILIRUBIN,TOTAL 0.2 MG/DL (0.3-1.2); CALCIUM LEVEL 7.7 MG/DL (8.3-10.6); CREATININE FOR GFR 10.83 MG/DL (0.70-1.30); GLOMERULAR FILTRATION RATE 4.9 (>35); POTASSIUM SERUM 4.2 MMOL/L (3.5-5.1); TOTAL PROTEIN 6.2 G/DL (5.7-8.2)
[2022-03-06 14:00] VITALS: BP 111/67
[2022-03-06 20:00] VITALS: BP 111/56
[2022-03-07] MEDS: IPRATROPIUM 0.5MG/ALBUTEROL 2.5MG INH SOL UD 3ML (DUONEB) NEB PRN (00:38)
[2022-03-07] MEDS: HEPARIN SOD (PORCINE) 5000UNITS/ML 1ML VIAL/SYRINGE SC SCH ×3 (05:02→21:08)
[2022-03-07 06:37] VITALS: BP 107/63
[2022-03-07 06:47] LABS: BASO % 0.4 % (0.0-1.0); EOS # 0.1 10^3/uL (0.0-0.5); EOS % 1.4 % (0.0-3.0); HEMATOCRIT 32.1 % (42.0-52.0); HEMOGLOBIN 10.1 g/dl (13.5-17.5); LYMPH # 1.2 10^3/uL (1.5-5.0); LYMPH % 16.7 % (24.0-44.0); MEAN CORPUSCULAR HEMOGLOBIN 33.3 pg (27.0-33.0); MEAN CORPUSCULAR HGB CONC 31.5 g/dl (32.0-36.5); MEAN CORPUSCULAR VOLUME 105.9 fl (80.0-96.0); MONO % 13.7 % (2.0-8.0); NEUTROPHILS # 4.8 10^3/uL (1.5-8.5); NEUTROPHILS % 67.1 % (36.0-66.0); PLATELET COUNT, AUTOMATED 141 10^3/uL (150-450); RED BLOOD COUNT 3.03 10^6/uL (4.30-6.10); WHITE BLOOD COUNT 7.1 10^3/uL (4.0-10.0)
[2022-03-07 07:26] LABS: CALCIUM LEVEL 7.7 MG/DL (8.3-10.6); CREATININE FOR GFR 7.67 MG/DL (0.70-1.30); GLOMERULAR FILTRATION RATE 7.3 (>35); POTASSIUM SERUM 3.7 MMOL/L (3.5-5.1)
[2022-03-07] MEDS: METOPROLOL SUCC *XL* 12.5MG PER 1/2 TAB (TopROL *XL*) PO SCH (09:00)
[2022-03-07 09:10] VITALS: BP 108/58
[2022-03-07] MEDS: FEBUXOSTAT 40 MG TABLET (ULORIC) PO SCH (09:26)
[2022-03-07] MEDS: ATORVASTATIN 20 MG TAB PO SCH (09:26)
[2022-03-07] MEDS: PANTOPRAZOLE 40MG TAB (PROTONIX) PO SCH (09:26)
[2022-03-07] MEDS: ASPIRIN 81MG CHEW TABLET PO SCH (09:26)
[2022-03-07] MEDS: CYANOCOBALAMIN 500 MCG TAB PO SCH (09:26)
[2022-03-07] MEDS: GABAPENTIN 100 MG CAP PO SCH ×2 (09:26→21:13)
[2022-03-07] MEDS: CALCIUM ACETATE 667MG GELCAP PO SCH ×3 (09:26→17:50)
[2022-03-07] MEDS: MULTIVITAMINS/MINERALS THERAP 1 TAB PO SCH (09:26)
[2022-03-07] MEDS: VITAMIN D 1,000 INTERNATIONAL UNITS TABLET PO SCH (09:26)
[2022-03-07] MEDS: MIDODRINE 5 MG TAB PO SCH ×3 (09:26→14:58)
[2022-03-07] MEDS ORDERED: HEPARIN 1,000UNITS/ML 10ML VIAL (FOR RADIOLOGY & DIALYSIS ONLY) XX SCH (10:00)
[2022-03-07] MEDS ORDERED: HEPARIN 1,000UNITS/ML 10ML VIAL (FOR RADIOLOGY & DIALYSIS ONLY) IV PRN (10:00)
[2022-03-07] MEDS ORDERED: LIDOCAINE 1% SDV 5ML VIAL SC PRN (10:00)
[2022-03-07 15:00] VITALS: BP 122/62
[2022-03-07 20:32] VITALS: BP 86/52
[2022-03-07] MEDS: MIDODRINE 5 MG TAB PO PRN (20:39)
[2022-03-07] MEDS: RAMELTEON 8 MG TAB (ROZEREM) PO PRN (21:13)
[2022-03-07 21:40] VITALS: BP 90/56
[2022-03-07 23:01] VITALS: BP 90/48
[2022-03-07] MEDS ORDERED: MIDODRINE 5 MG TAB PO ONE (23:50)
[2022-03-08 02:12] VITALS: BP 111/61
[2022-03-08] MEDS: HEPARIN SOD (PORCINE) 5000UNITS/ML 1ML VIAL/SYRINGE SC SCH ×3 (05:24→20:42)
[2022-03-08] MEDS: CEPACOL LOZENGE PO PRN (05:30)
[2022-03-08 06:00] VITALS: BP 105/64
[2022-03-08 06:38] LABS: BASO % 0.4 % (0.0-1.0); EOS # 0.1 10^3/uL (0.0-0.5); EOS % 1.8 % (0.0-3.0); HEMATOCRIT 31.8 % (42.0-52.0); LYMPH # 1.2 10^3/uL (1.5-5.0); LYMPH % 16.9 % (24.0-44.0); MEAN CORPUSCULAR HEMOGLOBIN 33.4 pg (27.0-33.0); MEAN CORPUSCULAR HGB CONC 31.4 g/dl (32.0-36.5); MEAN CORPUSCULAR VOLUME 106.4 fl (80.0-96.0); MONO % 13.6 % (2.0-8.0); NEUTROPHILS # 4.7 10^3/uL (1.5-8.5); NEUTROPHILS % 66.7 % (36.0-66.0); PLATELET COUNT, AUTOMATED 146 10^3/uL (150-450); RED BLOOD COUNT 2.99 10^6/uL (4.30-6.10); WHITE BLOOD COUNT 7.1 10^3/uL (4.0-10.0)
[2022-03-08 07:06] LABS: CALCIUM LEVEL 7.3 MG/DL (8.3-10.6); CREATININE FOR GFR 5.73 MG/DL (0.70-1.30); GLOMERULAR FILTRATION RATE 10.2 (>35); POTASSIUM SERUM 3.9 MMOL/L (3.5-5.1)
[2022-03-08 07:44] LABS: ALBUMIN 3.1 G/DL (3.2-5.2)
[2022-03-08] MEDS: ASPIRIN 81MG CHEW TABLET PO SCH (08:24)
[2022-03-08] MEDS: FEBUXOSTAT 40 MG TABLET (ULORIC) PO SCH (08:24)
[2022-03-08] MEDS: MULTIVITAMINS/MINERALS THERAP 1 TAB PO SCH (08:24)
[2022-03-08] MEDS: CYANOCOBALAMIN 500 MCG TAB PO SCH (08:25)
[2022-03-08] MEDS: METOPROLOL SUCC *XL* 12.5MG PER 1/2 TAB (TopROL *XL*) PO SCH (08:25)
[2022-03-08] MEDS: PANTOPRAZOLE 40MG TAB (PROTONIX) PO SCH (08:26)
[2022-03-08] MEDS: VITAMIN D 1,000 INTERNATIONAL UNITS TABLET PO SCH (08:26)
[2022-03-08] MEDS: GABAPENTIN 100 MG CAP PO SCH ×2 (08:26→20:42)
[2022-03-08] MEDS: ATORVASTATIN 20 MG TAB PO SCH (08:26)
[2022-03-08] MEDS: CALCIUM ACETATE 667MG GELCAP PO SCH ×3 (08:26→18:10)
[2022-03-08 11:00] LABS: INR 1.17; PARTIAL THROMBOPLASTIN TIME 28.7 SECONDS (24.8-34.2); PROTHROMBIN TIME 15.1 SECONDS (12.5-14.5)
[2022-03-08 14:00] VITALS: BP 121/57
[2022-03-08 14:22] LABS: SPEC. GRAVITY BODY FLUIDS 1.026 (NOT ESTABLISHED)
[2022-03-08 14:30] LABS: APPEARANCE, BODY FLUID HAZY (CLEAR); ASCITES FL COLOR YELLOW (COLORLESS); SOURCE, BODY FLUID ASCITES
[2022-03-08 14:47] LABS: SOURCE, BODY FLUID ALBUMIN ASCITES
[2022-03-08 14:52] LABS: SOURCE, BODY FLUID GLUCOSE ASCITES
[2022-03-08 14:54] LABS: SOURCE, BODY FLUID TOT PROTEIN ASCITES; TOTAL PROTEIN, BODY FLUID 4.2 G/DL (NOT ESTABLISHED)
[2022-03-08 20:48] VITALS: BP 112/61
[2022-03-09] MEDS ORDERED: HEPARIN 1,000UNITS/ML 10ML VIAL (FOR RADIOLOGY & DIALYSIS ONLY) XX SCH (06:00)
[2022-03-09] MEDS ORDERED: HEPARIN 1,000UNITS/ML 10ML VIAL (FOR RADIOLOGY & DIALYSIS ONLY) IV PRN (06:00)
[2022-03-09] MEDS ORDERED: SODIUM CHLORIDE 0.9% 1000ML IV PRN (06:00)
[2022-03-09] MEDS ORDERED: LIDOCAINE 1% SDV 5ML VIAL SC PRN (06:00)
[2022-03-09] MEDS: MULTIVITAMINS/MINERALS THERAP 1 TAB PO SCH (06:40)
[2022-03-09] MEDS: HEPARIN SOD (PORCINE) 5000UNITS/ML 1ML VIAL/SYRINGE SC SCH ×3 (06:40→20:44)
[2022-03-09] MEDS: VITAMIN D 1,000 INTERNATIONAL UNITS TABLET PO SCH (06:40)
[2022-03-09] MEDS: PANTOPRAZOLE 40MG TAB (PROTONIX) PO SCH (06:40)
[2022-03-09] MEDS: CYANOCOBALAMIN 500 MCG TAB PO SCH (06:41)
[2022-03-09] MEDS: FEBUXOSTAT 40 MG TABLET (ULORIC) PO SCH (06:41)
[2022-03-09] MEDS: ATORVASTATIN 20 MG TAB PO SCH (06:41)
[2022-03-09] MEDS: GABAPENTIN 100 MG CAP PO SCH ×2 (06:41→20:43)
[2022-03-09] MEDS: ASPIRIN 81MG CHEW TABLET PO SCH (06:41)
[2022-03-09] MEDS: METOPROLOL SUCC *XL* 12.5MG PER 1/2 TAB (TopROL *XL*) PO SCH (06:42)
[2022-03-09 06:44] VITALS: BP 113/62
[2022-03-09 06:45] LABS: BASO % 0.3 % (0.0-1.0); EOS # 0.1 10^3/uL (0.0-0.5); EOS % 1.9 % (0.0-3.0); HEMATOCRIT 32.1 % (42.0-52.0); HEMOGLOBIN 10.1 g/dl (13.5-17.5); LYMPH # 1.2 10^3/uL (1.5-5.0); LYMPH % 15.8 % (24.0-44.0); MEAN CORPUSCULAR HEMOGLOBIN 33.6 pg (27.0-33.0); MEAN CORPUSCULAR HGB CONC 31.5 g/dl (32.0-36.5); MEAN CORPUSCULAR VOLUME 106.6 fl (80.0-96.0); MONO # 0.7 10^3/uL (0.0-0.8); MONO % 9.9 % (2.0-8.0); NEUTROPHILS # 5.3 10^3/uL (1.5-8.5); NEUTROPHILS % 71.4 % (36.0-66.0); PLATELET COUNT, AUTOMATED 150 10^3/uL (150-450); RED BLOOD COUNT 3.01 10^6/uL (4.30-6.10); WHITE BLOOD COUNT 7.4 10^3/uL (4.0-10.0)
[2022-03-09] MEDS: CALCIUM ACETATE 667MG GELCAP PO SCH ×3 (06:52→18:11)
[2022-03-09 07:15] LABS: CALCIUM LEVEL 7.9 MG/DL (8.3-10.6); GLOMERULAR FILTRATION RATE 8.1 (>35); POTASSIUM SERUM 4.3 MMOL/L (3.5-5.1)
[2022-03-09] MEDS: MIDODRINE 5 MG TAB PO PRN (07:54)
[2022-03-09 14:00] VITALS: BP 111/62
[2022-03-09 20:00] VITALS: BP 92/57
[2022-03-09 21:45] VITALS: BP 100/64
[2022-03-09] MEDS: RAMELTEON 8 MG TAB (ROZEREM) PO PRN (23:35)
[2022-03-10] MEDS ORDERED: diphenhydrAMINE 25MG CAP PO ONE (00:55)
[2022-03-10 05:06] VITALS: BP 96/57
[2022-03-10 05:10] VITALS: BP 102/58
[2022-03-10] MEDS: HEPARIN SOD (PORCINE) 5000UNITS/ML 1ML VIAL/SYRINGE SC SCH ×3 (05:50→19:59)
[2022-03-10 06:23] LABS: BASO % 0.3 % (0.0-1.0); EOS # 0.1 10^3/uL (0.0-0.5); EOS % 1.5 % (0.0-3.0); HEMATOCRIT 33.3 % (42.0-52.0); HEMOGLOBIN 10.5 g/dl (13.5-17.5); LYMPH # 1.4 10^3/uL (1.5-5.0); LYMPH % 18.6 % (24.0-44.0); MEAN CORPUSCULAR HEMOGLOBIN 33.1 pg (27.0-33.0); MEAN CORPUSCULAR HGB CONC 31.5 g/dl (32.0-36.5); MONO # 0.8 10^3/uL (0.0-0.8); MONO % 11.4 % (2.0-8.0); NEUTROPHILS # 4.9 10^3/uL (1.5-8.5); PLATELET COUNT, AUTOMATED 160 10^3/uL (150-450); RED BLOOD COUNT 3.17 10^6/uL (4.30-6.10); WHITE BLOOD COUNT 7.4 10^3/uL (4.0-10.0)
[2022-03-10 06:46] LABS: CALCIUM LEVEL 8.1 MG/DL (8.3-10.6); CREATININE FOR GFR 5.01 MG/DL (0.70-1.30); GLOMERULAR FILTRATION RATE 11.9 (>35); POTASSIUM SERUM 4.3 MMOL/L (3.5-5.1)
[2022-03-10] MEDS: ATORVASTATIN 20 MG TAB PO SCH (08:27)
[2022-03-10] MEDS: PANTOPRAZOLE 40MG TAB (PROTONIX) PO SCH (08:27)
[2022-03-10] MEDS: CYANOCOBALAMIN 500 MCG TAB PO SCH (08:28)
[2022-03-10] MEDS: CALCIUM ACETATE 667MG GELCAP PO SCH ×3 (08:28→18:17)
[2022-03-10] MEDS: FEBUXOSTAT 40 MG TABLET (ULORIC) PO SCH (08:28)
[2022-03-10] MEDS: ASPIRIN 81MG CHEW TABLET PO SCH (08:28)
[2022-03-10] MEDS: GABAPENTIN 100 MG CAP PO SCH ×2 (08:28→19:58)
[2022-03-10] MEDS: MULTIVITAMINS/MINERALS THERAP 1 TAB PO SCH (08:28)
[2022-03-10] MEDS: VITAMIN D 1,000 INTERNATIONAL UNITS TABLET PO SCH (08:28)
[2022-03-10] MEDS: METOPROLOL SUCC *XL* 12.5MG PER 1/2 TAB (TopROL *XL*) PO SCH (08:32)
[2022-03-10] MEDS: MIDODRINE 5 MG TAB PO PRN (08:33)
[2022-03-10] MEDS: ACETAMINOPHEN 500 MG TAB PO PRN (18:17)
[2022-03-11] MEDS: ACETAMINOPHEN 500 MG TAB PO PRN ×2 (00:20→10:26)
[2022-03-11] MEDS: CEPACOL LOZENGE PO PRN ×3 (00:26→21:15)
[2022-03-11 05:03] VITALS: BP 98/48
[2022-03-11] MEDS ORDERED: traMADol 50 MG TAB PO ONE (05:05)
[2022-03-11] MEDS: HEPARIN SOD (PORCINE) 5000UNITS/ML 1ML VIAL/SYRINGE SC SCH ×3 (05:17→21:20)
[2022-03-11 06:24] VITALS: BP 94/44
[2022-03-11] MEDS: MIDODRINE 5 MG TAB PO PRN ×3 (06:29→18:22)
[2022-03-11 06:34] LABS: BASO % 0.3 % (0.0-1.0); EOS # 0.1 10^3/uL (0.0-0.5); EOS % 1.6 % (0.0-3.0); HEMATOCRIT 31.6 % (42.0-52.0); HEMOGLOBIN 9.8 g/dl (13.5-17.5); LYMPH # 1.5 10^3/uL (1.5-5.0); LYMPH % 20.5 % (24.0-44.0); MEAN CORPUSCULAR HEMOGLOBIN 32.6 pg (27.0-33.0); MONO # 0.8 10^3/uL (0.0-0.8); MONO % 11.1 % (2.0-8.0); NEUTROPHILS # 4.6 10^3/uL (1.5-8.5); NEUTROPHILS % 65.4 % (36.0-66.0); PLATELET COUNT, AUTOMATED 161 10^3/uL (150-450); RED BLOOD COUNT 3.01 10^6/uL (4.30-6.10); WHITE BLOOD COUNT 7.1 10^3/uL (4.0-10.0)
[2022-03-11 07:21] LABS: CALCIUM LEVEL 7.8 MG/DL (8.3-10.6); CREATININE FOR GFR 6.56 MG/DL (0.70-1.30); GLOMERULAR FILTRATION RATE 8.7 (>35); POTASSIUM SERUM 4.7 MMOL/L (3.5-5.1)
[2022-03-11] MEDS: METOPROLOL SUCC *XL* 12.5MG PER 1/2 TAB (TopROL *XL*) PO SCH (09:00)
[2022-03-11] MEDS: ASPIRIN 81MG CHEW TABLET PO SCH (10:09)
[2022-03-11] MEDS: VITAMIN D 1,000 INTERNATIONAL UNITS TABLET PO SCH (10:10)
[2022-03-11] MEDS: GABAPENTIN 100 MG CAP PO SCH ×2 (10:10→21:13)
[2022-03-11] MEDS: FEBUXOSTAT 40 MG TABLET (ULORIC) PO SCH (10:10)
[2022-03-11] MEDS: PANTOPRAZOLE 40MG TAB (PROTONIX) PO SCH (10:10)
[2022-03-11] MEDS: MULTIVITAMINS/MINERALS THERAP 1 TAB PO SCH (10:10)
[2022-03-11] MEDS: ATORVASTATIN 20 MG TAB PO SCH (10:10)
[2022-03-11] MEDS: CALCIUM ACETATE 667MG GELCAP PO SCH ×3 (10:11→18:22)
[2022-03-11] MEDS: CYANOCOBALAMIN 500 MCG TAB PO SCH (10:11)
[2022-03-11 12:51] VITALS: BP 88/42
[2022-03-11 18:23] VITALS: BP 96/38
[2022-03-11 20:40] VITALS: BP 102/52
[2022-03-12] MEDS: CEPACOL LOZENGE PO PRN ×2 (03:29→22:48)
[2022-03-12] MEDS: IPRATROPIUM 0.5MG/ALBUTEROL 2.5MG INH SOL UD 3ML (DUONEB) NEB PRN (04:43)
[2022-03-12 05:52] VITALS: BP 114/73
[2022-03-12] MEDS ORDERED: SODIUM CHLORIDE 0.9% 1000ML IV PRN (06:00)
[2022-03-12] MEDS: HEPARIN SOD (PORCINE) 5000UNITS/ML 1ML VIAL/SYRINGE SC SCH ×3 (06:00→20:53)
[2022-03-12] MEDS ORDERED: HEPARIN 1,000UNITS/ML 10ML VIAL (FOR RADIOLOGY & DIALYSIS ONLY) IV PRN (06:00)
[2022-03-12] MEDS ORDERED: HEPARIN 1,000UNITS/ML 10ML VIAL (FOR RADIOLOGY & DIALYSIS ONLY) XX SCH (06:00)
[2022-03-12] MEDS ORDERED: LIDOCAINE 1% SDV 5ML VIAL SC PRN (06:00)
[2022-03-12 06:45] LABS: BASO % 0.2 % (0.0-1.0); EOS # 0.1 10^3/uL (0.0-0.5); EOS % 1.2 % (0.0-3.0); HEMATOCRIT 32.8 % (42.0-52.0); HEMOGLOBIN 10.1 g/dl (13.5-17.5); LYMPH # 1.4 10^3/uL (1.5-5.0); LYMPH % 13.7 % (24.0-44.0); MEAN CORPUSCULAR HEMOGLOBIN 32.8 pg (27.0-33.0); MEAN CORPUSCULAR HGB CONC 30.8 g/dl (32.0-36.5); MEAN CORPUSCULAR VOLUME 106.5 fl (80.0-96.0); MONO # 0.9 10^3/uL (0.0-0.8); MONO % 8.6 % (2.0-8.0); NEUTROPHILS # 7.5 10^3/uL (1.5-8.5); NEUTROPHILS % 75.3 % (36.0-66.0); PLATELET COUNT, AUTOMATED 182 10^3/uL (150-450); RED BLOOD COUNT 3.08 10^6/uL (4.30-6.10); WHITE BLOOD COUNT 9.9 10^3/uL (4.0-10.0)
[2022-03-12] MEDS: FEBUXOSTAT 40 MG TABLET (ULORIC) PO SCH (06:57)
[2022-03-12] MEDS: GABAPENTIN 100 MG CAP PO SCH ×2 (06:57→20:32)
[2022-03-12] MEDS: ATORVASTATIN 20 MG TAB PO SCH (06:57)
[2022-03-12] MEDS: CYANOCOBALAMIN 500 MCG TAB PO SCH (06:57)
[2022-03-12] MEDS: PANTOPRAZOLE 40MG TAB (PROTONIX) PO SCH (06:58)
[2022-03-12] MEDS: ASPIRIN 81MG CHEW TABLET PO SCH (06:58)
[2022-03-12] MEDS: MULTIVITAMINS/MINERALS THERAP 1 TAB PO SCH (06:59)
[2022-03-12] MEDS: METOPROLOL SUCC *XL* 12.5MG PER 1/2 TAB (TopROL *XL*) PO SCH (07:06)
[2022-03-12 07:15] LABS: CREATININE FOR GFR 7.8 MG/DL (0.70-1.30); GLOMERULAR FILTRATION RATE 7.1 (>35); POTASSIUM SERUM 5.4 MMOL/L (3.5-5.1)
[2022-03-12] MEDS: CALCIUM ACETATE 667MG GELCAP PO SCH ×3 (07:25→17:09)
[2022-03-12] MEDS: MIDODRINE 5 MG TAB PO PRN (08:47)
[2022-03-12 12:40] VITALS: BP 110/59
[2022-03-12] MEDS: ACETAMINOPHEN 500 MG TAB PO PRN (12:43)
[2022-03-12 17:10] VITALS: BP 104/57
[2022-03-12] MEDS: ACETAMINOPHEN TAB 650MG DOSE (2X325MG) PO PRN (18:45)
[2022-03-12] MEDS: RAMELTEON 8 MG TAB (ROZEREM) PO PRN (23:38)
[2022-03-13] MEDS: HEPARIN SOD (PORCINE) 5000UNITS/ML 1ML VIAL/SYRINGE SC SCH ×4 (05:30→20:14)
[2022-03-13 06:00] LABS: BASO % 0.1 % (0.0-1.0); EOS # 0.1 10^3/uL (0.0-0.5); EOS % 1.1 % (0.0-3.0); HEMOGLOBIN 9.7 g/dl (13.5-17.5); LYMPH # 1.1 10^3/uL (1.5-5.0); LYMPH % 12.2 % (24.0-44.0); MEAN CORPUSCULAR HEMOGLOBIN 32.9 pg (27.0-33.0); MEAN CORPUSCULAR HGB CONC 31.3 g/dl (32.0-36.5); MEAN CORPUSCULAR VOLUME 105.1 fl (80.0-96.0); MONO # 0.9 10^3/uL (0.0-0.8); MONO % 10.2 % (2.0-8.0); NEUTROPHILS % 75.5 % (36.0-66.0); PLATELET COUNT, AUTOMATED 175 10^3/uL (150-450); RED BLOOD COUNT 2.95 10^6/uL (4.30-6.10); WHITE BLOOD COUNT 9.2 10^3/uL (4.0-10.0)
[2022-03-13 06:31] VITALS: BP 103/56
[2022-03-13 06:31] LABS: CALCIUM LEVEL 7.8 MG/DL (8.3-10.6); CREATININE FOR GFR 5.44 MG/DL (0.70-1.30); GLOMERULAR FILTRATION RATE 10.8 (>35); POTASSIUM SERUM 4.4 MMOL/L (3.5-5.1)
[2022-03-13] MEDS: MULTIVITAMINS/MINERALS THERAP 1 TAB PO SCH (08:54)
[2022-03-13] MEDS: ATORVASTATIN 20 MG TAB PO SCH (08:54)
[2022-03-13] MEDS: ASPIRIN 81MG CHEW TABLET PO SCH (08:54)
[2022-03-13] MEDS: PANTOPRAZOLE 40MG TAB (PROTONIX) PO SCH (08:54)
[2022-03-13] MEDS: FEBUXOSTAT 40 MG TABLET (ULORIC) PO SCH (08:54)
[2022-03-13] MEDS: GABAPENTIN 100 MG CAP PO SCH ×2 (08:54→20:14)
[2022-03-13] MEDS: CALCIUM ACETATE 667MG GELCAP PO SCH ×3 (08:54→18:37)
[2022-03-13] MEDS: CYANOCOBALAMIN 500 MCG TAB PO SCH (08:54)
[2022-03-13] MEDS: METOPROLOL SUCC *XL* 12.5MG PER 1/2 TAB (TopROL *XL*) PO SCH (08:55)
[2022-03-13 20:17] VITALS: BP 103/55
[2022-03-13] MEDS: RAMELTEON 8 MG TAB (ROZEREM) PO PRN (20:19)
[2022-03-13] MEDS: ACETAMINOPHEN TAB 650MG DOSE (2X325MG) PO PRN (20:20)
[2022-03-14] MEDS: CEPACOL LOZENGE PO PRN (00:40)
[2022-03-14] MEDS: HEPARIN SOD (PORCINE) 5000UNITS/ML 1ML VIAL/SYRINGE SC SCH ×3 (05:04→22:00)
[2022-03-14 06:00] VITALS: BP 71/51
[2022-03-14] MEDS ORDERED: SODIUM CHLORIDE 0.9% 1000ML IV PRN (06:00)
[2022-03-14] MEDS ORDERED: HEPARIN 1,000UNITS/ML 10ML VIAL (FOR RADIOLOGY & DIALYSIS ONLY) XX SCH (06:00)
[2022-03-14] MEDS ORDERED: LIDOCAINE 1% SDV 5ML VIAL SC PRN (06:00)
[2022-03-14] MEDS ORDERED: HEPARIN 1,000UNITS/ML 10ML VIAL (FOR RADIOLOGY & DIALYSIS ONLY) IV PRN (06:00)
[2022-03-14] MEDS: MIDODRINE 5 MG TAB PO PRN ×2 (06:12→18:24)
[2022-03-14] MEDS: GABAPENTIN 100 MG CAP PO SCH ×2 (06:12→21:59)
[2022-03-14] MEDS: PANTOPRAZOLE 40MG TAB (PROTONIX) PO SCH (06:13)
[2022-03-14] MEDS: ASPIRIN 81MG CHEW TABLET PO SCH (06:13)
[2022-03-14] MEDS: CYANOCOBALAMIN 500 MCG TAB PO SCH (06:13)
[2022-03-14 06:14] VITALS: BP 84/44
[2022-03-14] MEDS: FEBUXOSTAT 40 MG TABLET (ULORIC) PO SCH (06:14)
[2022-03-14] MEDS: MULTIVITAMINS/MINERALS THERAP 1 TAB PO SCH (06:14)
[2022-03-14] MEDS: ATORVASTATIN 20 MG TAB PO SCH (06:14)
[2022-03-14] MEDS: METOPROLOL SUCC *XL* 12.5MG PER 1/2 TAB (TopROL *XL*) PO SCH (06:15)
[2022-03-14 07:20] LABS: BASO % 0.1 % (0.0-1.0); EOS # 0.1 10^3/uL (0.0-0.5); EOS % 1.6 % (0.0-3.0); HEMATOCRIT 32.2 % (42.0-52.0); HEMOGLOBIN 10.1 g/dl (13.5-17.5); LYMPH # 1.3 10^3/uL (1.5-5.0); LYMPH % 15.3 % (24.0-44.0); MEAN CORPUSCULAR HEMOGLOBIN 32.8 pg (27.0-33.0); MEAN CORPUSCULAR HGB CONC 31.4 g/dl (32.0-36.5); MEAN CORPUSCULAR VOLUME 104.5 fl (80.0-96.0); MONO # 0.9 10^3/uL (0.0-0.8); MONO % 10.9 % (2.0-8.0); NEUTROPHILS # 5.9 10^3/uL (1.5-8.5); PLATELET COUNT, AUTOMATED 186 10^3/uL (150-450); RED BLOOD COUNT 3.08 10^6/uL (4.30-6.10); WHITE BLOOD COUNT 8.3 10^3/uL (4.0-10.0)
[2022-03-14 07:44] LABS: CALCIUM LEVEL 8.3 MG/DL (8.3-10.6); CREATININE FOR GFR 6.87 MG/DL (0.70-1.30); GLOMERULAR FILTRATION RATE 8.3 (>35); POTASSIUM SERUM 4.7 MMOL/L (3.5-5.1)
[2022-03-14] MEDS: CALCIUM ACETATE 667MG GELCAP PO SCH ×3 (08:00→18:17)
[2022-03-14] MEDS: ACETAMINOPHEN TAB 650MG DOSE (2X325MG) PO PRN (14:58)
[2022-03-14 18:19] VITALS: BP 80/54
[2022-03-14 19:35] VITALS: BP 91/53
[2022-03-14] MEDS ORDERED: ACETAMINOPHEN TAB 650MG DOSE (2X325MG) PO ONE (20:10)
[2022-03-14] MEDS: RAMELTEON 8 MG TAB (ROZEREM) PO PRN (22:05)
[2022-03-15 03:18] VITALS: BP 93/44
[2022-03-15] MEDS: ACETAMINOPHEN TAB 650MG DOSE (2X325MG) PO PRN (03:18)
[2022-03-15] MEDS: HEPARIN SOD (PORCINE) 5000UNITS/ML 1ML VIAL/SYRINGE SC SCH ×3 (05:16→20:11)
[2022-03-15 06:22] VITALS: BP 82/44
[2022-03-15] MEDS: MIDODRINE 5 MG TAB PO PRN (06:44)
[2022-03-15] MEDS: CALCIUM ACETATE 667MG GELCAP PO SCH ×3 (08:30→17:13)
[2022-03-15] MEDS: GABAPENTIN 100 MG CAP PO SCH ×2 (08:30→20:02)
[2022-03-15] MEDS: ASPIRIN 81MG CHEW TABLET PO SCH (08:30)
[2022-03-15] MEDS: PANTOPRAZOLE 40MG TAB (PROTONIX) PO SCH (08:30)
[2022-03-15] MEDS: FEBUXOSTAT 40 MG TABLET (ULORIC) PO SCH (08:30)
[2022-03-15] MEDS: ATORVASTATIN 20 MG TAB PO SCH (08:30)
[2022-03-15] MEDS: MULTIVITAMINS/MINERALS THERAP 1 TAB PO SCH (08:30)
[2022-03-15] MEDS: CYANOCOBALAMIN 500 MCG TAB PO SCH (08:30)
[2022-03-15] MEDS: METOPROLOL SUCC *XL* 12.5MG PER 1/2 TAB (TopROL *XL*) PO SCH ×2 (08:31→10:00)
[2022-03-15] MEDS: MIDODRINE 5 MG TAB PO SCH ×2 (12:57→17:13)
[2022-03-15 17:15] VITALS: BP 99/45
[2022-03-15] MEDS: ACETAMINOPHEN 325 MG TAB PO PRN (17:42)
[2022-03-16] MEDS: HEPARIN SOD (PORCINE) 5000UNITS/ML 1ML VIAL/SYRINGE SC SCH ×3 (05:44→20:51)
[2022-03-16 06:00] VITALS: BP 97/47
[2022-03-16] MEDS: FEBUXOSTAT 40 MG TABLET (ULORIC) PO SCH (06:15)
[2022-03-16] MEDS: ASPIRIN 81MG CHEW TABLET PO SCH (06:16)
[2022-03-16] MEDS: PANTOPRAZOLE 40MG TAB (PROTONIX) PO SCH (06:16)
[2022-03-16] MEDS: MIDODRINE 5 MG TAB PO SCH ×3 (06:16→17:05)
[2022-03-16] MEDS: CYANOCOBALAMIN 500 MCG TAB PO SCH (06:16)
[2022-03-16] MEDS: MULTIVITAMINS/MINERALS THERAP 1 TAB PO SCH (06:16)
[2022-03-16] MEDS: GABAPENTIN 100 MG CAP PO SCH ×2 (06:16→20:01)
[2022-03-16] MEDS: ATORVASTATIN 20 MG TAB PO SCH (06:17)
[2022-03-16] MEDS ORDERED: SODIUM CHLORIDE 0.9% 1000ML IV PRN (06:45)
[2022-03-16] MEDS ORDERED: HEPARIN 1,000UNITS/ML 10ML VIAL (FOR RADIOLOGY & DIALYSIS ONLY) IV PRN (06:45)
[2022-03-16] MEDS ORDERED: HEPARIN 1,000UNITS/ML 10ML VIAL (FOR RADIOLOGY & DIALYSIS ONLY) XX SCH (06:45)
[2022-03-16] MEDS ORDERED: LIDOCAINE 1% SDV 5ML VIAL SC PRN (06:45)
[2022-03-16] MEDS: CALCIUM ACETATE 667MG GELCAP PO SCH ×3 (07:32→17:05)
[2022-03-16] MEDS: METOPROLOL SUCC *XL* 12.5MG PER 1/2 TAB (TopROL *XL*) PO SCH (12:31)
[2022-03-17] MEDS: RAMELTEON 8 MG TAB (ROZEREM) PO PRN (01:36)
[2022-03-17] MEDS: ACETAMINOPHEN 325 MG TAB PO PRN (04:22)
[2022-03-17] MEDS: HEPARIN SOD (PORCINE) 5000UNITS/ML 1ML VIAL/SYRINGE SC SCH ×3 (05:10→22:00)
[2022-03-17] MEDS: MIDODRINE 5 MG TAB PO SCH ×3 (05:57→17:16)
[2022-03-17 06:00] VITALS: BP 98/48
[2022-03-17] MEDS: IPRATROPIUM 0.5MG/ALBUTEROL 2.5MG INH SOL UD 3ML (DUONEB) NEB PRN (06:11)
[2022-03-17] MEDS: FEBUXOSTAT 40 MG TABLET (ULORIC) PO SCH (08:52)
[2022-03-17] MEDS: MULTIVITAMINS/MINERALS THERAP 1 TAB PO SCH (08:52)
[2022-03-17] MEDS: CYANOCOBALAMIN 500 MCG TAB PO SCH (08:52)
[2022-03-17] MEDS: CALCIUM ACETATE 667MG GELCAP PO SCH ×3 (08:53→17:16)
[2022-03-17] MEDS: ASPIRIN 81MG CHEW TABLET PO SCH (08:53)
[2022-03-17] MEDS: ATORVASTATIN 20 MG TAB PO SCH (08:53)
[2022-03-17] MEDS: PANTOPRAZOLE 40MG TAB (PROTONIX) PO SCH (08:53)
[2022-03-17] MEDS: GABAPENTIN 100 MG CAP PO SCH ×2 (08:53→20:37)
[2022-03-17] MEDS: METOPROLOL SUCC *XL* 12.5MG PER 1/2 TAB (TopROL *XL*) PO SCH (10:00)
[2022-03-17] MEDS ORDERED: PILL CUTTER 1 EACH XX PRN (10:30)
[2022-03-17 10:32] VITALS: BP 82/50
[2022-03-17 17:22] VITALS: BP 99/50
[2022-03-18] MEDS: DOCUSATE SODIUM 100MG CAPSULE PO SCH ×3 (00:23→19:56)
[2022-03-18 00:56] LABS: HEMATOCRIT 31.1 % (42.0-52.0); HEMOGLOBIN 9.9 g/dl (13.5-17.5)
[2022-03-18] MEDS ORDERED: PANTOPRAZOLE 40MG VIAL IV ONE (01:00)
[2022-03-18] MEDS ORDERED: PANTOPRAZOLE 40MG TAB (PROTONIX) PO ONE (01:00)
[2022-03-18] MEDS: RAMELTEON 8 MG TAB (ROZEREM) PO PRN ×2 (01:19→22:53)
[2022-03-18] MEDS: ACETAMINOPHEN 325 MG TAB PO PRN (01:20)
[2022-03-18] MEDS: HEPARIN SOD (PORCINE) 5000UNITS/ML 1ML VIAL/SYRINGE SC SCH ×3 (05:25→19:53)
[2022-03-18 05:45] VITALS: BP 97/53
[2022-03-18] MEDS: ASPIRIN 81MG CHEW TABLET PO SCH (08:23)
[2022-03-18] MEDS: MULTIVITAMINS/MINERALS THERAP 1 TAB PO SCH (08:23)
[2022-03-18] MEDS: GABAPENTIN 100 MG CAP PO SCH ×2 (08:24→19:56)
[2022-03-18] MEDS: CALCIUM ACETATE 667MG GELCAP PO SCH ×3 (08:24→17:27)
[2022-03-18] MEDS: PANTOPRAZOLE 40MG TAB (PROTONIX) PO SCH (08:24)
[2022-03-18] MEDS: FEBUXOSTAT 40 MG TABLET (ULORIC) PO SCH (08:24)
[2022-03-18] MEDS: METOPROLOL SUCC *XL* 12.5MG PER 1/2 TAB (TopROL *XL*) PO SCH (08:24)
[2022-03-18] MEDS: CYANOCOBALAMIN 500 MCG TAB PO SCH (08:24)
[2022-03-18] MEDS: ATORVASTATIN 20 MG TAB PO SCH (08:24)
[2022-03-18] MEDS: MIDODRINE 5 MG TAB PO SCH ×3 (08:25→17:27)
[2022-03-18 12:14] LABS: HEMATOCRIT 30.9 % (42.0-52.0); HEMOGLOBIN 9.9 g/dl (13.5-17.5)
[2022-03-19] MEDS: HEPARIN SOD (PORCINE) 5000UNITS/ML 1ML VIAL/SYRINGE SC SCH ×3 (04:50→19:52)
[2022-03-19 06:00] VITALS: BP 99/55
[2022-03-19] MEDS: ASPIRIN 81MG CHEW TABLET PO SCH (06:08)
[2022-03-19] MEDS: MIDODRINE 5 MG TAB PO SCH ×4 (06:08→16:23)
[2022-03-19] MEDS: DOCUSATE SODIUM 100MG CAPSULE PO SCH ×2 (06:09→19:52)
[2022-03-19] MEDS: ATORVASTATIN 20 MG TAB PO SCH (06:09)
[2022-03-19] MEDS: FEBUXOSTAT 40 MG TABLET (ULORIC) PO SCH (06:09)
[2022-03-19] MEDS: GABAPENTIN 100 MG CAP PO SCH ×2 (06:09→19:58)
[2022-03-19] MEDS: PANTOPRAZOLE 40MG TAB (PROTONIX) PO SCH (06:09)
[2022-03-19] MEDS: MULTIVITAMINS/MINERALS THERAP 1 TAB PO SCH (06:09)
[2022-03-19] MEDS: CYANOCOBALAMIN 500 MCG TAB PO SCH (06:09)
[2022-03-19] MEDS: CALCIUM ACETATE 667MG GELCAP PO SCH ×3 (06:20→18:57)
[2022-03-19] MEDS ORDERED: LIDOCAINE 1% SDV 5ML VIAL SC PRN (07:10)
[2022-03-19] MEDS ORDERED: HEPARIN 1,000UNITS/ML 10ML VIAL (FOR RADIOLOGY & DIALYSIS ONLY) XX SCH (07:10)
[2022-03-19] MEDS ORDERED: HEPARIN 1,000UNITS/ML 10ML VIAL (FOR RADIOLOGY & DIALYSIS ONLY) IV PRN (07:10)
[2022-03-19] MEDS ORDERED: SODIUM CHLORIDE 0.9% 1000ML IV PRN (07:10)
[2022-03-19 08:37] LABS: BASO % 0.4 % (0.0-1.0); EOS # 0.1 10^3/uL (0.0-0.5); EOS % 1.4 % (0.0-3.0); HEMOGLOBIN 9.9 g/dl (13.5-17.5); LYMPH # 1.4 10^3/uL (1.5-5.0); LYMPH % 15.2 % (24.0-44.0); MEAN CORPUSCULAR HGB CONC 31.9 g/dl (32.0-36.5); MEAN CORPUSCULAR VOLUME 103.3 fl (80.0-96.0); MONO # 1.1 10^3/uL (0.0-0.8); MONO % 12.1 % (2.0-8.0); NEUTROPHILS # 6.4 10^3/uL (1.5-8.5); NEUTROPHILS % 69.9 % (36.0-66.0); PLATELET COUNT, AUTOMATED 229 10^3/uL (150-450); WHITE BLOOD COUNT 9.1 10^3/uL (4.0-10.0)
[2022-03-19 08:49] LABS: INR 1.17; PARTIAL THROMBOPLASTIN TIME 31.3 SECONDS (24.8-34.2); PROTHROMBIN TIME 15.1 SECONDS (12.5-14.5)
[2022-03-19 09:09] LABS: CALCIUM LEVEL 8.6 MG/DL (8.3-10.6); CREATININE FOR GFR 7.88 MG/DL (0.70-1.30); POTASSIUM SERUM 4.8 MMOL/L (3.5-5.1)
[2022-03-19 12:53] VITALS: BP 100/53
[2022-03-19] MEDS: METOPROLOL SUCC *XL* 12.5MG PER 1/2 TAB (TopROL *XL*) PO SCH (12:53)
[2022-03-19] MEDS: IPRATROPIUM 0.5MG/ALBUTEROL 2.5MG INH SOL UD 3ML (DUONEB) NEB PRN (15:57)
[2022-03-19 16:29] VITALS: BP 90/48
[2022-03-19] MEDS: RAMELTEON 8 MG TAB (ROZEREM) PO PRN (20:02)
[2022-03-20] MEDS: ACETAMINOPHEN 325 MG TAB PO PRN ×2 (01:49→20:24)
[2022-03-20] MEDS: HEPARIN SOD (PORCINE) 5000UNITS/ML 1ML VIAL/SYRINGE SC SCH ×3 (05:26→20:22)
[2022-03-20 05:44] VITALS: BP 96/55
[2022-03-20] MEDS: ATORVASTATIN 20 MG TAB PO SCH (08:40)
[2022-03-20] MEDS: DOCUSATE SODIUM 100MG CAPSULE PO SCH ×2 (08:40→20:25)
[2022-03-20] MEDS: FEBUXOSTAT 40 MG TABLET (ULORIC) PO SCH (08:41)
[2022-03-20] MEDS: PANTOPRAZOLE 40MG TAB (PROTONIX) PO SCH (08:41)
[2022-03-20] MEDS: CYANOCOBALAMIN 500 MCG TAB PO SCH (08:41)
[2022-03-20] MEDS: ASPIRIN 81MG CHEW TABLET PO SCH (08:41)
[2022-03-20] MEDS: CALCIUM ACETATE 667MG GELCAP PO SCH ×3 (08:41→17:13)
[2022-03-20] MEDS: GABAPENTIN 100 MG CAP PO SCH ×2 (08:41→20:22)
[2022-03-20] MEDS: MULTIVITAMINS/MINERALS THERAP 1 TAB PO SCH (08:41)
[2022-03-20] MEDS: MIDODRINE 5 MG TAB PO SCH ×3 (08:41→17:11)
[2022-03-20] MEDS: IPRATROPIUM 0.5MG/ALBUTEROL 2.5MG INH SOL UD 3ML (DUONEB) NEB PRN (08:58)
[2022-03-20] MEDS: METOPROLOL SUCC *XL* 12.5MG PER 1/2 TAB (TopROL *XL*) PO SCH (10:00)
[2022-03-20 11:16] VITALS: BP 100/52
[2022-03-20] MEDS: RAMELTEON 8 MG TAB (ROZEREM) PO PRN (20:22)
[2022-03-21] MEDS: HEPARIN SOD (PORCINE) 5000UNITS/ML 1ML VIAL/SYRINGE SC SCH (06:00)
[2022-03-21 06:12] VITALS: BP 98/54
[2022-03-21] MEDS: CYANOCOBALAMIN 500 MCG TAB PO SCH (06:27)
[2022-03-21] MEDS: ATORVASTATIN 20 MG TAB PO SCH (06:27)
[2022-03-21] MEDS: FEBUXOSTAT 40 MG TABLET (ULORIC) PO SCH (06:27)
[2022-03-21] MEDS: ASPIRIN 81MG CHEW TABLET PO SCH (06:27)
[2022-03-21] MEDS: GABAPENTIN 100 MG CAP PO SCH (06:27)
[2022-03-21] MEDS: MULTIVITAMINS/MINERALS THERAP 1 TAB PO SCH (06:28)
[2022-03-21] MEDS: DOCUSATE SODIUM 100MG CAPSULE PO SCH (06:28)
[2022-03-21] MEDS: MIDODRINE 5 MG TAB PO SCH ×2 (06:28→12:00)
[2022-03-21] MEDS: PANTOPRAZOLE 40MG TAB (PROTONIX) PO SCH (06:28)
[2022-03-21] MEDS: CALCIUM ACETATE 667MG GELCAP PO SCH ×2 (06:32→12:27)
[2022-03-21] MEDS ORDERED: HEPARIN 1,000UNITS/ML 10ML VIAL (FOR RADIOLOGY & DIALYSIS ONLY) XX SCH (07:00)
[2022-03-21] MEDS ORDERED: SODIUM CHLORIDE 0.9% 1000ML IV PRN (07:00)
[2022-03-21] MEDS ORDERED: HEPARIN 1,000UNITS/ML 10ML VIAL (FOR RADIOLOGY & DIALYSIS ONLY) IV PRN (07:00)
[2022-03-21] MEDS ORDERED: LIDOCAINE 1% SDV 5ML VIAL SC PRN (07:00)
[2022-03-21 07:07] VITALS: BP 105/55
[2022-03-21] MEDS: METOPROLOL SUCC *XL* 12.5MG PER 1/2 TAB (TopROL *XL*) PO SCH (08:11)
[2022-03-21] MEDS ORDERED: MIDO5TA PO (11:08)
[2022-03-21] MEDS ORDERED: METO1TAB32 PO (11:08)
== END 2022-03-21 12:40 | disposition home health service (06) | DRG 291 ==
LOC: EDBD 09:41 → M ED 09:41 → EDSEX 09:41 → M ED INP 13:04 → ENRESERV 15:12 → M MSPAV 18:35
PROVIDERS: ADMIT Internal Medicine; ATTEND Student in an Organized Health Care Education/Training Program
PROC: 5A1D70Z Performance of Urinary Filtration, Intermittent, Less than 6 Hours Per Day (ICD-10-PCS; principal; 2022-03-05)
PROC: 0W9G3ZX Drainage of Peritoneal Cavity, Percutaneous Approach, Diagnostic (ICD-10-PCS; 2022-03-08)
PROC: 0HBRXZZ Excision of Toe Nail, External Approach (ICD-10-PCS; 2022-03-11)
PROC: 0W9G3ZZ Drainage of Peritoneal Cavity, Percutaneous Approach (ICD-10-PCS; 2022-03-12)
DX: I13.2 Hypertensive heart and chronic kidney disease with heart failure and with stage 5 chronic kidney disease, or end stage renal disease (principal); N18.6 End stage renal disease; J96.11 Chronic respiratory failure with hypoxia; R18.8 Other ascites; I25.10 Atherosclerotic heart disease of native coronary artery without angina pectoris; I50.22 Chronic systolic (congestive) heart failure; R73.03 Prediabetes; K21.9 Gastro-esophageal reflux disease without esophagitis; E87.70 Fluid overload, unspecified; D64.9 Anemia, unspecified; G62.9 Polyneuropathy, unspecified; K52.9 Noninfective gastroenteritis and colitis, unspecified; M10.9 Gout, unspecified; I27.20 Pulmonary hypertension, unspecified; K76.1 Chronic passive congestion of liver; I95.89 Other hypotension; R53.1 Weakness; I42.9 Cardiomyopathy, unspecified; E78.5 Hyperlipidemia, unspecified; Z99.2 Dependence on renal dialysis; Z91.15 Patient's noncompliance with renal dialysis; Z95.810 Presence of automatic (implantable) cardiac defibrillator; Z87.891 Personal history of nicotine dependence; Z79.82 Long term (current) use of aspirin; Z79.899 Other long term (current) drug therapy; Z99.81 Dependence on supplemental oxygen; B35.1 Tinea unguium; L60.0 Ingrowing nail

== ENCOUNTER → 2022-06-26 | Outpatient (CLI) | payer MEDICARE ==
[~2022-06-26] MED LIST changes: +ASPI81CH33 PO; +B-122500 PO; +VITA100093 PO; +VITMTA PO
[2022-06-26 12:37] LABS: HEMATOCRIT 36.6 % (42.0-52.0); HEMOGLOBIN 11.3 g/dl (13.5-17.5); MEAN CORPUSCULAR HEMOGLOBIN 33.9 pg (27.0-33.0); MEAN CORPUSCULAR HGB CONC 30.9 g/dl (32.0-36.5); MEAN CORPUSCULAR VOLUME 109.9 fl (80.0-96.0); PLATELET COUNT, AUTOMATED 203 10^3/uL (150-450); RED BLOOD COUNT 3.33 10^6/uL (4.30-6.10); WHITE BLOOD COUNT 10.5 10^3/uL (4.0-10.0)
[2022-06-26 13:06] LABS: INR 1.19; PROTHROMBIN TIME 15.4 SECONDS (12.5-14.5)
[2022-06-26 13:28] VITALS: BP 148/66
== END ==
LOC: M IRPRO 11:48
PROVIDERS: ATTEND Internal Medicine Nephrology
DX: R18.8 Other ascites (principal)

== ENCOUNTER → 2022-07-24 | Outpatient (CLI) | payer MEDICARE ==
[2022-07-24 10:24] VITALS: BP 104/65
== END ==
LOC: M IRPRO 09:39
PROVIDERS: ATTEND Internal Medicine Nephrology
DX: R18.8 Other ascites (principal)

== ENCOUNTER → 2022-08-21 | Outpatient (CLI) | payer MEDICARE, OTHER ==
[2022-08-21 10:11] LABS: HEMATOCRIT 35.1 % (42.0-52.0); HEMOGLOBIN 11.1 g/dl (13.5-17.5); MEAN CORPUSCULAR HEMOGLOBIN 34.2 pg (27.0-33.0); MEAN CORPUSCULAR HGB CONC 31.6 g/dl (32.0-36.5); PLATELET COUNT, AUTOMATED 173 10^3/uL (150-450); RED BLOOD COUNT 3.25 10^6/uL (4.30-6.10); WHITE BLOOD COUNT 8.4 10^3/uL (4.0-10.0)
[2022-08-21 10:26] LABS: INR 1.35; PROTHROMBIN TIME 16.9 SECONDS (12.5-14.5)
[2022-08-21 11:05] VITALS: BP 95/55
== END ==
LOC: M IRPRO 09:40
PROVIDERS: ATTEND Internal Medicine Nephrology
DX: R18.8 Other ascites (principal)

== ENCOUNTER → 2022-09-18 | Outpatient (CLI) | payer MEDICARE ==
[2022-09-18 09:44] VITALS: TEMP 98; O2SAT 91
[2022-09-18 12:05] VITALS: BP 121/76
== END ==
LOC: M IRPRO 09:37
PROVIDERS: ATTEND Internal Medicine Nephrology
DX: R18.8 Other ascites (principal)

== ENCOUNTER → 2022-11-15 | Outpatient (CLI) | payer MEDICARE ==
[~2022-11-15] MED LIST changes: -LIDO1CRE42 TOP; +LIDO30CR18 TOP
[2022-11-15 13:54] VITALS: BP 113/72; O2SAT 96
== END ==
LOC: M IRPRO 12:31
PROVIDERS: ATTEND Internal Medicine Nephrology
DX: R18.8 Other ascites (principal)

== ENCOUNTER → 2022-12-06 | Outpatient (CLI) | payer MEDICARE ==
[2022-12-06 12:50] VITALS: BP 119/56; TEMP 98.2; O2SAT 92
== END ==
LOC: M IRPRO 12:45
PROVIDERS: ATTEND Internal Medicine Nephrology
DX: R18.8 Other ascites (principal); Z53.8 Procedure and treatment not carried out for other reasons

== ENCOUNTER → 2022-12-16 | Outpatient (CLI) | payer MEDICARE ==
[2022-12-16 12:20] VITALS: BP 101/54; TEMP 97.3; O2SAT 93
== END ==
LOC: M IRPRO 11:59
PROVIDERS: ATTEND Internal Medicine Nephrology
DX: R18.8 Other ascites (principal)

== ENCOUNTER 2023-02-11 07:55 | Inpatient (IN) | payer MEDICARE ==
[~2023-02-11] VITALS: Ht 180.3 cm; Wt 112.0 kg
[2023-02-11] VITALS (29 sets, daily range): BP systolic 88–137; BP diastolic 49–92; TEMP 96.6–97; O2SAT 91–100
[~2023-02-11 07:55] MED LIST changes: -FEBU40TA2 PO; +FEBU40TA6 PO
[2023-02-11 08:52] LABS: VENOUS BASE EXCESS -11.2 (-2.0-2.0); VENOUS HCO3 20.9 MMOL/L (23.0-27.0); VENOUS O2 SATURATION 78.4 % (60.0-80.0); VENOUS PARTIAL PRESSURE CO2 82.9 mmHg (38.0-50.0); VENOUS PARTIAL PRESSURE O2 57.9 mmHg (30.0-50.0); VENOUS PH 7.019 UNITS (7.330-7.430); VENOUS STANDARD HCO3 15.3 MMOL/L; VENOUS TOTAL CO2 23.4 MMOL/L (24.0-28.0)
[2023-02-11 09:08] LABS: BASO % 0.3 % (0.0-1.0); EOS % 0.3 % (0.0-3.0); HEMATOCRIT 38.3 % (42.0-52.0); HEMOGLOBIN 11.8 g/dl (13.5-17.5); LYMPH % 8.5 % (24.0-44.0); MEAN CORPUSCULAR HEMOGLOBIN 34.3 pg (27.0-33.0); MEAN CORPUSCULAR HGB CONC 30.8 g/dl (32.0-36.5); MEAN CORPUSCULAR VOLUME 111.3 fl (80.0-96.0); MONO # 1.1 10^3/uL (0.0-0.8); MONO % 8.9 % (2.0-8.0); NEUTROPHILS # 9.6 10^3/uL (1.5-8.5); NEUTROPHILS % 80.9 % (36.0-66.0); PLATELET COUNT, AUTOMATED 211 10^3/uL (150-450); RED BLOOD COUNT 3.44 10^6/uL (4.30-6.10); WHITE BLOOD COUNT 11.9 10^3/uL (4.0-10.0)
[2023-02-11 09:20] LABS: CK-MB VALUE MASS 6.4 NG/ML (<3.6)
[2023-02-11 09:22] LABS: MB/CK RELATIVE INDEX 7.27 (< OR =4)
[2023-02-11 09:24] LABS: THYROID STIMULATING HORMONE 2.634 uIU/ML (0.55-4.78)
[2023-02-11 09:27] LABS: ALBUMIN 3.9 G/DL (3.2-5.2); BILIRUBIN,DIRECT 0.1 MG/DL (<0.4); BILIRUBIN,TOTAL 0.2 MG/DL (0.3-1.2); CREATININE FOR GFR 11.82 MG/DL (0.70-1.30); GLOMERULAR FILTRATION RATE 4.4 (>35); POTASSIUM SERUM 4.7 MMOL/L (3.5-5.1); TOTAL PROTEIN 7.3 G/DL (5.7-8.2)
[2023-02-11 09:28] LABS: RSV AMPLIFICATION NEGATIVE (NEGATIVE)
[2023-02-11 09:39] LABS: ABG BASE EXCESS -11.8 (-2.0-2.0); ABG HCO3 19.3 MMOL/L (22.0-26.0); ABG O2 SATURATION 95.5 % (95.0-99.0); ABG PARTIAL PRESSURE O2 109.9 mmHg (75.0-100.0); ABG STANDARD HCO3 15.2 MMOL/L. (22.0-26.0); ABG TOTAL CO2 21.5 MMOL/L (23.0-31.0)
[2023-02-11 09:42] LABS: ABG PARTIAL PRESSURE CO2 71.7 mmHg (35.0-45.0); ABG pH (ARTERIAL) 7.048 UNITS (7.350-7.450)
[2023-02-11 10:36] LABS: CK-MB VALUE MASS 6.5 NG/ML (<3.6)
[2023-02-11 10:37] LABS: MB/CK RELATIVE INDEX 7.83 (< OR =4)
[2023-02-11] MEDS ORDERED: SODIUM CHLORIDE 0.9% 1000ML IV PRN (11:10)
[2023-02-11] MEDS ORDERED: HEPARIN 1,000UNITS/ML 10ML VIAL (FOR RADIOLOGY & DIALYSIS ONLY) XX SCH (11:10)
[2023-02-11] MEDS ORDERED: HEPARIN 1,000UNITS/ML 10ML VIAL (FOR RADIOLOGY & DIALYSIS ONLY) IV PRN (11:10)
[2023-02-11] MEDS ORDERED: NOREPINEPHRINE 4MG IN D5 250ML 4 MG in IV 1 EA IV SCH ×4 (11:15→12:15)
[2023-02-11 11:34] LABS: ABG BASE EXCESS -10.8 (-2.0-2.0); ABG HCO3 19.2 MMOL/L (22.0-26.0); ABG O2 SATURATION 93.5 % (95.0-99.0); ABG PARTIAL PRESSURE O2 88.3 mmHg (75.0-100.0); ABG STANDARD HCO3 15.9 MMOL/L. (22.0-26.0); ABG TOTAL CO2 21.1 MMOL/L (23.0-31.0)
[2023-02-11 11:38] LABS: ABG PARTIAL PRESSURE CO2 62.6 mmHg (35.0-45.0); ABG pH (ARTERIAL) 7.104 UNITS (7.350-7.450)
[2023-02-11] MEDS: IPRATROPIUM 0.5MG/ALBUTEROL 2.5MG INH SOL UD 3ML (DUONEB) NEB SCH ×4 (12:00→23:37)
[2023-02-11] MEDS ORDERED: MED REC IN PROGRESS XX SCH (13:00)
[2023-02-11] MEDS: PANTOPRAZOLE 40MG VIAL IV SCH (15:18)
[2023-02-11] MEDS ORDERED: GLUCAGON INJ 1MG VIAL SC PRN (19:30)
[2023-02-11] MEDS ORDERED: GLUCOSE 4GM CHEW TABLET PO PRN (19:30)
[2023-02-11] MEDS ORDERED: DEXTROSE 50% 50ML SYRINGE IV PRN (19:30)
[2023-02-11] MEDS: INSULIN LISPRO (NovoLOG) PER UNIT SC SCH (20:44)
[2023-02-11] MEDS: HEPARIN SOD (PORCINE) 5000UNITS/ML 1ML VIAL/SYRINGE SC SCH (22:07)
[2023-02-11 22:13] LABS: ABG BASE EXCESS -2.5 (-2.0-2.0); ABG O2 SATURATION 93.8 % (95.0-99.0); ABG PARTIAL PRESSURE O2 80.6 mmHg (75.0-100.0); ABG STANDARD HCO3 22.3 MMOL/L. (22.0-26.0)
[2023-02-11 22:14] LABS: ABG PARTIAL PRESSURE CO2 64.1 mmHg (35.0-45.0); ABG pH (ARTERIAL) 7.226 UNITS (7.350-7.450)
[2023-02-11] MEDS ORDERED: METO1TAB32 PO (22:39)
[2023-02-11] MEDS ORDERED: MIDO5TA PO (22:39)
[2023-02-11] MEDS ORDERED: IPRA3SP NARES (22:40)
[2023-02-11] MEDS ORDERED: HOME MED LIST COMPLETE! XX SCH (22:50)
[2023-02-12] VITALS (21 sets, daily range): BP systolic 83–109; BP diastolic 50–68; TEMP 96.6–97.7; O2SAT 91–98
[2023-02-12] MEDS: IPRATROPIUM 0.5MG/ALBUTEROL 2.5MG INH SOL UD 3ML (DUONEB) NEB SCH ×5 (03:09→20:00)
[2023-02-12 04:46] LABS: BASO % 0.2 % (0.0-1.0); EOS % 0.4 % (0.0-3.0); HEMOGLOBIN 10.1 g/dl (13.5-17.5); LYMPH # 0.9 10^3/uL (1.5-5.0); LYMPH % 9.1 % (24.0-44.0); MEAN CORPUSCULAR HEMOGLOBIN 34.2 pg (27.0-33.0); MEAN CORPUSCULAR HGB CONC 31.6 g/dl (32.0-36.5); MEAN CORPUSCULAR VOLUME 108.5 fl (80.0-96.0); MONO # 1.1 10^3/uL (0.0-0.8); MONO % 10.6 % (2.0-8.0); NEUTROPHILS # 8.2 10^3/uL (1.5-8.5); NEUTROPHILS % 79.1 % (36.0-66.0); PLATELET COUNT, AUTOMATED 141 10^3/uL (150-450); RED BLOOD COUNT 2.95 10^6/uL (4.30-6.10); WHITE BLOOD COUNT 10.4 10^3/uL (4.0-10.0)
[2023-02-12 05:22] LABS: ALBUMIN 3.2 G/DL (3.2-5.2); BILIRUBIN,TOTAL 0.3 MG/DL (0.3-1.2); CALCIUM LEVEL 7.6 MG/DL (8.3-10.6); CREATININE FOR GFR 8.29 MG/DL (0.70-1.30); GLOMERULAR FILTRATION RATE 6.6 (>35); POTASSIUM SERUM 3.9 MMOL/L (3.5-5.1); TOTAL PROTEIN 6.2 G/DL (5.7-8.2)
[2023-02-12 05:45] LABS: ABG O2 SATURATION 96.4 % (95.0-99.0); ABG PARTIAL PRESSURE O2 105.8 mmHg (75.0-100.0); ABG STANDARD HCO3 22.8 MMOL/L. (22.0-26.0); ABG TOTAL CO2 27.8 MMOL/L (23.0-31.0)
[2023-02-12 05:48] LABS: ABG pH (ARTERIAL) 7.247 UNITS (7.350-7.450)
[2023-02-12] MEDS: HEPARIN SOD (PORCINE) 5000UNITS/ML 1ML VIAL/SYRINGE SC SCH ×3 (06:09→22:28)
[2023-02-12] MEDS: INSULIN LISPRO (NovoLOG) PER UNIT SC SCH ×4 (07:50→20:08)
[2023-02-12] MEDS ORDERED: HEPARIN 1,000UNITS/ML 10ML VIAL (FOR RADIOLOGY & DIALYSIS ONLY) XX SCH (08:35)
[2023-02-12] MEDS ORDERED: SODIUM CHLORIDE 0.9% 1000ML IV PRN (08:35)
[2023-02-12] MEDS ORDERED: HEPARIN 1,000UNITS/ML 10ML VIAL (FOR RADIOLOGY & DIALYSIS ONLY) IV PRN (08:35)
[2023-02-12] MEDS: PANTOPRAZOLE 40MG VIAL IV SCH (17:59)
[2023-02-12] MEDS: ACETAMINOPHEN TAB 650MG DOSE (2X325MG) PO PRN (19:08)
[2023-02-12] MEDS ORDERED: LOPERAMIDE 2 MG CAPLET PO ONE (20:40)
[2023-02-12] MEDS: ZINC OXIDE 30.6% CREAM 92GM TUBE (SECURA EPC) TOP SCH (20:55)
[2023-02-12] MEDS ORDERED: IPRATROPIUM 0.03% NASAL SPRAY 30 ML (ATROVENT) SCH (21:00)
[2023-02-12] MEDS: IPRATROPIUM 0.02% SOLN 0.5MG 2.5ML NEB NEB SCH (22:05)
[2023-02-13] MEDS: IPRATROPIUM 0.5MG/ALBUTEROL 2.5MG INH SOL UD 3ML (DUONEB) NEB SCH ×6 (00:23→20:00)
[2023-02-13 04:36] VITALS: BP 96/52; TEMP 97.7; O2SAT 93
[2023-02-13 05:32] LABS: BASO % 0.2 % (0.0-1.0); EOS % 0.5 % (0.0-3.0); HEMATOCRIT 31.6 % (42.0-52.0); HEMOGLOBIN 9.8 g/dl (13.5-17.5); LYMPH # 1.1 10^3/uL (1.5-5.0); MEAN CORPUSCULAR HEMOGLOBIN 33.4 pg (27.0-33.0); MEAN CORPUSCULAR VOLUME 107.8 fl (80.0-96.0); MONO # 1.2 10^3/uL (0.0-0.8); MONO % 13.9 % (2.0-8.0); NEUTROPHILS # 6.2 10^3/uL (1.5-8.5); NEUTROPHILS % 71.6 % (36.0-66.0); PLATELET COUNT, AUTOMATED 159 10^3/uL (150-450); RED BLOOD COUNT 2.93 10^6/uL (4.30-6.10); WHITE BLOOD COUNT 8.7 10^3/uL (4.0-10.0)
[2023-02-13] MEDS: HEPARIN SOD (PORCINE) 5000UNITS/ML 1ML VIAL/SYRINGE SC SCH ×3 (05:46→21:26)
[2023-02-13 05:54] LABS: CALCIUM LEVEL 7.6 MG/DL (8.3-10.6); CREATININE FOR GFR 5.95 MG/DL (0.70-1.30); GLOMERULAR FILTRATION RATE 9.7 (>35); POTASSIUM SERUM 3.6 MMOL/L (3.5-5.1)
[2023-02-13] MEDS ORDERED: HEPARIN 1,000UNITS/ML 10ML VIAL (FOR RADIOLOGY & DIALYSIS ONLY) XX SCH (06:00)
[2023-02-13] MEDS ORDERED: SODIUM CHLORIDE 0.9% 1000ML IV PRN (06:00)
[2023-02-13] MEDS: INSULIN LISPRO (NovoLOG) PER UNIT SC SCH ×4 (06:52→19:39)
[2023-02-13] MEDS: MIDODRINE 5 MG TAB PO SCH ×3 (07:48→16:44)
[2023-02-13] MEDS: ACETAMINOPHEN TAB 650MG DOSE (2X325MG) PO PRN ×2 (07:49→14:53)
[2023-02-13 07:53] VITALS: BP 91/55; TEMP 98.7; O2SAT 91
[2023-02-13] MEDS: IPRATROPIUM 0.02% SOLN 0.5MG 2.5ML NEB NEB SCH ×2 (11:14→20:00)
[2023-02-13 12:47] VITALS: BP 110/53; TEMP 98.9; O2SAT 96
[2023-02-13] MEDS: PANTOPRAZOLE 40MG VIAL IV SCH (13:04)
[2023-02-13] MEDS: CALCIUM ACETATE 667MG GELCAP PO SCH ×2 (13:04→16:44)
[2023-02-13] MEDS: ZINC OXIDE 30.6% CREAM 92GM TUBE (SECURA EPC) TOP SCH (16:43)
[2023-02-13 19:47] VITALS: BP 110/54; TEMP 97.8; O2SAT 95
[2023-02-13 21:36] VITALS: BP 112/56; TEMP 97.9; O2SAT 95
[2023-02-14] MEDS: IPRATROPIUM 0.5MG/ALBUTEROL 2.5MG INH SOL UD 3ML (DUONEB) NEB SCH ×7 (00:25→23:59)
[2023-02-14] MEDS: HEPARIN SOD (PORCINE) 5000UNITS/ML 1ML VIAL/SYRINGE SC SCH ×3 (05:54→20:27)
[2023-02-14 06:00] VITALS: BP 100/49; TEMP 97.4; O2SAT 90
[2023-02-14] MEDS: CALCIUM ACETATE 667MG GELCAP PO SCH ×3 (08:28→17:13)
[2023-02-14] MEDS: MIDODRINE 5 MG TAB PO SCH ×3 (08:28→17:13)
[2023-02-14] MEDS: INSULIN LISPRO (NovoLOG) PER UNIT SC SCH ×4 (08:28→20:12)
[2023-02-14] MEDS: ZINC OXIDE 30.6% CREAM 92GM TUBE (SECURA EPC) TOP SCH (09:00)
[2023-02-14] MEDS: IPRATROPIUM 0.02% SOLN 0.5MG 2.5ML NEB NEB SCH ×2 (10:00→19:45)
[2023-02-14] MEDS: PANTOPRAZOLE 40MG VIAL IV SCH (13:50)
[2023-02-14 13:52] VITALS: BP 96/50; TEMP 98.5; O2SAT 90
[2023-02-14 20:00] VITALS: BP 108/64; TEMP 98.3; O2SAT 94
[2023-02-14] MEDS: LOPERAMIDE 2 MG CAPLET PO PRN (20:27)
[2023-02-14] MEDS: ACETAMINOPHEN TAB 650MG DOSE (2X325MG) PO PRN (20:27)
[2023-02-15] MEDS ORDERED: traMADol 50 MG TAB PO ONE
[2023-02-15] MEDS: IPRATROPIUM 0.5MG/ALBUTEROL 2.5MG INH SOL UD 3ML (DUONEB) NEB SCH ×3 (03:35→19:35)
[2023-02-15] MEDS: HEPARIN SOD (PORCINE) 5000UNITS/ML 1ML VIAL/SYRINGE SC SCH ×3 (05:24→20:25)
[2023-02-15 06:00] VITALS: BP 127/59; TEMP 97; O2SAT 94
[2023-02-15] MEDS ORDERED: HEPARIN 1,000UNITS/ML 10ML VIAL (FOR RADIOLOGY & DIALYSIS ONLY) IV PRN (06:25)
[2023-02-15] MEDS ORDERED: SODIUM CHLORIDE 0.9% 1000ML IV PRN (06:25)
[2023-02-15] MEDS ORDERED: HEPARIN 1,000UNITS/ML 10ML VIAL (FOR RADIOLOGY & DIALYSIS ONLY) XX SCH (06:25)
[2023-02-15] MEDS ORDERED: LIDOCAINE 1% SDV 5ML VIAL SC PRN (06:25)
[2023-02-15] MEDS: MIDODRINE 5 MG TAB PO SCH ×3 (07:40→16:06)
[2023-02-15] MEDS: CALCIUM ACETATE 667MG GELCAP PO SCH ×3 (07:40→17:30)
[2023-02-15] MEDS: INSULIN LISPRO (NovoLOG) PER UNIT SC SCH ×4 (07:40→20:58)
[2023-02-15] MEDS: ZINC OXIDE 30.6% CREAM 92GM TUBE (SECURA EPC) TOP SCH (07:41)
[2023-02-15] MEDS ORDERED: IPRATROPIUM 0.5MG/ALBUTEROL 2.5MG INH SOL UD 3ML (DUONEB) NEB PRN (11:10)
[2023-02-15 12:40] VITALS: BP 120/79; TEMP 97.3; O2SAT 96
[2023-02-15] MEDS: PANTOPRAZOLE 40MG VIAL IV SCH (13:16)
[2023-02-15 14:10] VITALS: BP 114/63; TEMP 97.3; O2SAT 96
[2023-02-15 21:00] VITALS: BP 97/49; TEMP 97.5; O2SAT 97
[2023-02-15] MEDS: ACETAMINOPHEN TAB 650MG DOSE (2X325MG) PO PRN (22:24)
[2023-02-15 22:29] VITALS: BP 110/56
[2023-02-16 06:04] VITALS: BP 105/49; TEMP 97.9; O2SAT 97
[2023-02-16] MEDS: HEPARIN SOD (PORCINE) 5000UNITS/ML 1ML VIAL/SYRINGE SC SCH ×3 (06:27→21:00)
[2023-02-16] MEDS: INSULIN LISPRO (NovoLOG) PER UNIT SC SCH ×4 (07:18→21:00)
[2023-02-16] MEDS: CALCIUM ACETATE 667MG GELCAP PO SCH ×3 (07:20→16:57)
[2023-02-16] MEDS: MIDODRINE 5 MG TAB PO SCH ×3 (07:20→15:59)
[2023-02-16] MEDS: IPRATROPIUM 0.5MG/ALBUTEROL 2.5MG INH SOL UD 3ML (DUONEB) NEB SCH ×2 (07:23→19:29)
[2023-02-16] MEDS: ZINC OXIDE 30.6% CREAM 92GM TUBE (SECURA EPC) TOP SCH (09:06)
[2023-02-16] MEDS: ACETAMINOPHEN TAB 650MG DOSE (2X325MG) PO PRN ×2 (11:38→18:39)
[2023-02-16 14:05] VITALS: BP 124/66; TEMP 97.9; O2SAT 95
[2023-02-16] MEDS: PANTOPRAZOLE 40MG VIAL IV SCH (14:40)
[2023-02-16 19:20] VITALS: BP 101/49; TEMP 98.1; O2SAT 97
[2023-02-16] MEDS: MIRTAZAPINE 7.5MG PER 1/2 TABLET PO PRN (21:00)
[2023-02-17] MEDS ORDERED: diphenhydrAMINE 50MG CAP PO ONE
[2023-02-17] MEDS: ACETAMINOPHEN TAB 650MG DOSE (2X325MG) PO PRN ×2 (00:33→21:55)
[2023-02-17 05:12] VITALS: BP 118/53; TEMP 97.7; O2SAT 96
[2023-02-17] MEDS: HEPARIN SOD (PORCINE) 5000UNITS/ML 1ML VIAL/SYRINGE SC SCH ×3 (06:11→21:38)
[2023-02-17] MEDS ORDERED: HEPARIN 1,000UNITS/ML 10ML VIAL (FOR RADIOLOGY & DIALYSIS ONLY) IV PRN (06:25)
[2023-02-17] MEDS ORDERED: SODIUM CHLORIDE 0.9% 1000ML IV PRN (06:25)
[2023-02-17] MEDS ORDERED: LIDOCAINE 1% SDV 5ML VIAL SC PRN (06:25)
[2023-02-17] MEDS ORDERED: HEPARIN 1,000UNITS/ML 10ML VIAL (FOR RADIOLOGY & DIALYSIS ONLY) XX SCH (06:25)
[2023-02-17] MEDS: MIDODRINE 5 MG TAB PO SCH ×3 (06:52→17:05)
[2023-02-17] MEDS: ZINC OXIDE 30.6% CREAM 92GM TUBE (SECURA EPC) TOP SCH (06:52)
[2023-02-17] MEDS: CALCIUM ACETATE 667MG GELCAP PO SCH ×3 (06:52→17:05)
[2023-02-17] MEDS: IPRATROPIUM 0.5MG/ALBUTEROL 2.5MG INH SOL UD 3ML (DUONEB) NEB SCH ×2 (08:00→19:27)
[2023-02-17] MEDS: INSULIN LISPRO (NovoLOG) PER UNIT SC SCH ×4 (08:01→21:38)
[2023-02-17 11:14] LABS: HEMATOCRIT 35.3 % (42.0-52.0); HEMOGLOBIN 11.2 g/dl (13.5-17.5); MEAN CORPUSCULAR HEMOGLOBIN 34.6 pg (27.0-33.0); MEAN CORPUSCULAR HGB CONC 31.7 g/dl (32.0-36.5); PLATELET COUNT, AUTOMATED 163 10^3/uL (150-450); RED BLOOD COUNT 3.24 10^6/uL (4.30-6.10); WHITE BLOOD COUNT 7.3 10^3/uL (4.0-10.0)
[2023-02-17 11:38] LABS: CALCIUM LEVEL 9.2 MG/DL (8.3-10.6); CREATININE FOR GFR 3.18 MG/DL (0.70-1.30); GLOMERULAR FILTRATION RATE 20.1 (>35); POTASSIUM SERUM 3.9 MMOL/L (3.5-5.1)
[2023-02-17] MEDS: PANTOPRAZOLE 40MG VIAL IV SCH (12:58)
[2023-02-17 14:00] VITALS: BP 82/52; TEMP 97.7; O2SAT 95
[2023-02-17 14:44] VITALS: BP 112/55
[2023-02-17 21:00] VITALS: BP 112/53; TEMP 97.9; O2SAT 94
[2023-02-17] MEDS: MIRTAZAPINE 7.5MG PER 1/2 TABLET PO PRN (22:30)
[2023-02-18 04:31] VITALS: BP 100/62; TEMP 97.9; O2SAT 91
[2023-02-18] MEDS: ACETAMINOPHEN TAB 650MG DOSE (2X325MG) PO PRN ×3 (04:42→21:12)
[2023-02-18] MEDS: HEPARIN SOD (PORCINE) 5000UNITS/ML 1ML VIAL/SYRINGE SC SCH ×3 (04:43→20:06)
[2023-02-18] MEDS: IPRATROPIUM 0.5MG/ALBUTEROL 2.5MG INH SOL UD 3ML (DUONEB) NEB SCH ×2 (07:52→19:22)
[2023-02-18] MEDS: INSULIN LISPRO (NovoLOG) PER UNIT SC SCH ×4 (08:27→20:00)
[2023-02-18] MEDS: MIDODRINE 5 MG TAB PO SCH ×3 (08:28→16:56)
[2023-02-18] MEDS: ZINC OXIDE 30.6% CREAM 92GM TUBE (SECURA EPC) TOP SCH (08:28)
[2023-02-18] MEDS: CALCIUM ACETATE 667MG GELCAP PO SCH ×3 (08:28→16:55)
[2023-02-18 10:24] LABS: BASO # 0.1 10^3/uL (0.0-0.2); BASO % 0.8 % (0.0-1.0); EOS # 0.2 10^3/uL (0.0-0.5); EOS % 2.2 % (0.0-3.0); HEMATOCRIT 36.9 % (42.0-52.0); HEMOGLOBIN 11.5 g/dl (13.5-17.5); LYMPH # 1.1 10^3/uL (1.5-5.0); LYMPH % 14.9 % (24.0-44.0); MEAN CORPUSCULAR HEMOGLOBIN 34.1 pg (27.0-33.0); MEAN CORPUSCULAR HGB CONC 31.2 g/dl (32.0-36.5); MEAN CORPUSCULAR VOLUME 109.5 fl (80.0-96.0); MONO # 0.7 10^3/uL (0.0-0.8); NEUTROPHILS # 5.2 10^3/uL (1.5-8.5); NEUTROPHILS % 70.6 % (36.0-66.0); PLATELET COUNT, AUTOMATED 168 10^3/uL (150-450); RED BLOOD COUNT 3.37 10^6/uL (4.30-6.10); WHITE BLOOD COUNT 7.4 10^3/uL (4.0-10.0)
[2023-02-18 10:40] LABS: ERYTHROCYTE SEDIMENTATION RATE 33 mm/hr (0-20)
[2023-02-18 10:48] LABS: C REACTIVE PROTEIN QUANTITATIV 0.8 MG/DL (<1.0)
[2023-02-18 10:49] LABS: MB/CK RELATIVE INDEX 3.48 (< OR =4)
[2023-02-18 10:55] LABS: PROCALCITONIN 0.57 ng/ml
[2023-02-18 10:56] LABS: ALBUMIN 3.6 G/DL (3.2-5.2); BILIRUBIN,TOTAL 0.4 MG/DL (0.3-1.2); CALCIUM LEVEL 9.1 MG/DL (8.3-10.6); CREATININE FOR GFR 4.77 MG/DL (0.70-1.30); GLOMERULAR FILTRATION RATE 12.6 (>35); POTASSIUM SERUM 4.9 MMOL/L (3.5-5.1)
[2023-02-18 14:09] VITALS: BP 94/44; TEMP 98.4; O2SAT 96
[2023-02-18] MEDS: PANTOPRAZOLE 40MG VIAL IV SCH (14:42)
[2023-02-18 14:45] VITALS: BP 96/56
[2023-02-18 20:20] VITALS: BP 109/57; TEMP 97.7; O2SAT 94
[2023-02-18] MEDS: LOPERAMIDE 2 MG CAPLET PO PRN (21:11)
[2023-02-19 05:23] VITALS: BP 111/55; TEMP 98.2; O2SAT 94
[2023-02-19] MEDS: ACETAMINOPHEN TAB 650MG DOSE (2X325MG) PO PRN (06:04)
[2023-02-19] MEDS: HEPARIN SOD (PORCINE) 5000UNITS/ML 1ML VIAL/SYRINGE SC SCH ×3 (06:04→21:26)
[2023-02-19] MEDS: MIDODRINE 5 MG TAB PO SCH ×3 (06:05→16:22)
[2023-02-19] MEDS: CALCIUM ACETATE 667MG GELCAP PO SCH ×3 (06:05→16:24)
[2023-02-19 06:08] LABS: BASO # 0.1 10^3/uL (0.0-0.2); BASO % 0.7 % (0.0-1.0); EOS # 0.1 10^3/uL (0.0-0.5); EOS % 1.7 % (0.0-3.0); HEMOGLOBIN 10.8 g/dl (13.5-17.5); LYMPH # 1.3 10^3/uL (1.5-5.0); LYMPH % 16.6 % (24.0-44.0); MEAN CORPUSCULAR HEMOGLOBIN 34.8 pg (27.0-33.0); MEAN CORPUSCULAR HGB CONC 31.8 g/dl (32.0-36.5); MEAN CORPUSCULAR VOLUME 109.7 fl (80.0-96.0); MONO # 0.8 10^3/uL (0.0-0.8); MONO % 10.7 % (2.0-8.0); NEUTROPHILS # 5.2 10^3/uL (1.5-8.5); NEUTROPHILS % 68.6 % (36.0-66.0); PLATELET COUNT, AUTOMATED 169 10^3/uL (150-450); WHITE BLOOD COUNT 7.6 10^3/uL (4.0-10.0)
[2023-02-19 06:54] LABS: ALBUMIN 3.4 G/DL (3.2-5.2); BILIRUBIN,TOTAL 0.3 MG/DL (0.3-1.2); CALCIUM LEVEL 8.8 MG/DL (8.3-10.6); CREATININE FOR GFR 6.13 MG/DL (0.70-1.30); GLOMERULAR FILTRATION RATE 9.4 (>35); POTASSIUM SERUM 5.3 MMOL/L (3.5-5.1); TOTAL PROTEIN 6.6 G/DL (5.7-8.2)
[2023-02-19] MEDS: INSULIN LISPRO (NovoLOG) PER UNIT SC SCH ×4 (06:59→21:00)
[2023-02-19] MEDS ORDERED: LIDOCAINE 1% SDV 5ML VIAL SC PRN (07:00)
[2023-02-19] MEDS ORDERED: HEPARIN 1,000UNITS/ML 10ML VIAL (FOR RADIOLOGY & DIALYSIS ONLY) IV PRN (07:00)
[2023-02-19] MEDS ORDERED: SODIUM CHLORIDE 0.9% 1000ML IV PRN (07:00)
[2023-02-19] MEDS ORDERED: HEPARIN 1,000UNITS/ML 10ML VIAL (FOR RADIOLOGY & DIALYSIS ONLY) XX SCH (07:00)
[2023-02-19] MEDS: IPRATROPIUM 0.5MG/ALBUTEROL 2.5MG INH SOL UD 3ML (DUONEB) NEB SCH ×2 (08:00→19:50)
[2023-02-19] MEDS: ZINC OXIDE 30.6% CREAM 92GM TUBE (SECURA EPC) TOP SCH (09:00)
[2023-02-19] MEDS: PANTOPRAZOLE 40MG VIAL IV SCH (13:10)
[2023-02-19 14:00] VITALS: BP 104/53; TEMP 97.5; O2SAT 95
[2023-02-19 21:50] VITALS: BP 103/52; TEMP 97.7; O2SAT 94
[2023-02-20] MEDS: ACETAMINOPHEN TAB 650MG DOSE (2X325MG) PO PRN ×3 (01:52→20:10)
[2023-02-20 04:15] VITALS: BP 109/60; TEMP 97.7; O2SAT 96
[2023-02-20] MEDS: HEPARIN SOD (PORCINE) 5000UNITS/ML 1ML VIAL/SYRINGE SC SCH ×3 (05:57→20:10)
[2023-02-20 06:30] LABS: BASO % 0.5 % (0.0-1.0); EOS # 0.2 10^3/uL (0.0-0.5); EOS % 1.9 % (0.0-3.0); HEMATOCRIT 33.6 % (42.0-52.0); HEMOGLOBIN 10.6 g/dl (13.5-17.5); LYMPH # 1.2 10^3/uL (1.5-5.0); MEAN CORPUSCULAR HEMOGLOBIN 34.6 pg (27.0-33.0); MEAN CORPUSCULAR HGB CONC 31.5 g/dl (32.0-36.5); MEAN CORPUSCULAR VOLUME 109.8 fl (80.0-96.0); MONO # 0.8 10^3/uL (0.0-0.8); MONO % 9.8 % (2.0-8.0); NEUTROPHILS # 5.7 10^3/uL (1.5-8.5); NEUTROPHILS % 71.4 % (36.0-66.0); PLATELET COUNT, AUTOMATED 147 10^3/uL (150-450); RED BLOOD COUNT 3.06 10^6/uL (4.30-6.10)
[2023-02-20 06:51] LABS: ALBUMIN 3.4 G/DL (3.2-5.2); BILIRUBIN,TOTAL 0.3 MG/DL (0.3-1.2); CALCIUM LEVEL 8.5 MG/DL (8.3-10.6); CREATININE FOR GFR 4.71 MG/DL (0.70-1.30); GLOMERULAR FILTRATION RATE 12.8 (>35); POTASSIUM SERUM 4.9 MMOL/L (3.5-5.1); TOTAL PROTEIN 6.7 G/DL (5.7-8.2)
[2023-02-20] MEDS: INSULIN LISPRO (NovoLOG) PER UNIT SC SCH ×4 (07:30→20:06)
[2023-02-20] MEDS: IPRATROPIUM 0.5MG/ALBUTEROL 2.5MG INH SOL UD 3ML (DUONEB) NEB SCH ×2 (08:25→20:05)
[2023-02-20] MEDS: CALCIUM ACETATE 667MG GELCAP PO SCH ×3 (08:46→17:31)
[2023-02-20] MEDS: MIDODRINE 5 MG TAB PO SCH ×3 (08:49→17:31)
[2023-02-20] MEDS: ZINC OXIDE 30.6% CREAM 92GM TUBE (SECURA EPC) TOP SCH (08:50)
[2023-02-20] MEDS: PANTOPRAZOLE 40MG VIAL IV SCH (13:11)
[2023-02-20 14:00] VITALS: BP 123/67; TEMP 97.9; O2SAT 94
[2023-02-20] MEDS: LOPERAMIDE 2 MG CAPLET PO PRN ×2 (17:34→20:10)
[2023-02-21 05:34] LABS: BASO # 0.1 10^3/uL (0.0-0.2); BASO % 0.6 % (0.0-1.0); EOS # 0.1 10^3/uL (0.0-0.5); EOS % 1.4 % (0.0-3.0); HEMATOCRIT 34.3 % (42.0-52.0); HEMOGLOBIN 10.8 g/dl (13.5-17.5); LYMPH # 1.3 10^3/uL (1.5-5.0); LYMPH % 15.4 % (24.0-44.0); MEAN CORPUSCULAR HEMOGLOBIN 34.4 pg (27.0-33.0); MEAN CORPUSCULAR HGB CONC 31.5 g/dl (32.0-36.5); MEAN CORPUSCULAR VOLUME 109.2 fl (80.0-96.0); MONO # 0.9 10^3/uL (0.0-0.8); MONO % 10.4 % (2.0-8.0); NEUTROPHILS # 5.9 10^3/uL (1.5-8.5); NEUTROPHILS % 71.1 % (36.0-66.0); PLATELET COUNT, AUTOMATED 166 10^3/uL (150-450); RED BLOOD COUNT 3.14 10^6/uL (4.30-6.10); WHITE BLOOD COUNT 8.4 10^3/uL (4.0-10.0)
[2023-02-21] MEDS: HEPARIN SOD (PORCINE) 5000UNITS/ML 1ML VIAL/SYRINGE SC SCH ×3 (05:53→20:10)
[2023-02-21] MEDS: LOPERAMIDE 2 MG CAPLET PO PRN ×3 (05:53→20:13)
[2023-02-21] MEDS: ACETAMINOPHEN TAB 650MG DOSE (2X325MG) PO PRN ×2 (05:53→20:11)
[2023-02-21 05:58] VITALS: BP 119/63; TEMP 97.7; O2SAT 96
[2023-02-21 06:21] LABS: ALBUMIN 3.4 G/DL (3.2-5.2); BILIRUBIN,TOTAL 0.3 MG/DL (0.3-1.2); CALCIUM LEVEL 8.5 MG/DL (8.3-10.6); CREATININE FOR GFR 6.13 MG/DL (0.70-1.30); GLOMERULAR FILTRATION RATE 9.4 (>35); POTASSIUM SERUM 5.3 MMOL/L (3.5-5.1); TOTAL PROTEIN 6.7 G/DL (5.7-8.2)
[2023-02-21] MEDS ORDERED: HEPARIN 1,000UNITS/ML 10ML VIAL (FOR RADIOLOGY & DIALYSIS ONLY) IV PRN (07:20)
[2023-02-21] MEDS ORDERED: HEPARIN 1,000UNITS/ML 10ML VIAL (FOR RADIOLOGY & DIALYSIS ONLY) XX SCH (07:20)
[2023-02-21] MEDS ORDERED: SODIUM CHLORIDE 0.9% 1000ML IV PRN (07:20)
[2023-02-21] MEDS ORDERED: LIDOCAINE 1% SDV 5ML VIAL SC PRN (07:20)
[2023-02-21] MEDS: INSULIN LISPRO (NovoLOG) PER UNIT SC SCH ×4 (07:30→20:11)
[2023-02-21] MEDS: CALCIUM ACETATE 667MG GELCAP PO SCH ×3 (07:47→16:50)
[2023-02-21] MEDS: MIDODRINE 5 MG TAB PO SCH ×3 (07:47→16:50)
[2023-02-21] MEDS: ZINC OXIDE 30.6% CREAM 92GM TUBE (SECURA EPC) TOP SCH (09:00)
[2023-02-21] MEDS ORDERED: ALPRAZolam 0.5 MG TAB PO ONE (09:35)
[2023-02-21 11:38] LABS: PHOSPHORUS LEVEL 2.7 MG/DL (2.4-5.1)
[2023-02-21] MEDS: IPRATROPIUM 0.5MG/ALBUTEROL 2.5MG INH SOL UD 3ML (DUONEB) NEB SCH ×2 (11:42→19:21)
[2023-02-21 14:00] VITALS: BP 123/64; TEMP 97.7; O2SAT 96
[2023-02-21] MEDS: PANTOPRAZOLE 40MG VIAL IV SCH (14:20)
[2023-02-21] MEDS: MIRTAZAPINE 7.5MG PER 1/2 TABLET PO PRN (20:11)
[2023-02-21 21:07] VITALS: BP 117/61; TEMP 97.5; O2SAT 95
[2023-02-22 05:59] LABS: BASO # 0.1 10^3/uL (0.0-0.2); BASO % 0.6 % (0.0-1.0); EOS # 0.2 10^3/uL (0.0-0.5); EOS % 1.9 % (0.0-3.0); HEMOGLOBIN 10.7 g/dl (13.5-17.5); LYMPH # 1.1 10^3/uL (1.5-5.0); LYMPH % 14.1 % (24.0-44.0); MEAN CORPUSCULAR HEMOGLOBIN 34.4 pg (27.0-33.0); MEAN CORPUSCULAR HGB CONC 31.5 g/dl (32.0-36.5); MEAN CORPUSCULAR VOLUME 109.3 fl (80.0-96.0); MONO # 0.8 10^3/uL (0.0-0.8); MONO % 9.6 % (2.0-8.0); NEUTROPHILS # 5.8 10^3/uL (1.5-8.5); NEUTROPHILS % 72.7 % (36.0-66.0); PLATELET COUNT, AUTOMATED 169 10^3/uL (150-450); RED BLOOD COUNT 3.11 10^6/uL (4.30-6.10); WHITE BLOOD COUNT 7.9 10^3/uL (4.0-10.0)
[2023-02-22 06:00] VITALS: BP 103/54; TEMP 97.3; O2SAT 95
[2023-02-22] MEDS ORDERED: SODIUM CHLORIDE 0.9% 1000ML IV PRN (06:00)
[2023-02-22] MEDS ORDERED: HEPARIN 1,000UNITS/ML 10ML VIAL (FOR RADIOLOGY & DIALYSIS ONLY) XX SCH (06:00)
[2023-02-22] MEDS ORDERED: LIDOCAINE 1% SDV 5ML VIAL SC PRN (06:00)
[2023-02-22] MEDS: MIDODRINE 5 MG TAB PO SCH ×3 (06:17→16:27)
[2023-02-22] MEDS: CALCIUM ACETATE 667MG GELCAP PO SCH ×3 (06:17→16:27)
[2023-02-22] MEDS: HEPARIN SOD (PORCINE) 5000UNITS/ML 1ML VIAL/SYRINGE SC SCH ×3 (06:17→20:51)
[2023-02-22] MEDS: EMLA CREAM 5GM TUBE (LIDOCAINE/PRILOCAINE) TOP SCH (06:18)
[2023-02-22 06:32] LABS: ALBUMIN 3.5 G/DL (3.2-5.2); BILIRUBIN,TOTAL 0.3 MG/DL (0.3-1.2); CALCIUM LEVEL 8.7 MG/DL (8.3-10.6); CREATININE FOR GFR 5.86 MG/DL (0.70-1.30); GLOMERULAR FILTRATION RATE 9.9 (>35); POTASSIUM SERUM 5.5 MMOL/L (3.5-5.1); TOTAL PROTEIN 6.9 G/DL (5.7-8.2)
[2023-02-22] MEDS: INSULIN LISPRO (NovoLOG) PER UNIT SC SCH ×4 (07:30→20:44)
[2023-02-22] MEDS: ACETAMINOPHEN TAB 650MG DOSE (2X325MG) PO PRN (07:31)
[2023-02-22] MEDS: IPRATROPIUM 0.5MG/ALBUTEROL 2.5MG INH SOL UD 3ML (DUONEB) NEB SCH ×2 (07:38→19:05)
[2023-02-22 14:03] VITALS: BP 102/50; TEMP 97.3; O2SAT 99
[2023-02-22] MEDS: PANTOPRAZOLE 40MG TAB (PROTONIX) PO SCH (15:17)
[2023-02-22] MEDS: ZINC OXIDE 30.6% CREAM 92GM TUBE (SECURA EPC) TOP SCH (16:29)
[2023-02-22 21:29] VITALS: BP 116/72; TEMP 97.7; O2SAT 97
[2023-02-23] MEDS: HEPARIN SOD (PORCINE) 5000UNITS/ML 1ML VIAL/SYRINGE SC SCH ×3 (05:25→19:50)
[2023-02-23 05:51] LABS: BASO % 0.5 % (0.0-1.0); EOS # 0.1 10^3/uL (0.0-0.5); EOS % 1.5 % (0.0-3.0); HEMATOCRIT 33.9 % (42.0-52.0); HEMOGLOBIN 10.8 g/dl (13.5-17.5); LYMPH # 1.2 10^3/uL (1.5-5.0); LYMPH % 15.2 % (24.0-44.0); MEAN CORPUSCULAR HEMOGLOBIN 34.5 pg (27.0-33.0); MEAN CORPUSCULAR HGB CONC 31.9 g/dl (32.0-36.5); MEAN CORPUSCULAR VOLUME 108.3 fl (80.0-96.0); MONO # 0.8 10^3/uL (0.0-0.8); MONO % 10.1 % (2.0-8.0); NEUTROPHILS # 5.7 10^3/uL (1.5-8.5); NEUTROPHILS % 71.7 % (36.0-66.0); PLATELET COUNT, AUTOMATED 141 10^3/uL (150-450); RED BLOOD COUNT 3.13 10^6/uL (4.30-6.10); WHITE BLOOD COUNT 7.9 10^3/uL (4.0-10.0)
[2023-02-23 06:00] VITALS: BP 106/48; TEMP 97.6; O2SAT 97
[2023-02-23 06:24] LABS: ALBUMIN 3.4 G/DL (3.2-5.2); BILIRUBIN,TOTAL 0.3 MG/DL (0.3-1.2); CALCIUM LEVEL 8.5 MG/DL (8.3-10.6); CREATININE FOR GFR 4.93 MG/DL (0.70-1.30); GLOMERULAR FILTRATION RATE 12.1 (>35); POTASSIUM SERUM 4.7 MMOL/L (3.5-5.1); TOTAL PROTEIN 6.7 G/DL (5.7-8.2)
[2023-02-23] MEDS: IPRATROPIUM 0.5MG/ALBUTEROL 2.5MG INH SOL UD 3ML (DUONEB) NEB SCH ×2 (07:16→19:43)
[2023-02-23] MEDS: INSULIN LISPRO (NovoLOG) PER UNIT SC SCH ×4 (07:54→20:42)
[2023-02-23] MEDS: CALCIUM ACETATE 667MG GELCAP PO SCH ×3 (07:55→17:01)
[2023-02-23] MEDS: MIDODRINE 5 MG TAB PO SCH ×3 (08:04→17:01)
[2023-02-23] MEDS: PANTOPRAZOLE 40MG TAB (PROTONIX) PO SCH (08:04)
[2023-02-23] MEDS: ZINC OXIDE 30.6% CREAM 92GM TUBE (SECURA EPC) TOP SCH (09:00)
[2023-02-23 14:37] VITALS: BP 108/48; TEMP 97.5; O2SAT 96
[2023-02-23 22:00] VITALS: BP 109/50; TEMP 97.6; O2SAT 97
[2023-02-23] MEDS: ACETAMINOPHEN TAB 650MG DOSE (2X325MG) PO PRN (23:15)
[2023-02-24 05:55] LABS: BASO % 0.4 % (0.0-1.0); EOS # 0.1 10^3/uL (0.0-0.5); EOS % 1.6 % (0.0-3.0); HEMATOCRIT 32.7 % (42.0-52.0); HEMOGLOBIN 10.3 g/dl (13.5-17.5); LYMPH # 1.2 10^3/uL (1.5-5.0); MEAN CORPUSCULAR HGB CONC 31.5 g/dl (32.0-36.5); MEAN CORPUSCULAR VOLUME 107.9 fl (80.0-96.0); MONO # 0.9 10^3/uL (0.0-0.8); MONO % 10.3 % (2.0-8.0); NEUTROPHILS % 72.3 % (36.0-66.0); PLATELET COUNT, AUTOMATED 154 10^3/uL (150-450); RED BLOOD COUNT 3.03 10^6/uL (4.30-6.10); WHITE BLOOD COUNT 8.3 10^3/uL (4.0-10.0)
[2023-02-24] MEDS: HEPARIN SOD (PORCINE) 5000UNITS/ML 1ML VIAL/SYRINGE SC SCH ×3 (06:00→22:17)
[2023-02-24 06:21] LABS: ALBUMIN 3.4 G/DL (3.2-5.2); BILIRUBIN,TOTAL 0.2 MG/DL (0.3-1.2); CALCIUM LEVEL 8.6 MG/DL (8.3-10.6); CREATININE FOR GFR 6.46 MG/DL (0.70-1.30); GLOMERULAR FILTRATION RATE 8.9 (>35); POTASSIUM SERUM 4.8 MMOL/L (3.5-5.1); TOTAL PROTEIN 6.6 G/DL (5.7-8.2)
[2023-02-24] MEDS: ACETAMINOPHEN TAB 650MG DOSE (2X325MG) PO PRN ×2 (06:50→22:22)
[2023-02-24] MEDS: IPRATROPIUM 0.5MG/ALBUTEROL 2.5MG INH SOL UD 3ML (DUONEB) NEB SCH ×2 (07:29→20:17)
[2023-02-24] MEDS: CALCIUM ACETATE 667MG GELCAP PO SCH ×3 (07:35→17:04)
[2023-02-24] MEDS: PANTOPRAZOLE 40MG TAB (PROTONIX) PO SCH (07:35)
[2023-02-24] MEDS: MIDODRINE 5 MG TAB PO SCH ×3 (07:35→17:04)
[2023-02-24] MEDS: INSULIN LISPRO (NovoLOG) PER UNIT SC SCH ×4 (07:36→20:50)
[2023-02-24] MEDS: ZINC OXIDE 30.6% CREAM 92GM TUBE (SECURA EPC) TOP SCH (07:37)
[2023-02-24 14:00] VITALS: BP 118/62; TEMP 97.3; O2SAT 93
[2023-02-24 20:12] VITALS: BP 121/64; TEMP 96.8; O2SAT 92
[2023-02-24] MEDS: MIRTAZAPINE 7.5MG PER 1/2 TABLET PO PRN (22:27)
[2023-02-25 05:56] LABS: BASO % 0.4 % (0.0-1.0); EOS # 0.1 10^3/uL (0.0-0.5); EOS % 1.4 % (0.0-3.0); HEMATOCRIT 32.8 % (42.0-52.0); HEMOGLOBIN 10.3 g/dl (13.5-17.5); LYMPH # 1.4 10^3/uL (1.5-5.0); LYMPH % 14.8 % (24.0-44.0); MEAN CORPUSCULAR HEMOGLOBIN 33.8 pg (27.0-33.0); MEAN CORPUSCULAR HGB CONC 31.4 g/dl (32.0-36.5); MEAN CORPUSCULAR VOLUME 107.5 fl (80.0-96.0); MONO # 0.9 10^3/uL (0.0-0.8); MONO % 9.7 % (2.0-8.0); NEUTROPHILS # 6.8 10^3/uL (1.5-8.5); NEUTROPHILS % 72.5 % (36.0-66.0); PLATELET COUNT, AUTOMATED 180 10^3/uL (150-450); RED BLOOD COUNT 3.05 10^6/uL (4.30-6.10); WHITE BLOOD COUNT 9.3 10^3/uL (4.0-10.0)
[2023-02-25] MEDS ORDERED: HEPARIN 1,000UNITS/ML 10ML VIAL (FOR RADIOLOGY & DIALYSIS ONLY) XX SCH (06:00)
[2023-02-25] MEDS ORDERED: HEPARIN 1,000UNITS/ML 10ML VIAL (FOR RADIOLOGY & DIALYSIS ONLY) IV PRN (06:00)
[2023-02-25] MEDS ORDERED: LIDOCAINE 1% SDV 5ML VIAL SC PRN (06:00)
[2023-02-25] MEDS ORDERED: SODIUM CHLORIDE 0.9% 1000ML IV PRN (06:00)
[2023-02-25] MEDS: HEPARIN SOD (PORCINE) 5000UNITS/ML 1ML VIAL/SYRINGE SC SCH ×3 (06:20→20:12)
[2023-02-25] MEDS: CALCIUM ACETATE 667MG GELCAP PO SCH ×3 (06:20→17:18)
[2023-02-25] MEDS: PANTOPRAZOLE 40MG TAB (PROTONIX) PO SCH (06:20)
[2023-02-25 06:21] VITALS: BP 119/65; TEMP 96.8; O2SAT 96
[2023-02-25 06:21] LABS: ALBUMIN 3.4 G/DL (3.2-5.2); BILIRUBIN,TOTAL 0.2 MG/DL (0.3-1.2); CALCIUM LEVEL 8.5 MG/DL (8.3-10.6); CREATININE FOR GFR 7.49 MG/DL (0.70-1.30); GLOMERULAR FILTRATION RATE 7.5 (>35); POTASSIUM SERUM 5.6 MMOL/L (3.5-5.1); TOTAL PROTEIN 6.6 G/DL (5.7-8.2)
[2023-02-25] MEDS: MIDODRINE 5 MG TAB PO SCH ×3 (06:21→17:18)
[2023-02-25] MEDS: ZINC OXIDE 30.6% CREAM 92GM TUBE (SECURA EPC) TOP SCH (06:21)
[2023-02-25] MEDS: EMLA CREAM 5GM TUBE (LIDOCAINE/PRILOCAINE) TOP SCH (06:26)
[2023-02-25] MEDS: IPRATROPIUM 0.5MG/ALBUTEROL 2.5MG INH SOL UD 3ML (DUONEB) NEB SCH ×2 (08:00→20:28)
[2023-02-25] MEDS: INSULIN LISPRO (NovoLOG) PER UNIT SC SCH ×4 (08:10→21:00)
[2023-02-25 14:30] VITALS: BP 110/82; TEMP 97.5; O2SAT 92
[2023-02-25] MEDS: MIRTAZAPINE 7.5MG PER 1/2 TABLET PO PRN (20:13)
[2023-02-25] MEDS: ACETAMINOPHEN TAB 650MG DOSE (2X325MG) PO PRN (20:13)
[2023-02-25 20:43] VITALS: BP 115/55; TEMP 97.5
[2023-02-26] MEDS: HEPARIN SOD (PORCINE) 5000UNITS/ML 1ML VIAL/SYRINGE SC SCH ×3 (05:33→21:28)
[2023-02-26] MEDS: ACETAMINOPHEN TAB 650MG DOSE (2X325MG) PO PRN ×4 (05:34→21:28)
[2023-02-26 06:55] VITALS: BP 98/45; TEMP 97.7; O2SAT 98
[2023-02-26] MEDS: IPRATROPIUM 0.5MG/ALBUTEROL 2.5MG INH SOL UD 3ML (DUONEB) NEB SCH ×2 (08:45→20:54)
[2023-02-26] MEDS: ZINC OXIDE 30.6% CREAM 92GM TUBE (SECURA EPC) TOP SCH (09:00)
[2023-02-26] MEDS: CALCIUM ACETATE 667MG GELCAP PO SCH ×3 (09:27→16:56)
[2023-02-26] MEDS: MIDODRINE 5 MG TAB PO SCH ×3 (09:27→16:57)
[2023-02-26] MEDS: PANTOPRAZOLE 40MG TAB (PROTONIX) PO SCH (09:27)
[2023-02-26] MEDS: INSULIN LISPRO (NovoLOG) PER UNIT SC SCH ×4 (09:29→21:00)
[2023-02-26 15:20] VITALS: TEMP 98.1
[2023-02-26 15:21] VITALS: BP 97/46; TEMP 98.1; O2SAT 92
[2023-02-26 20:31] VITALS: BP 103/50; TEMP 97.5; O2SAT 92
[2023-02-26] MEDS: LIDOCAINE 5% (LIDODERM) PATCH TD PRN (21:28)
[2023-02-26] MEDS: MIRTAZAPINE 7.5MG PER 1/2 TABLET PO PRN (23:24)
[2023-02-27 06:25] VITALS: BP 108/56; TEMP 97.7; O2SAT 95
[2023-02-27] MEDS: PANTOPRAZOLE 40MG TAB (PROTONIX) PO SCH (06:27)
[2023-02-27] MEDS: MIDODRINE 5 MG TAB PO SCH ×3 (06:27→16:46)
[2023-02-27] MEDS: HEPARIN SOD (PORCINE) 5000UNITS/ML 1ML VIAL/SYRINGE SC SCH ×3 (06:28→22:32)
[2023-02-27] MEDS: CALCIUM ACETATE 667MG GELCAP PO SCH ×3 (06:28→16:52)
[2023-02-27] MEDS: ZINC OXIDE 30.6% CREAM 92GM TUBE (SECURA EPC) TOP SCH (07:05)
[2023-02-27] MEDS: INSULIN LISPRO (NovoLOG) PER UNIT SC SCH ×4 (07:30→20:09)
[2023-02-27] MEDS: IPRATROPIUM 0.5MG/ALBUTEROL 2.5MG INH SOL UD 3ML (DUONEB) NEB SCH ×2 (07:55→20:45)
[2023-02-27] MEDS ORDERED: HEPARIN 1,000UNITS/ML 10ML VIAL (FOR RADIOLOGY & DIALYSIS ONLY) XX SCH (08:10)
[2023-02-27] MEDS ORDERED: LIDOCAINE 1% SDV 5ML VIAL SC PRN (08:10)
[2023-02-27] MEDS ORDERED: HEPARIN 1,000UNITS/ML 10ML VIAL (FOR RADIOLOGY & DIALYSIS ONLY) IV PRN (08:10)
[2023-02-27] MEDS ORDERED: SODIUM CHLORIDE 0.9% 1000ML IV PRN (08:10)
[2023-02-27 10:05] VITALS: BP 106/54; TEMP 97.7
[2023-02-27] MEDS ORDERED: EMLA CREAM 5GM TUBE (LIDOCAINE/PRILOCAINE) TOP ONE (10:05)
[2023-02-27 15:03] VITALS: BP 102/50; TEMP 97.5; O2SAT 91
[2023-02-27 20:07] VITALS: BP 103/42; TEMP 97.7; O2SAT 96
[2023-02-27] MEDS: MIRTAZAPINE 7.5MG PER 1/2 TABLET PO PRN (20:09)
[2023-02-27] MEDS: LIDOCAINE 5% (LIDODERM) PATCH TD PRN (20:09)
[2023-02-27] MEDS: ACETAMINOPHEN TAB 650MG DOSE (2X325MG) PO PRN (20:09)
[2023-02-27 20:53] VITALS: BP 110/62; TEMP 97.6; O2SAT 96
[2023-02-28] MEDS: HEPARIN SOD (PORCINE) 5000UNITS/ML 1ML VIAL/SYRINGE SC SCH ×3 (05:52→20:20)
[2023-02-28 06:40] VITALS: BP 116/57; TEMP 97.3; O2SAT 92
[2023-02-28] MEDS: IPRATROPIUM 0.5MG/ALBUTEROL 2.5MG INH SOL UD 3ML (DUONEB) NEB SCH ×2 (08:04→20:36)
[2023-02-28] MEDS: PANTOPRAZOLE 40MG TAB (PROTONIX) PO SCH (08:52)
[2023-02-28] MEDS: MIDODRINE 5 MG TAB PO SCH ×3 (08:52→17:03)
[2023-02-28] MEDS: LIDOCAINE 5% (LIDODERM) PATCH TD PRN (08:52)
[2023-02-28] MEDS: INSULIN LISPRO (NovoLOG) PER UNIT SC SCH ×4 (08:52→20:19)
[2023-02-28] MEDS: ZINC OXIDE 30.6% CREAM 92GM TUBE (SECURA EPC) TOP SCH (08:53)
[2023-02-28] MEDS: CALCIUM ACETATE 667MG GELCAP PO SCH ×3 (08:53→17:03)
[2023-02-28 14:16] VITALS: BP 120/64; TEMP 97.7; O2SAT 98
[2023-02-28 20:33] VITALS: BP 105/58; TEMP 97.7; O2SAT 91
[2023-03-01] MEDS: MIDODRINE 5 MG TAB PO SCH ×3 (05:48→16:27)
[2023-03-01] MEDS: HEPARIN SOD (PORCINE) 5000UNITS/ML 1ML VIAL/SYRINGE SC SCH ×2 (05:48→14:00)
[2023-03-01] MEDS: EMLA CREAM 5GM TUBE (LIDOCAINE/PRILOCAINE) TOP SCH (05:49)
[2023-03-01] MEDS: PANTOPRAZOLE 40MG TAB (PROTONIX) PO SCH (05:49)
[2023-03-01] MEDS: CALCIUM ACETATE 667MG GELCAP PO SCH ×3 (05:49→16:29)
[2023-03-01] MEDS ORDERED: HEPARIN 1,000UNITS/ML 10ML VIAL (FOR RADIOLOGY & DIALYSIS ONLY) XX SCH (06:00)
[2023-03-01] MEDS ORDERED: SODIUM CHLORIDE 0.9% 1000ML IV PRN (06:00)
[2023-03-01] MEDS: INSULIN LISPRO (NovoLOG) PER UNIT SC SCH ×3 (07:30→17:40)
[2023-03-01] MEDS: ZINC OXIDE 30.6% CREAM 92GM TUBE (SECURA EPC) TOP SCH (09:00)
[2023-03-01] MEDS: IPRATROPIUM 0.5MG/ALBUTEROL 2.5MG INH SOL UD 3ML (DUONEB) NEB SCH (09:28)
[2023-03-01 14:00] VITALS: BP 86/38; TEMP 98.2; O2SAT 95
[2023-03-01] MEDS: ACETAMINOPHEN TAB 650MG DOSE (2X325MG) PO PRN (16:28)
[2023-03-01] MEDS: LIDOCAINE 5% (LIDODERM) PATCH TD PRN (16:33)
== END 2023-03-01 18:30 | disposition left against medical advice (07) | DRG 640 ==
LOC: M ED 07:55 → M ED INP 12:14 → M ICU 13:06 → M MS4PR 02-13 20:08 → M MS5PR 02-15 12:50
PROVIDERS: ADMIT Internal Medicine Critical Care Medicine; ATTEND General Practice
PROC: 5A1D70Z Performance of Urinary Filtration, Intermittent, Less than 6 Hours Per Day (ICD-10-PCS; principal; 2023-02-11)
DX: E87.79 Other fluid overload (principal); N18.6 End stage renal disease; J96.22 Acute and chronic respiratory failure with hypercapnia; G93.41 Metabolic encephalopathy; I13.2 Hypertensive heart and chronic kidney disease with heart failure and with stage 5 chronic kidney disease, or end stage renal disease; J96.10 Chronic respiratory failure, unspecified whether with hypoxia or hypercapnia; J81.1 Chronic pulmonary edema; I50.22 Chronic systolic (congestive) heart failure; E87.29 Other acidosis; Z99.2 Dependence on renal dialysis; M10.9 Gout, unspecified; E78.5 Hyperlipidemia, unspecified; N25.0 Renal osteodystrophy; I27.20 Pulmonary hypertension, unspecified; J44.9 Chronic obstructive pulmonary disease, unspecified; G47.33 Obstructive sleep apnea (adult) (pediatric); E87.5 Hyperkalemia; K74.60 Unspecified cirrhosis of liver; D64.9 Anemia, unspecified; I25.10 Atherosclerotic heart disease of native coronary artery without angina pectoris; E11.22 Type 2 diabetes mellitus with diabetic chronic kidney disease; I95.3 Hypotension of hemodialysis; K21.9 Gastro-esophageal reflux disease without esophagitis; Z95.810 Presence of automatic (implantable) cardiac defibrillator; Z87.891 Personal history of nicotine dependence; Z95.5 Presence of coronary angioplasty implant and graft; Z79.82 Long term (current) use of aspirin; Z79.899 Other long term (current) drug therapy; Z20.822 Contact with and (suspected) exposure to COVID-19

== ENCOUNTER 2023-03-24 05:58 | Inpatient (IN) | payer MEDICARE ==
[~2023-03-24] VITALS: Ht 177.8 cm; Wt 91.0 kg
[2023-03-24] VITALS (34 sets, daily range): BP systolic 87–142; BP diastolic 46–61; TEMP 96.9–97.2; O2SAT 92–100
[~2023-03-24 05:58] MED LIST changes: +IPRA3SP NARES
[2023-03-24] MEDS ORDERED: NS 500 ML IV ONE (07:10)
[2023-03-24] MEDS ORDERED: ISOVUE-370 76% 100ML VIAL As Ordered ONE (07:12)
[2023-03-24 07:35] LABS: BASO % 0.3 % (0.0-1.0); EOS % 0.2 % (0.0-3.0); HEMATOCRIT 37.2 % (42.0-52.0); HEMOGLOBIN 11.7 g/dl (13.5-17.5); LYMPH # 0.5 10^3/uL (1.5-5.0); LYMPH % 4.1 % (24.0-44.0); MEAN CORPUSCULAR HEMOGLOBIN 34.5 pg (27.0-33.0); MEAN CORPUSCULAR HGB CONC 31.5 g/dl (32.0-36.5); MEAN CORPUSCULAR VOLUME 109.7 fl (80.0-96.0); MONO # 0.6 10^3/uL (0.0-0.8); MONO % 5.1 % (2.0-8.0); NEUTROPHILS % 88.4 % (36.0-66.0); PLATELET COUNT, AUTOMATED 212 10^3/uL (150-450); RED BLOOD COUNT 3.39 10^6/uL (4.30-6.10); WHITE BLOOD COUNT 11.3 10^3/uL (4.0-10.0)
[2023-03-24 07:36] LABS: VENOUS BASE EXCESS -13.5 (-2.0-2.0); VENOUS HCO3 17.5 MMOL/L (23.0-27.0); VENOUS O2 SATURATION 69.7 % (60.0-80.0); VENOUS PARTIAL PRESSURE CO2 65.3 mmHg (38.0-50.0); VENOUS PARTIAL PRESSURE O2 46.9 mmHg (30.0-50.0); VENOUS PH 7.045 UNITS (7.330-7.430); VENOUS STANDARD HCO3 13.6 MMOL/L; VENOUS TOTAL CO2 19.5 MMOL/L (24.0-28.0)
[2023-03-24 07:47] LABS: INR 1.47; PARTIAL THROMBOPLASTIN TIME 35.8 SECONDS (24.8-34.2); PROTHROMBIN TIME 17.4 SECONDS (12.5-14.5)
[2023-03-24 07:58] LABS: CK-MB VALUE MASS 7.7 NG/ML (<3.6)
[2023-03-24 08:00] LABS: MB/CK RELATIVE INDEX 9.16 (< OR =4)
[2023-03-24 08:02] LABS: THYROID STIMULATING HORMONE 2.159 uIU/ML (0.55-4.78)
[2023-03-24 08:11] LABS: RSV AMPLIFICATION NEGATIVE (NEGATIVE)
[2023-03-24] MEDS ORDERED: BOOSTRIX VACCINE (TETANUS/DIPHTH/ACEL. PERTUSSIS) 0.5ML SYR IM.IMMUN ONE (08:15)
[2023-03-24 08:17] LABS: CALCIUM LEVEL 8.6 MG/DL (8.3-10.6); CREATININE FOR GFR 9.48 MG/DL (0.70-1.30); GLOMERULAR FILTRATION RATE 5.7 (>35); MAGNESIUM LEVEL 2.1 MG/DL (1.8-2.4); POTASSIUM SERUM 7.1 MMOL/L (3.5-5.1)
[2023-03-24] MEDS ORDERED: DEXTROSE 50% 50ML SYRINGE IV ONE (08:20)
[2023-03-24] MEDS ORDERED: SODIUM BICARBONATE 8.4% INJ 50ML SYRINGE IV ONE (08:20)
[2023-03-24] MEDS ORDERED: ALBUTEROL SULFATE 2.5MG/0.5ML INH NEB SOLN INH ONE (08:20)
[2023-03-24] MEDS ORDERED: CALCIUM GLUCONATE 1,000MG/10ML VIAL (100MG/ML) IV ONE (08:20)
[2023-03-24] MEDS ORDERED: HumuLIN R (REGULAR) INSULIN (NovoLIN R) **100U/ML** PER UNIT IV ONE (08:20)
[2023-03-24] MEDS ORDERED: PATIROMER SORBITEX CALCIUM 8.4 GM POWDER PACKET (VELTASSA) PO ONE (08:20)
[2023-03-24 08:53] LABS: ABG BASE EXCESS -14.3 (-2.0-2.0); ABG HCO3 16.5 MMOL/L (22.0-26.0); ABG O2 SATURATION 90.4 % (95.0-99.0); ABG PARTIAL PRESSURE O2 77.3 mmHg (75.0-100.0); ABG STANDARD HCO3 13.3 MMOL/L. (22.0-26.0); ABG TOTAL CO2 18.5 MMOL/L (23.0-31.0)
[2023-03-24 08:56] LABS: ABG PARTIAL PRESSURE CO2 63.4 mmHg (35.0-45.0); ABG pH (ARTERIAL) 7.034 UNITS (7.350-7.450)
[2023-03-24 08:57] LABS: CK-MB VALUE MASS 5.7 NG/ML (<3.6)
[2023-03-24 08:59] LABS: MB/CK RELATIVE INDEX 6.95 (< OR =4)
[2023-03-24] MEDS ORDERED: MED REC IN PROGRESS XX SCH (09:20)
[2023-03-24] MEDS ORDERED: MED REC CURRENTLY UNOBTAINABLE XX SCH (10:05)
[2023-03-24 11:08] LABS: CALCIUM LEVEL 8.5 MG/DL (8.3-10.6); CREATININE FOR GFR 9.52 MG/DL (0.70-1.30); GLOMERULAR FILTRATION RATE 5.7 (>35); POTASSIUM SERUM 6.2 MMOL/L (3.5-5.1)
[2023-03-24] MEDS ORDERED: HOME MED LIST COMPLETE! XX SCH (11:30)
[2023-03-24] MEDS ORDERED: HEPARIN 1,000UNITS/ML 10ML VIAL (FOR RADIOLOGY & DIALYSIS ONLY) XX SCH (11:40)
[2023-03-24] MEDS ORDERED: HEPARIN 1,000UNITS/ML 10ML VIAL (FOR RADIOLOGY & DIALYSIS ONLY) IV PRN (11:40)
[2023-03-24] MEDS ORDERED: LIDOCAINE 1% SDV 5ML VIAL SC PRN (11:40)
[2023-03-24] MEDS ORDERED: SODIUM CHLORIDE 0.9% 1000ML IV PRN (11:40)
[2023-03-24] MEDS ORDERED: IPRATROPIUM 0.03% NASAL SPRAY 30 ML (ATROVENT) PRN (16:00)
[2023-03-24 16:56] LABS: VENOUS BASE EXCESS -7.5 (-2.0-2.0); VENOUS O2 SATURATION 95.8 % (60.0-80.0); VENOUS PARTIAL PRESSURE CO2 56.6 mmHg (38.0-50.0); VENOUS PARTIAL PRESSURE O2 92.6 mmHg (30.0-50.0); VENOUS PH 7.187 UNITS (7.330-7.430); VENOUS STANDARD HCO3 18.3 MMOL/L; VENOUS TOTAL CO2 22.7 MMOL/L (24.0-28.0)
[2023-03-24] MEDS: MIDODRINE 5 MG TAB PO SCH (17:00)
[2023-03-24] MEDS: CALCIUM ACETATE 667MG GELCAP PO SCH (17:15)
[2023-03-24] MEDS: HEPARIN SOD (PORCINE) 5000UNITS/ML 1ML VIAL/SYRINGE SC SCH ×2 (17:19→22:46)
[2023-03-24 19:04] LABS: CALCIUM LEVEL 8.3 MG/DL (8.3-10.6); CREATININE FOR GFR 4.81 MG/DL (0.70-1.30); GLOMERULAR FILTRATION RATE 12.4 (>35); POTASSIUM SERUM 5.3 MMOL/L (3.5-5.1)
[2023-03-24] MEDS: ACETAMINOPHEN TAB 650MG DOSE (2X325MG) PO PRN (22:45)
[2023-03-25] VITALS (9 sets, daily range): BP systolic 107–125; BP diastolic 51–88; TEMP 97–98.8; O2SAT 90–97
[2023-03-25] MEDS: HYDROMORPHONE HCL 0.5 MG/ 0.5 ML SYRINGE IV PRN ×2 (01:48→21:58)
[2023-03-25 05:11] LABS: VENOUS BASE EXCESS -7.3 (-2.0-2.0); VENOUS HCO3 21.8 MMOL/L (23.0-27.0); VENOUS O2 SATURATION 80.3 % (60.0-80.0); VENOUS PARTIAL PRESSURE CO2 63.4 mmHg (38.0-50.0); VENOUS PARTIAL PRESSURE O2 49.2 mmHg (30.0-50.0); VENOUS PH 7.155 UNITS (7.330-7.430); VENOUS STANDARD HCO3 18.2 MMOL/L; VENOUS TOTAL CO2 23.8 MMOL/L (24.0-28.0)
[2023-03-25 05:41] LABS: CALCIUM LEVEL 8.4 MG/DL (8.3-10.6); CREATININE FOR GFR 5.64 MG/DL (0.70-1.30); GLOMERULAR FILTRATION RATE 10.3 (>35); POTASSIUM SERUM 4.9 MMOL/L (3.5-5.1)
[2023-03-25] MEDS ORDERED: HEPARIN 1,000UNITS/ML 10ML VIAL (FOR RADIOLOGY & DIALYSIS ONLY) XX SCH (06:00)
[2023-03-25] MEDS ORDERED: SODIUM CHLORIDE 0.9% 1000ML IV PRN (06:00)
[2023-03-25] MEDS ORDERED: HEPARIN 1,000UNITS/ML 10ML VIAL (FOR RADIOLOGY & DIALYSIS ONLY) IV PRN (06:00)
[2023-03-25] MEDS: MIDODRINE 5 MG TAB PO SCH ×3 (06:18→17:23)
[2023-03-25] MEDS: HEPARIN SOD (PORCINE) 5000UNITS/ML 1ML VIAL/SYRINGE SC SCH ×3 (06:18→21:33)
[2023-03-25] MEDS: CALCIUM ACETATE 667MG GELCAP PO SCH ×3 (08:00→18:17)
[2023-03-25] MEDS: VITAMIN D 1,000 INTERNATIONAL UNITS TABLET PO SCH (11:38)
[2023-03-25] MEDS: ASPIRIN 81MG CHEW TABLET PO SCH (11:38)
[2023-03-25] MEDS: MULTIVITAMINS/MINERALS THERAP 1 TAB PO SCH (11:38)
[2023-03-25] MEDS: ATORVASTATIN 20 MG TAB PO SCH (11:39)
[2023-03-25] MEDS: PANTOPRAZOLE 40MG TAB (PROTONIX) PO SCH (11:39)
[2023-03-25] MEDS: FEBUXOSTAT 40 MG TABLET (ULORIC) PO SCH (11:40)
[2023-03-25] MEDS: CYANOCOBALAMIN 500 MCG TAB PO SCH (11:41)
[2023-03-25 11:57] LABS: VENOUS HCO3 26.1 MMOL/L (23.0-27.0); VENOUS O2 SATURATION 97.6 % (60.0-80.0); VENOUS PARTIAL PRESSURE CO2 61.4 mmHg (38.0-50.0); VENOUS PARTIAL PRESSURE O2 116.5 mmHg (30.0-50.0); VENOUS PH 7.247 UNITS (7.330-7.430); VENOUS STANDARD HCO3 22.8 MMOL/L
[2023-03-25] MEDS ORDERED: LIDOCAINE 5% (LIDODERM) PATCH TD SCH (20:00)
[2023-03-26] VITALS (31 sets, daily range): BP systolic 77–146; BP diastolic 38–69; TEMP 97.2–98.8; O2SAT 85–96
[2023-03-26] MEDS: HEPARIN SOD (PORCINE) 5000UNITS/ML 1ML VIAL/SYRINGE SC SCH ×3 (06:21→20:48)
[2023-03-26] MEDS: MIDODRINE 5 MG TAB PO SCH ×3 (06:21→17:11)
[2023-03-26] MEDS: ATORVASTATIN 20 MG TAB PO SCH (08:38)
[2023-03-26] MEDS: VITAMIN D 1,000 INTERNATIONAL UNITS TABLET PO SCH (08:38)
[2023-03-26] MEDS: FEBUXOSTAT 40 MG TABLET (ULORIC) PO SCH (08:38)
[2023-03-26] MEDS: ASPIRIN 81MG CHEW TABLET PO SCH (08:38)
[2023-03-26] MEDS: CYANOCOBALAMIN 500 MCG TAB PO SCH (08:38)
[2023-03-26] MEDS: CALCIUM ACETATE 667MG GELCAP PO SCH ×3 (08:39→17:11)
[2023-03-26] MEDS: MULTIVITAMINS/MINERALS THERAP 1 TAB PO SCH (08:39)
[2023-03-26] MEDS: PANTOPRAZOLE 40MG TAB (PROTONIX) PO SCH (08:39)
[2023-03-26 08:49] LABS: ABG HCO3 25.9 MMOL/L (22.0-26.0); ABG O2 SATURATION 93.5 % (95.0-99.0); ABG PARTIAL PRESSURE CO2 53.7 mmHg (35.0-45.0); ABG PARTIAL PRESSURE O2 72.8 mmHg (75.0-100.0); ABG STANDARD HCO3 23.6 MMOL/L. (22.0-26.0); ABG TOTAL CO2 27.5 MMOL/L (23.0-31.0); ABG pH (ARTERIAL) 7.301 UNITS (7.350-7.450)
[2023-03-26] MEDS ORDERED: LIDOCAINE 5% (LIDODERM) PATCH TD ONE (10:30)
[2023-03-26 12:02] LABS: VENOUS BASE EXCESS -1.3 (-2.0-2.0); VENOUS HCO3 25.7 MMOL/L (23.0-27.0); VENOUS O2 SATURATION 98.9 % (60.0-80.0); VENOUS PARTIAL PRESSURE CO2 54.7 mmHg (38.0-50.0); VENOUS PARTIAL PRESSURE O2 155.8 mmHg (30.0-50.0); VENOUS STANDARD HCO3 23.4 MMOL/L; VENOUS TOTAL CO2 27.4 MMOL/L (24.0-28.0)
[2023-03-26] MEDS: dexmedeTOMidine 200 MCG in IV 1 EA IV SCH ×2 (12:36→15:03)
[2023-03-26] MEDS ORDERED: KETOROLAC 30 MG/ML 1ML VIAL IV ONE (17:55)
[2023-03-26] MEDS: LIDOCAINE 5% (LIDODERM) PATCH TD SCH ×2 (20:00)
[2023-03-27] VITALS (9 sets, daily range): BP systolic 95–125; BP diastolic 53–77; TEMP 97–98.6; O2SAT 92–98
[2023-03-27 05:06] LABS: VENOUS BASE EXCESS -1.9 (-2.0-2.0); VENOUS HCO3 25.8 MMOL/L (23.0-27.0); VENOUS O2 SATURATION 97.2 % (60.0-80.0); VENOUS PARTIAL PRESSURE CO2 59.4 mmHg (38.0-50.0); VENOUS PARTIAL PRESSURE O2 107.4 mmHg (30.0-50.0); VENOUS PH 7.256 UNITS (7.330-7.430); VENOUS STANDARD HCO3 22.9 MMOL/L; VENOUS TOTAL CO2 27.6 MMOL/L (24.0-28.0)
[2023-03-27 05:47] LABS: ALBUMIN 2.9 G/DL (3.2-5.2); BILIRUBIN,TOTAL 0.2 MG/DL (0.3-1.2); CALCIUM LEVEL 8.4 MG/DL (8.3-10.6); CREATININE FOR GFR 6.01 MG/DL (0.70-1.30); GLOMERULAR FILTRATION RATE 9.6 (>35); TOTAL PROTEIN 5.9 G/DL (5.7-8.2)
[2023-03-27 05:48] LABS: POTASSIUM SERUM 3.7 MMOL/L (3.5-5.1)
[2023-03-27] MEDS ORDERED: SODIUM CHLORIDE 0.9% 1000ML IV PRN (06:00)
[2023-03-27] MEDS ORDERED: LIDOCAINE 1% SDV 5ML VIAL SC PRN (06:00)
[2023-03-27] MEDS ORDERED: HEPARIN 1,000UNITS/ML 10ML VIAL (FOR RADIOLOGY & DIALYSIS ONLY) XX SCH (06:00)
[2023-03-27] MEDS ORDERED: HEPARIN 1,000UNITS/ML 10ML VIAL (FOR RADIOLOGY & DIALYSIS ONLY) IV PRN (06:00)
[2023-03-27] MEDS: ATORVASTATIN 20 MG TAB PO SCH (06:10)
[2023-03-27] MEDS: HEPARIN SOD (PORCINE) 5000UNITS/ML 1ML VIAL/SYRINGE SC SCH ×3 (06:10→21:18)
[2023-03-27] MEDS: MIDODRINE 5 MG TAB PO SCH ×3 (06:10→18:24)
[2023-03-27 09:39] LABS: BASO % 0.3 % (0.0-1.0); EOS # 0.1 10^3/uL (0.0-0.5); EOS % 0.9 % (0.0-3.0); HEMATOCRIT 31.1 % (42.0-52.0); HEMOGLOBIN 9.7 g/dl (13.5-17.5); LYMPH % 15.4 % (24.0-44.0); MEAN CORPUSCULAR HEMOGLOBIN 33.9 pg (27.0-33.0); MEAN CORPUSCULAR HGB CONC 31.2 g/dl (32.0-36.5); MEAN CORPUSCULAR VOLUME 108.7 fl (80.0-96.0); MONO # 0.9 10^3/uL (0.0-0.8); MONO % 13.7 % (2.0-8.0); NEUTROPHILS # 4.5 10^3/uL (1.5-8.5); NEUTROPHILS % 69.1 % (36.0-66.0); PLATELET COUNT, AUTOMATED 186 10^3/uL (150-450); RED BLOOD COUNT 2.86 10^6/uL (4.30-6.10); WHITE BLOOD COUNT 6.6 10^3/uL (4.0-10.0)
[2023-03-27 12:46] LABS: HEMOGLOBIN A1c 5.5 % (4.0-6.0)
[2023-03-27] MEDS: ASPIRIN 81MG CHEW TABLET PO SCH (14:18)
[2023-03-27] MEDS: CYANOCOBALAMIN 500 MCG TAB PO SCH (14:18)
[2023-03-27] MEDS: FEBUXOSTAT 40 MG TABLET (ULORIC) PO SCH (14:18)
[2023-03-27] MEDS: PANTOPRAZOLE 40MG TAB (PROTONIX) PO SCH (14:19)
[2023-03-27] MEDS: VITAMIN D 1,000 INTERNATIONAL UNITS TABLET PO SCH (14:19)
[2023-03-27] MEDS: MULTIVITAMINS/MINERALS THERAP 1 TAB PO SCH (14:19)
[2023-03-27] MEDS: CALCIUM ACETATE 667MG GELCAP PO SCH ×3 (14:19→18:23)
[2023-03-27] MEDS: LIDOCAINE 5% (LIDODERM) PATCH TD SCH ×2 (21:17)
[2023-03-27] MEDS: ACETAMINOPHEN TAB 650MG DOSE (2X325MG) PO PRN (22:57)
[2023-03-27] MEDS: RAMELTEON 8 MG TAB (ROZEREM) PO PRN (23:36)
[2023-03-28 05:28] VITALS: BP 95/40; TEMP 97.9; O2SAT 94
[2023-03-28] MEDS: MIDODRINE 5 MG TAB PO SCH ×3 (05:56→17:17)
[2023-03-28] MEDS: HEPARIN SOD (PORCINE) 5000UNITS/ML 1ML VIAL/SYRINGE SC SCH ×3 (05:56→22:35)
[2023-03-28 06:16] LABS: BASO % 0.4 % (0.0-1.0); EOS # 0.1 10^3/uL (0.0-0.5); EOS % 0.7 % (0.0-3.0); HEMATOCRIT 31.4 % (42.0-52.0); HEMOGLOBIN 9.6 g/dl (13.5-17.5); LYMPH # 1.3 10^3/uL (1.5-5.0); LYMPH % 15.6 % (24.0-44.0); MEAN CORPUSCULAR HEMOGLOBIN 33.3 pg (27.0-33.0); MEAN CORPUSCULAR HGB CONC 30.6 g/dl (32.0-36.5); MONO # 1.1 10^3/uL (0.0-0.8); MONO % 12.9 % (2.0-8.0); NEUTROPHILS # 5.6 10^3/uL (1.5-8.5); NEUTROPHILS % 69.4 % (36.0-66.0); PLATELET COUNT, AUTOMATED 194 10^3/uL (150-450); RED BLOOD COUNT 2.88 10^6/uL (4.30-6.10); WHITE BLOOD COUNT 8.1 10^3/uL (4.0-10.0)
[2023-03-28 06:32] LABS: BILIRUBIN,TOTAL 0.3 MG/DL (0.3-1.2); CALCIUM LEVEL 8.1 MG/DL (8.3-10.6); CREATININE FOR GFR 4.01 MG/DL (0.70-1.30); GLOMERULAR FILTRATION RATE 15.3 (>35); MAGNESIUM LEVEL 1.6 MG/DL (1.8-2.4); POTASSIUM SERUM 3.8 MMOL/L (3.5-5.1); TOTAL PROTEIN 6.1 G/DL (5.7-8.2)
[2023-03-28] MEDS: FEBUXOSTAT 40 MG TABLET (ULORIC) PO SCH (08:39)
[2023-03-28] MEDS: CYANOCOBALAMIN 500 MCG TAB PO SCH (08:39)
[2023-03-28] MEDS: VITAMIN D 1,000 INTERNATIONAL UNITS TABLET PO SCH (08:39)
[2023-03-28] MEDS: PANTOPRAZOLE 40MG TAB (PROTONIX) PO SCH (08:40)
[2023-03-28] MEDS: ACETAMINOPHEN TAB 650MG DOSE (2X325MG) PO PRN ×2 (08:40→17:18)
[2023-03-28] MEDS: CALCIUM ACETATE 667MG GELCAP PO SCH ×3 (08:40→17:18)
[2023-03-28] MEDS: MULTIVITAMINS/MINERALS THERAP 1 TAB PO SCH (08:40)
[2023-03-28] MEDS: ASPIRIN 81MG CHEW TABLET PO SCH (08:40)
[2023-03-28] MEDS: ATORVASTATIN 20 MG TAB PO SCH (08:40)
[2023-03-28] MEDS: LIDOCAINE 5% (LIDODERM) PATCH TD SCH ×2 (22:34→22:35)
[2023-03-28] MEDS: RAMELTEON 8 MG TAB (ROZEREM) PO PRN (22:35)
[2023-03-28 23:30] VITALS: O2SAT 93
[2023-03-29 02:14] VITALS: O2SAT 92
[2023-03-29 05:00] VITALS: BP 105/51; TEMP 97.9; O2SAT 92
[2023-03-29] MEDS: HEPARIN SOD (PORCINE) 5000UNITS/ML 1ML VIAL/SYRINGE SC SCH ×3 (05:21→20:42)
[2023-03-29] MEDS: FEBUXOSTAT 40 MG TABLET (ULORIC) PO SCH (05:22)
[2023-03-29] MEDS: ASPIRIN 81MG CHEW TABLET PO SCH (05:22)
[2023-03-29] MEDS: PANTOPRAZOLE 40MG TAB (PROTONIX) PO SCH (05:22)
[2023-03-29] MEDS: ATORVASTATIN 20 MG TAB PO SCH (05:22)
[2023-03-29] MEDS: MIDODRINE 5 MG TAB PO SCH ×3 (05:22→17:26)
[2023-03-29] MEDS: MULTIVITAMINS/MINERALS THERAP 1 TAB PO SCH (05:22)
[2023-03-29] MEDS: CYANOCOBALAMIN 500 MCG TAB PO SCH (05:22)
[2023-03-29] MEDS: VITAMIN D 1,000 INTERNATIONAL UNITS TABLET PO SCH (05:23)
[2023-03-29] MEDS: ACETAMINOPHEN TAB 650MG DOSE (2X325MG) PO PRN ×4 (05:24→23:45)
[2023-03-29] MEDS ORDERED: LIDOCAINE 1% SDV 5ML VIAL SC PRN (06:00)
[2023-03-29] MEDS ORDERED: HEPARIN 1,000UNITS/ML 10ML VIAL (FOR RADIOLOGY & DIALYSIS ONLY) XX SCH (06:00)
[2023-03-29] MEDS ORDERED: SODIUM CHLORIDE 0.9% 1000ML IV PRN (06:00)
[2023-03-29] MEDS: CALCIUM ACETATE 667MG GELCAP PO SCH ×3 (08:00→17:26)
[2023-03-29] MEDS: SENOKOT S TAB PO SCH ×2 (09:00→20:41)
[2023-03-29] MEDS: MAGNESIUM OXIDE 400MG TAB (MAG-OX) PO SCH ×2 (09:00→20:41)
[2023-03-29] MEDS ORDERED: MIRALAX *UNIT DOSE* 17GM PACKET PO PRN (11:00)
[2023-03-29] MEDS ORDERED: MOM 30ML SUSPENSION UDC PO PRN (11:00)
[2023-03-29] MEDS: DARBEPOETIN 100MCG/0.5ML *DIALYSIS* SYRINGE IV SCH (12:42)
[2023-03-29 12:48] LABS: BASO % 0.4 % (0.0-1.0); EOS # 0.1 10^3/uL (0.0-0.5); EOS % 1.2 % (0.0-3.0); HEMATOCRIT 29.8 % (42.0-52.0); HEMOGLOBIN 9.5 g/dl (13.5-17.5); LYMPH # 1.3 10^3/uL (1.5-5.0); LYMPH % 13.5 % (24.0-44.0); MEAN CORPUSCULAR HEMOGLOBIN 34.8 pg (27.0-33.0); MEAN CORPUSCULAR HGB CONC 31.9 g/dl (32.0-36.5); MEAN CORPUSCULAR VOLUME 109.2 fl (80.0-96.0); MONO % 10.5 % (2.0-8.0); NEUTROPHILS # 6.8 10^3/uL (1.5-8.5); NEUTROPHILS % 73.1 % (36.0-66.0); PLATELET COUNT, AUTOMATED 234 10^3/uL (150-450); RED BLOOD COUNT 2.73 10^6/uL (4.30-6.10); WHITE BLOOD COUNT 9.3 10^3/uL (4.0-10.0)
[2023-03-29 13:27] LABS: ALBUMIN 3.1 G/DL (3.2-5.2); BILIRUBIN,TOTAL 0.2 MG/DL (0.3-1.2); CALCIUM LEVEL 8.3 MG/DL (8.3-10.6); CREATININE FOR GFR 5.99 MG/DL (0.70-1.30); GLOMERULAR FILTRATION RATE 9.7 (>35); MAGNESIUM LEVEL 1.6 MG/DL (1.8-2.4); TOTAL PROTEIN 6.2 G/DL (5.7-8.2)
[2023-03-29] MEDS: LIDOCAINE 5% (LIDODERM) PATCH TD SCH ×3 (20:42→20:43)
[2023-03-29] MEDS: RAMELTEON 8 MG TAB (ROZEREM) PO PRN (20:43)
[2023-03-30] MEDS ORDERED: LIDOCAINE 5% (LIDODERM) PATCH TD ONE (04:00)
[2023-03-30 05:00] VITALS: BP 101/47; TEMP 98.8; O2SAT 92
[2023-03-30] MEDS: HEPARIN SOD (PORCINE) 5000UNITS/ML 1ML VIAL/SYRINGE SC SCH ×3 (05:13→22:03)
[2023-03-30] MEDS: MIDODRINE 5 MG TAB PO SCH ×3 (05:56→17:06)
[2023-03-30] MEDS: ACETAMINOPHEN TAB 650MG DOSE (2X325MG) PO PRN ×3 (05:57→22:05)
[2023-03-30 06:16] LABS: BASO # 0.1 10^3/uL (0.0-0.2); BASO % 0.5 % (0.0-1.0); EOS # 0.1 10^3/uL (0.0-0.5); EOS % 1.2 % (0.0-3.0); HEMATOCRIT 31.8 % (42.0-52.0); HEMOGLOBIN 9.9 g/dl (13.5-17.5); LYMPH # 1.3 10^3/uL (1.5-5.0); LYMPH % 12.7 % (24.0-44.0); MEAN CORPUSCULAR HEMOGLOBIN 34.1 pg (27.0-33.0); MEAN CORPUSCULAR HGB CONC 31.1 g/dl (32.0-36.5); MEAN CORPUSCULAR VOLUME 109.7 fl (80.0-96.0); MONO % 9.9 % (2.0-8.0); NEUTROPHILS # 7.7 10^3/uL (1.5-8.5); PLATELET COUNT, AUTOMATED 234 10^3/uL (150-450); WHITE BLOOD COUNT 10.4 10^3/uL (4.0-10.0)
[2023-03-30 06:34] LABS: ALBUMIN 3.1 G/DL (3.2-5.2); BILIRUBIN,TOTAL 0.3 MG/DL (0.3-1.2); CALCIUM LEVEL 8.3 MG/DL (8.3-10.6); CREATININE FOR GFR 3.82 MG/DL (0.70-1.30); GLOMERULAR FILTRATION RATE 16.2 (>35); MAGNESIUM LEVEL 1.8 MG/DL (1.8-2.4); POTASSIUM SERUM 3.6 MMOL/L (3.5-5.1); TOTAL PROTEIN 6.3 G/DL (5.7-8.2)
[2023-03-30] MEDS ORDERED: traMADol 50 MG TAB PO PRN (07:25)
[2023-03-30] MEDS: FEBUXOSTAT 40 MG TABLET (ULORIC) PO SCH (08:00)
[2023-03-30] MEDS: CALCIUM ACETATE 667MG GELCAP PO SCH ×3 (08:00→17:06)
[2023-03-30] MEDS: MULTIVITAMINS/MINERALS THERAP 1 TAB PO SCH (08:00)
[2023-03-30] MEDS: PANTOPRAZOLE 40MG TAB (PROTONIX) PO SCH (08:00)
[2023-03-30] MEDS: CYANOCOBALAMIN 500 MCG TAB PO SCH (08:01)
[2023-03-30] MEDS: MAGNESIUM OXIDE 400MG TAB (MAG-OX) PO SCH ×2 (08:01→22:03)
[2023-03-30] MEDS: ASPIRIN 81MG CHEW TABLET PO SCH (08:01)
[2023-03-30] MEDS: VITAMIN D 1,000 INTERNATIONAL UNITS TABLET PO SCH (08:01)
[2023-03-30] MEDS: SENOKOT S TAB PO SCH ×2 (08:01→22:03)
[2023-03-30] MEDS: ATORVASTATIN 20 MG TAB PO SCH (08:01)
[2023-03-30] MEDS: traMADol 50 MG TAB PO PRN (17:06)
[2023-03-30] MEDS: RAMELTEON 8 MG TAB (ROZEREM) PO PRN (22:03)
[2023-03-30] MEDS: LIDOCAINE 5% (LIDODERM) PATCH TD SCH ×3 (22:04)
[2023-03-30 22:25] VITALS: O2SAT 92
[2023-03-30 23:28] VITALS: O2SAT 82; O2SAT 90
[2023-03-31 05:39] VITALS: BP 100/47; TEMP 97.3; O2SAT 90
[2023-03-31] MEDS: HEPARIN SOD (PORCINE) 5000UNITS/ML 1ML VIAL/SYRINGE SC SCH ×3 (06:34→21:18)
[2023-03-31] MEDS: MIDODRINE 5 MG TAB PO SCH ×3 (06:34→16:08)
[2023-03-31 06:51] LABS: BASO # 0.1 10^3/uL (0.0-0.2); BASO % 0.5 % (0.0-1.0); EOS # 0.1 10^3/uL (0.0-0.5); EOS % 1.3 % (0.0-3.0); HEMATOCRIT 31.5 % (42.0-52.0); HEMOGLOBIN 9.9 g/dl (13.5-17.5); LYMPH # 1.6 10^3/uL (1.5-5.0); LYMPH % 16.4 % (24.0-44.0); MEAN CORPUSCULAR HEMOGLOBIN 34.9 pg (27.0-33.0); MEAN CORPUSCULAR HGB CONC 31.4 g/dl (32.0-36.5); MEAN CORPUSCULAR VOLUME 110.9 fl (80.0-96.0); MONO # 1.1 10^3/uL (0.0-0.8); MONO % 11.7 % (2.0-8.0); NEUTROPHILS # 6.6 10^3/uL (1.5-8.5); NEUTROPHILS % 67.8 % (36.0-66.0); PLATELET COUNT, AUTOMATED 235 10^3/uL (150-450); RED BLOOD COUNT 2.84 10^6/uL (4.30-6.10); WHITE BLOOD COUNT 9.7 10^3/uL (4.0-10.0)
[2023-03-31 07:24] LABS: ALBUMIN 3.1 G/DL (3.2-5.2); BILIRUBIN,TOTAL 0.2 MG/DL (0.3-1.2); CALCIUM LEVEL 8.6 MG/DL (8.3-10.6); CREATININE FOR GFR 5.47 MG/DL (0.70-1.30); GLOMERULAR FILTRATION RATE 10.7 (>35); MAGNESIUM LEVEL 1.9 MG/DL (1.8-2.4); POTASSIUM SERUM 3.9 MMOL/L (3.5-5.1); TOTAL PROTEIN 6.3 G/DL (5.7-8.2)
[2023-03-31] MEDS: FEBUXOSTAT 40 MG TABLET (ULORIC) PO SCH (08:42)
[2023-03-31] MEDS: PANTOPRAZOLE 40MG TAB (PROTONIX) PO SCH (08:42)
[2023-03-31] MEDS: ATORVASTATIN 20 MG TAB PO SCH (08:42)
[2023-03-31] MEDS: MULTIVITAMINS/MINERALS THERAP 1 TAB PO SCH (08:42)
[2023-03-31] MEDS: CALCIUM ACETATE 667MG GELCAP PO SCH ×3 (08:42→18:37)
[2023-03-31] MEDS: MAGNESIUM OXIDE 400MG TAB (MAG-OX) PO SCH ×2 (08:43→21:17)
[2023-03-31] MEDS: SENOKOT S TAB PO SCH ×2 (08:43→21:16)
[2023-03-31] MEDS: CYANOCOBALAMIN 500 MCG TAB PO SCH (08:43)
[2023-03-31] MEDS: VITAMIN D 1,000 INTERNATIONAL UNITS TABLET PO SCH (08:43)
[2023-03-31] MEDS: ASPIRIN 81MG CHEW TABLET PO SCH (08:43)
[2023-03-31] MEDS: traMADol 50 MG TAB PO PRN (16:09)
[2023-03-31 16:44] LABS: CK-MB VALUE MASS 2.2 NG/ML (<3.6)
[2023-03-31 16:46] LABS: MB/CK RELATIVE INDEX 8.46 (< OR =4)
[2023-03-31 17:50] LABS: CK-MB VALUE MASS 1.8 NG/ML (<3.6)
[2023-03-31 17:52] LABS: MB/CK RELATIVE INDEX 7.82 (< OR =4)
[2023-03-31] MEDS: LIDOCAINE 5% (LIDODERM) PATCH TD SCH ×3 (21:16)
[2023-03-31] MEDS: ACETAMINOPHEN TAB 650MG DOSE (2X325MG) PO PRN (21:17)
[2023-03-31] MEDS: RAMELTEON 8 MG TAB (ROZEREM) PO PRN (21:17)
[2023-04-01 05:10] VITALS: BP 104/62; TEMP 97.9; O2SAT 94
[2023-04-01 06:06] LABS: BASO # 0.1 10^3/uL (0.0-0.2); BASO % 0.5 % (0.0-1.0); EOS # 0.1 10^3/uL (0.0-0.5); HEMATOCRIT 32.3 % (42.0-52.0); HEMOGLOBIN 9.9 g/dl (13.5-17.5); LYMPH # 1.5 10^3/uL (1.5-5.0); LYMPH % 14.3 % (24.0-44.0); MEAN CORPUSCULAR HEMOGLOBIN 33.9 pg (27.0-33.0); MEAN CORPUSCULAR HGB CONC 30.7 g/dl (32.0-36.5); MEAN CORPUSCULAR VOLUME 110.6 fl (80.0-96.0); MONO # 0.9 10^3/uL (0.0-0.8); MONO % 8.9 % (2.0-8.0); NEUTROPHILS # 7.5 10^3/uL (1.5-8.5); NEUTROPHILS % 73.2 % (36.0-66.0); PLATELET COUNT, AUTOMATED 241 10^3/uL (150-450); RED BLOOD COUNT 2.92 10^6/uL (4.30-6.10); WHITE BLOOD COUNT 10.2 10^3/uL (4.0-10.0)
[2023-04-01 06:36] LABS: ALBUMIN 3.2 G/DL (3.2-5.2); BILIRUBIN,TOTAL 0.2 MG/DL (0.3-1.2); CALCIUM LEVEL 8.7 MG/DL (8.3-10.6); CREATININE FOR GFR 6.89 MG/DL (0.70-1.30); GLOMERULAR FILTRATION RATE 8.2 (>35); POTASSIUM SERUM 4.3 MMOL/L (3.5-5.1); TOTAL PROTEIN 6.4 G/DL (5.7-8.2)
[2023-04-01] MEDS: SENOKOT S TAB PO SCH ×2 (06:41→21:36)
[2023-04-01] MEDS: PANTOPRAZOLE 40MG TAB (PROTONIX) PO SCH (06:41)
[2023-04-01] MEDS: MULTIVITAMINS/MINERALS THERAP 1 TAB PO SCH (06:41)
[2023-04-01] MEDS: ATORVASTATIN 20 MG TAB PO SCH (06:41)
[2023-04-01] MEDS: MAGNESIUM OXIDE 400MG TAB (MAG-OX) PO SCH ×2 (06:41→21:36)
[2023-04-01] MEDS: HEPARIN SOD (PORCINE) 5000UNITS/ML 1ML VIAL/SYRINGE SC SCH ×3 (06:42→21:37)
[2023-04-01] MEDS: FEBUXOSTAT 40 MG TABLET (ULORIC) PO SCH (06:42)
[2023-04-01] MEDS: traMADol 50 MG TAB PO PRN ×2 (06:42→23:36)
[2023-04-01] MEDS: ASPIRIN 81MG CHEW TABLET PO SCH (06:42)
[2023-04-01] MEDS: MIDODRINE 5 MG TAB PO SCH ×3 (06:42→17:41)
[2023-04-01] MEDS: VITAMIN D 1,000 INTERNATIONAL UNITS TABLET PO SCH (06:42)
[2023-04-01] MEDS: CYANOCOBALAMIN 500 MCG TAB PO SCH (06:47)
[2023-04-01] MEDS ORDERED: SODIUM CHLORIDE 0.9% 1000ML IV PRN (07:00)
[2023-04-01] MEDS ORDERED: LIDOCAINE 1% SDV 5ML VIAL SC PRN (07:00)
[2023-04-01] MEDS ORDERED: HEPARIN 1,000UNITS/ML 10ML VIAL (FOR RADIOLOGY & DIALYSIS ONLY) XX SCH (07:00)
[2023-04-01] MEDS ORDERED: HEPARIN 1,000UNITS/ML 10ML VIAL (FOR RADIOLOGY & DIALYSIS ONLY) IV PRN (07:00)
[2023-04-01] MEDS: CALCIUM ACETATE 667MG GELCAP PO SCH ×3 (08:00→17:41)
[2023-04-01] MEDS: LIDOCAINE 5% (LIDODERM) PATCH TD SCH ×4 (09:00→21:36)
[2023-04-01 17:43] VITALS: BP 105/61
[2023-04-01] MEDS: ACETAMINOPHEN TAB 650MG DOSE (2X325MG) PO PRN (21:35)
[2023-04-01] MEDS: RAMELTEON 8 MG TAB (ROZEREM) PO PRN (22:05)
[2023-04-02 04:30] VITALS: BP 104/57; TEMP 97.9; O2SAT 91
[2023-04-02 05:59] LABS: BASO % 0.4 % (0.0-1.0); EOS # 0.1 10^3/uL (0.0-0.5); EOS % 0.9 % (0.0-3.0); HEMATOCRIT 32.7 % (42.0-52.0); HEMOGLOBIN 10.2 g/dl (13.5-17.5); LYMPH # 1.6 10^3/uL (1.5-5.0); LYMPH % 14.1 % (24.0-44.0); MEAN CORPUSCULAR HEMOGLOBIN 34.3 pg (27.0-33.0); MEAN CORPUSCULAR HGB CONC 31.2 g/dl (32.0-36.5); MEAN CORPUSCULAR VOLUME 110.1 fl (80.0-96.0); MONO # 1.1 10^3/uL (0.0-0.8); MONO % 9.7 % (2.0-8.0); NEUTROPHILS % 72.9 % (36.0-66.0); PLATELET COUNT, AUTOMATED 236 10^3/uL (150-450); RED BLOOD COUNT 2.97 10^6/uL (4.30-6.10)
[2023-04-02] MEDS: MIDODRINE 5 MG TAB PO SCH ×3 (06:18→17:46)
[2023-04-02] MEDS: HEPARIN SOD (PORCINE) 5000UNITS/ML 1ML VIAL/SYRINGE SC SCH ×3 (06:18→20:47)
[2023-04-02] MEDS: ACETAMINOPHEN TAB 650MG DOSE (2X325MG) PO PRN (06:21)
[2023-04-02 06:24] LABS: ALBUMIN 3.2 G/DL (3.2-5.2); BILIRUBIN,TOTAL 0.3 MG/DL (0.3-1.2); CALCIUM LEVEL 8.9 MG/DL (8.3-10.6); CREATININE FOR GFR 4.67 MG/DL (0.70-1.30); GLOMERULAR FILTRATION RATE 12.9 (>35); MAGNESIUM LEVEL 1.9 MG/DL (1.8-2.4); POTASSIUM SERUM 4.4 MMOL/L (3.5-5.1); TOTAL PROTEIN 6.5 G/DL (5.7-8.2)
[2023-04-02] MEDS: ASPIRIN 81MG CHEW TABLET PO SCH (09:26)
[2023-04-02] MEDS: CALCIUM ACETATE 667MG GELCAP PO SCH ×3 (09:26→17:46)
[2023-04-02] MEDS: VITAMIN D 1,000 INTERNATIONAL UNITS TABLET PO SCH (09:27)
[2023-04-02] MEDS: CYANOCOBALAMIN 500 MCG TAB PO SCH (09:27)
[2023-04-02] MEDS: MULTIVITAMINS/MINERALS THERAP 1 TAB PO SCH (09:27)
[2023-04-02] MEDS: FEBUXOSTAT 40 MG TABLET (ULORIC) PO SCH (09:27)
[2023-04-02] MEDS: ATORVASTATIN 20 MG TAB PO SCH (09:27)
[2023-04-02] MEDS: PANTOPRAZOLE 40MG TAB (PROTONIX) PO SCH (09:28)
[2023-04-02] MEDS: SENOKOT S TAB PO SCH ×2 (09:28→20:49)
[2023-04-02] MEDS: MAGNESIUM OXIDE 400MG TAB (MAG-OX) PO SCH ×2 (09:28→20:49)
[2023-04-02] MEDS: traMADol 50 MG TAB PO PRN ×2 (12:44→21:03)
[2023-04-02] MEDS: LIDOCAINE 5% (LIDODERM) PATCH TD SCH ×3 (20:48)
[2023-04-02] MEDS: RAMELTEON 8 MG TAB (ROZEREM) PO PRN (21:04)
[2023-04-03 06:00] VITALS: BP 126/60; TEMP 97.3; O2SAT 93
[2023-04-03 06:03] LABS: BASO % 0.4 % (0.0-1.0); EOS # 0.1 10^3/uL (0.0-0.5); EOS % 0.8 % (0.0-3.0); HEMATOCRIT 34.3 % (42.0-52.0); HEMOGLOBIN 10.6 g/dl (13.5-17.5); LYMPH # 1.8 10^3/uL (1.5-5.0); LYMPH % 16.9 % (24.0-44.0); MEAN CORPUSCULAR HEMOGLOBIN 33.8 pg (27.0-33.0); MEAN CORPUSCULAR HGB CONC 30.9 g/dl (32.0-36.5); MEAN CORPUSCULAR VOLUME 109.2 fl (80.0-96.0); MONO # 1.2 10^3/uL (0.0-0.8); MONO % 11.1 % (2.0-8.0); NEUTROPHILS # 7.2 10^3/uL (1.5-8.5); NEUTROPHILS % 68.8 % (36.0-66.0); PLATELET COUNT, AUTOMATED 246 10^3/uL (150-450); RED BLOOD COUNT 3.14 10^6/uL (4.30-6.10); WHITE BLOOD COUNT 10.5 10^3/uL (4.0-10.0)
[2023-04-03 06:23] LABS: ALBUMIN 3.4 G/DL (3.2-5.2); ALKALINE PHOSPHATASE 128 U/L (46-116); ALT/SGPT 10 U/L (7.0-40); AST/SGOT < 8 U/L (<34); BILIRUBIN,TOTAL 0.2 MG/DL (0.3-1.2); BLOOD UREA NITROGEN 34 MG/DL (9-23); CALCIUM LEVEL 9.4 MG/DL (8.3-10.6); CARBON DIOXIDE LEVEL 27 MMOL/L (20-31); CHLORIDE LEVEL 96 MMOL/L (98-107); CREATININE FOR GFR 6.24 MG/DL (0.70-1.30); GLOMERULAR FILTRATION RATE 9.2 (>35); GLUCOSE, FASTING 112 MG/DL (74-106); MAGNESIUM LEVEL 2.2 MG/DL (1.8-2.4); POTASSIUM SERUM 4.7 MMOL/L (3.5-5.1); SODIUM LEVEL 130 MMOL/L (136-145); TOTAL PROTEIN 6.8 G/DL (5.7-8.2)
[2023-04-03] MEDS: HEPARIN SOD (PORCINE) 5000UNITS/ML 1ML VIAL/SYRINGE SC SCH ×3 (06:26→21:19)
[2023-04-03] MEDS: MIDODRINE 5 MG TAB PO SCH ×3 (06:26→16:34)
[2023-04-03] MEDS: PANTOPRAZOLE 40MG TAB (PROTONIX) PO SCH (06:27)
[2023-04-03] MEDS: SENOKOT S TAB PO SCH ×2 (06:27→20:12)
[2023-04-03] MEDS: VITAMIN D 1,000 INTERNATIONAL UNITS TABLET PO SCH (06:27)
[2023-04-03] MEDS: MULTIVITAMINS/MINERALS THERAP 1 TAB PO SCH (06:27)
[2023-04-03] MEDS: FEBUXOSTAT 40 MG TABLET (ULORIC) PO SCH (06:28)
[2023-04-03] MEDS: CYANOCOBALAMIN 500 MCG TAB PO SCH (06:28)
[2023-04-03] MEDS: ASPIRIN 81MG CHEW TABLET PO SCH (06:28)
[2023-04-03] MEDS: ATORVASTATIN 20 MG TAB PO SCH (06:28)
[2023-04-03] MEDS: CALCIUM ACETATE 667MG GELCAP PO SCH ×3 (06:29→18:01)
[2023-04-03] MEDS: MAGNESIUM OXIDE 400MG TAB (MAG-OX) PO SCH ×2 (06:29→20:12)
[2023-04-03] MEDS ORDERED: LIDOCAINE 1% SDV 5ML VIAL SC PRN (07:15)
[2023-04-03] MEDS ORDERED: SODIUM CHLORIDE 0.9% 1000ML IV PRN (07:15)
[2023-04-03] MEDS ORDERED: HEPARIN 1,000UNITS/ML 10ML VIAL (FOR RADIOLOGY & DIALYSIS ONLY) IV PRN (07:15)
[2023-04-03] MEDS ORDERED: HEPARIN 1,000UNITS/ML 10ML VIAL (FOR RADIOLOGY & DIALYSIS ONLY) XX SCH (07:15)
[2023-04-03 13:00] VITALS: BP 121/58
[2023-04-03] MEDS: traMADol 50 MG TAB PO PRN (16:34)
[2023-04-03] MEDS: LIDOCAINE 5% (LIDODERM) PATCH TD SCH ×3 (20:12→20:13)
[2023-04-04 06:00] VITALS: BP 119/58; TEMP 97.4; O2SAT 93
[2023-04-04] MEDS: HEPARIN SOD (PORCINE) 5000UNITS/ML 1ML VIAL/SYRINGE SC SCH ×3 (06:04→20:24)
[2023-04-04] MEDS: MIDODRINE 5 MG TAB PO SCH ×3 (06:05→18:08)
[2023-04-04] MEDS: CYANOCOBALAMIN 500 MCG TAB PO SCH (08:23)
[2023-04-04] MEDS: ASPIRIN 81MG CHEW TABLET PO SCH (08:24)
[2023-04-04] MEDS: CALCIUM ACETATE 667MG GELCAP PO SCH ×3 (08:24→18:08)
[2023-04-04] MEDS: VITAMIN D 1,000 INTERNATIONAL UNITS TABLET PO SCH (08:24)
[2023-04-04] MEDS: MAGNESIUM OXIDE 400MG TAB (MAG-OX) PO SCH ×2 (08:24→20:23)
[2023-04-04] MEDS: SENOKOT S TAB PO SCH ×2 (08:24→20:21)
[2023-04-04] MEDS: FEBUXOSTAT 40 MG TABLET (ULORIC) PO SCH (08:24)
[2023-04-04] MEDS: ATORVASTATIN 20 MG TAB PO SCH (08:24)
[2023-04-04] MEDS: traMADol 50 MG TAB PO PRN ×2 (08:25→20:23)
[2023-04-04] MEDS: MULTIVITAMINS/MINERALS THERAP 1 TAB PO SCH (08:25)
[2023-04-04] MEDS: PANTOPRAZOLE 40MG TAB (PROTONIX) PO SCH (08:25)
[2023-04-04] MEDS: DIMETHICONE 2% OINTMENT(VANICREAM) 70GM TUBE TOP SCH ×2 (08:28→20:24)
[2023-04-04] MEDS: LIDOCAINE 5% (LIDODERM) PATCH TD SCH ×3 (20:20→20:21)
[2023-04-04] MEDS: RAMELTEON 8 MG TAB (ROZEREM) PO PRN (20:23)
[2023-04-05] VITALS (10 sets, daily range): BP systolic 89–110; BP diastolic 50–61; TEMP 98.1; O2SAT 77–97
[2023-04-05] MEDS ORDERED: LIDOCAINE 1% SDV 5ML VIAL SC PRN (06:00)
[2023-04-05] MEDS ORDERED: SODIUM CHLORIDE 0.9% 1000ML IV PRN (06:00)
[2023-04-05] MEDS ORDERED: HEPARIN 1,000UNITS/ML 10ML VIAL (FOR RADIOLOGY & DIALYSIS ONLY) XX SCH (06:00)
[2023-04-05] MEDS: ATORVASTATIN 20 MG TAB PO SCH (06:41)
[2023-04-05] MEDS: MIDODRINE 5 MG TAB PO SCH ×3 (06:41→18:27)
[2023-04-05] MEDS: HEPARIN SOD (PORCINE) 5000UNITS/ML 1ML VIAL/SYRINGE SC SCH ×3 (06:41→20:14)
[2023-04-05] MEDS: CALCIUM ACETATE 667MG GELCAP PO SCH ×4 (06:42→18:27)
[2023-04-05] MEDS: MULTIVITAMINS/MINERALS THERAP 1 TAB PO SCH (06:42)
[2023-04-05] MEDS: ASPIRIN 81MG CHEW TABLET PO SCH (06:43)
[2023-04-05] MEDS: FEBUXOSTAT 40 MG TABLET (ULORIC) PO SCH (06:43)
[2023-04-05] MEDS: MAGNESIUM OXIDE 400MG TAB (MAG-OX) PO SCH ×2 (06:43→20:15)
[2023-04-05] MEDS: CYANOCOBALAMIN 500 MCG TAB PO SCH (06:43)
[2023-04-05] MEDS: PANTOPRAZOLE 40MG TAB (PROTONIX) PO SCH (06:43)
[2023-04-05] MEDS: DIMETHICONE 2% OINTMENT(VANICREAM) 70GM TUBE TOP SCH ×2 (06:44→20:14)
[2023-04-05] MEDS: SENOKOT S TAB PO SCH ×2 (06:44→20:15)
[2023-04-05] MEDS: VITAMIN D 1,000 INTERNATIONAL UNITS TABLET PO SCH (06:44)
[2023-04-05] MEDS: traMADol 50 MG TAB PO PRN ×2 (08:04→20:16)
[2023-04-05] MEDS: DARBEPOETIN 100MCG/0.5ML *DIALYSIS* SYRINGE IV SCH (11:37)
[2023-04-05] MEDS: LIDOCAINE 5% (LIDODERM) PATCH TD SCH ×3 (20:12→20:13)
[2023-04-05] MEDS: RAMELTEON 8 MG TAB (ROZEREM) PO PRN (20:17)
[2023-04-05 23:18] LABS: ABG BASE EXCESS -0.2 (-2.0-2.0); ABG HCO3 27.8 MMOL/L (22.0-26.0); ABG PARTIAL PRESSURE O2 114.4 mmHg (75.0-100.0); ABG STANDARD HCO3 24.4 MMOL/L. (22.0-26.0); ABG TOTAL CO2 29.8 MMOL/L (23.0-31.0); ABG pH (ARTERIAL) 7.263 UNITS (7.350-7.450)
[2023-04-06] VITALS (11 sets, daily range): BP systolic 86–120; BP diastolic 44–72; TEMP 96.8–98.2; O2SAT 84–100
[2023-04-06] MEDS: MIDODRINE 5 MG TAB PO SCH ×3 (06:26→17:15)
[2023-04-06] MEDS: HEPARIN SOD (PORCINE) 5000UNITS/ML 1ML VIAL/SYRINGE SC SCH ×3 (06:27→20:28)
[2023-04-06] MEDS: CALCIUM ACETATE 667MG GELCAP PO SCH ×3 (08:00→17:15)
[2023-04-06] MEDS: CYANOCOBALAMIN 500 MCG TAB PO SCH (10:56)
[2023-04-06] MEDS: SENOKOT S TAB PO SCH ×2 (10:56→20:11)
[2023-04-06] MEDS: ASPIRIN 81MG CHEW TABLET PO SCH (10:56)
[2023-04-06] MEDS: MULTIVITAMINS/MINERALS THERAP 1 TAB PO SCH (10:56)
[2023-04-06] MEDS: VITAMIN D 1,000 INTERNATIONAL UNITS TABLET PO SCH (10:56)
[2023-04-06] MEDS: MAGNESIUM OXIDE 400MG TAB (MAG-OX) PO SCH ×2 (10:56→20:11)
[2023-04-06] MEDS: ATORVASTATIN 20 MG TAB PO SCH (10:56)
[2023-04-06] MEDS: DIMETHICONE 2% OINTMENT(VANICREAM) 70GM TUBE TOP SCH ×2 (10:57→20:28)
[2023-04-06] MEDS: FEBUXOSTAT 40 MG TABLET (ULORIC) PO SCH (10:57)
[2023-04-06] MEDS: PANTOPRAZOLE 40MG TAB (PROTONIX) PO SCH (10:57)
[2023-04-06 11:08] LABS: ABG BASE EXCESS 1.7 (-2.0-2.0); ABG HCO3 30.2 MMOL/L (22.0-26.0); ABG PARTIAL PRESSURE O2 94.7 mmHg (75.0-100.0); ABG TOTAL CO2 32.4 MMOL/L (23.0-31.0); ABG pH (ARTERIAL) 7.254 UNITS (7.350-7.450)
[2023-04-06 11:13] LABS: ABG PARTIAL PRESSURE CO2 69.9 mmHg (35.0-45.0)
[2023-04-06 14:07] LABS: VENOUS BASE EXCESS -3.5 (-2.0-2.0); VENOUS HCO3 24.3 MMOL/L (23.0-27.0); VENOUS O2 SATURATION 97.1 % (60.0-80.0); VENOUS PARTIAL PRESSURE CO2 57.1 mmHg (38.0-50.0); VENOUS PARTIAL PRESSURE O2 98.9 mmHg (30.0-50.0); VENOUS PH 7.247 UNITS (7.330-7.430); VENOUS STANDARD HCO3 21.5 MMOL/L; VENOUS TOTAL CO2 26.1 MMOL/L (24.0-28.0)
[2023-04-06] MEDS: LIDOCAINE 5% (LIDODERM) PATCH TD SCH ×3 (20:12→20:28)
[2023-04-06] MEDS: RAMELTEON 8 MG TAB (ROZEREM) PO PRN (20:17)
[2023-04-06] MEDS: traMADol 50 MG TAB PO PRN (20:17)
[2023-04-07] VITALS (7 sets, daily range): BP systolic 84–111; BP diastolic 47–59; TEMP 97.1–97.8; O2SAT 94–98
[2023-04-07] MEDS: ACETAMINOPHEN TAB 650MG DOSE (2X325MG) PO PRN (00:47)
[2023-04-07] MEDS: traMADol 50 MG TAB PO PRN (04:09)
[2023-04-07 04:51] LABS: VENOUS BASE EXCESS 0.1 (-2.0-2.0); VENOUS HCO3 28.2 MMOL/L (23.0-27.0); VENOUS O2 SATURATION 80.3 % (60.0-80.0); VENOUS PARTIAL PRESSURE CO2 63.8 mmHg (38.0-50.0); VENOUS PARTIAL PRESSURE O2 45.4 mmHg (30.0-50.0); VENOUS PH 7.263 UNITS (7.330-7.430); VENOUS STANDARD HCO3 24.3 MMOL/L; VENOUS TOTAL CO2 30.1 MMOL/L (24.0-28.0)
[2023-04-07] MEDS: MIDODRINE 5 MG TAB PO SCH ×3 (06:13→16:01)
[2023-04-07] MEDS: HEPARIN SOD (PORCINE) 5000UNITS/ML 1ML VIAL/SYRINGE SC SCH ×3 (06:13→21:16)
[2023-04-07] MEDS: MULTIVITAMINS/MINERALS THERAP 1 TAB PO SCH (08:27)
[2023-04-07] MEDS: CALCIUM ACETATE 667MG GELCAP PO SCH ×3 (08:27→18:25)
[2023-04-07] MEDS: MAGNESIUM OXIDE 400MG TAB (MAG-OX) PO SCH ×2 (08:27→19:59)
[2023-04-07] MEDS: ASPIRIN 81MG CHEW TABLET PO SCH (08:27)
[2023-04-07] MEDS: PANTOPRAZOLE 40MG TAB (PROTONIX) PO SCH (08:27)
[2023-04-07] MEDS: CYANOCOBALAMIN 500 MCG TAB PO SCH (08:27)
[2023-04-07] MEDS: VITAMIN D 1,000 INTERNATIONAL UNITS TABLET PO SCH (08:27)
[2023-04-07] MEDS: ATORVASTATIN 20 MG TAB PO SCH (08:27)
[2023-04-07] MEDS: DIMETHICONE 2% OINTMENT(VANICREAM) 70GM TUBE TOP SCH ×2 (08:29→19:58)
[2023-04-07] MEDS: SENOKOT S TAB PO SCH ×2 (08:29→19:59)
[2023-04-07] MEDS: DICLOFENAC EPOLAMINE 1.3% PATCH TOP SCH ×4 (09:00→20:03)
[2023-04-07] MEDS: FEBUXOSTAT 40 MG TABLET (ULORIC) PO SCH (12:11)
[2023-04-07] MEDS: ANALGESIC BALM CRM 3OZ TOP SCH ×2 (16:00→19:59)
[2023-04-07] MEDS: LIDOCAINE 5% (LIDODERM) PATCH TD SCH ×2 (19:59→20:00)
[2023-04-07 20:13] LABS: ABG BASE EXCESS 0.5 (-2.0-2.0); ABG HCO3 27.7 MMOL/L (22.0-26.0); ABG O2 SATURATION 97.4 % (95.0-99.0); ABG PARTIAL PRESSURE CO2 57.4 mmHg (35.0-45.0); ABG PARTIAL PRESSURE O2 105.5 mmHg (75.0-100.0); ABG TOTAL CO2 29.5 MMOL/L (23.0-31.0); ABG pH (ARTERIAL) 7.302 UNITS (7.350-7.450)
[2023-04-08] VITALS (7 sets, daily range): BP systolic 89–119; BP diastolic 51–62; TEMP 97–98.1; O2SAT 94–97
[2023-04-08 05:55] LABS: ABG BASE EXCESS -1.5 (-2.0-2.0); ABG HCO3 24.8 MMOL/L (22.0-26.0); ABG O2 SATURATION 95.1 % (95.0-99.0); ABG PARTIAL PRESSURE CO2 48.4 mmHg (35.0-45.0); ABG PARTIAL PRESSURE O2 77.9 mmHg (75.0-100.0); ABG STANDARD HCO3 23.2 MMOL/L. (22.0-26.0); ABG TOTAL CO2 26.3 MMOL/L (23.0-31.0); ABG pH (ARTERIAL) 7.327 UNITS (7.350-7.450)
[2023-04-08] MEDS ORDERED: HEPARIN 1,000UNITS/ML 10ML VIAL (FOR RADIOLOGY & DIALYSIS ONLY) XX SCH (06:00)
[2023-04-08] MEDS ORDERED: SODIUM CHLORIDE 0.9% 1000ML IV PRN (06:00)
[2023-04-08] MEDS ORDERED: LIDOCAINE 1% SDV 5ML VIAL SC PRN (06:00)
[2023-04-08] MEDS: HEPARIN SOD (PORCINE) 5000UNITS/ML 1ML VIAL/SYRINGE SC SCH ×3 (06:12→22:00)
[2023-04-08] MEDS: MIDODRINE 5 MG TAB PO SCH ×3 (06:13→17:49)
[2023-04-08] MEDS: PANTOPRAZOLE 40MG TAB (PROTONIX) PO SCH (06:13)
[2023-04-08] MEDS: ATORVASTATIN 20 MG TAB PO SCH (06:13)
[2023-04-08] MEDS: CALCIUM ACETATE 667MG GELCAP PO SCH ×3 (08:39→17:49)
[2023-04-08] MEDS: ASPIRIN 81MG CHEW TABLET PO SCH (08:39)
[2023-04-08] MEDS: FEBUXOSTAT 40 MG TABLET (ULORIC) PO SCH (08:39)
[2023-04-08] MEDS: SENOKOT S TAB PO SCH ×2 (08:40→20:19)
[2023-04-08] MEDS: CYANOCOBALAMIN 500 MCG TAB PO SCH (08:40)
[2023-04-08] MEDS: MULTIVITAMINS/MINERALS THERAP 1 TAB PO SCH (08:41)
[2023-04-08] MEDS: VITAMIN D 1,000 INTERNATIONAL UNITS TABLET PO SCH (08:41)
[2023-04-08] MEDS: MAGNESIUM OXIDE 400MG TAB (MAG-OX) PO SCH ×2 (08:41→20:19)
[2023-04-08] MEDS: DICLOFENAC EPOLAMINE 1.3% PATCH TOP SCH ×4 (08:42→21:00)
[2023-04-08] MEDS: ANALGESIC BALM CRM 3OZ TOP SCH ×3 (08:43→20:32)
[2023-04-08] MEDS: DIMETHICONE 2% OINTMENT(VANICREAM) 70GM TUBE TOP SCH ×2 (08:44→20:33)
[2023-04-08] MEDS: LIDOCAINE 5% (LIDODERM) PATCH TD SCH ×2 (20:30)
[2023-04-09] MEDS: HEPARIN SOD (PORCINE) 5000UNITS/ML 1ML VIAL/SYRINGE SC SCH ×3 (05:24→22:55)
[2023-04-09 07:23] VITALS: BP 106/55; TEMP 97.8; O2SAT 95
[2023-04-09] MEDS: VITAMIN D 1,000 INTERNATIONAL UNITS TABLET PO SCH (08:16)
[2023-04-09] MEDS: MAGNESIUM OXIDE 400MG TAB (MAG-OX) PO SCH ×2 (08:16→22:53)
[2023-04-09] MEDS: ASPIRIN 81MG CHEW TABLET PO SCH (08:16)
[2023-04-09] MEDS: CALCIUM ACETATE 667MG GELCAP PO SCH ×3 (08:16→17:05)
[2023-04-09] MEDS: FEBUXOSTAT 40 MG TABLET (ULORIC) PO SCH (08:16)
[2023-04-09] MEDS: MULTIVITAMINS/MINERALS THERAP 1 TAB PO SCH (08:16)
[2023-04-09] MEDS: MIDODRINE 5 MG TAB PO SCH ×3 (08:17→17:05)
[2023-04-09] MEDS: ATORVASTATIN 20 MG TAB PO SCH (08:17)
[2023-04-09] MEDS: PANTOPRAZOLE 40MG TAB (PROTONIX) PO SCH (08:17)
[2023-04-09] MEDS: SENOKOT S TAB PO SCH ×2 (08:17→22:34)
[2023-04-09] MEDS: CYANOCOBALAMIN 500 MCG TAB PO SCH (08:18)
[2023-04-09] MEDS: DICLOFENAC EPOLAMINE 1.3% PATCH TOP SCH ×5 (08:18→23:00)
[2023-04-09] MEDS: DIMETHICONE 2% OINTMENT(VANICREAM) 70GM TUBE TOP SCH ×2 (08:20→22:56)
[2023-04-09] MEDS: ANALGESIC BALM CRM 3OZ TOP SCH ×3 (09:29→22:55)
[2023-04-09] MEDS ORDERED: HEPARIN 1,000UNITS/ML 10ML VIAL (FOR RADIOLOGY & DIALYSIS ONLY) XX SCH (12:45)
[2023-04-09 15:50] VITALS: BP 110/62; TEMP 97.7; O2SAT 92
[2023-04-09] MEDS: LIDOCAINE 5% (LIDODERM) PATCH TD SCH ×2 (22:52→22:53)
[2023-04-09] MEDS: RAMELTEON 8 MG TAB (ROZEREM) PO PRN (22:53)
[2023-04-09] MEDS: ACETAMINOPHEN TAB 650MG DOSE (2X325MG) PO PRN (22:54)
[2023-04-09 23:14] VITALS: O2SAT 96
[2023-04-09 23:15] VITALS: O2SAT 91
[2023-04-10] VITALS: O2SAT 86
[2023-04-10 00:01] VITALS: O2SAT 91
[2023-04-10 06:00] VITALS: BP 101/46; TEMP 97.9; O2SAT 94
[2023-04-10] MEDS ORDERED: LIDOCAINE 1% SDV 5ML VIAL SC PRN (06:00)
[2023-04-10] MEDS ORDERED: SODIUM CHLORIDE 0.9% 1000ML IV PRN (06:00)
[2023-04-10] MEDS: HEPARIN SOD (PORCINE) 5000UNITS/ML 1ML VIAL/SYRINGE SC SCH ×3 (06:45→21:04)
[2023-04-10] MEDS: ASPIRIN 81MG CHEW TABLET PO SCH (06:45)
[2023-04-10] MEDS: ATORVASTATIN 20 MG TAB PO SCH (06:45)
[2023-04-10] MEDS: MIDODRINE 5 MG TAB PO SCH ×3 (06:45→18:18)
[2023-04-10] MEDS: MULTIVITAMINS/MINERALS THERAP 1 TAB PO SCH (06:46)
[2023-04-10] MEDS: FEBUXOSTAT 40 MG TABLET (ULORIC) PO SCH (06:46)
[2023-04-10] MEDS: MAGNESIUM OXIDE 400MG TAB (MAG-OX) PO SCH ×2 (06:46→19:56)
[2023-04-10] MEDS: SENOKOT S TAB PO SCH ×2 (06:46→19:55)
[2023-04-10] MEDS: PANTOPRAZOLE 40MG TAB (PROTONIX) PO SCH (06:46)
[2023-04-10] MEDS: DIMETHICONE 2% OINTMENT(VANICREAM) 70GM TUBE TOP SCH ×2 (06:47→19:57)
[2023-04-10] MEDS: CYANOCOBALAMIN 500 MCG TAB PO SCH (06:47)
[2023-04-10] MEDS: VITAMIN D 1,000 INTERNATIONAL UNITS TABLET PO SCH (06:47)
[2023-04-10] MEDS: ACETAMINOPHEN TAB 650MG DOSE (2X325MG) PO PRN (06:48)
[2023-04-10] MEDS: CALCIUM ACETATE 667MG GELCAP PO SCH ×3 (07:34→18:18)
[2023-04-10] MEDS: ANALGESIC BALM CRM 3OZ TOP SCH ×3 (09:00→19:56)
[2023-04-10 12:30] LABS: HEPATITIS B CORE ANTIBODY IGM NEGATIVE (NEGATIVE); HEPATITIS B SURFACE ANTIBODY POSITIVE (POSITIVE); HEPATITIS C VIRUS ABY INDEX < 0.02 INDEX (<0.8)
[2023-04-10] MEDS: DICLOFENAC EPOLAMINE 1.3% PATCH TOP SCH ×2 (13:18→19:57)
[2023-04-10] MEDS: LIDOCAINE 5% (LIDODERM) PATCH TD SCH ×2 (19:56)
[2023-04-11] MEDS ORDERED: diphenhydrAMINE 25MG CAP PO ONE (03:00)
[2023-04-11] MEDS: ACETAMINOPHEN TAB 650MG DOSE (2X325MG) PO PRN ×2 (03:25→19:58)
[2023-04-11 05:59] VITALS: BP 92/48; TEMP 97.9; O2SAT 95
[2023-04-11] MEDS: MIDODRINE 5 MG TAB PO SCH ×3 (06:01→17:35)
[2023-04-11] MEDS: HEPARIN SOD (PORCINE) 5000UNITS/ML 1ML VIAL/SYRINGE SC SCH ×3 (06:01→22:13)
[2023-04-11] MEDS: FEBUXOSTAT 40 MG TABLET (ULORIC) PO SCH (08:30)
[2023-04-11] MEDS: PANTOPRAZOLE 40MG TAB (PROTONIX) PO SCH (08:30)
[2023-04-11] MEDS: SENOKOT S TAB PO SCH ×2 (08:31→19:55)
[2023-04-11] MEDS: CALCIUM ACETATE 667MG GELCAP PO SCH ×3 (08:31→17:35)
[2023-04-11] MEDS: MULTIVITAMINS/MINERALS THERAP 1 TAB PO SCH (08:31)
[2023-04-11] MEDS: CYANOCOBALAMIN 500 MCG TAB PO SCH (08:31)
[2023-04-11] MEDS: MAGNESIUM OXIDE 400MG TAB (MAG-OX) PO SCH ×2 (08:34→19:55)
[2023-04-11] MEDS: ASPIRIN 81MG CHEW TABLET PO SCH (08:34)
[2023-04-11] MEDS: VITAMIN D 1,000 INTERNATIONAL UNITS TABLET PO SCH (08:34)
[2023-04-11] MEDS: ANALGESIC BALM CRM 3OZ TOP SCH ×3 (08:34→19:59)
[2023-04-11] MEDS: ATORVASTATIN 20 MG TAB PO SCH (08:34)
[2023-04-11] MEDS: DIMETHICONE 2% OINTMENT(VANICREAM) 70GM TUBE TOP SCH ×2 (08:34→19:59)
[2023-04-11] MEDS: traMADol 50 MG TAB PO PRN (08:35)
[2023-04-11] MEDS: DICLOFENAC EPOLAMINE 1.3% PATCH TOP SCH ×2 (08:35→19:55)
[2023-04-11] MEDS: LIDOCAINE 5% (LIDODERM) PATCH TD SCH ×2 (19:56)
[2023-04-11] MEDS: RAMELTEON 8 MG TAB (ROZEREM) PO PRN (19:58)
[2023-04-12] MEDS: ACETAMINOPHEN TAB 650MG DOSE (2X325MG) PO PRN ×2 (02:48→20:03)
[2023-04-12 05:32] VITALS: BP 96/48; TEMP 97.3; O2SAT 95
[2023-04-12] MEDS: FEBUXOSTAT 40 MG TABLET (ULORIC) PO SCH (06:15)
[2023-04-12] MEDS: CYANOCOBALAMIN 500 MCG TAB PO SCH (06:16)
[2023-04-12] MEDS: SENOKOT S TAB PO SCH ×2 (06:16→19:58)
[2023-04-12] MEDS: PANTOPRAZOLE 40MG TAB (PROTONIX) PO SCH (06:16)
[2023-04-12] MEDS: ASPIRIN 81MG CHEW TABLET PO SCH (06:16)
[2023-04-12] MEDS: MULTIVITAMINS/MINERALS THERAP 1 TAB PO SCH (06:16)
[2023-04-12] MEDS: MIDODRINE 5 MG TAB PO SCH ×3 (06:16→17:03)
[2023-04-12] MEDS: ATORVASTATIN 20 MG TAB PO SCH (06:17)
[2023-04-12] MEDS: CALCIUM ACETATE 667MG GELCAP PO SCH (06:17)
[2023-04-12] MEDS: VITAMIN D 1,000 INTERNATIONAL UNITS TABLET PO SCH (06:17)
[2023-04-12] MEDS: HEPARIN SOD (PORCINE) 5000UNITS/ML 1ML VIAL/SYRINGE SC SCH ×3 (06:17→21:40)
[2023-04-12] MEDS: MAGNESIUM OXIDE 400MG TAB (MAG-OX) PO SCH ×2 (06:17→19:58)
[2023-04-12] MEDS: DICLOFENAC EPOLAMINE 1.3% PATCH TOP SCH ×2 (06:18→19:58)
[2023-04-12] MEDS: DIMETHICONE 2% OINTMENT(VANICREAM) 70GM TUBE TOP SCH ×2 (06:18→19:59)
[2023-04-12] MEDS: ANALGESIC BALM CRM 3OZ TOP SCH ×3 (06:18→19:59)
[2023-04-12] MEDS ORDERED: SODIUM CHLORIDE 0.9% 1000ML IV PRN (07:15)
[2023-04-12] MEDS ORDERED: HEPARIN 1,000UNITS/ML 10ML VIAL (FOR RADIOLOGY & DIALYSIS ONLY) IV PRN (07:15)
[2023-04-12] MEDS ORDERED: LIDOCAINE 1% SDV 5ML VIAL SC PRN (07:15)
[2023-04-12] MEDS ORDERED: HEPARIN 1,000UNITS/ML 10ML VIAL (FOR RADIOLOGY & DIALYSIS ONLY) XX SCH (07:15)
[2023-04-12 08:54] LABS: HEMOGLOBIN 10.2 g/dl (13.5-17.5); MEAN CORPUSCULAR HEMOGLOBIN 34.6 pg (27.0-33.0); MEAN CORPUSCULAR HGB CONC 32.9 g/dl (32.0-36.5); MEAN CORPUSCULAR VOLUME 105.1 fl (80.0-96.0); PLATELET COUNT, AUTOMATED 201 10^3/uL (150-450); RED BLOOD COUNT 2.95 10^6/uL (4.30-6.10); WHITE BLOOD COUNT 10.1 10^3/uL (4.0-10.0)
[2023-04-12 09:16] LABS: ALBUMIN 3.3 G/DL (3.2-5.2); CALCIUM LEVEL 8.6 MG/DL (8.3-10.6); CREATININE FOR GFR 5.69 MG/DL (0.70-1.30); GLOMERULAR FILTRATION RATE 10.2 (>35); POTASSIUM SERUM 3.5 MMOL/L (3.5-5.1)
[2023-04-12] MEDS: DARBEPOETIN 100MCG/0.5ML *DIALYSIS* SYRINGE IV SCH (09:38)
[2023-04-12] MEDS: K-PHOS NEUTRAL 250MG TABLET (SOD.PHOSPHATE/POT.PHOSPHATE) PO SCH ×2 (15:29→19:57)
[2023-04-12] MEDS: LIDOCAINE 5% (LIDODERM) PATCH TD SCH ×2 (19:58)
[2023-04-12] MEDS: RAMELTEON 8 MG TAB (ROZEREM) PO PRN (20:02)
[2023-04-13] MEDS: traMADol 50 MG TAB PO PRN (00:56)
[2023-04-13 06:00] VITALS: BP 96/49; TEMP 97.3; O2SAT 96
[2023-04-13] MEDS: MIDODRINE 5 MG TAB PO SCH ×3 (06:02→17:51)
[2023-04-13] MEDS: HEPARIN SOD (PORCINE) 5000UNITS/ML 1ML VIAL/SYRINGE SC SCH ×3 (06:02→20:41)
[2023-04-13 06:38] LABS: ALBUMIN 3.4 G/DL (3.2-5.2); CALCIUM LEVEL 8.3 MG/DL (8.3-10.6); CREATININE FOR GFR 4.25 MG/DL (0.70-1.30); GLOMERULAR FILTRATION RATE 14.3 (>35); PHOSPHORUS LEVEL 1.8 MG/DL (2.4-5.1); POTASSIUM SERUM 3.7 MMOL/L (3.5-5.1)
[2023-04-13] MEDS: SENOKOT S TAB PO SCH ×2 (07:49→20:32)
[2023-04-13] MEDS: ASPIRIN 81MG CHEW TABLET PO SCH (08:00)
[2023-04-13] MEDS: PANTOPRAZOLE 40MG TAB (PROTONIX) PO SCH (08:00)
[2023-04-13] MEDS: MULTIVITAMINS/MINERALS THERAP 1 TAB PO SCH (08:01)
[2023-04-13] MEDS: FEBUXOSTAT 40 MG TABLET (ULORIC) PO SCH (08:01)
[2023-04-13] MEDS: MAGNESIUM OXIDE 400MG TAB (MAG-OX) PO SCH ×2 (08:01→20:33)
[2023-04-13] MEDS: K-PHOS NEUTRAL 250MG TABLET (SOD.PHOSPHATE/POT.PHOSPHATE) PO SCH ×3 (08:01→20:33)
[2023-04-13] MEDS: VITAMIN D 1,000 INTERNATIONAL UNITS TABLET PO SCH (08:01)
[2023-04-13] MEDS: DICLOFENAC EPOLAMINE 1.3% PATCH TOP SCH ×2 (08:01→20:26)
[2023-04-13] MEDS: CYANOCOBALAMIN 500 MCG TAB PO SCH (08:01)
[2023-04-13] MEDS: ATORVASTATIN 20 MG TAB PO SCH (08:01)
[2023-04-13] MEDS: DIMETHICONE 2% OINTMENT(VANICREAM) 70GM TUBE TOP SCH ×2 (08:02→20:34)
[2023-04-13] MEDS: ANALGESIC BALM CRM 3OZ TOP SCH ×3 (08:02→20:34)
[2023-04-13] MEDS: ACETAMINOPHEN TAB 650MG DOSE (2X325MG) PO PRN ×2 (08:07→15:43)
[2023-04-13] MEDS: LIDOCAINE 5% (LIDODERM) PATCH TD SCH ×2 (20:27)
[2023-04-13] MEDS: RAMELTEON 8 MG TAB (ROZEREM) PO PRN (20:33)
[2023-04-14] MEDS: traMADol 50 MG TAB PO PRN ×2 (01:45→10:39)
[2023-04-14 06:38] VITALS: BP 96/56; TEMP 97.5; O2SAT 96
[2023-04-14] MEDS: HEPARIN SOD (PORCINE) 5000UNITS/ML 1ML VIAL/SYRINGE SC SCH ×3 (06:42→21:07)
[2023-04-14] MEDS: MIDODRINE 5 MG TAB PO SCH ×3 (06:42→18:24)
[2023-04-14] MEDS: DICLOFENAC EPOLAMINE 1.3% PATCH TOP SCH ×2 (09:04→20:52)
[2023-04-14] MEDS: MULTIVITAMINS/MINERALS THERAP 1 TAB PO SCH (09:14)
[2023-04-14] MEDS: ASPIRIN 81MG CHEW TABLET PO SCH (09:14)
[2023-04-14] MEDS: ATORVASTATIN 20 MG TAB PO SCH (09:14)
[2023-04-14] MEDS: FEBUXOSTAT 40 MG TABLET (ULORIC) PO SCH (09:14)
[2023-04-14] MEDS: SENOKOT S TAB PO SCH ×2 (09:14→20:53)
[2023-04-14] MEDS: K-PHOS NEUTRAL 250MG TABLET (SOD.PHOSPHATE/POT.PHOSPHATE) PO SCH ×3 (09:14→20:53)
[2023-04-14] MEDS: VITAMIN D 1,000 INTERNATIONAL UNITS TABLET PO SCH (09:14)
[2023-04-14] MEDS: MAGNESIUM OXIDE 400MG TAB (MAG-OX) PO SCH ×2 (09:15→20:53)
[2023-04-14] MEDS: CYANOCOBALAMIN 500 MCG TAB PO SCH (09:15)
[2023-04-14] MEDS: PANTOPRAZOLE 40MG TAB (PROTONIX) PO SCH (09:15)
[2023-04-14] MEDS: ANALGESIC BALM CRM 3OZ TOP SCH ×3 (09:15→20:54)
[2023-04-14] MEDS: DIMETHICONE 2% OINTMENT(VANICREAM) 70GM TUBE TOP SCH ×2 (09:15→20:54)
[2023-04-14] MEDS: ACETAMINOPHEN TAB 650MG DOSE (2X325MG) PO PRN (09:20)
[2023-04-14 13:34] VITALS: BP 97/55
[2023-04-14] MEDS: LIDOCAINE 5% (LIDODERM) PATCH TD SCH ×2 (20:52)
[2023-04-14] MEDS: RAMELTEON 8 MG TAB (ROZEREM) PO PRN (20:53)
[2023-04-15] MEDS: ACETAMINOPHEN TAB 650MG DOSE (2X325MG) PO PRN ×2 (02:36→23:56)
[2023-04-15 05:45] VITALS: BP 124/76; TEMP 97.5; O2SAT 95
[2023-04-15] MEDS: HEPARIN SOD (PORCINE) 5000UNITS/ML 1ML VIAL/SYRINGE SC SCH ×3 (06:43→23:20)
[2023-04-15] MEDS: CYANOCOBALAMIN 500 MCG TAB PO SCH (06:44)
[2023-04-15] MEDS: ASPIRIN 81MG CHEW TABLET PO SCH (06:44)
[2023-04-15] MEDS: MIDODRINE 5 MG TAB PO SCH ×3 (06:44→17:13)
[2023-04-15] MEDS: SENOKOT S TAB PO SCH ×2 (06:45→20:34)
[2023-04-15] MEDS: MAGNESIUM OXIDE 400MG TAB (MAG-OX) PO SCH ×2 (06:45→20:35)
[2023-04-15] MEDS: MULTIVITAMINS/MINERALS THERAP 1 TAB PO SCH (06:45)
[2023-04-15] MEDS: ATORVASTATIN 20 MG TAB PO SCH (06:45)
[2023-04-15] MEDS: VITAMIN D 1,000 INTERNATIONAL UNITS TABLET PO SCH (06:46)
[2023-04-15] MEDS: PANTOPRAZOLE 40MG TAB (PROTONIX) PO SCH (06:46)
[2023-04-15] MEDS: K-PHOS NEUTRAL 250MG TABLET (SOD.PHOSPHATE/POT.PHOSPHATE) PO SCH ×3 (06:46→20:34)
[2023-04-15] MEDS: DICLOFENAC EPOLAMINE 1.3% PATCH TOP SCH ×2 (06:47→20:36)
[2023-04-15] MEDS: DIMETHICONE 2% OINTMENT(VANICREAM) 70GM TUBE TOP SCH ×2 (06:47→20:36)
[2023-04-15] MEDS: ANALGESIC BALM CRM 3OZ TOP SCH ×3 (06:48→20:37)
[2023-04-15] MEDS: FEBUXOSTAT 40 MG TABLET (ULORIC) PO SCH (06:57)
[2023-04-15] MEDS ORDERED: HEPARIN 1,000UNITS/ML 10ML VIAL (FOR RADIOLOGY & DIALYSIS ONLY) IV PRN (07:10)
[2023-04-15] MEDS ORDERED: HEPARIN 1,000UNITS/ML 10ML VIAL (FOR RADIOLOGY & DIALYSIS ONLY) XX SCH (07:10)
[2023-04-15] MEDS ORDERED: LIDOCAINE 1% SDV 5ML VIAL SC PRN (07:10)
[2023-04-15] MEDS ORDERED: SODIUM CHLORIDE 0.9% 1000ML IV PRN (07:10)
[2023-04-15 09:11] LABS: ALBUMIN 3.3 G/DL (3.2-5.2); CALCIUM LEVEL 8.4 MG/DL (8.3-10.6); CREATININE FOR GFR 7.19 MG/DL (0.70-1.30); GLOMERULAR FILTRATION RATE 7.8 (>35); PHOSPHORUS LEVEL 3.1 MG/DL (2.4-5.1); POTASSIUM SERUM 4.3 MMOL/L (3.5-5.1)
[2023-04-15] MEDS ORDERED: LIDOCAINE 5% OINT 30GM TUBE TOP PRN (09:50)
[2023-04-15 11:40] VITALS: BP 128/96
[2023-04-15] MEDS: RAMELTEON 8 MG TAB (ROZEREM) PO PRN (20:34)
[2023-04-15] MEDS: LIDOCAINE 5% (LIDODERM) PATCH TD SCH ×2 (20:35→20:36)
[2023-04-16 06:27] VITALS: BP 100/56; TEMP 97.7; O2SAT 98
[2023-04-16] MEDS: HEPARIN SOD (PORCINE) 5000UNITS/ML 1ML VIAL/SYRINGE SC SCH ×3 (06:53→21:25)
[2023-04-16] MEDS: MIDODRINE 5 MG TAB PO SCH ×3 (06:53→17:12)
[2023-04-16] MEDS: ASPIRIN 81MG CHEW TABLET PO SCH (08:23)
[2023-04-16] MEDS: PANTOPRAZOLE 40MG TAB (PROTONIX) PO SCH (08:23)
[2023-04-16] MEDS: FEBUXOSTAT 40 MG TABLET (ULORIC) PO SCH (08:23)
[2023-04-16] MEDS: VITAMIN D 1,000 INTERNATIONAL UNITS TABLET PO SCH (08:24)
[2023-04-16] MEDS: MAGNESIUM OXIDE 400MG TAB (MAG-OX) PO SCH ×2 (08:24→21:25)
[2023-04-16] MEDS: MULTIVITAMINS/MINERALS THERAP 1 TAB PO SCH (08:24)
[2023-04-16] MEDS: CYANOCOBALAMIN 500 MCG TAB PO SCH (08:24)
[2023-04-16] MEDS: ATORVASTATIN 20 MG TAB PO SCH (08:24)
[2023-04-16] MEDS: K-PHOS NEUTRAL 250MG TABLET (SOD.PHOSPHATE/POT.PHOSPHATE) PO SCH ×3 (08:24→21:25)
[2023-04-16] MEDS: SENOKOT S TAB PO SCH ×2 (08:25→21:25)
[2023-04-16] MEDS: ANALGESIC BALM CRM 3OZ TOP SCH ×4 (08:27→21:24)
[2023-04-16] MEDS: DIMETHICONE 2% OINTMENT(VANICREAM) 70GM TUBE TOP SCH ×2 (08:31→21:00)
[2023-04-16] MEDS: DICLOFENAC EPOLAMINE 1.3% PATCH TOP SCH ×2 (09:35→21:24)
[2023-04-16] MEDS: ACETAMINOPHEN TAB 650MG DOSE (2X325MG) PO PRN (12:08)
[2023-04-16] MEDS: LIDOCAINE 5% (LIDODERM) PATCH TD SCH ×4 (21:23→21:37)
[2023-04-17] MEDS ORDERED: MORPHINE 2 MG/ML 1ML VIAL IV PRN (05:10)
[2023-04-17] MEDS: MIDODRINE 5 MG TAB PO SCH ×3 (05:54→16:54)
[2023-04-17] MEDS: PERCOCET 5MG/325MG TAB PO PRN (05:54)
[2023-04-17] MEDS: HEPARIN SOD (PORCINE) 5000UNITS/ML 1ML VIAL/SYRINGE SC SCH ×3 (05:54→20:58)
[2023-04-17 06:00] VITALS: BP 106/61; TEMP 97.7; O2SAT 95
[2023-04-17] MEDS ORDERED: LIDOCAINE 1% SDV 5ML VIAL SC PRN (06:50)
[2023-04-17] MEDS ORDERED: HEPARIN 1,000UNITS/ML 10ML VIAL (FOR RADIOLOGY & DIALYSIS ONLY) XX SCH (06:50)
[2023-04-17] MEDS ORDERED: SODIUM CHLORIDE 0.9% 1000ML IV PRN (06:50)
[2023-04-17] MEDS ORDERED: HEPARIN 1,000UNITS/ML 10ML VIAL (FOR RADIOLOGY & DIALYSIS ONLY) IV PRN (06:50)
[2023-04-17] MEDS: FEBUXOSTAT 40 MG TABLET (ULORIC) PO SCH (07:46)
[2023-04-17] MEDS: ASPIRIN 81MG CHEW TABLET PO SCH (07:46)
[2023-04-17] MEDS: CYANOCOBALAMIN 500 MCG TAB PO SCH (07:47)
[2023-04-17] MEDS: MULTIVITAMINS/MINERALS THERAP 1 TAB PO SCH (07:47)
[2023-04-17] MEDS: MAGNESIUM OXIDE 400MG TAB (MAG-OX) PO SCH ×2 (07:47→20:57)
[2023-04-17] MEDS: PANTOPRAZOLE 40MG TAB (PROTONIX) PO SCH (07:48)
[2023-04-17] MEDS: ATORVASTATIN 20 MG TAB PO SCH (07:48)
[2023-04-17] MEDS: K-PHOS NEUTRAL 250MG TABLET (SOD.PHOSPHATE/POT.PHOSPHATE) PO SCH ×3 (07:48→20:57)
[2023-04-17] MEDS: VITAMIN D 1,000 INTERNATIONAL UNITS TABLET PO SCH (07:48)
[2023-04-17] MEDS: SENOKOT S TAB PO SCH ×2 (07:50→20:57)
[2023-04-17] MEDS: DIMETHICONE 2% OINTMENT(VANICREAM) 70GM TUBE TOP SCH ×2 (07:53→20:58)
[2023-04-17] MEDS: ANALGESIC BALM CRM 3OZ TOP SCH ×4 (07:53→20:56)
[2023-04-17] MEDS: DICLOFENAC EPOLAMINE 1.3% PATCH TOP SCH ×2 (09:00→20:56)
[2023-04-17] MEDS: LIDOCAINE 5% (LIDODERM) PATCH TD SCH ×2 (20:00)
[2023-04-17] MEDS: RAMELTEON 8 MG TAB (ROZEREM) PO PRN (23:45)
[2023-04-18] VITALS (11 sets, daily range): BP systolic 88–112; BP diastolic 41–74; TEMP 97.3; O2SAT 76–98
[2023-04-18] MEDS: MIDODRINE 5 MG TAB PO SCH ×3 (06:10→15:45)
[2023-04-18] MEDS: HEPARIN SOD (PORCINE) 5000UNITS/ML 1ML VIAL/SYRINGE SC SCH ×3 (06:10→22:34)
[2023-04-18] MEDS: ACETAMINOPHEN TAB 650MG DOSE (2X325MG) PO PRN (06:16)
[2023-04-18 06:27] LABS: ALBUMIN 3.3 G/DL (3.2-5.2); CREATININE FOR GFR 4.33 MG/DL (0.70-1.30); PHOSPHORUS LEVEL 2.9 MG/DL (2.4-5.1); POTASSIUM SERUM 4.3 MMOL/L (3.5-5.1)
[2023-04-18] MEDS: ASPIRIN 81MG CHEW TABLET PO SCH (07:50)
[2023-04-18] MEDS: CYANOCOBALAMIN 500 MCG TAB PO SCH (07:50)
[2023-04-18] MEDS: FEBUXOSTAT 40 MG TABLET (ULORIC) PO SCH (07:51)
[2023-04-18] MEDS: ATORVASTATIN 20 MG TAB PO SCH (07:51)
[2023-04-18] MEDS: MAGNESIUM OXIDE 400MG TAB (MAG-OX) PO SCH (07:51)
[2023-04-18] MEDS: VITAMIN D 1,000 INTERNATIONAL UNITS TABLET PO SCH (07:51)
[2023-04-18] MEDS: MULTIVITAMINS/MINERALS THERAP 1 TAB PO SCH (07:51)
[2023-04-18] MEDS: PANTOPRAZOLE 40MG TAB (PROTONIX) PO SCH (07:51)
[2023-04-18] MEDS: SENOKOT S TAB PO SCH ×2 (07:52→22:34)
[2023-04-18] MEDS: K-PHOS NEUTRAL 250MG TABLET (SOD.PHOSPHATE/POT.PHOSPHATE) PO SCH (07:52)
[2023-04-18] MEDS: DICLOFENAC EPOLAMINE 1.3% PATCH TOP SCH ×2 (07:56→22:37)
[2023-04-18] MEDS: ANALGESIC BALM CRM 3OZ TOP SCH ×3 (07:56→22:35)
[2023-04-18] MEDS: DIMETHICONE 2% OINTMENT(VANICREAM) 70GM TUBE TOP SCH ×2 (07:57→22:36)
[2023-04-18] MEDS: traMADol 50 MG TAB PO PRN (08:04)
[2023-04-18] MEDS ORDERED: ARTIFICIAL TEARS DROPS 15ML BTL (VISINE DRY RELIEF) OP PRN (10:45)
[2023-04-18] MEDS ORDERED: ONDANSETRON 4MG TAB PO ONE (12:00)
[2023-04-18] MEDS: PERCOCET 5MG/325MG TAB PO PRN (15:51)
[2023-04-18] MEDS: LIDOCAINE 5% (LIDODERM) PATCH TD SCH ×4 (20:00→22:55)
[2023-04-19 04:06] VITALS: BP 102/61; TEMP 97.7; O2SAT 89
[2023-04-19] MEDS ORDERED: LIDOCAINE 1% SDV 5ML VIAL SC PRN (06:00)
[2023-04-19] MEDS ORDERED: HEPARIN 1,000UNITS/ML 10ML VIAL (FOR RADIOLOGY & DIALYSIS ONLY) XX SCH (06:00)
[2023-04-19] MEDS ORDERED: SODIUM CHLORIDE 0.9% 1000ML IV PRN (06:00)
[2023-04-19] MEDS: HEPARIN SOD (PORCINE) 5000UNITS/ML 1ML VIAL/SYRINGE SC SCH ×3 (06:56→22:59)
[2023-04-19] MEDS: SENOKOT S TAB PO SCH ×2 (06:57→21:00)
[2023-04-19] MEDS: FEBUXOSTAT 40 MG TABLET (ULORIC) PO SCH (06:57)
[2023-04-19] MEDS: CYANOCOBALAMIN 500 MCG TAB PO SCH (06:57)
[2023-04-19] MEDS: ASPIRIN 81MG CHEW TABLET PO SCH (06:58)
[2023-04-19] MEDS: MIDODRINE 5 MG TAB PO SCH ×3 (06:58→17:34)
[2023-04-19] MEDS: PANTOPRAZOLE 40MG TAB (PROTONIX) PO SCH (06:58)
[2023-04-19] MEDS: ATORVASTATIN 20 MG TAB PO SCH (06:59)
[2023-04-19] MEDS: MULTIVITAMINS/MINERALS THERAP 1 TAB PO SCH (06:59)
[2023-04-19] MEDS: VITAMIN D 1,000 INTERNATIONAL UNITS TABLET PO SCH (06:59)
[2023-04-19] MEDS: DICLOFENAC EPOLAMINE 1.3% PATCH TOP SCH ×2 (07:00→21:00)
[2023-04-19] MEDS: DIMETHICONE 2% OINTMENT(VANICREAM) 70GM TUBE TOP SCH ×2 (07:01→21:00)
[2023-04-19] MEDS: ANALGESIC BALM CRM 3OZ TOP SCH ×3 (07:02→21:00)
[2023-04-19] MEDS: DARBEPOETIN 100MCG/0.5ML *DIALYSIS* SYRINGE IV SCH (08:54)
[2023-04-19] MEDS: MAGNESIUM OXIDE 400MG TAB (MAG-OX) PO SCH (13:52)
[2023-04-19 17:35] VITALS: BP 82/38
[2023-04-19 18:17] VITALS: BP 88/40
[2023-04-19 18:47] VITALS: BP 92/44
[2023-04-19] MEDS: LIDOCAINE 5% (LIDODERM) PATCH TD SCH ×2 (20:00)
[2023-04-20 05:57] VITALS: BP 104/50; TEMP 97.9; O2SAT 95
[2023-04-20] MEDS: HEPARIN SOD (PORCINE) 5000UNITS/ML 1ML VIAL/SYRINGE SC SCH ×3 (06:30→20:05)
[2023-04-20] MEDS: MIDODRINE 5 MG TAB PO SCH ×3 (06:31→17:41)
[2023-04-20] MEDS: ANALGESIC BALM CRM 3OZ TOP SCH ×3 (09:00→19:58)
[2023-04-20] MEDS: DICLOFENAC EPOLAMINE 1.3% PATCH TOP SCH ×2 (09:00→19:59)
[2023-04-20] MEDS: DIMETHICONE 2% OINTMENT(VANICREAM) 70GM TUBE TOP SCH ×2 (09:00→19:59)
[2023-04-20] MEDS: CYANOCOBALAMIN 500 MCG TAB PO SCH (09:57)
[2023-04-20] MEDS: SENOKOT S TAB PO SCH ×2 (09:57→20:05)
[2023-04-20] MEDS: ASPIRIN 81MG CHEW TABLET PO SCH (09:57)
[2023-04-20] MEDS: VITAMIN D 1,000 INTERNATIONAL UNITS TABLET PO SCH (09:58)
[2023-04-20] MEDS: PANTOPRAZOLE 40MG TAB (PROTONIX) PO SCH (09:58)
[2023-04-20] MEDS: MULTIVITAMINS/MINERALS THERAP 1 TAB PO SCH (09:58)
[2023-04-20] MEDS: MAGNESIUM OXIDE 400MG TAB (MAG-OX) PO SCH (09:58)
[2023-04-20] MEDS: ATORVASTATIN 20 MG TAB PO SCH (09:58)
[2023-04-20] MEDS: FEBUXOSTAT 40 MG TABLET (ULORIC) PO SCH (10:00)
[2023-04-20 13:03] VITALS: BP 102/49; TEMP 97.7; O2SAT 97
[2023-04-20 17:41] VITALS: BP 101/47
[2023-04-20] MEDS: LIDOCAINE 5% (LIDODERM) PATCH TD SCH ×2 (19:58)
[2023-04-20] MEDS: ACETAMINOPHEN TAB 650MG DOSE (2X325MG) PO PRN (20:06)
[2023-04-21] MEDS: ACETAMINOPHEN TAB 650MG DOSE (2X325MG) PO PRN (02:06)
[2023-04-21 04:44] VITALS: BP 99/47; TEMP 97.7; O2SAT 91
[2023-04-21] MEDS: MIDODRINE 5 MG TAB PO SCH ×3 (06:36→17:00)
[2023-04-21] MEDS: HEPARIN SOD (PORCINE) 5000UNITS/ML 1ML VIAL/SYRINGE SC SCH ×3 (06:36→20:31)
[2023-04-21] MEDS: ATORVASTATIN 20 MG TAB PO SCH (08:16)
[2023-04-21] MEDS: FEBUXOSTAT 40 MG TABLET (ULORIC) PO SCH (08:16)
[2023-04-21] MEDS: VITAMIN D 1,000 INTERNATIONAL UNITS TABLET PO SCH (08:16)
[2023-04-21] MEDS: SENOKOT S TAB PO SCH ×2 (08:16→20:31)
[2023-04-21] MEDS: MAGNESIUM OXIDE 400MG TAB (MAG-OX) PO SCH (08:16)
[2023-04-21] MEDS: MULTIVITAMINS/MINERALS THERAP 1 TAB PO SCH (08:16)
[2023-04-21] MEDS: CYANOCOBALAMIN 500 MCG TAB PO SCH (08:16)
[2023-04-21] MEDS: PANTOPRAZOLE 40MG TAB (PROTONIX) PO SCH (08:16)
[2023-04-21] MEDS: ASPIRIN 81MG CHEW TABLET PO SCH (08:16)
[2023-04-21] MEDS: DICLOFENAC EPOLAMINE 1.3% PATCH TOP SCH ×2 (08:17→19:18)
[2023-04-21] MEDS: DIMETHICONE 2% OINTMENT(VANICREAM) 70GM TUBE TOP SCH ×2 (08:17→20:30)
[2023-04-21] MEDS: ANALGESIC BALM CRM 3OZ TOP SCH ×3 (08:17→20:30)
[2023-04-21] MEDS: LIDOCAINE 5% (LIDODERM) PATCH TD SCH ×2 (19:18)
[2023-04-21] MEDS: RAMELTEON 8 MG TAB (ROZEREM) PO PRN (20:31)
[2023-04-22] MEDS: ANALGESIC BALM CRM 3OZ TOP SCH (03:38)
[2023-04-22] MEDS: DICLOFENAC EPOLAMINE 1.3% PATCH TOP SCH (03:38)
[2023-04-22] MEDS: DIMETHICONE 2% OINTMENT(VANICREAM) 70GM TUBE TOP SCH (03:39)
[2023-04-22] MEDS: traMADol 50 MG TAB PO PRN (04:51)
[2023-04-22 05:15] VITALS: BP 101/57; TEMP 97.1; O2SAT 89
[2023-04-22] MEDS ORDERED: HEPARIN 1,000UNITS/ML 10ML VIAL (FOR RADIOLOGY & DIALYSIS ONLY) XX SCH (06:00)
[2023-04-22] MEDS ORDERED: LIDOCAINE 1% SDV 5ML VIAL SC PRN (06:00)
[2023-04-22] MEDS ORDERED: SODIUM CHLORIDE 0.9% 1000ML IV PRN (06:00)
[2023-04-22] MEDS: ASPIRIN 81MG CHEW TABLET PO SCH (06:04)
[2023-04-22] MEDS: HEPARIN SOD (PORCINE) 5000UNITS/ML 1ML VIAL/SYRINGE SC SCH ×2 (06:04→14:00)
[2023-04-22] MEDS: PANTOPRAZOLE 40MG TAB (PROTONIX) PO SCH (06:05)
[2023-04-22] MEDS: MULTIVITAMINS/MINERALS THERAP 1 TAB PO SCH (06:05)
[2023-04-22] MEDS: MAGNESIUM OXIDE 400MG TAB (MAG-OX) PO SCH (06:05)
[2023-04-22] MEDS: CYANOCOBALAMIN 500 MCG TAB PO SCH (06:05)
[2023-04-22] MEDS: MIDODRINE 5 MG TAB PO SCH ×2 (06:05→13:16)
[2023-04-22] MEDS: ATORVASTATIN 20 MG TAB PO SCH (06:05)
[2023-04-22] MEDS: VITAMIN D 1,000 INTERNATIONAL UNITS TABLET PO SCH (06:05)
[2023-04-22] MEDS: SENOKOT S TAB PO SCH (06:09)
[2023-04-22] MEDS: FEBUXOSTAT 40 MG TABLET (ULORIC) PO SCH (06:17)
[2023-04-22] MEDS ORDERED: LIDO5TD TD (09:32)
[2023-04-22] MEDS ORDERED: MAGN400T2 PO (09:32)
[2023-04-22] MEDS ORDERED: TRAM50TA2 PO (09:32)
[2023-04-22] MEDS ORDERED: SENN-52 PO (09:32)
== END 2023-04-22 16:49 | disposition home health service (06) | DRG 640 ==
LOC: M ED 05:58 → M ED INP 10:32 → M ICU 11:25 → M MSPAV 03-27 21:07 → M ICU 04-06 12:56 → M PCU 04-08 15:17 → M MSPAV 04-09 15:51
PROVIDERS: ADMIT Internal Medicine Pulmonary Disease; ATTEND Internal Medicine
PROC: 5A1D70Z Performance of Urinary Filtration, Intermittent, Less than 6 Hours Per Day (ICD-10-PCS; principal; 2023-03-25)
DX: E87.5 Hyperkalemia (principal); N18.6 End stage renal disease; J96.02 Acute respiratory failure with hypercapnia; G93.41 Metabolic encephalopathy; I50.23 Acute on chronic systolic (congestive) heart failure; J96.21 Acute and chronic respiratory failure with hypoxia; I13.2 Hypertensive heart and chronic kidney disease with heart failure and with stage 5 chronic kidney disease, or end stage renal disease; J81.1 Chronic pulmonary edema; E87.4 Mixed disorder of acid-base balance; J44.9 Chronic obstructive pulmonary disease, unspecified; F39 Unspecified mood [affective] disorder; G47.33 Obstructive sleep apnea (adult) (pediatric); E66.9 Obesity, unspecified; K74.60 Unspecified cirrhosis of liver; I27.20 Pulmonary hypertension, unspecified; M47.896 Other spondylosis, lumbar region; M48.061 Spinal stenosis, lumbar region without neurogenic claudication; G89.4 Chronic pain syndrome; I25.10 Atherosclerotic heart disease of native coronary artery without angina pectoris; M10.9 Gout, unspecified; I95.89 Other hypotension; R29.6 Repeated falls; D53.9 Nutritional anemia, unspecified; E11.22 Type 2 diabetes mellitus with diabetic chronic kidney disease; K21.9 Gastro-esophageal reflux disease without esophagitis; I25.5 Ischemic cardiomyopathy; E78.5 Hyperlipidemia, unspecified; Z95.5 Presence of coronary angioplasty implant and graft; Z95.810 Presence of automatic (implantable) cardiac defibrillator; Z87.891 Personal history of nicotine dependence; Z99.2 Dependence on renal dialysis; Z99.81 Dependence on supplemental oxygen; Z79.82 Long term (current) use of aspirin; Z79.4 Long term (current) use of insulin; Z79.899 Other long term (current) drug therapy; Z20.822 Contact with and (suspected) exposure to COVID-19; Z68.31 Body mass index [BMI] 31.0-31.9, adult